=== PATIENT | male | born 1955 | race Caucasian/White ===

== ENCOUNTER 2024-09-10 20:24 | Emergency (ER) | payer OTHER, MEDICAID, SELFPAY ==
--- NOTE | 2024-09-10 21:22 | PC.NURSE ---
NO ANSWER AT ER LOBBY OR OUTSIDE ER TO BE SEEN BY PROVIDER.
--- NOTE | 2024-09-10 21:34 | PC.NURSE ---
NO ANSWER AT ER LOBBY OR OUTSIDE ER TO BE SEEN BY PROVIDER.
[2024-09-10 21:55] VITALS: BP 134/72; PULSE 61; RESP 20; TEMP 36.8; O2SAT 95; BMI 23.7
--- NOTE | 2024-09-10 22:01 | XR_ITS ---
Examination: Duplex scan of the lower extremity, unilateral left Date and time of exam: September 10, 2024 1009 hours INDICATIONS: Left leg redness swelling and pain beginning one week ago Technique: Duplex scan of the extremity veins using B-mode/grayscale imaging and Doppler spectral analysis and color flow Attention is directed to internal echogenicity, compression and augmentation involving these veins, color flow assessment, spectral analysis Findings: Major deep venous structures in the extremity demonstrate normal course and caliber. There is no evidence of deep vein thrombosis. Normal color flow and spectral analysis Impression: Negative for DVT..
--- NOTE | 2024-09-10 22:02 | PD.EDRME ---
Rapid Medical Screening Exam RME Arrival date/time: 09/10/24 20:24 69-year-old male past medical history of CHF presents emergency department complaining of left lower extremity pain and swelling with draining wound has been ongoing for 1 week. Chief Complaint: Skin/Abscess/Foreign Body Time Seen by Provider: 09/10/24 20:46 Vital signs: Vital Signs Temperature 98.2 F 09/10/24 21:55 Pulse Rate 61 09/10/24 21:55 Respiratory Rate 20 09/10/24 21:55 Blood Pressure 134/72 H 09/10/24 21:55 Pulse Oximetry (%) 95 09/10/24 21:55 Oxygen Delivery Method Room Air 09/10/24 21:55 Vital signs reviewed by provider: Yes
[2024-09-10 23:25] LABS: B-Type Natriuretic Peptide 34 pg/mL (0-100)
[2024-09-10 23:27] LABS: Basophils # (Auto) 0.1 Thou/mm3 (0.0-0.2); Basophils % (Auto) 1 % (0-2.5); Eosinophils # (Auto) 0.1 Thou/mm3 (0.0-0.5); Eosinophils % (Auto) 1 % (0-10); Hematocrit 49.7 % (41.0-53.0); Hemoglobin 16.2 g/dL (13.5-16.0); Immature Granulocytes % (Auto) 1 % (0-0); Immature Granulocytes Auto 0.09 Thou/mm3 (0.00-0.00); Lymphocytes # (Auto) 1.4 Thou/mm3 (1.0-4.8); Lymphocytes % (Auto) 13 % (10-50); Mean Corpuscular HGB Conc 32.6 g/dl (31.0-37.0); Mean Corpuscular Hemoglobin 29.2 pg (25.0-35.0); Mean Corpuscular Volume 90 fL (80-100); Monocytes # (Auto) 0.9 Thou/mm3 (0.0-0.8); Monocytes % (Auto) 8 % (0-12); Neutrophils # (Auto) 8.4 Thou/mm3 (1.8-7.7); Neutrophils % (Auto) 77 % (37-80); Nucleated Red Blood Cell % 0 /100 WBC (0); Platelet Count 233 Thou/mm3 (140-440); Red Blood Count 5.54 Miln/mm3 (4.50-5.90); White Blood Count 10.9 Thou/mm3 (3.8-10.6)
[2024-09-10 23:33] LABS: Partial Thromboplastin Time 24.8 Seconds (22.0-36.0); Prothrombin Time 10.6 Seconds (9.0-12.2)
[2024-09-10 23:35] LABS: Alanine Aminotransferase 19 U/L (10-49); Albumin, Serum 4.6 gm/dL (3.4-4.8); Albumin/Globulin Ratio 1.5 (1.2-2.2); Alkaline Phosphatase 127 U/L (46-116); Anion Gap 9 (7-16); Aspartate Amino Transferase 20 U/L (0-34); BUN/Creatinine Ratio 15 Ratio (12-20); Bilirubin,Total 0.4 mg/dL (0.3-1.2); Blood Urea Nitrogen 21 mg/dL (9-23); Calcium 10.3 mg/dL (8.3-10.6); Calcium (Corrected) 10.3 mg/dL (8.5-10.1); Carbon Dioxide 28.9 mMol/L (20.0-31.0); Chloride 101 mMol/L (98-107); Creatinine (Component) 1.4 mg/dL (0.6-1.3); Estimated Creatinine Clearance 55.4 mL/min (>60); Globulin 3.1 gm/dL (2.3-3.5); Glucose 115 mg/dL (74-106); Osmolality,Calculated 281 (275-295); Potassium 3.7 mMol/L (3.4-5.1); Procalcitonin 0.13 ng/ml (0.0-0.49); Sodium 139 mMol/L (136-145); Total Protein 7.7 gm/dL (5.7-8.2); Troponin I < 0.020 ng/mL (0.0-0.045); eGFR 55 See Note
--- NOTE | 2024-09-10 23:50 | PD.EDSKIN ---
ED Skin Abcess FB-RME/HPI General Chief complaint: Skin/Abscess/Foreign Body Stated complaint: LEFT LOWER LEG POSSIBLE INFECTION Time Seen by Provider: 09/10/24 20:46 Source: patient Arrival date/time: 09/10/24 20:24 69-year-old male past medical history of CHF presents emergency department complaining of left lower extremity pain and swelling with draining wound has been ongoing for 1 week. Patient denies any fever, chills, cough, vomiting, diarrhea, chest pain, or any other associated symptom. Mode of arrival: ambulatory Limitations: no limitations RME / HPI RME / HPI narrative: 09/10/24 20:24 69-year-old male past medical history of CHF presents emergency department complaining of left lower extremity pain and swelling with draining wound has been ongoing for 1 week. Related Data Previous Rx's ?Medication ?Instructions ?Recorded acetaminophen 325 mg tablet (Pain 325 mg PO QID PRN pain #14 tabs 01/04/24 Relief (acetaminophen)) furosemide 20 mg tablet 20 mg PO QDAY PRN edema #14 tabs 01/04/24 guaifenesin 200 mg/5 mL oral liquid 200 mg (5 mL) PO Q6H PRN cough 01/04/24 #118 mL doxycycline hyclate 100 mg capsule 100 mg PO BID 7 days #14 caps 09/10/24 Allergies Allergy/AdvReac Type Severity Reaction Status Date / Time No Known Allergies Allergy Verified 01/03/24 02:04 Review of Systems Review of Systems Systems Reviewed: All systems reviewed, normal except as documented Constitutional Constitutional: Reports system reviewed and no additional complaints, except as documented, Denies body ache(s), Denies chills and Denies fever(s) Eyes Eyes: Reports system reviewed and no additional complaints, except as documented and Denies change in vision ENT Ears, Nose, Mouth, and Throat: Reports system reviewed and no additional complaints, except as documented, Denies disequilibrium, Denies dizziness, Denies sore throat and Denies vertigo Cardiovascular Cardiovascular: Reports system reviewed and no additional complaints, except as documented, Denies chest pain and Denies dyspnea Respiratory Respiratory: Reports system reviewed and no additional complaints, except as documented, Denies chest congestion, Denies cough and Denies dyspnea Gastrointestinal Gastrointestinal: Reports system reviewed and no additional complaints, except as documented, Denies abdominal pain, Denies nausea and Denies vomiting Musculoskeletal Musculoskeletal: Reports system reviewed and no additional complaints, except as documented, Denies abnormal gait, Denies arthralgias and Reports other (Left leg pain and swelling) Integumentary/Breasts Skin/Breast: Reports system reviewed and no additional complaints, except as documented, Denies erythema, Denies rash, Reports skin swelling and Reports wounds Neurologic Neurologic: Reports system reviewed and no additional complaints, except as documented, Denies abnormal gait, Denies disequilibrium, Denies dizziness and Denies vertigo Past Medical History Past Medical History NEUROLOGIC: Positive Neurological Disorders and Peripheral Neuropathy CARDIAC: Positive Cardiac Disorders and Edema; Negative Congestive Heart Failure RESPIRATORY: Negative Chronic Obstructive Pulmonary Disease (COPD) GASTROINTESTINAL: Negative Gastrointestinal Disorders GENITOURINARY: Negative Renal Disease MUSCULOSKELETAL: Positive Musculoskeletal Disorders and Arthritis ENDOCRINE: Negative Endocrine Disorders, Diabetes Mellitus Type 1 or Diabetes Mellitus Type 2 OTHER HISTORY: Negative Hospitalization, Shingles, Falls, Blood Transfusions, Anesthesia Reactions, MRSA or Cancer Social History SMOKING STATUS: Current every day smoker SECOND HAND EXPOSURE: No ED Exam General Limitations: Present no limitations General appearance: Present alert and in no apparent distress Head Head exam: Present atraumatic Eye Eye exam: Present normal appearance, PERRL and EOMI ENT ENT exam: Present normal exam, normal oropharynx and mucous membranes moist Neck Neck exam: Present normal inspection, full ROM and trachea midline Chest Chest inspection: Present normal inspection and symmetric chest wall rise Respiratory Respiratory exam: Present normal lung sounds bilaterally Cardiovascular Cardiovascular exam: Present regular rate, normal rhythm and normal heart sounds Abdominal Exam Abdominal exam: Present soft and normal bowel sounds Extremities Exam Extremities exam: Present normal inspection and full ROM Expanded Lower Extremity Exam Leg image: 1. +1 edema with erythema warm to touch and indurated area. 2. Small draining lesion blisterlike appearance. Back Exam Back exam: Present normal inspection and full ROM Neurological Exam Neurological exam: Present alert, oriented X3 and CN II-XII intact Psychiatric Psychiatric exam: Present normal affect and normal mood Skin Skin exam: Present warm, dry, intact and normal color Course Quality Measures none Orders Category Date Time Status US venous doppler LE LT Stat Exams 09/10/24 22:01 Completed BNP [B-Type Natriuretic Peptide] Stat Lab 09/10/24 22:38 Completed CBC Stat Lab 09/10/24 22:38 Completed CMP [Comprehensive Metabolic Panel] Stat Lab 09/10/24 22:38 Completed PT [Prothrombin Time with INR] Stat Lab 09/10/24 22:38 Completed PTT [Partial Thromboplastin Time] Stat Lab 09/10/24 22:38 Completed Procalcitonin Stat Lab 09/10/24 22:38 Completed Troponin I Stat Lab 09/10/24 22:38 Completed 1,000 mg IM w/Lido* 1% Med 09/10/24 23:50 Ordered cefTRIAXone [Rocephin] 1,000 mg Lidocaine 1% 20 ml [Xylocaine 1% 20 ML] 2.1 ml IM X1 Vital Signs Vital signs: Vital Signs Temperature 98.2 F 09/10/24 21:55 Pulse Rate 61 09/10/24 21:55 Respiratory Rate 20 09/10/24 21:55 Blood Pressure 134/72 H 09/10/24 21:55 Pulse Oximetry (%) 95 09/10/24 21:55 Oxygen Delivery Method Room Air 09/10/24 21:55 95% room air with normal limits Skin / Abscess / Foreign Body MDM Narrative MDM Narrative:: 69-year-old male past medical history of CHF presents emergency department complaining of left lower extremity pain and swelling with draining wound has been ongoing for 1 week. Patient denies any fever, chills, cough, vomiting, diarrhea, chest pain, or any other associated symptom. CBC was unremarkable for any leukocytosis. CMP was also unremarkable for any elevated LFTs or gross electro abnormalities with normal troponin. BNP was also within normal limits. Ultrasound Doppler left lower extremity unremarkable for any DVT. Patient will be given IM Rocephin and discharged on antibiotic doxycycline for purulent cellulitis. Patient does not have any fevers or tachycardia or meet SIRS criteria Patient stable for outpatient treatment. Instructed to return immediately to emergency department for any worsening signs of infection or as needed. Patient data External records reviewed:: [facility] previous records Clinical information provided by:: patient Social determinants that could affect healthcare access:: none Patient has the following chronic illnesses:: See chart How is presenting disease/condition affected by chronic disease/condition?: uneffected by Evaluation data The following diagnostics were reviewed and interpreted by me:: lab results and radiology exam(s) Lab and/or radiology exams considered but not ordered:: Ordered Interpretation Summary: Interpreted by me Medications / Prescriptions Medications or Prescriptions considered but not ordered:: Ordered Medication administrations:: Given Consultations Consultation(s) initiated? (list below): No Diagnosis Skin/Abscess Differential Diagnosis: abscess of skin or subcutaneous tissue, urticaria, allergic reaction to drug, cellulitis, eczema, insect bites and contact dermatitis Most likely diagnosis given after review of the tests above:: Cellulitis Admission Indicated Admission indicated?: not indicated Admission Request Was there a request for admission?: No Disposition Plan Disposition Plan: Discharge Discharge Attestation Discharge Attestation: The patient and all family members were given an opportunity to ask questions and understood the discharge instructions. Discharge instructions specifically effects, indications for sooner follow up or return to the emergency department, and the expected course of current diagnosis. Patient condition: Stable Discharge Plan Plan Patient Disposition: HOME (Self Care) Disposition Comment: Stable Prescriptions/Referrals Prescriptions/Med Rec: New doxycycline hyclate 100 mg capsule 100 mg PO BID 7 Days Qty: 14 0RF No Action guaifenesin 200 mg/5 mL liquid 200 mg PO Q6H PRN (Reason: cough) Qty: 118 0RF acetaminophen [Pain Relief (acetaminophen)] 325 mg tablet 325 mg PO QID PRN (Reason: pain) Qty: 14 0RF furosemide 20 mg tablet 20 mg PO QDAY PRN (Reason: edema) Qty: 14 0RF Problem List Clinical Impression: Cellulitis Patient/Caregiver Discharge Instructions Discharge Activity: activity as tolerated Education Materials: Discharge Instructions for Cellulitis, ED Cellulitis Additional Instructions: Take antibiotics as prescribed. Monitor for worsening signs of infection. Follow-up with primary care provider in 2 to 3 days for reevaluation of left leg. Return immediately to emergency department for any worsening signs of infection or as needed. Print Language: German Stand Alone Forms: Ruth Ann Award Info., Patient Portal Info Letter PA/ACCOUNTS PAYABLE SUPERVISOR Supervising Physician PA/ACCOUNTS PAYABLE SUPERVISOR Supervising Physician: Dr. Pereira
[2024-09-11] MEDS: cefTRIAXone 1,000 MG, LIDOCAINE 1% 20 ML 2.1 ML IM
== END 2024-09-11 00:07 | disposition home or self-care (01) ==
PROVIDERS: Emergency Provider Emergency Medicine; PCP Internal Medicine
DX: L03.116 Cellulitis of left lower limb (principal)
CPT/HCPCS: 36415; 80053; 83880; 84145; 84484; 85025; 85610; 85730; 93971; 96372; 99284; J0696; J3490

== ENCOUNTER 2024-11-09 05:49 | Emergency (ER) | payer OTHER, MEDICAID, SELFPAY ==
[2024-11-09 05:51] VITALS: BMI 24.4
--- NOTE | 2024-11-09 05:53 | EKG_ITS ---
[facility] Test Date: 2024-11-09 Pat Name: JONAS SEWELL Department: Room: - Gender: Male [employer]: : 1955 Requested By: Magdiel Muniz Order Number: [id number] Reading MD: Magdiel Muniz Measurements Intervals [place] Rate: 100 P: 78 MI: 130 QRS: 111 QRSD: 81 T: 0 QT: 318 QTc: 411 Interpretive Statements SINUS TACHYCARDIA Compared to ECG 01/02/2024 09:51:46 Sinus rhythm no longer present Sinus arrhythmia no longer present T-wave abnormality no longer present /store/S0/[id number]/[id number].pdf
[2024-11-09 06:02] VITALS: BP 149/91; PULSE 99; RESP 20; TEMP 36.8; O2SAT 98
--- NOTE | 2024-11-09 06:33 | PD.EDRME ---
Rapid Medical Screening Exam RME Arrival date/time: 11/09/24 05:49 This is a 69-year-old male presented to the emergency department with complaints of shortness of breath. Upon rapid medical screening patient reports he is feeling much better he would like to sign out AMA and see his doctor in the morning. Chief Complaint: Shortness of Breath/Dyspnea Time Seen by Provider: 11/09/24 06:18 Vital signs: Vital Signs Temperature 98.3 F 11/09/24 06:02 Pulse Rate 99 11/09/24 06:02 Respiratory Rate 20 11/09/24 06:02 Blood Pressure 149/91 H 11/09/24 06:02 Pulse Oximetry (%) 98 11/09/24 06:02 Oxygen Delivery Method Room Air 11/09/24 06:02
--- NOTE | 2024-11-09 06:52 | PC.NURSE ---
WHEN PT WAS LEAVING, PT WAS STOPPED AND ASKED IF HE WAS LEAVING AGAINST MEDICAL ADVICE. PT RESPONDED NOBODY TOLD ME I WAS LEAVING AGAINTS MEDICAL ADVISE. IM GOING TO GO SEE MY PRIMARY
== END 2024-11-09 06:54 | disposition left against medical advice (07) ==
LOC: SERX 06:34
PROVIDERS: Emergency Provider Emergency Medicine; PCP Internal Medicine
DX: R06.02 Shortness of breath (principal); Z53.29 Procedure and treatment not carried out because of patient's decision for other reasons
CPT/HCPCS: 93005; 99283

== ENCOUNTER 2025-01-22 02:58 | Inpatient (IN) | payer MEDICARE, MEDICAID, SELFPAY ==
[2025-01-22] VITALS (12 sets, daily range): BP systolic 95–135; BP diastolic 63–92; PULSE 71–103; RESP 16–33; TEMP 36.3–36.8; O2SAT 93–99
--- NOTE | 2025-01-22 03:23 | EKG_ITS ---
[facility] Test Date: 2025-01-22 Pat Name: JONAS SEWELL Department: Room: - Gender: Male [employer]: : 1955 Requested By: Pooja Tello Order Number: [id number] Reading MD: Pooja Tello Measurements Intervals [place] Rate: 99 P: 76 [place]: 144 QRS: 126 QRSD: 84 T: -43 QT: 303 QTc: 390 Interpretive Statements SINUS RHYTHM Compared to ECG 11/09/2024 06:04:44 Sinus tachycardia no longer present /store/S0/[id number]/[id number].pdf
--- NOTE | 2025-01-22 03:23 | XR_ITS ---
Examination: PA lateral chest 2 views TECHNIQUE: Upright PA and lateral chest 2 views Date and time: January 22, 2025 0333 hours Comparison January 02, 2024 INDICATION: Shortness of breath today FINDINGS: Mild prominence cardiac contour Prominent vascular congestion Bibasilar edema and/or pneumonia Moderate osteopenia IMPRESSION: Mild heart failure. Bibasilar mild edema and/or pneumonia
--- NOTE | 2025-01-22 03:30 | PD.EDRME ---
Rapid Medical Screening Exam RME Arrival date/time: 01/22/25 02:58 Chief Complaint: Shortness of Breath/Dyspnea Time Seen by Provider: 01/22/25 03:17 Vital signs: Vital Signs Temperature 98.3 F 01/22/25 03:10 Pulse Rate 103 H 01/22/25 03:10 Respiratory Rate 19 01/22/25 03:10 Blood Pressure 129/85 H 01/22/25 03:10 Pulse Oximetry (%) 93 L 01/22/25 03:10 Oxygen Delivery Method Room Air 01/22/25 03:10 Vital signs reviewed by provider: Yes RME Narrative: 69-year-old male presents to the ED with complaint of shortness of breath, lower extremity edema, abdominal distention and edema to the hands. He indicates this is happened before and was hospitalized. After hospitalization he followed up with his primary care physician who sent him to multiple specialists which he did not follow through. He denies taking any medications at this time. I have greeted and performed a focused initial assessment of this patient. A comprehensive ED assessment and evaluation of the patient, analysis of all test results, and completion of the medical decision making process will be conducted by additional ED providers.
[2025-01-22 04:10] LABS: Lactate (Lactic Acid) 0.9 mMol/L (0.4-2.0)
[2025-01-22 04:27] LABS: Basophils # (Auto) 0.1 Thou/mm3 (0.0-0.2); Basophils % (Auto) 1 % (0-2.5); Eosinophils # (Auto) 0.1 Thou/mm3 (0.0-0.5); Eosinophils % (Auto) 1 % (0-10); Hematocrit 47.3 % (41.0-53.0); Hemoglobin 14.6 g/dL (13.5-16.0); Immature Granulocytes % (Auto) 0 % (0-0); Immature Granulocytes Auto 0.02 Thou/mm3 (0.00-0.00); Lymphocytes # (Auto) 1.4 Thou/mm3 (1.0-4.8); Lymphocytes % (Auto) 17 % (10-50); Mean Corpuscular HGB Conc 30.9 g/dl (31.0-37.0); Mean Corpuscular Hemoglobin 29.3 pg (25.0-35.0); Mean Corpuscular Volume 95 fL (80-100); Monocytes # (Auto) 0.6 Thou/mm3 (0.0-0.8); Monocytes % (Auto) 7 % (0-12); Neutrophils # (Auto) 6.3 Thou/mm3 (1.8-7.7); Neutrophils % (Auto) 74 % (37-80); Nucleated Red Blood Cell % 0 /100 WBC (0); Platelet Count 187 Thou/mm3 (140-440); RDW Standard Deviation 52.5 fL (35.1-43.9); Red Blood Count 4.99 Miln/mm3 (4.50-5.90); White Blood Count 8.4 Thou/mm3 (3.8-10.6)
[2025-01-22 04:43] LABS: INR 1.1 (0.9-1.3); Prothrombin Time 11.9 Seconds (9.0-12.2)
[2025-01-22 04:51] LABS: B-Type Natriuretic Peptide 843 pg/mL (0-100)
[2025-01-22 05:01] LABS: Alanine Aminotransferase 22 U/L (10-49); Albumin, Serum 3.8 gm/dL (3.4-4.8); Albumin/Globulin Ratio 1.5 (1.2-2.2); Alkaline Phosphatase 110 U/L (46-116); Anion Gap 5 (7-16); BUN/Creatinine Ratio 14 Ratio (12-20); Bilirubin,Total 0.4 mg/dL (0.3-1.2); Blood Urea Nitrogen 20 mg/dL (9-23); Calcium 9.1 mg/dL (8.3-10.6); Calcium (Corrected) 9.3 mg/dL (8.5-10.1); Carbon Dioxide 35.5 mMol/L (20.0-31.0); Chloride 104 mMol/L (98-107); Creatinine (Component) 1.4 mg/dL (0.6-1.3); Free T4 (Free Thyroxine) 0.99 ng/dL (0.89-1.76); Globulin 2.5 gm/dL (2.3-3.5); Glucose 112 mg/dL (74-106); LDH (Lactate Dehydrogenase) 182 U/L (120-246); Magnesium 1.8 mg/dL (1.6-2.6); Osmolality,Calculated 290 (275-295); Potassium 4.6 mMol/L (3.4-5.1); Procalcitonin 0.04 ng/ml (0.0-0.49); Sodium 144 mMol/L (136-145); Thyroid Stimulating Hormone 2.52 uIU/mL (0.55-4.78); Total Protein 6.3 gm/dL (5.7-8.2); Troponin I 0.023 ng/mL (0.0-0.045); eGFR 55 See Note
[2025-01-22 05:15] LABS: Base Excess 6 (-3-3); HCO3 36 mEq/L (20-26); Inspired O2, VO2 Liters 3 L/min; Inspired Oxygen, FIO2 21 %; O2 Saturation 95 % (91-98); PCO2 81 mmHg (32.0-48.0); PO2 79 mmHg (83-108); pH, Arterial 7.26 (7.35-7.45)
[2025-01-22] MEDS: FUROSEMIDE INJ 10 MG/ML 4ML VIAL 40 MG IVP ×3 (05:19→20:07)
[2025-01-22 05:22] LABS: Allen Test Performed/OK; Puncture Site Right Radial
--- NOTE | 2025-01-22 05:22 | PD.EDSOB ---
ED SOB =RME/HPI General Chief Complaint: Shortness of Breath/Dyspnea Stated Complaint: DIFFICULTY BREATHING Time Seen by Provider: 01/22/25 03:17 Arrival date/time: 01/22/25 02:58 RME / HPI RME / HPI Narrative: 69-year-old male presents to the ED with complaint of shortness of breath, lower extremity edema, abdominal distention and edema to the hands. He indicates this is happened before and was hospitalized. After hospitalization he followed up with his primary care physician who sent him to multiple specialists which he did not follow through. He denies taking any medications at this time. I have greeted and performed a focused initial assessment of this patient. A comprehensive ED assessment and evaluation of the patient, analysis of all test results, and completion of the medical decision making process will be conducted by additional ED providers. Dr. Recio?s Main ED Evaluation: 69yo male with a history of COPD, CHF, current tobacco smoker presents to the ED for a chief complaint of shortness of breath. Patient states he's had shortness of breath for the last 2 weeks, reporting he was unable to tolerate it tonight, so he came in for evaluation. Patient reports having a nonproductive cough. He denies any fever, chills, chest pain or any other associated symptoms. NKA. Related Data Previous Rx's ?Medication ?Instructions ?Recorded acetaminophen 325 mg tablet (Pain 325 mg PO QID PRN pain #14 tabs 01/04/24 Relief (acetaminophen)) furosemide 20 mg tablet 20 mg PO QDAY PRN edema #14 tabs 01/04/24 guaifenesin 200 mg/5 mL oral liquid 200 mg (5 mL) PO Q6H PRN cough 01/04/24 #118 mL Allergies Allergy/AdvReac Type Severity Reaction Status Date / Time No Known Allergies Allergy Verified 01/22/25 03:00 Review of Systems Review of Systems Systems Reviewed: All systems reviewed, normal except as documented Past Medical History Past Medical History NEUROLOGIC: Positive Neurological Disorders and Peripheral Neuropathy CARDIAC: Positive Cardiac Disorders and Edema; Negative Congestive Heart Failure RESPIRATORY: Positive Chronic Obstructive Pulmonary Disease (COPD) GASTROINTESTINAL: Negative Gastrointestinal Disorders GENITOURINARY: Negative Renal Disease MUSCULOSKELETAL: Positive Musculoskeletal Disorders and Arthritis ENDOCRINE: Negative Endocrine Disorders, Diabetes Mellitus Type 1 or Diabetes Mellitus Type 2 OTHER HISTORY: Negative Hospitalization, Shingles, Falls, Blood Transfusions, Anesthesia Reactions, MRSA or Cancer Social History SMOKING STATUS: Current every day smoker SECOND HAND EXPOSURE: No ED Exam Narrative Physical exam: GENERAL APPEARANCE: alert and oriented x 4, well-developed, well-nourished, no acute distress VITALS: All vitals were reviewed and the pulse ox is 96% on 2L/NC, which is slightly hypoxic according to my interpretation. HEENT: Normocephalic, atraumatic; pupils equal, round, reactive to light; EOMI; mucous membranes pink, moist; oropharynx clear NECK: Supple LUNGS: Mildly decreased air movement bilaterally; no wheezes, no rales, no rhonchi HEART: Tachycardic, regular rhythm; normal S1, S2; no murmurs ABDOMEN: non distended; normal BS; soft, no tenderness, no guarding, no rebound; no masses, no organomegaly, no hernia BACK: no CVA tenderness EXTREMITIES: atraumatic; 3+ pitting edema to the BLE NEUROLOGIC: awake; alert and oriented x4; cranial nerves II-XII grossly intact; no focal sensory or motor deficits PSYCHIATRIC: appropriate mood and affect SKIN: warm, dry, normal color; no rashes Course Course Course Narrative: CXR is ordered for determining the etiology of shortness of breath. Quality Measures none Orders Category Date Time Status Bedside COVID-19 Antigen Test NOW Care 01/22/25 03:23 Active Bedside Influenza A&B Antigen Test NOW Care 01/22/25 03:23 Completed EKG (ED ONLY) *Do not use* NOW Care 01/22/25 03:23 Completed EKG (ED Only) Stat Exams 01/22/25 03:23 Draft XR chest 2V Stat Exams 01/22/25 03:23 Taken ABG [Arterial Blood Gas] Stat Lab 01/22/25 05:07 Completed B-Type Natriuretic Peptide Stat Lab 01/22/25 03:53 Completed Blood Culture (Lab) Stat Lab 01/22/25 03:53 Received CBC Stat Lab 01/22/25 03:53 Completed CMP [Comprehensive Metabolic Panel] Stat Lab 01/22/25 03:53 Completed Drug Screen,Urine Stat Lab 01/22/25 05:23 Ordered Free T4 (Free Thyroxine) Stat Lab 01/22/25 03:53 Completed LDH (Lactate Dehydrogenase) Stat Lab 01/22/25 03:53 Completed Lactic Acid [Lactate (Lactic Acid)] Stat Lab 01/22/25 03:53 Completed Magnesium Stat Lab 01/22/25 03:53 Completed Partial Thromboplastin Time Stat Lab 01/22/25 03:53 Completed Procalcitonin Stat Lab 01/22/25 03:53 Completed Prothrombin Time with INR Stat Lab 01/22/25 03:53 Completed TSH [Thyroid Stimulating Hormone] Stat Lab 01/22/25 03:53 Completed Troponin I Stat Lab 01/22/25 03:53 Completed Urinalysis Stat Lab 01/22/25 03:23 Ordered Furosemide Inj [Lasix Inj] Med 01/22/25 05:00 Discontinued 40 mg IVP X1 ONE Vital Signs Vital signs: Vital Signs Temperature 98.3 F 01/22/25 03:10 Pulse Rate 103 H 01/22/25 03:10 Respiratory Rate 19 01/22/25 03:10 Blood Pressure 129/85 H 01/22/25 03:10 Pulse Oximetry (%) 93 L 01/22/25 03:10 Oxygen Delivery Method Room Air 01/22/25 03:10 Shortness of Breath / Dyspnea MDM Narrative MDM Narrative:: Scribe Attestation: 01/22/25 - Doris Castro am scribing for and in the presence of Dr. Recio. 0600: Care signed out to Dr. Harris (emergency physician). Past medical, surgical, social and family history reviewed. Vitals and home medications reviewed. Results and treatment plan discussed. They will assume the care of the patient at this time and will follow the patient, pending urine results and re-evaluation. Patient data External records reviewed:: [facility] previous records (Per chart review, patient was seen here on 09/10/24 for cellulitis.) Clinical information provided by:: patient Social determinants that could affect healthcare access:: substance use (history of methamphetamine and tobacco use) Patient has the following chronic illnesses:: COPD, CHF How is presenting disease/condition affected by chronic disease/condition?: exacerbated by Evaluation data The following diagnostics were reviewed and interpreted by me:: lab results, radiology exam(s) and EKG tracing(s) Lab and/or radiology exams considered but not ordered:: none Interpretation Summary: CBC normal, PT/INR/PTT normal, Creatinine 1.4, Lactic Acid normal, Troponin normal, BNP 843, Procalcitonin normal, TSH normal, Free T4 normal. CXR shows moderate vascular congestion, moderate interstitial edema, right infrahilar process, according to my interpretation. EKG done at 0339, NSR, rate of 99, T wave inversion in lead III and avF, ST depression in V3-V6 with T-wave inversions, no STEMI, according to my interpretation. Medications / Prescriptions Medications or Prescriptions considered but not ordered:: none Medication administrations:: Medication Administration History Discontinued Medications Furosemide (Furosemide Inj 10 Mg/Ml 4ml Vial) 40 mg IVP X1 ONE Stop: 01/22/25 05:01 Last Admin: 01/22/25 05:19 Dose: 40 mg Documented By: CG see above Consultations Consultation(s) initiated? (list below): No Diagnosis Shortness of Breath Differential Diagnosis: community acquired pneumonia and other (CHF exacerbation, COPD exacerbation) Most likely diagnosis given after review of the tests above:: CHF exacerbation, anasarca Admission Indicated Admission indicated?: not indicated Explain why admission is indicated or not indicated:: Diagnostics pending at sign out. Admission Request Was there a request for admission?: No Disposition Plan Disposition Plan: other (specify) (Signed out to Dr. Harris at 0600 pending UA and re-evaluation.) Discharge Plan Plan Patient condition on transfer: Stable Prescriptions/Referrals Prescriptions/Med Rec: No Action guaifenesin 200 mg/5 mL liquid 200 mg PO Q6H PRN (Reason: cough) Qty: 118 0RF acetaminophen [Pain Relief (acetaminophen)] 325 mg tablet 325 mg PO QID PRN (Reason: pain) Qty: 14 0RF furosemide 20 mg tablet 20 mg PO QDAY PRN (Reason: edema) Qty: 14 0RF Referrals: No Primary/Family,Physician [Primary Care Provider] - In 1 week Problem List Clinical Impression: CHF exacerbation, Anasarca Patient/Caregiver Discharge Instructions Print Language: Italian
[2025-01-22 06:17] LABS: Collection Type, Urine Clean Catch
[2025-01-22 06:20] LABS: Bilirubin,Urine Negative (Negative); Blood,Urine Negative (Negative); Clarity,Urine Clear (Clear/Hazy); Color,Urine Lt-Yellow (Lt Yel-Yel); Glucose, Urine Negative (Negative); Hyaline Casts,Urine < 1 /hpf (0-1); Ketones,Urine Negative (Negative); Leukocyte Esterase,Urine Negative (Negative); Nitrite,Urine Negative (Negative); Protein,Urine Negative (Neg - Trace); RBC,Urine 4 /hpf (0-3); Specific Gravity,Urine 1.011 (1.001-1.035); Squamous Epithelial Cell,Urine < 1 /hpf (0-5); Urobilinogen,Urine Negative mg/dL (0.0-1.0); WBC,Urine 3 /hpf (0-5)
[2025-01-22 06:35] LABS: Amphetamine/Methamp Scrn,U Negative (Negative); Barbiturate Screen,Urine Negative (Negative); Benzodiazepines Screen,Urine Negative (Negative); Benzoylecgonine Screen, Ur Negative (Negative); Fentanyl Screen,Urine Negative (Negative); Opiate Screen,Urine Negative (Negative); THC Screen,Urine Negative (Negative)
--- NOTE | 2025-01-22 06:48 | EDNOTE_ITS ---
Emergency Room Addendum Addendum Narrative: 0600: Care assumed from Dr. Recio, the previous shift emergency physician. Past medical, surgical, social and family history reviewed. Vitals and home medications reviewed. I will assume the care of the patient at this time, pending UA and final disposition. Please refer to the emergency department record for history and examination from initial visit.?The following addendum documentation note is intended to reflect any pending information, findings, or radiology results not included in the patient?s initial chart. Nursing notes reviewed by me. Vital signs reviewed by me. [facility] medical records reviewed by me. I reviewed ED visit on 09/10/2024 for cellulitis. 0730: Reviewed labs and ordered VBG to confirm pH on ABG. 0838: pH on VBG is unchanged from ABG. I spoke with resident Dr. Alonzo working with Dr. Echols. Discussed patients PMHx, HPI, ED course, exam findings, labs, and radiology results. State they will come evaluate the patient in the ED. 1007: Patient has been accepted for admission.
[2025-01-22 08:01] LABS: Base Excess, Venous 8 (-3-3); O2 Saturation, Venous 59 % (96-97); PCO2, Venous 92 mmHg (36-56); PO2, Venous 36 mmHg (15-58); pH, Venous 7.25 (7.33-7.66)
[2025-01-22] MEDS: ALBUTEROL RT 2.5 MG/3 ML NEBU INH (08:18)
[2025-01-22] MEDS: DOXYCYCLINE INJ 100 MG in SODIUM CHLORIDE 0.9% (POP) 100 ML IV (08:54)
[2025-01-22] MEDS: cefTRIAXone 2 GM in SODIUM CHLORIDE 0.9% (Popper) 50 ML IV (08:54)
--- NOTE | 2025-01-22 10:07 | ECHO_ITS ---
Transthoracic Echo Report Ht (in): 72 Wt (lb): 190 Exam Location: Echo Lab Status: Emergency Bale Piler: Mariposa Nunez Indications: Procedure Performed: BP: 133 / 92 HR: 71 Technical Quality: Adequate MEASUREMENTS (Male / Female) Normal Values 2D ECHO LV Diastolic Diameter PLAX 3.8 cm 4.2 - 5.9 / 3.9 - 5.3 cm LV Systolic Diameter PLAX 2.2 cm IVS Diastolic Thickness 0.9 cm 0.6 - 1.0 / 0.6 - 0.9 cm LVPW Diastolic Thickness 1.4 cm 0.6 - 1.0 / 0.6 - 0.9 cm LV Relative Wall Thickness 0.6 LVOT Diameter 2.1 cm Ascending Aorta Diameter 3.4 cm DOPPLER AV Peak Velocity 116.0 cm/s AV Peak Gradient 5.4 mmHg LVOT Peak Velocity 110.0 cm/s LVOT Peak Gradient 4.8 mmHg AV Area Cont Eq pk 3.3 cm? MV Area PHT 2.6 cm? Mitral E Point Velocity 63.1 cm/s Mitral A Point Velocity 69.4 cm/s Mitral E to A Ratio 0.9 LV E' Lateral Velocity 8.5 cm/s Mitral E to LV E' Lateral Ratio 7.4 LV E' Septal Velocity 4.3 cm/s Mitral E to LV E' Septal Ratio 14.5 TR Peak Velocity 295.0 cm/s TR Peak Gradient 34.8 mmHg PV Peak Velocity 93.7 cm/s PV Peak Gradient 3.5 mmHg FINDINGS Left Ventricle Normal left ventricular size and systolic function. Mild left ventricular hypertrophy. There is a flattened septum in diastole consistent with right ventricle volume overload. The ejection fraction is visually estimated at 55%. Right Ventricle The right ventricle is moderately enlarged with reduced systolic function. Estimated RVSP 34mmHg. RAP 15mmHg. Left Atrium The left atrium appears severely dilated. Right Atrium The right atrium is severely dilated. Atrial Septum The interatrial septum appears normal with no evidence of a shunt. Aorta The aorta is normal by two-dimensional, color flow and Doppler interrogation. Mitral Valve The mitral valve is normal by two-dimensional, color flow and Doppler interrogation. There is no significant mitral valve regurgitation, stenosis or prolapse. Aortic Valve The aortic valve is trileaflet and normal by two-dimensional, color flow and Doppler interrogation. There is no significant aortic valve regurgitation. Tricuspid Valve The tricuspid valve is normal by two-dimensional, color flow and Doppler interrogation. There is mild tricuspid regurgitation. Pulmonic Valve The pulmonic valve is not well visualized. There is no significant pulmonic valve regurgitation. Vessels The pulmonary artery appears normal. The inferior vena cava is dilated with poor inspiratory collapse. Pericardium The pericardium is normal by two-dimensional imaging. There is no significant pericardial effusion. CONCLUSIONS Indications: Dyspnea, shortness of breath on exertion, possible CHF Exacerbation Normal LV size and function. Estimated EF is 55 to 60%. Grade 1 diastolic dysfunction. Mildly dilated RV with mildly decreased RV systolic function. D-shaped septum in both systole and diastole indicating both pressure and volume overload. Moderately elevated RVSP at 50-55 mmHg. Mild TR. Mildly thickened mitral and aortic valves with minimal calcification. Trace MR. Mild biatrial dilatation. IVC dilated. No pericardial effusion Noah Dang (Electronically Signed) Final Date: 22 January 2025 18:17
--- NOTE | 2025-01-22 10:17 | ESHP_ITS ---
<Statement entered by Shorty Alonzo MD - 01/23/25 02:10> Patient is 69 y/o male with medical history for chronic substance abuse, obesity and COPD. He was last admitted at [facility] for SOB and lower extremity edema on December 2023 at which time he was treated for CHF exacerbation and was discharged on diuretics. Last echo showed normal LV function. Today patient states that he hasn't been taking any medications and has noticed progressive swelling of his legs and endorsing shortness of breath. Labs were significant for hypercapnia and elevated BNP at 843. Patient will be admitted for CHF exacerbation, echo ordered, fluid restricted and patient will be started on IV lasix. I discussed with and supervised the sales management intern physician involved in the care of this patient. Patient assessment and plan was discussed with entire medicine team, including my attending. I agree with the assessment and plan as documented by sales management intern doctor. Patient care was discussed with my attending physician Dr. Onesiom Alonzo, PGY-2 Documentation for date of: 01/22/25 HPI History of Present Illness History of present illness: History of Present Illness: This is a 69-year-old male with PMHx of obesity, chronic substance use disorder including alcohol and marijuana, chronic tobacco smoker with likely COPD component, presenting to the ED with progressively worsening shortness of breath. Reports longstanding, over 3 months, of shortness of breath that has progressively worsened over the last couple weeks. Now occurring often at rest, and with minimal exertion such as walking around the house, leading to diminished ADL as a result. Reports trouble sleeping at night. 2/2 dyspnea, needing to use at least 2 pillows to sleep. Also reports worsening bilateral lower extremity swelling, ongoing for about the same period. He lives alone. Currently not taking any medications, not following with a family provider. He states he has an appointment coming up with a provider here in town, does not know the name or which location. Denies headaches, fever, chills, abnormal weight changes, heat or cold intolerance, fall or trauma, generalized weakness, visual distortions, chest pain, adductive or dry cough, abdominal pain, N/V/D/C, dysuria, urinary urgency or frequency. Pertinent past admissions: On 12/2023, admitted for acute Respiratory failure secondary to pneumonia and COPD exacerbation. At that time, he was suspected to have CHF exacerbation based on peripheral edema and elevated BNP (542). Echocardiogram at that time was done showing normal LV size and function normal RV size and function estimated EF of 55 to 60% and trace TR. he was diuresed and discharged on ANTIBIOTICS and LASIX 20 mg which patient has not been taking. Past Medical History: * Alcohol use disorder (quit 2 years ago), previous marijuana smoker, longstanding tobacco smoking (>20 years), possible COPD based on last admission 2023. 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 Allergies: * No known allergies. Family History: * No significant family history to his knowledge. Social History: * , has 1 daughter here in town. Lives alone. Has greater than 40-cmmk-teru history of tobacco smoking, previous marijuana smoker, longstanding history of alcohol use, quit 2 years ago ED Course: * Afebrile, BP 129/85, HR 103, RR 19, satting 93% on 40% FiO2. * ABC relatively unremarkable. Normal coag studies. * Initial ABG showed pH 7.26, pCO2 81, PO279, bicarb 36. He was started on BiPAP, repeat VBG 30 minutes later showed pH 7.39, PCO2 61, PO2 32. * CHEM panel significant for CR 1.4 (baseline 1.0), BUN 21, EGFR 55, corrected calcium 10.3, ALP 127. * BNP 843, troponin 0.020 > 0.023. * Urine showed RBC 4+, otherwise WNL, no UTI. * U tox is negative. * EKG showed sinus rhythm without acute ST changes. * CXR showed vascular congestion, mild CHF, mild bibasilar edema and/or pneumonia. Reason for admission: Dyspnea in settings of CHF exacerbation > COPD exacerbation, and/or pneumonia. Review of Systems Review of Systems Narrative Review of Systems: 12 point system review negative except for above mentioned. Exam Vital Signs Temp Pulse Resp BP Pulse Ox O2 Del Method O2 Flow Rate 98.0 F 71 20 133/92 H 93 L Nasal Cannula 2 01/22/25 08:26 01/22/25 09:30 01/22/25 09:30 01/22/25 08:26 01/22/25 09:30 01/22/25 05:14 01/22/25 08:26 FiO2 40 01/22/25 09:30 Narrative Exam GENERAL * Disheveled, elderly male, on BiPAP, NAD. HEENT * NCAT.?LISA. Oral mucosa is moist. Patent Nares NECK * Supple, nontender, no thyromegaly, no meningismus, possible JVD, no step offs CHEST * RRR, no m/g/r * CTAB, no w/r/r. Symmetrical chest rise. No intercostal subcostal retraction * Atraumatic, nontender, no crepitus, symmetrical expansion. ABDOMEN * Tense abdomen (edema), nontender. * No guarding/rebound tenderness/masses. * Bowel sounds presents. EXTREMITIES * Extensive bilateral lower extremity edema extending above the hip. * Chronic bilateral extremity stasis dermatitis. SKIN * Small laceration/ulcer of left lower extremity. NEUROMUSCULAR * No lumbar or midline, no CVA, no paraspinal muscle spasm or tenderness. * Moves all 4 extremities well, with full ROM and good CSM. * MENDEZ x4, CN II-XII grossly intact. * No focal neurologic deficits. PSYCHIATRY * Normal mood and affect, cooperative, no SI or HI or hallucinations. Results: Labs 01/23/25 06:00 01/23/25 06:00 Labs: Short CBC 01/22/25 Range/Units 03:53 WBC 8.4 (3.8-10.6) Thou/mm3 Hgb 14.6 (13.5-16.0) g/dL Hct 47.3 (41.0-53.0) % Plt Count 187 (140-440) Thou/mm3 BMP 01/22/25 03:53 Sodium 144 Potassium 4.6 Chloride 104 Carbon Dioxide 35.5 H BUN 20 Creatinine 1.4 H Glucose 112 H Calcium 9.1 Cardiac Enzymes 01/22/25 Range/Units 03:53 Troponin I 0.023 (0.0-0.045) ng/mL Liver Function 01/22/25 Range/Units 03:53 Total Bilirubin 0.4 (0.3-1.2) mg/dL ALT 22 (10-49) U/L Alkaline Phosphatase 110 (46-116) U/L Albumin 3.8 (3.4-4.8) gm/dL Urine 01/22/25 Range/Units 06:12 Urine Color Lt-Yellow (Lt Yel-Yel) Urine Clarity Clear (Clear/Hazy) Urine pH 6.0 (5.0-7.0) Ur Specific [place] 1.011 (1.001-1.035) Urine Protein Negative (Neg - Trace) Urine Glucose (UA) Negative (Negative) ABG Interpretation ABG results: 01/22/25 01/22/25 05:07 07:45 ABG pH 7.26 L ABG pCO2 81 H* ABG pO2 79 L ABG HCO3 36 H ABG O2 Saturation 95 ABG Base Excess 6 H VBG pH 7.25 L VBG pCO2 92 H VBG pO2 36 VBG Base Excess 8 H Quality Measures Quality Measures none Advance care planning discussed with:: patient Medications Home Medications and Allergies Home Medications ?Medication ?Instructions ?Recorded ?Confirmed ?Type No Known Home Medications 01/22/2501/13 History Allergies Allergy/AdvReac Type Severity Reaction Status Date / Time No Known Allergies Allergy Verified 01/22/25 03:00 Visit Medications Acetaminophen (Acetaminophen 325 Mg Tablet) 650 mg PO Q6H PRN PRN Reason: PAIN SCALE 1-3 (mild Stop: 02/21/25 10:06 Acetaminophen (Acetaminophen 325 Mg Tablet) 650 mg PO Q6H PRN PRN Reason: Fever >100.4 Stop: 02/21/25 10:06 Hydrocodone Bitart/Acetaminophen (Hydrocodone/Apap 10/325 Tab) 1 tab PO Q4HR PRN PRN Reason: PAIN SCALE 7-10 (Severe Stop: 01/27/25 10:06 Albuterol/Ipratropium (Albuterol/Ipratropium (Duoneb) Rt Cherise 3 Ml Nebu) 3 ml INH Q6HRRT TINY Stop: 02/21/25 12:59 Azithromycin (Azithromycin 250 Mg Tablet) 500 mg PO X1 ONE Stop: 01/22/25 10:15 Azithromycin (Azithromycin 250 Mg Tablet) 250 mg PO QDAY TINY Stop: 01/30/25 08:59 Furosemide (Furosemide Inj 10 Mg/Ml 4ml Vial) 80 mg IVP BID TINY Stop: 02/21/25 20:59 Heparin Sodium (Porcine) (Heparin Sod Inj 5000 Unit/Ml Vial) 5,000 unit SC Q8HR TINY Stop: 02/05/25 13:59 Magnesium Sulfate (Magnesium Sulfate Ivpb) 2 gm in 50 mls @ 25 mls/hr IV X1 ONE Stop: 01/22/25 12:06 Ceftriaxone Sodium/Dextrose (Rocephin/D5w 1gm Iv Premix) 50 mls @ 100 mls/hr IV QDAY TINY Stop: 01/30/25 08:59 Ondansetron HCl (Ondansetron Inj 2 Mg/Ml Inj 2 Ml) 4 mg IVP Q6H PRN; Protocol PRN Reason: NAUSEA OR VOMITING Stop: 02/21/25 10:06 Oxycodone/Acetaminophen (Oxycodone/Apap 5/325 Tablet) 1 tab PO Q6H PRN PRN Reason: PAIN SCALE 4-6 (Moderate Stop: 01/27/25 10:06 Pantoprazole Sodium (Pantoprazole Inj 40 Mg Vial) 40 mg IVP QDAY TINY Stop: 02/21/25 10:14 Sodium Chloride (Sodium Chloride Rt 10% 15 Ml Nebu) 5 ml INH X1 ONE Stop: 01/22/25 10:15 Discontinued Medications Albuterol (Albuterol Rt 2.5 Mg/3 Ml Nebu) 2.5 mg INH X1 ONE Stop: 01/22/25 07:25 Last Admin: 01/22/25 08:18 Dose: 2.5 mg Furosemide (Furosemide Inj 10 Mg/Ml 4ml Vial) 40 mg IVP X1 ONE Stop: 01/22/25 05:01 Last Admin: 01/22/25 05:19 Dose: 40 mg Furosemide (Furosemide Inj 10 Mg/Ml 4ml Vial) 40 mg IVP X1 ONE Stop: 01/22/25 10:12 Ceftriaxone Sodium 2 gm/ (Sodium Chloride) 50 mls @ 100 mls/hr IV X1 ONE Stop: 01/22/25 07:54 Last Infusion: 01/22/25 10:02 Dose: Infused Doxycycline Hyclate 100 mg/ (Sodium Chloride) 100 mls @ 100 mls/hr IV X1 ONE Stop: 01/22/25 08:23 Last Infusion: 01/22/25 10:02 Dose: Infused Assessment & Plan Plan 69-year-old male with PMHx of obesity, chronic substance use disorder including alcohol and marijuana, chronic tobacco smoker with likely COPD component, presenting to the ED with progressively worsening shortness of breath. Dyspnea CHF exacerbation, more likely COPD exacerbation Possible community-acquired pneumonia Respiratory acidosis, compensated metabolic alkalosis Reports longstanding but progressively worsening shortness of breath and lower extremity swelling. Symptoms worsened over the last week or so, now has dyspnea with minimal exertion, including walking around the house. Reports worsening LE swelling also occurring around the same time. Found dyspneic on admission, required BiPAP. On exam, noted mild JVD, extensive bilateral LE edema extending above the hip. Initial ABG showed respiratory acidosis with pH 7.26 and CO2 81. He was started on BiPAP, ABG showed improved pH 7.39, pCO2 61. BNP 843. No lactic acidosis. Previous echo from 12/2023 showed EF 60%. He was previously discharged on FUROSEMIDE which he hasn't been taking. He has history of extensive tobacco use, greater than 30 years, COPD was suspected on previous admission. Was difficult to assess for wheezing on exam. Given that he was on BiPAP. However will treat show for likely COPD exacerbation, although his presentation with elevated BNP, fluid overload and vascular congestion on CXR is more consistent with CHF exacerbation, and will require extensive diuresis. There may be an additional pneumonia component as noted on CXR, however he denies cough, afebrile, no leukocytosis, negative influenza and COVID screen. ? Strict INOs ? Fluid restriction 1200 cc daily ? Continue BiPAP intermittently ? Continue LASIX 80 mg BID ? Continue DUNEBS Q6H PRN ? Continue CEFTRIAXONE daily (01/22 to present) ? Continue AXITHROMYCIN daily (01/22 to present) ? Pending TSH/T4, lipid panel, A1C ? Pending ECHO ? Pending cardiology recs ? Pending blood and sputum culture, MRSA Mild KAREN Possible cardiorenal type I Admission CR 1.4, baseline 1.0. Possibly he has cardiorenal type I. Anticipate improvement with diuresis as above. ? Renally dose meds, avoid overdiuresis and NEPHROTOXINS ? Daily CMP Anasarca LFTs and ALBUMEN WNL, has tense abdomen on exam. No history of liver cirrhosis but has extensive history of alcohol use. ? Pending abdominal US Active tobacco smoker Polysubstance use disorder Has extensive history of alcohol, marijuana and tobacco use. States he stopped drinking alcohol 2 years ago. Continued to smoke about a pack daily. U tox negative. ? Recommended smoking cessation. ? Daily NICOTINE patches. Health maintenance Diet: Cardiac, fluid restriction GI prophylaxis: PROTONIX DVT prophylaxis: HEPARIN subcu Antibiotics: CEFTRIAXONE, AZITHROMYCIN CODE STATUS: Full code Disposition: Admitted for CHF versus COPD exacerbation. Case was discussed with attending physician and senior resident. Lacey Westfall DO PGYI Attending Provider Attestation/Addendum Matthew, Nidhi Echols DO, attest that I was physically present for the robles portions of the service and evaluated the patient with the resident and I reviewed and discussed the case with the resident and agree with the resident's findings and plans of care as documented above Patient is a 69-year-old male with past medical history of polysubstance use, chronic tobacco use, CHF, COPD who presented to the ED with worsening shortness of breath and swelling. Patient states that he has had worsening edema for the past year. It has been over a year since he was last admitted for similar symptoms. Patient endorses having orthopnea and dyspnea on exertion. He denies any chest pain, fevers, chills, abdominal pain, dysuria, diarrhea, nausea or vomiting. Patient states that he quit smoking yesterday. Patient has bilateral lower extremity 2+ pitting edema that is ascending to his abdomen. He has mild scrotal edema. Bilateral lung bowie noted to have crackles. Patient endorses having dry cough. Patient is quite disheveled and has poor hygiene. Cardiovascular is regular rate and rhythm, no rubs, murmurs or gallops. He is currently on 3 L nasal cannula. Upon presentation into the ED, he was noted to have CO2 retention. Patient was subsequently placed on BiPAP, but improved and has been wanting to eat. Will switch to nocturnal BiPAP. Patient is to be admitted on telemetry for further workup and medical management of acute CHF exacerbation resulting in anasarca. Patient does not wear any oxygen at baseline, will titrate O2 as tolerated. Will consult cardiology for further recommendations regarding acute CHF. Will obtain new echocardiogram. Patient states he has not followed up with any doctor for over a year and does not take any medications.
[2025-01-22] MEDS: Magnesium Sulfate 2 GM Ivpb 2 GM/50 ML BAG IV (10:20)
[2025-01-22] MEDS: PANTOPRAZOLE INJ 40 MG VIAL IVP (10:20)
[2025-01-22] MEDS: AZITHROMYCIN 250 MG TABLET 500 MG PO (10:38)
[2025-01-22 11:08] LABS: Base Excess, Venous 9 (-3-3); O2 Saturation, Venous 66 % (96-97); PCO2, Venous 61 mmHg (36-56); PO2, Venous 32 mmHg (15-58); pH, Venous 7.39 (7.33-7.66)
--- NOTE | 2025-01-22 12:54 | PD.RESCONSUL ---
HPI Data of Consult Requesting Physician: Nidhi Echols DO Admitting Provider: Nidhi Echols DO Attending Provider: Nidhi Echols DO Primary Care Provider: Physician No Primary/Family Consult Narrative History of present illness: CC: Shortness of breath Patient is a 69-year-old male with a past medical history of CHF HFpEF 55 to 60% (01/02/2024), COPD per chart review, and history of substance use disorder including cocaine and methamphetamines. Patient presented to the emergency room on 01/22/2025 with a chief complaint of difficulty breathing. 1 month history of shortness of breath, which worsens with ambulation. Patient stated after a couple feet he experienced shortness of breath. Shortness of breath accompanied with palpitations. Patient denied any history of atrial fibrillation and denied any flutter like sensation. Patient has been non-adherent to medications since previous hospitalization in 2023, initially discharged on Lasix 20 mg p.o. daily. Patient denied orthopnea, or paroxysmal paroxysmal nocturnal dyspnea. Patient denied any chest pain. Patient denied any syncopal events. Patient denied dizziness. Patient denied any recent sick contacts. Substance use disorder with meth and cocaine, last use 6 months ago. Alcohol use about half a pint a week with fireball as his choice of alcohol. Smoking history since age 21-->24 pack year history. ER Course: Vitals: 129/85, HR 103, RR 19, WBC 8.4, Hgb 14.6, Hct 47.3, Plt Count 187 NA 144, K 4.6, Chloride 104, Bicarb 35.5, BUN 20, Cr 1.4 (KAREN), GFR 55 Mg 1.8 VBG: pH 7.25, pCO2 92, O2 36, 02 sat 59, --> Started on Bipap BNP 843 Troponin <0.02 Chest X-ray: Prominent vascular congestion ,mild CHF, mild bibasilar edema and/or pneumonia COVID and Flu NEGATIVE EKG: HR 96, Sinus, QRS 84, QTc 390 Lasix: 40 mg IV x2 PMH: CHF HFpEF 50-60% (2023) COPD Substance Use Disorder w/ Cocaine and Methamphetamines Past Surgical History: Denied surgical history Past Family History: Denied cardiac history for Paternal or Maternal Parents, both in their last 80s. Home Medication: Last year discharged w/ Lasix 20 mg PO-->NON ADHERENT NO HOME MEDICATION Social History: 24 pack year history (since age 21 about 1/2 pack a day) Substance Use Disorder, Abstinent 6 months, Methamphetamine & Cocaine. (UTOX NEGATIVE ON THIS ADMISSION) THC use including smoking and edibles Alcohol Use, once a week, about 1/2 Pint, Fireball Allergies: None 01/22/2025: Cardiology consulted for CHF exacerbation. cc:: cc: Nidhi Echols DO Review of Systems Review of Systems Narrative Review of Systems: General appearance: NO weight change, NO fatigue, NO weakness, NO fever, NO chills, NO night sweats, YES cough Skin: NO rash, NO itching, NO sores, NO moles HEENT: NO Trauma, NO nausea, NO vomiting, NO visual changes, NO blurry vision, NO double vision, NO tinnitus, NO vertigo, NO ear discharge, NO rhinorrhea, NO stuffiness, NO sneezing, NO allergy, NO epistaxis. NO Hoarseness, NO sore throat, NO swollen neck. Cardiac: YES Palpitations, YES dyspnea on exertion, NO orthopnea, NO paroxysmal nocturnal dyspnea, YES edema Respiratory: NO Shortness of Breath, NO Wheezing, NO Cough, NO Sputum, NO hemoptysis GI:NO appetite, NO nausea, NO vomiting, NO dysphagia, NO changes in bowel frequency, NO stool color, NO diarrhea, NO constipation, NO hemetemesis, NO hemorrhoids, NO melena, NO hematechezia, NO abdominal pain, NO jaundice Renal: NO frequency, NO hesitancy, NO urgency, NO hematuria, NO nocturia, NO incontinence MSK: NO muscle weakness, NO gout, NO arthritis, NO muscle stiffness Neuro: NO headaches, NO tremors, NO weakness, NO paralysis, NO seizures, NO loss of consciousness, NO numbness. Hem: NO anemia, NO easy bruising/bleeding, NO petechiae, NO purpura Endo: NO heat/cold intolerance, NO excessive sweating, NO polyuria, NO polydipsia, NO polyphagia, NO thyroid problems, NO diabetes Pysch: NO mood, NO anxiety, NO depression Exam Vital Signs Temp Pulse Resp BP Pulse Ox O2 Del Method O2 Flow Rate 98.0 F 95 20 95/63 93 L Nasal Cannula 2 01/22/25 08:26 01/22/25 10:20 01/22/25 09:30 01/22/25 10:20 01/22/25 09:30 01/22/25 05:14 01/22/25 08:26 FiO2 40 01/22/25 09:30 Narrative Exam General Appearance: Alert & Oriented X3, well-nourished male who is lying in bed in no acute distress, oral cavity missing all teeth, no oral lesion noted HEENT: Skull symmetrical and atraumatic. Conjunctivae pale and moist. Pupils equal, round, reactive to light and accommodation (PERRL). External ear without lesion or discharge. Straight, nares patient, mucosa pink, no discharge. No thyroid nodule appreciated. No cervical lymphadenopathy. Cardio: Normal Rate and Rhythm with S1 and S2 heart sounds. No bruits on carotid auscultation. Peripheral bilateral edema +3. Mild scrotal swelling Lungs: Symmetric with good expansion. Chest and back non-tender. Breath sounds vesicular without crackles, wheezing or rhonchi Abdomen: Non-tender, Non-distended, Normal Reactive Bowel Sounds Neuro: Alert, cooperative, oriented to person, place, and time. Speech clear. CN grossly intact. Upper motor strength 5/5 and Lower motor strength 5/5. Sensation intact. Results Labs 01/23/25 06:00 01/23/25 06:00 Labs: Short CBC 01/22/25 Range/Units 03:53 WBC 8.4 (3.8-10.6) Thou/mm3 Hgb 14.6 (13.5-16.0) g/dL Hct 47.3 (41.0-53.0) % Plt Count 187 (140-440) Thou/mm3 BMP 01/22/25 03:53 Sodium 144 Potassium 4.6 Chloride 104 Carbon Dioxide 35.5 H BUN 20 Creatinine 1.4 H Glucose 112 H Calcium 9.1 Cardiac Enzymes 01/22/25 Range/Units 03:53 Troponin I 0.023 (0.0-0.045) ng/mL Liver Function 01/22/25 Range/Units 03:53 Total Bilirubin 0.4 (0.3-1.2) mg/dL ALT 22 (10-49) U/L Alkaline Phosphatase 110 (46-116) U/L Albumin 3.8 (3.4-4.8) gm/dL Urine 01/22/25 Range/Units 06:12 Urine Color Lt-Yellow (Lt Yel-Yel) Urine Clarity Clear (Clear/Hazy) Urine pH 6.0 (5.0-7.0) Ur Specific [place] 1.011 (1.001-1.035) Urine Protein Negative (Neg - Trace) Urine Glucose (UA) Negative (Negative) ABG Interpretation ABG results: 01/22/25 01/22/25 01/22/25 05:07 07:45 11:01 ABG pH 7.26 L ABG pCO2 81 H* ABG pO2 79 L ABG HCO3 36 H ABG O2 Saturation 95 ABG Base Excess 6 H VBG pH 7.25 L 7.39 VBG pCO2 92 H 61 H D VBG pO2 36 32 VBG Base Excess 8 H 9 H Quality Measures Quality Measures none Advance care planning discussed with:: patient Medications Home Medications and Allergies Home Medications ?Medication ?Instructions ?Recorded ?Confirmed ?Type No Known Home Medications 01/22/25 01/22/25 History Allergies Allergy/AdvReac Type Severity Reaction Status Date / Time No Known Allergies Allergy Verified 01/22/25 03:00 Visit Medications Acetaminophen (Acetaminophen 325 Mg Tablet) 650 mg PO Q6H PRN PRN Reason: PAIN SCALE 1-3 (mild Stop: 02/21/25 10:06 Acetaminophen (Acetaminophen 325 Mg Tablet) 650 mg PO Q6H PRN PRN Reason: Fever >100.4 Stop: 02/21/25 10:06 Hydrocodone Bitart/Acetaminophen (Hydrocodone/Apap 10/325 Tab) 1 tab PO Q4HR PRN PRN Reason: PAIN SCALE 7-10 (Severe Stop: 01/27/25 10:06 Albuterol/Ipratropium (Albuterol/Ipratropium (Duoneb) Rt Cherise 3 Ml Nebu) 3 ml INH Q6HRRT PRN PRN Reason: wheezing Stop: 02/21/25 12:59 Azithromycin (Azithromycin 250 Mg Tablet) 250 mg PO QDAY TINY Stop: 01/30/25 08:59 Furosemide (Furosemide Inj 10 Mg/Ml 4ml Vial) 80 mg IVP BID TINY Stop: 02/21/25 20:59 Heparin Sodium (Porcine) (Heparin Sod Inj 5000 Unit/Ml Vial) 5,000 unit SC Q8HR TINY Stop: 02/05/25 13:59 Ceftriaxone Sodium/Dextrose (Rocephin/D5w 1gm Iv Premix) 1 gm in 50 mls @ 100 mls/hr IV QDAY [facility] Stop: 01/30/25 08:59 Ondansetron HCl (Ondansetron Inj 2 Mg/Ml Inj 2 Ml) 4 mg IVP Q6H PRN; Protocol PRN Reason: NAUSEA OR VOMITING Stop: 02/21/25 10:06 Oxycodone/Acetaminophen (Oxycodone/Apap 5/325 Tablet) 1 tab PO Q6H PRN PRN Reason: PAIN SCALE 4-6 (Moderate Stop: 01/27/25 10:06 Pantoprazole Sodium (Pantoprazole Inj 40 Mg Vial) 40 mg IVP QDAY [facility] Stop: 02/21/25 10:14 Last Admin: 01/22/25 10:20 Dose: 40 mg Discontinued Medications Albuterol (Albuterol Rt 2.5 Mg/3 Ml Nebu) 2.5 mg INH X1 ONE Stop: 01/22/25 07:25 Last Admin: 01/22/25 08:18 Dose: 2.5 mg Albuterol/Ipratropium (Albuterol/Ipratropium (Duoneb) Rt Cherise 3 Ml Nebu) 3 ml INH Q6HRRT [facility] Stop: 02/21/25 12:59 Azithromycin (Azithromycin 250 Mg Tablet) 500 mg PO X1 ONE Stop: 01/22/25 10:15 Last Admin: 01/22/25 10:38 Dose: 500 mg Furosemide (Furosemide Inj 10 Mg/Ml 4ml Vial) 40 mg IVP X1 ONE Stop: 01/22/25 05:01 Last Admin: 01/22/25 05:19 Dose: 40 mg Furosemide (Furosemide Inj 10 Mg/Ml 4ml Vial) 40 mg IVP X1 ONE Stop: 01/22/25 10:12 Last Admin: 01/22/25 10:20 Dose: 40 mg Ceftriaxone Sodium 2 gm/ (Sodium Chloride) 50 mls @ 100 mls/hr IV X1 ONE Stop: 01/22/25 07:54 Last Infusion: 01/22/25 10:02 Dose: Infused Doxycycline Hyclate 100 mg/ (Sodium Chloride) 100 mls @ 100 mls/hr IV X1 ONE Stop: 01/22/25 08:23 Last Infusion: 01/22/25 10:02 Dose: Infused Magnesium Sulfate (Magnesium Sulfate Ivpb) 2 gm in 50 mls @ 25 mls/hr IV X1 ONE Stop: 01/22/25 12:06 Last Infusion: 01/22/25 12:32 Dose: Infused Sodium Chloride (Sodium Chloride Rt 10% 15 Ml Nebu) 5 ml INH X1 ONE Stop: 01/22/25 10:15 Assessment & Plan Plan Patient is a 69-year-old male with a past medical history of CHF HFpEF 55 to 60% (01/02/2024), COPD per chart review, and history of substance use disorder including cocaine and methamphetamines who was admitted CHF exacerbation. Cardiology consulted. #Acute Hypercapic Respiratory Failure #Acute on Chronic Heart Failure #CHF HpEF 55-60% #Diastolic Dysfunction Grade I #Moderate PAH, RVSP 50-55% #ANASARCA Etiology: likely in the setting of cardiomyopathy as noted on echo with diastolic dysfunciton and history of meth use leading to PAH. DDX: Less likely secondary to PE as BP and HR have been stable vs less likely secondary to ID as troponin within normal limits. Diagnostics: Echo (01/22/2025): Normal LV size and function. Estimated EF is 55 to 60%. Grade 1 diastolic dysfunction.Mildly dilated RV with mildly decreased RV systolic function. D-shaped septum in both systole and diastole indicating both pressure and volume overload. Moderately elevated RVSP at 50-55 mmHg. Mild TR.Mildly thickened mitral and aortic valves with minimal calcification. Trace MR. Mild biatrial dilatation. IVC dilated. No pericardial effusion TSH 2.52, Troponin 0.02. EKG no ST elevation noted. NYHA Class: ASCVD:____ Plan: -Lasix 80 mg IV BID -Azithromycin and Ceftriaxone started prophy for possible pneumonia -Aggressive Diuresis -Lipid Panel AM -A1c AM -K>4 and Mg >2 -Fluid Restriction (1200) and Sodium Restriction 2 g per day, Daily weight checks -SpO <90%, support PRN -Work toward GDMT #KRAEN likely Prerenal KAREN noted on admission with Cr of 1.4 with a previous baseline of 1.0. BUN/Cr 14 and GFR 55 likely pre-renal in the setting of cardio-renal syndrome vs CKD given previous GFR 55 in August 2024 and repeat GFR 55. Abdomen US noted to have parenchymal scars. Plan -Avoid Neprhtoxins -Renally Dose mediation -Encourage oral hydration, with fluid restrcitons of 1200 #Respiratory Acidosis w/ Metabolic Compensation, improved. likely in the setting of CHF exacerbation vs less likely secondary to COPD as no wheezing noted on physical exam. 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 Abdomen US (01/22/2025): Cholelithiasis. Cirrhosis, mild to moderate hepatomegaly no focal liver lesions. Mild Renal Parencymal Scar Formation Hepatitis Panel (01/22/2025): negative Plan -Documentation Nurse on Alcohol Use Disorder #Hx COPD #CAP Past medical history of COPD with 24 year pack history of smoking with previous admission concern for COPD in 2023. NO wheezing noted on physical exam. Cxr did not show ephysema patter, possible pneumonia Plan -Azithromycin & Ceftriaxone -Duonebs -MRSA Screen, Sputum Culture, and Blood Culture -Patient would benefit from PFT. Health Maintenance: Disp: Pt is currently admitted to floors for further management of CHF exacerbation, cardiology following FEN: Cardiac Diet, Fluid restricted DVT: on subQ heparin Q8HR Code: Full code - The patient's plan was discussed with attending Dr. Laurence Beckford MD PGY1 Internal Medicine Attending Provider Attestation/Addendum I have personally seen and examined the patient separately on the above date of service and discussed the plan of care with the resident. I reviewed the resident Dr. Kerri Beckford excellent consultation progress note and agree with the resident findings and plan in the note above and have also edited the documentation to reflect my findings and plan. Please 62-year-old male with a past medical history of HFpEF or diastolic congestive heart failure, COPD with more than [id number] smoking history, obesity, polysubstance abuse including marijuana and methamphetamine abuse. 6 months ago as per patient, history of alcohol abuse, Dupuytren's contracture, peripheral neuropathy, poor social support for further evaluation of difficulty breathing as well as significant leg swelling. Patient is significantly volume overloaded with her most for pressure, and anasarca. Also VBG showed respiratory acidosis with a pH of 7.25PCO2 of 92 and O2 36 and saturations of 59. BNP elevated at 843 and troponin negative at 0.02. BUN elevated at 20 and creatinine of 1.4 EKG showed normal sinus rhythm without any acute ST-T changes. U tox was negative patient was started on IV Lasix along with the BiPAP. Echo from 01/22/2022 5 showed normal LV size and function with an EF of 55 to 60%, grade 1 diastolic dysfunction, mildly dilated RV with mildly decreased RV systolic function, D-shaped septum in both systole and diastole indicating both pressure and volume overload. Moderately elevated RVSP at 50 to 55 mmHg. Mild valvular abnormalities. Mild biatrial dilatation, IVC dilated no pericardial effusion. Assessment and plan: 1. Acute on chronic hypercapnic and hypoxic respiratory failure secondary to COPD as well as CHF exacerbation 2. Acute on chronic CHF exacerbation secondary to right heart failure as well as diastolic dysfunction 3. Acute COPD exacerbation 4. Moderate PAH with a RVSP of 50 to 55 mmHg 5. Anasarca 6. Acute on chronic kidney disease versus acute kidney injury mostly secondary to cardiorenal syndrome 7. Possible cirrhosis based on imaging mostly secondary to alcohol abuse 8. Questionable community-acquired pneumonia 9. Significant alcohol abuse 10. Dupteryn contractures 11. Peripheral neuropathy 12. Obesity 13. Poor social support 14. Polysubstance abuse patient apparently and quit drug abuse 6 months ago 15. Significant alcohol abuse drinks a pint of hard bowel every day 17. Current smoker with more than [id number] smoking history Patient presented with significant shortness of breath as well as leg swelling and is in acute and chronic hypoxic and hypercapnic respiratory failure secondary to his COPD as well as CHF exacerbation. Recommend to continue BiPAP every night. Primary team started antibiotics for possible pneumonia as well as underlying COPD. Patient will need aggressive treatment of the COPD and primary to manage the COPD Patient is acute on chronic CHF exacerbation which is mostly secondary to right heart failure in the setting of COPD as well as possible underlying cirrhosis as well as diastolic dysfunction. Patient does have 4+ edema and recommend to start aggressive diuresis with Lasix 40 mg IV twice daily and keep net -1 to 2 L/day. Can be changed to be Bumex if patient does not respond well. Keep potassium greater than 4 and magnesium within 2.0. Strict input output, daily weights and 2 g sodium diet. Acute kidney injury mostly secondary to the cardiorenal syndrome and with a creatinine of 1.4 and expect improvement with diuresis. Keep close monitoring of renal function. Patient possibly also has underlying cirrhosis secondary to alcohol use. Abdominal ultrasound showed cholelithiasis with possible cirrhosis and mild to moderate hepatomegaly. Primary to continue to workup for his possible new onset cirrhosis. Recommended patient to completely quit alcohol Patient counseled again that any further alcohol use or smoking and recommended completely to quit them. Patient already has quit his drug abuse since the last admission and U tox has been negative. administrative services specialist and case management consult for the patient given the poor social support. Management of rest of the medical conditions as per primary team and other consultants. Thank you for the consult and allowing me to participate in the care of the patient. Cardiology will continue to follow. Noah Dang M.D. Interventional Cardiology
--- NOTE | 2025-01-22 13:44 | XR_ITS ---
Examination: Abdomen sonogram, complete Date and time of exam: 06/24/2025 1358 hours INDICATIONS: Diagnosis cirrhosis, alcohol abuse history. Technique: Multiple real-time grayscale transabdominal sonographic images of the abdomen have been obtained. Findings: Negative for gallstones Gallbladder wall 0.35 cm no edema Common bile duct 0.3 cm no stones Pancreatic head 2.3 cm Aorta proximal and mid visualized not enlarged Liver 17.9 cm lobular contour no liver lesions Normal hepatopedal portal venous flow Patent IVC Right kidney 9.5 cm renal cortex 1.3 cm Left kidney 9.3 cm cortex 1.7 cm Mild renal parenchymal scar formation Spleen 10.2 cm IMPRESSION: Cholelithiasis Cirrhosis, mild to moderate hepatomegaly no focal liver lesions
[2025-01-22] MEDS: NICOTINE PATCH 14 MG/24 HR PATCH.TD24 TOP (14:51)
[2025-01-22] MEDS: HEPARIN SOD INJ 5000 UNIT/ML VIAL SC ×2 (14:52→21:15)
[2025-01-22 16:11] LABS: Hepatitis A Antibody IgM Non Reactive (Non React); Hepatitis B Core Antibody IgM Non Reactive (Non React); Hepatitis B Surface Antigen Non Reactive (Non React); Hepatitis C Antibody Non Reactive (Non React)
[2025-01-23] VITALS (10 sets, daily range): BP systolic 91–139; BP diastolic 61–73; PULSE 80–110; RESP 16–21; TEMP 36.4–36.8; O2SAT 94–99
[2025-01-23] MEDS: HEPARIN SOD INJ 5000 UNIT/ML VIAL SC ×3 (05:32→21:02)
[2025-01-23 06:28] LABS: Basophils % (Auto) 0 % (0-2.5); Eosinophils % (Auto) 1 % (0-10); Hematocrit 44.9 % (41.0-53.0); Hemoglobin 13.6 g/dL (13.5-16.0); Immature Granulocytes % (Auto) 1 % (0-0); Immature Granulocytes Auto 0.04 Thou/mm3 (0.00-0.00); Lymphocytes # (Auto) 1.3 Thou/mm3 (1.0-4.8); Lymphocytes % (Auto) 17 % (10-50); Mean Corpuscular HGB Conc 30.3 g/dl (31.0-37.0); Mean Corpuscular Hemoglobin 29.4 pg (25.0-35.0); Mean Corpuscular Volume 97 fL (80-100); Monocytes # (Auto) 0.6 Thou/mm3 (0.0-0.8); Monocytes % (Auto) 8 % (0-12); Neutrophils # (Auto) 5.6 Thou/mm3 (1.8-7.7); Neutrophils % (Auto) 74 % (37-80); Nucleated Red Blood Cell % 0 /100 WBC (0); Platelet Count 169 Thou/mm3 (140-440); RDW Standard Deviation 54.1 fL (35.1-43.9); Red Blood Count 4.63 Miln/mm3 (4.50-5.90); White Blood Count 7.6 Thou/mm3 (3.8-10.6)
[2025-01-23 06:39] LABS: Glucose Estimated Average 123 mg/dL (80-131); Hemoglobin A1C 5.9 % Hgb (4.8-6.0)
[2025-01-23 06:49] LABS: Alanine Aminotransferase 20 U/L (10-49); Albumin, Serum 3.5 gm/dL (3.4-4.8); Albumin/Globulin Ratio 1.6 (1.2-2.2); Alkaline Phosphatase 102 U/L (46-116); Anion Gap 9 (7-16); BUN/Creatinine Ratio 18 Ratio (12-20); Bilirubin,Total 0.5 mg/dL (0.3-1.2); Blood Urea Nitrogen 21 mg/dL (9-23); Calcium 8.7 mg/dL (8.3-10.6); Calcium (Corrected) 9.1 mg/dL (8.5-10.1); Carbon Dioxide > 40.0 mMol/L (20.0-31.0); Cardiac Risk Estimate 2.4 RATIO (4.0-6.7); Chloride 96 mMol/L (98-107); Cholesterol 112 mg/dL (132-200); Creatinine (Component) 1.2 mg/dL (0.6-1.3); Estimated Creatinine Clearance 72.4 mL/min (>60); Globulin 2.2 gm/dL (2.3-3.5); Glucose 110 mg/dL (74-106); HDL Cholesterol 46 mg/dL (40-60); LDL Cholesterol,Calculated 55 mg/dL (0-130); Magnesium 1.8 mg/dL (1.6-2.6); Osmolality,Calculated 292 (275-295); Phosphorous 4.4 mg/dL (2.4-5.1); Potassium 5.2 mMol/L (3.4-5.1); Sodium 145 mMol/L (136-145); Thyroid Stimulating Hormone 0.93 uIU/mL (0.55-4.78); Total Protein 5.7 gm/dL (5.7-8.2); Triglycerides 56 mg/dL (30-150); eGFR > 60 See Note
[2025-01-23 08:31] LABS: Base Excess, Venous 12 (-3-3); O2 Saturation, Venous 95 % (96-97); PCO2, Venous 77 mmHg (36-56); PO2, Venous 73 mmHg (15-58); pH, Venous 7.34 (7.33-7.66)
[2025-01-23] MEDS: PANTOPRAZOLE INJ 40 MG VIAL IVP (09:09)
[2025-01-23] MEDS: SOD POLYSTYRENE SULFON SUSP 15 GM/60 ML BTL 30 GM PO (09:09)
[2025-01-23] MEDS: ACETAzolaMIDE 250 MG TABLET 500 MG PO (09:10)
[2025-01-23] MEDS: FUROSEMIDE INJ 10 MG/ML 4ML VIAL 40 MG IVP ×2 (09:10→21:02)
[2025-01-23] MEDS: AZITHROMYCIN 250 MG TABLET PO (09:10)
[2025-01-23] MEDS: cefTRIAXone/D5w 1gm IV premix 1 GM/50 ML BAG IV (09:10)
[2025-01-23] MEDS: NICOTINE PATCH 14 MG/24 HR PATCH.TD24 TOP (09:11)
--- NOTE | 2025-01-23 09:38 | ESPR_ITS ---
Documentation for date of: 01/23/25 Subjective Subjective Interval history: Patient is a 69-year-old male with a past medical history of CHF HFpEF 55 to 60% (01/02/2024), COPD per chart review, and history of substance use disorder including cocaine and methamphetamines. Patient presented to the emergency room on 01/22/2025 with a chief complaint of difficulty breathing. 1 month history of shortness of breath, which worsens with ambulation. Patient stated after a couple feet he experienced shortness of breath. Shortness of breath accompanied with palpitations. Patient denied any history of atrial fibrillation and denied any flutter like sensation. Patient has been non-adherent to medications since previous hospitalization in 2023, initially discharged on Lasix 20 mg p.o. daily. Patient denied orthopnea, or paroxysmal paroxysmal nocturnal dyspnea. Patient denied any chest pain. Patient denied any syncopal events. Patient denied dizziness. Patient denied any recent sick contacts. Substance use disorder with meth and cocaine, last use 6 months ago. Alcohol use about half a pint a week with fireball as his choice of alcohol. Smoking history since age 21-->24 pack year history. 01/23/2025: No over right event. Net -2990 overnight. Patient examined this morning at bedside. Noted to have improved lower pheipheral edema. Patient would benefit from PT or encourage ambulation with MOLTEN IRON POURER/nurse. Patient denied chest pain or pressure overnight. Patient noted to have contraction alkalosis. Diamox 500 mg PO X 1 given. Repeat Renal Panel. Lasix reduced from 80 mg IV BID-->to Lasix 40 mg IVP BID Exam Vital Signs Temp Pulse Resp BP Pulse Ox O2 Del Method O2 Flow Rate 97.6 F 92 18 91/63 94 L Nasal Cannula 3 01/23/25 08:00 01/23/25 09:10 01/23/25 04:00 01/23/25 09:10 01/23/25 08:00 01/23/25 08:00 01/23/25 08:00 FiO2 40 01/22/25 09:30 Narrative Exam General Appearance: Alert & Oriented X3, well-nourished male who is lying in bed in no acute distress, oral cavity missing all teeth, no oral lesion noted HEENT: Skull symmetrical and atraumatic. Conjunctivae pale and moist. Pupils equal, round, reactive to light and accommodation (PERRL). External ear without lesion or discharge. Straight, nares patient, mucosa pink, no discharge. No thyroid nodule appreciated. No cervical lymphadenopathy. Cardio: Normal Rate and Rhythm with S1 and S2 heart sounds. Holosystolic murmur noted. No bruits on carotid auscultation. Peripheral bilateral edema +2. Mild scrotal swelling Lungs: Symmetric with good expansion. Chest and back non-tender. Breath sounds vesicular without crackles, wheezing or rhonchi Abdomen: Non-tender, Non-distended, Normal Reactive Bowel Sounds Neuro: Alert, cooperative, oriented to person, place, and time. Speech clear. CN grossly intact. Upper motor strength 5/5 and Lower motor strength 5/5. Sensation intact. Objective Labs 01/23/25 06:00 01/23/25 12:01 Labs: Laboratory Results - last 24 hr 01/22/25 01/22/25 01/23/25 07:54 11:01 06:00 WBC 7.6 RBC 4.63 Hgb 13.6 Hct 44.9 MCV 97 MCH 29.4 MCHC 30.3 L RDW Std Deviation 54.1 H Plt Count 169 Neut % (Auto) 74 Lymph % (Auto) 17 [place] % (Auto) 8 Eos % (Auto) 1 Baso % (Auto) 0 Neut # (Auto) 5.6 Lymph # (Auto) 1.3 [place] # (Auto) 0.6 Eos # (Auto) 0.0 Baso # (Auto) 0.0 Immature Gran # (Auto) 0.04 H Absolute Nucleated RBC 0.00 Immature Gran % 1 H Nucleated RBC % 0 VBG pH 7.39 VBG pCO2 61 H D VBG pO2 32 VBG O2 Sat (Enma) 66 L VBG Base Excess 9 H Sodium 145 Potassium 5.2 H D Chloride 96 L Carbon Dioxide > 40.0 H Anion Gap 9 BUN 21 Creatinine 1.2 Estim Creat Clear Calc 72.4 eGFR > 60 BUN/Creatinine Ratio 18 [address]ucose [address] Glu mg/dL 123 Hemoglobin A1c 5.9 Calculated Osmolality 292 Calcium 8.7 Corrected Calcium 9.1 Phosphorus 4.4 Magnesium 1.8 Total Bilirubin 0.5 ALT 20 Alkaline Phosphatase 102 Total Protein 5.7 Albumin 3.5 Globulin 2.2 L Albumin/Globulin Ratio 1.6 Triglycerides 56 Cholesterol 112 L LDL Cholesterol, Calc 55 HDL Cholesterol 46 Cholesterol/HDL Ratio 2.4 L TSH 0.93 Free T4 1.00 Hepatitis A IgM Ab Non Reactive Hep Bs Antigen Non Reactive Hep B Core IgM Ab Non Reactive Hepatitis C Antibody Non Reactive 01/23/25 08:11 WBC RBC Hgb Hct MCV MCH MCHC RDW Std Deviation Plt Count Neut % (Auto) Lymph % (Auto) [place] % (Auto) Eos % (Auto) Baso % (Auto) Neut # (Auto) Lymph # (Auto) [place] # (Auto) Eos # (Auto) Baso # (Auto) Immature Gran # (Auto) Absolute Nucleated RBC Immature Gran % Nucleated RBC % VBG pH 7.34 VBG pCO2 77 H D VBG pO2 73 H D VBG O2 Sat (Enma) 95 L D VBG Base Excess 12 H Sodium Potassium Chloride Carbon Dioxide Anion Gap BUN Creatinine Estim Creat Clear Calc eGFR BUN/Creatinine Ratio Glucose Estimated Ave Glu mg/dL Hemoglobin A1c Calculated Osmolality Calcium Corrected Calcium Phosphorus Magnesium Total Bilirubin ALT Alkaline Phosphatase Total Protein Albumin Globulin Albumin/Globulin Ratio Triglycerides Cholesterol LDL Cholesterol, Calc HDL Cholesterol Cholesterol/HDL Ratio TSH Free T4 Hepatitis A IgM Ab Hep Bs Antigen Hep B Core IgM Ab Hepatitis C Antibody ABG Interpretation ABG results: 01/22/25 01/22/25 01/22/25 05:07 07:45 11:01 ABG pH 7.26 L ABG pCO2 81 H* ABG pO2 79 L ABG HCO3 36 H ABG O2 Saturation 95 ABG Base Excess 6 H VBG pH 7.25 L 7.39 VBG pCO2 92 H 61 H D VBG pO2 36 32 VBG Base Excess 8 H 9 H 01/23/25 08:11 ABG pH ABG pCO2 ABG pO2 ABG HCO3 ABG O2 Saturation ABG Base Excess VBG pH 7.34 VBG pCO2 77 H D VBG pO2 73 H D VBG Base Excess 12 H Quality Measures Quality Measures none Advance care planning discussed with:: patient Assessment & Plan Assessment Current Active Medications: Generic Name Dose Route Start Last Admin Trade Name Freq PRN Reason Stop Dose Admin Acetaminophen 650 mg 01/22/25 10:07 Acetaminophen 325 Mg Tablet PO 02/21/25 10:06 Q6H PRN PAIN SCALE 1-3 (mild Acetaminophen 650 mg 01/22/25 10:07 Acetaminophen 325 Mg Tablet PO 02/21/25 10:06 Q6H PRN Fever >100.4 Hydrocodone Bitart/Acetaminophen 1 tab 01/22/25 10:07 Hydrocodone/Apap 10/325 Tab PO 01/27/25 10:06 Q4HR PRN PAIN SCALE 7-10 (Severe Albuterol/Ipratropium 3 ml 01/22/25 11:14 Albuterol/Ipratropium (Duoneb) Rt Cherise 3 Ml Nebu INH 02/21/25 12:59 Q6HRRT PRN wheezing Azithromycin 250 mg 01/23/25 09:00 01/23/25 09:10 Azithromycin 250 Mg Tablet PO 01/30/25 08:59 250 mg QDAY TINY Administration Furosemide 40 mg 01/22/25 21:00 01/23/25 09:10 Furosemide Inj 10 Mg/Ml 4ml Vial IVP 02/21/25 20:59 40 mg BID TINY Administration Heparin Sodium (Porcine) 5,000 unit 01/22/25 14:00 01/23/25 05:32 Heparin Sod Inj 5000 Unit/Ml Vial SC 02/05/25 13:59 5,000 unit Q8HR TINY Administration Ceftriaxone Sodium/Dextrose 1 gm in 50 mls @ 100 mls/hr 01/23/25 09:00 01/23/25 09:10 Rocephin/D5w 1gm Iv Premix IV 01/30/25 08:59 100 mls/hr QDAY TINY Administration Nicotine 14 mg 01/22/25 13:05 01/23/25 09:11 Nicotine Patch 14 Mg/24 Hr Patch.Td24 TOP 02/21/25 13:04 14 mg QDAY TINY Administration Ondansetron HCl 4 mg 01/22/25 10:07 Ondansetron Inj 2 Mg/Ml Inj 2 Ml IVP 02/21/25 10:06 Q6H PRN NAUSEA OR VOMITING Protocol Oxycodone/Acetaminophen 1 tab 01/22/25 10:07 Oxycodone/Apap 5/325 Tablet PO 01/27/25 10:06 Q6H PRN PAIN SCALE 4-6 (Moderate Pantoprazole Sodium 40 mg 01/22/25 10:15 01/23/25 09:09 Pantoprazole Inj 40 Mg Vial IVP 02/21/25 10:14 40 mg QDAY TINY Administration Plan #Acute on chronic hypoxic and Hypercapneic Respiratory Failure, improved #Acute on Chronic diastolic Heart Failure Exacerbation #CHF HpEF 55-60% #Diastolic Dysfunction Grade I #Moderate PAH, RVSP 50-55% #ANASARCA Etiology: likely in the setting of cardiomyopathy as noted on echo with diastolic dysfunciton and history of meth use leading to PAH. DDX: Less likely secondary to PE as BP and HR have been stable vs less likely secondary to SC as troponin within normal limits. 01/23/2025: 2960/5950/-2990 Diagnostics: Echo (01/22/2025): Normal LV size and function. Estimated EF is 55 to 60%. Grade 1 diastolic dysfunction.Mildly dilated RV with mildly decreased RV systolic function. D-shaped septum in both systole and diastole indicating both pressure and volume overload. Moderately elevated RVSP at 50-55 mmHg. Mild TR.Mildly thickened mitral and aortic valves with minimal calcification. Trace MR. Mild biatrial dilatation. IVC dilated. No pericardial effusion TSH 2.52, Troponin 0.02. EKG no ST elevation noted. A1c 5.9 Lipid Panel Lipid Panel (01/23/2025): Triglycerides 56, Cholesterol 112, LDL 55, HDl 46 NYHA Class: III ASCVD:11.8%, Moderate to high intensity statin Plan: -Lasix 40 mg IV BID -Consider Atorvastatin 40 mg HS -Aggressive Diuresis -Repeat BNP prior to discharge -K>4 and Mg >2 -Fluid Restriction (1200) and Sodium Restriction 2 g per day, Daily weight checks -SpO <90%, support PRN -Work toward GDMT, consider adding Metoprolol as Lasix reduced. #Contraction Alkalosis #KAREN likely Prerenal, improving KAREN noted on admission with Cr of 1.4 with a previous baseline of 1.0. BUN/Cr 14 and GFR 55 likely pre-renal in the setting of cardio-renal syndrome vs CKD given previous GFR 55 in August 2024 and repeat GFR 55. Abdomen US noted to have parenchymal scars. BUN 20 Cr 1.4 -->BUN 20 Cr 1.2 (01/23/2025) Bicarb >400, repeat renal function panel at noon and Diamox 500 mg PO X 1 Plan -Diamox 500 mg X 1 given, Diamox 250 mg qday scheduled by primary team -Avoid Neprhtoxins -Renally Dose mediation -Encourage oral hydration, with fluid restrcitons of 1200 #Respiratory Acidosis w/ Metabolic Compensation, improved. likely in the setting of CHF exacerbation vs less likely secondary to COPD as no wheezing noted on physical exam. 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 Abdomen US (01/22/2025): Cholelithiasis. Cirrhosis, mild to moderate hepatomegaly no focal liver lesions. Mild Renal Parencymal Scar Formation Hepatitis Panel (01/22/2025): negative Child-Calderón Score 6 points, Class A, Life expectancy 15-20 years. Abdominal surgery [facility] mortality 10%. Plan -Director Ship on Alcohol Use Disorder -Benefit from liver biopsy with Shell Coremaker/Environmental Engineer Scientist #Hx COPD #CAP Past medical history of COPD with 24 year pack history of smoking with previous admission concern for COPD in 2023. NO wheezing noted on physical exam. Cxr did not show ephysema patter, possible pneumonia Plan -Azithromycin & Ceftriaxone -Duonebs -MRSA Screen, Sputum Culture, and Blood Culture 24 hr negative -Patient would benefit from PFT. Health Maintenance: Disp: Pt is currently admitted to floors for further management of CHF exacerbation, cardiology following FEN: Cardiac Diet, Fluid restricted DVT: on subQ heparin Q8HR Code: Full code - The patient's plan was discussed with attending Dr. Laurence Beckford MD PGY1 Internal Medicine Attending Provider Attestation/Addendum I have personally seen and examined the patient separately on the above date of service and discussed the plan of care with the resident. I reviewed the resident Dr. Kerri Beckford consultation progress note and agree with the resident findings and plan in the note above and have also edited the documentation to reflect my findings and plan. Noah Dang M.D. Interventional Cardiology
--- NOTE | 2025-01-23 11:15 | ESPR_ITS ---
<Statement entered by Shorty Alonzo MD - 01/23/25 22:45> Overnight patient had 5.9 L of urine output with overall fluid balance of -2.9 L. Cardiology recommended to continue diuresis as patient is still fluid overloaded. Patient is to have BiPAP at nighttime and will repeat VBG in the morning. I discussed with and supervised the analysis internship physician involved in the care of this patient. Patient assessment and plan was discussed with entire medicine team, including my attending. I agree with the assessment and plan as documented by analysis internship doctor. Patient care was discussed with my attending physician Dr. Onesimo Alonzo, PGY-2 Documentation for date of: 01/23/25 Subjective Subjective Interval history: No acute overnight events. Reports feeling better today, shortness of breath improved, currently on 3 L NC, satting well. CO2 remains elevated at 40, VBG this morning showed PCO2 77, continued on BiPAP. Had 6 L urine output with diuresis, potassium 5.2 today, likely contraction alkalosis, we gave DIAMOX and KAYEXALATE x 1. Lower extremity edema improved, diuresis decreased. Echo yesterday showed EF 55 to 60% with grade 1 diastolic dysfunction, D-shaped septum in both systolic and diastolic indicating volume overload. Cardiology recommended continuing diuresis. Abdominal ultrasound showed cholelithiasis, cirrhosis and moderate hepatomegaly. Exam Vital Signs Temp Pulse Resp BP Pulse Ox O2 Del Method O2 Flow Rate 97.6 F 92 18 91/63 94 L Nasal Cannula 3 01/23/25 08:00 01/23/25 09:10 01/23/25 04:00 01/23/25 09:10 01/23/25 08:00 01/23/25 08:00 01/23/25 08:00 FiO2 40 01/22/25 09:30 Narrative Exam GENERAL * Disheveled, elderly male, on BiPAP, NAD. HEENT * NCAT.?LISA. Oral mucosa is moist. Patent Nares NECK * Supple, nontender, no thyromegaly, no meningismus, no JVD, no step offs CHEST * RRR, no m/g/r * CTAB, no w/r/r. Symmetrical chest rise. No intercostal subcostal retraction * Atraumatic, nontender, no crepitus, symmetrical expansion. ABDOMEN * Tense abdomen (edema), nontender. * No guarding/rebound tenderness/masses. * Bowel sounds presents. EXTREMITIES * 2+ bilateral lower extremity edema. * Chronic bilateral extremity stasis dermatitis. SKIN * Small laceration/ulcer of left lower extremity. NEUROMUSCULAR * No lumbar or midline, no CVA, no paraspinal muscle spasm or tenderness. * Moves all 4 extremities well, with full ROM and good CSM. * MENDEZ x4, CN II-XII grossly intact. * No focal neurologic deficits. PSYCHIATRY * Normal mood and affect, cooperative, no SI or HI or hallucinations. Objective Labs 01/24/25 06:05 01/24/25 06:05 Labs: Laboratory Results - last 24 hr 01/22/25 01/23/25 01/23/25 07:54 06:00 08:11 WBC 7.6 RBC 4.63 Hgb 13.6 Hct 44.9 MCV 97 MCH 29.4 MCHC 30.3 L RDW Std Deviation 54.1 H Plt Count 169 Neut % (Auto) 74 Lymph % (Auto) 17 [place] % (Auto) 8 Eos % (Auto) 1 Baso % (Auto) 0 Neut # (Auto) 5.6 Lymph # (Auto) 1.3 [place] # (Auto) 0.6 Eos # (Auto) 0.0 Baso # (Auto) 0.0 Immature Gran # (Auto) 0.04 H Absolute Nucleated RBC 0.00 Immature Gran % 1 H Nucleated RBC % 0 VBG pH 7.34 VBG pCO2 77 H D VBG pO2 73 H D VBG O2 Sat (Enma) 95 L D VBG Base Excess 12 H Sodium 145 Potassium 5.2 H D Chloride 96 L Carbon Dioxide > 40.0 H Anion Gap 9 BUN 21 Creatinine 1.2 Estim Creat Clear Calc 72.4 eGFR > 60 BUN/Creatinine Ratio 18 [address]ucose [address] Glu mg/dL 123 Hemoglobin A1c 5.9 Calculated Osmolality 292 Calcium 8.7 Corrected Calcium 9.1 Phosphorus 4.4 Magnesium 1.8 Total Bilirubin 0.5 ALT 20 Alkaline Phosphatase 102 Total Protein 5.7 Albumin 3.5 Globulin 2.2 L Albumin/Globulin Ratio 1.6 Triglycerides 56 Cholesterol 112 L LDL Cholesterol, Calc 55 HDL Cholesterol 46 Cholesterol/HDL Ratio 2.4 L TSH 0.93 Free T4 1.00 Hepatitis A IgM Ab Non Reactive Hep Bs Antigen Non Reactive Hep B Core IgM Ab Non Reactive Hepatitis C Antibody Non Reactive ABG Interpretation ABG results: 01/22/25 01/22/25 01/22/25 05:07 07:45 11:01 ABG pH 7.26 L ABG pCO2 81 H* ABG pO2 79 L ABG HCO3 36 H ABG O2 Saturation 95 ABG Base Excess 6 H VBG pH 7.25 L 7.39 VBG pCO2 92 H 61 H D VBG pO2 36 32 VBG Base Excess 8 H 9 H 01/23/25 08:11 ABG pH ABG pCO2 ABG pO2 ABG HCO3 ABG O2 Saturation ABG Base Excess VBG pH 7.34 VBG pCO2 77 H D VBG pO2 73 H D VBG Base Excess 12 H Quality Measures Quality Measures none Advance care planning discussed with:: patient Assessment & Plan Assessment Current Active Medications: Generic Name Dose Route Start Last Admin Trade Name Freq PRN Reason Stop Dose Admin Acetaminophen 650 mg 01/22/25 10:07 Acetaminophen 325 Mg Tablet PO 02/21/25 10:06 Q6H PRN PAIN SCALE 1-3 (mild Acetaminophen 650 mg 01/22/25 10:07 Acetaminophen 325 Mg Tablet PO 02/21/25 10:06 Q6H PRN Fever >100.4 Hydrocodone Bitart/Acetaminophen 1 tab 01/22/25 10:07 Hydrocodone/Apap 10/325 Tab PO 01/27/25 10:06 Q4HR PRN PAIN SCALE 7-10 (Severe Albuterol/Ipratropium 3 ml 01/22/25 11:14 Albuterol/Ipratropium (Duoneb) Rt Cherise 3 Ml Nebu INH 02/21/25 12:59 Q6HRRT PRN wheezing Azithromycin 250 mg 01/23/25 09:00 01/23/25 09:10 Azithromycin 250 Mg Tablet PO 01/30/25 08:59 250 mg QDAY TINY Administration Furosemide 40 mg 01/22/25 21:00 01/23/25 09:10 Furosemide Inj 10 Mg/Ml 4ml Vial IVP 02/21/25 20:59 40 mg BID TINY Administration Heparin Sodium (Porcine) 5,000 unit 01/22/25 14:00 01/23/25 05:32 Heparin Sod Inj 5000 Unit/Ml Vial SC 02/05/25 13:59 5,000 unit Q8HR TINY Administration Ceftriaxone Sodium/Dextrose 1 gm in 50 mls @ 100 mls/hr 01/23/25 09:00 01/23/25 09:10 Rocephin/D5w 1gm Iv Premix IV 01/30/25 08:59 100 mls/hr QDAY TINY Administration Nicotine 14 mg 01/22/25 13:05 01/23/25 09:11 Nicotine Patch 14 Mg/24 Hr Patch.Td24 TOP 02/21/25 13:04 14 mg QDAY TINY Administration Ondansetron HCl 4 mg 01/22/25 10:07 Ondansetron Inj 2 Mg/Ml Inj 2 Ml IVP 02/21/25 10:06 Q6H PRN NAUSEA OR VOMITING Protocol Oxycodone/Acetaminophen 1 tab 01/22/25 10:07 Oxycodone/Apap 5/325 Tablet PO 01/27/25 10:06 Q6H PRN PAIN SCALE 4-6 (Moderate Pantoprazole Sodium 40 mg 01/24/25 09:00 Pantoprazole 40 Mg Tablet PO 02/23/25 08:59 QDAY TINY Protocol Plan 69-year-old male with PMHx of obesity, chronic substance use disorder including alcohol and marijuana, chronic tobacco smoker with likely COPD component, presenting to the ED with progressively worsening shortness of breath. CHF exacerbation, more likely HFpEF EF 55 ? 60% Grade 1 diastolic dysfunction Pulmonology 2/2 moderate PAH COPD exacerbation Possible community-acquired pneumonia Respiratory acidosis, compensated metabolic alkalosis Reports longstanding but progressively worsening shortness of breath and lower extremity swelling. Symptoms worsened over the last week or so, now has dyspnea with minimal exertion, including walking around the house. Reports worsening LE swelling also occurring around the same time. Found dyspneic on admission, required BiPAP. On exam, noted mild JVD, extensive bilateral LE edema extending above the hip. Initial ABG showed respiratory acidosis with pH 7.26 and CO2 81. He was started on BiPAP, ABG showed improved pH 7.39, pCO2 61. BNP 843. No lactic acidosis. Previous echo from 12/2023 showed EF 60%. He was previously discharged on FUROSEMIDE which he hasn't been taking. He has history of extensive tobacco use, greater than 30 years, COPD was suspected on previous admission. Was difficult to assess for wheezing on exam. Given that he was on BiPAP. However will treat show for likely COPD exacerbation, although his presentation with elevated BNP, fluid overload and vascular congestion on CXR is more consistent with CHF exacerbation, and will require extensive diuresis. There may be an additional pneumonia component as noted on CXR, however he denies cough, afebrile, no leukocytosis, negative influenza and COVID screen. 01/22/2025 ECHOCARDIOGRAM * Normal LV size/function, EF 55-60%, grade 1 diastolic dysfunction, mildly dilated RV and mildly decreased RV systolic function. * D-shaped septum in both systole/diastole, indicating volume overload. * Mildly elevated RVSP 50-55 mmHg. * Mildly thickened mitral and aortic valve with minimal calcification, trace MR, mild biatrial dilation, IVC dilation, no pericardial effusion TG 56, cholesterol 112, LDL 55, HDL 46, TSH 0.93, free T41.0, A1c 5.9. 12/23/2024: Responded well to diuresis, lower extremity improved, creatinine improved. Has mild contraction alkalosis with mild hyperkalemia, we gave DIAMOX and KAYEXALATE, LASIX dose was decreased. Will continue with diuresis at this time. Continued on BiPAP for hypercapnia. Remains afebrile without leukocytosis. Culture still pending. ? Strict INOs ? Fluid restriction 1200 cc daily ? Continue BiPAP intermittently ? Continue LASIX 40 mg BID ? Continue DUNEBS Q6H PRN ? Continue CEFTRIAXONE daily (01/22 to present) ? Continue AXITHROMYCIN daily (01/22 to present) ? Pending TSH/T4, lipid panel, A1C ? Pending blood and sputum culture, MRSA Mild KAREN (improving) Possible cardiorenal type I Admission CR 1.4, baseline 1.0. Possibly he has cardiorenal type I. Anticipate improvement with diuresis as above. Responded well to diuresis, CR 1.2 today. ? Renally dose meds, avoid overdiuresis and NEPHROTOXINS ? Daily CMP Anasarca (improving) Liver cirrhosis, likely alcohol related LFTs and ALBUMEN WNL, has tense abdomen on exam. No history of liver cirrhosis but has extensive history of alcohol use. Hep panel nonreactive. Ultrasound showed cirrhosis with hepatomegaly, cholelithiasis (asymptomatic). ? Improving with diuresis Active tobacco smoker Polysubstance use disorder Has extensive history of alcohol, marijuana and tobacco use. States he stopped drinking alcohol 2 years ago. Continued to smoke about a pack daily. U tox negative. ? Recommended smoking cessation. ? Daily NICOTINE patches. Health maintenance Diet: Cardiac, fluid restriction GI prophylaxis: PROTONIX DVT prophylaxis: HEPARIN subcu Antibiotics: CEFTRIAXONE, AZITHROMYCIN CODE STATUS: Full code Disposition: Admitted for CHF versus COPD exacerbation. Case was discussed with attending physician and senior resident. Lacey Westfall DO PGYI Attending Provider Attestation/Addendum Nidhi Castro DO, attest that I was physically present for the robles portions of the service and evaluated the patient with the resident and I reviewed and discussed the case with the resident and agree with the resident's findings and plans of care as documented above Patient seen and evaluated this AM. He continues to have 2+ pitting edema in b/l LE. Patient appears improved today and has been using BiPap at night. Continue with IV diuresis at this time. Patient given diamox due to contractile alkalosis. Echo shows Normal LV size and function. Estimated EF is 55 to 60%. Grade 1 diastolic dysfunction. Mildly dilated RV with mildly decreased RV systolic function. D-shaped septum in both systole and diastole indicating both pressure and volume overload. Moderately elevated RVSP at 50-55 mmHg. Mild TR. Mildly thickened mitral and aortic valves with minimal calcification. Trace MR. Mild biatrial dilatation. IVC dilated. No pericardial effusion. Cardiology following. Will f/u with recommendations.
[2025-01-23 12:55] LABS: Albumin, Serum 3.7 gm/dL (3.4-4.8); Anion Gap 10 (7-16); BUN/Creatinine Ratio 17 Ratio (12-20); Blood Urea Nitrogen 20 mg/dL (9-23); Calcium 8.4 mg/dL (8.3-10.6); Calcium (Corrected) 8.6 mg/dL (8.5-10.1); Carbon Dioxide > 40.0 mMol/L (20.0-31.0); Chloride 95 mMol/L (98-107); Creatinine (Component) 1.2 mg/dL (0.6-1.3); Estimated Creatinine Clearance 72.4 mL/min (>60); Glucose 124 mg/dL (74-106); Osmolality,Calculated 292 (275-295); Phosphorous 3.7 mg/dL (2.4-5.1); Potassium 4.5 mMol/L (3.4-5.1); Sodium 145 mMol/L (136-145); eGFR > 60 See Note
[2025-01-23] MEDS: Magnesium Sulfate 2 GM Ivpb 2 GM/50 ML BAG IV (14:55)
--- NOTE | 2025-01-23 15:05 | PC.SS ---
Patient is alert/oriented. Patient was able to verify demographics. Patient states he resides alone. He states he was independent with ADL's prior to hospitalization. Patient has difficulty remembering his medical history. He thinks he may have 02 at home. Patient does not recall if he has 02 at home. Patient states he uses public transportation for all appointments. Pharmacy: [facility]. Physician: Dr. Viramontes. Patient does not recall last visit. Alt medical decision maker is his sonWillis. D/c plan is to return home. Alt medical decision maker: Van Washington, d/c plan: home transportation: [employer] or [employer]
[2025-01-24] VITALS (14 sets, daily range): BP systolic 93–115; BP diastolic 61–68; PULSE 63–102; RESP 10–25; TEMP 36.1–37.1; O2SAT 93–100
[2025-01-24] MEDS: HEPARIN SOD INJ 5000 UNIT/ML VIAL SC ×3 (05:13→21:02)
[2025-01-24 06:15] LABS: Base Excess, Venous 13 (-3-3); O2 Saturation, Venous 53 % (96-97); PCO2, Venous 102 mmHg (36-56); PO2, Venous 30 mmHg (15-58); pH, Venous 7.26 (7.33-7.66)
[2025-01-24 06:28] LABS: Basophils % (Auto) 1 % (0-2.5); Eosinophils % (Auto) 1 % (0-10); Hematocrit 47.9 % (41.0-53.0); Hemoglobin 14.4 g/dL (13.5-16.0); Immature Granulocytes % (Auto) 0 % (0-0); Immature Granulocytes Auto 0.03 Thou/mm3 (0.00-0.00); Lymphocytes # (Auto) 1.1 Thou/mm3 (1.0-4.8); Lymphocytes % (Auto) 14 % (10-50); Mean Corpuscular HGB Conc 30.1 g/dl (31.0-37.0); Mean Corpuscular Hemoglobin 29.3 pg (25.0-35.0); Mean Corpuscular Volume 97 fL (80-100); Monocytes # (Auto) 0.7 Thou/mm3 (0.0-0.8); Monocytes % (Auto) 9 % (0-12); Neutrophils # (Auto) 5.8 Thou/mm3 (1.8-7.7); Neutrophils % (Auto) 76 % (37-80); Nucleated Red Blood Cell % 0 /100 WBC (0); Platelet Count 150 Thou/mm3 (140-440); RDW Standard Deviation 53.1 fL (35.1-43.9); Red Blood Count 4.92 Miln/mm3 (4.50-5.90); White Blood Count 7.6 Thou/mm3 (3.8-10.6)
[2025-01-24 06:52] LABS: Alanine Aminotransferase 17 U/L (10-49); Albumin, Serum 3.5 gm/dL (3.4-4.8); Albumin/Globulin Ratio 1.5 (1.2-2.2); Alkaline Phosphatase 105 U/L (46-116); Anion Gap 9 (7-16); BUN/Creatinine Ratio 18 Ratio (12-20); Bilirubin,Total 0.5 mg/dL (0.3-1.2); Blood Urea Nitrogen 22 mg/dL (9-23); Calcium 8.3 mg/dL (8.3-10.6); Calcium (Corrected) 8.7 mg/dL (8.5-10.1); Carbon Dioxide > 40.0 mMol/L (20.0-31.0); Chloride 93 mMol/L (98-107); Creatinine (Component) 1.2 mg/dL (0.6-1.3); Estimated Creatinine Clearance 72.4 mL/min (>60); Globulin 2.4 gm/dL (2.3-3.5); Glucose 121 mg/dL (74-106); Osmolality,Calculated 287 (275-295); Phosphorous 3.7 mg/dL (2.4-5.1); Potassium 4.4 mMol/L (3.4-5.1); Sodium 142 mMol/L (136-145); Total Protein 5.9 gm/dL (5.7-8.2); eGFR > 60 See Note
[2025-01-24] MEDS: NICOTINE PATCH 14 MG/24 HR PATCH.TD24 TOP (08:02)
[2025-01-24] MEDS: PANTOPRAZOLE 40 MG TABLET PO (08:02)
[2025-01-24] MEDS: AZITHROMYCIN 250 MG TABLET PO (08:02)
[2025-01-24] MEDS: cefTRIAXone/D5w 1gm IV premix 1 GM/50 ML BAG IV (08:03)
[2025-01-24] MEDS: ACETAzolaMIDE 250 MG TABLET 500 MG PO (08:05)
[2025-01-24] MEDS: FUROSEMIDE INJ 10 MG/ML 4ML VIAL 40 MG IVP ×2 (08:15→21:03)
--- NOTE | 2025-01-24 09:37 | ESPR_ITS ---
<Statement entered by Shorty Alonzo MD - 01/25/25 16:24> I discussed with and supervised the international logistics analyst physician involved in the care of this patient. Patient assessment and plan was discussed with entire medicine team, including my attending. I agree with the assessment and plan as documented by international logistics analyst doctor. Patient care was discussed with my attending physician Dr. Onesimo Alonzo, PGY-2 Documentation for date of: 01/24/25 Subjective Subjective Interval history: No overnight events. Reports feeling better this morning. Denies fever, chills, headaches, chest pain, sob, cough, GI or urinary symptoms. Diuresing well, overall -2.5L net negative, edema improving but still 2+ bilaterally. Refused BiPAP overnight, CO2 > 40, VBG showed pH 7.26 and PCO2 102. Cardiology gave another dose of DIAMOX. I spoke with patient, he is willing to try BiPAP after breakfast today. Will repeat VBG later today. Remainder labs and vitals are stable. Exam Vital Signs Temp Pulse Resp BP Pulse Ox O2 Del Method O2 Flow Rate 97.7 F 81 17 102/65 97 Nasal Cannula 3 01/24/25 08:00 01/24/25 08:26 01/24/25 08:26 01/24/25 08:15 01/24/25 08:26 01/24/25 08:00 01/24/25 08:00 FiO2 45 01/24/25 08:26 Narrative Exam GENERAL * Disheveled, elderly male, on BiPAP, NAD. HEENT * NCAT.?LISA. Oral mucosa is moist. Patent Nares NECK * Supple, nontender, no thyromegaly, no meningismus, no JVD, no step offs CHEST * RRR, no m/g/r * CTAB, no w/r/r. Symmetrical chest rise. No intercostal subcostal retraction * Atraumatic, nontender, no crepitus, symmetrical expansion. ABDOMEN * Improving tense abdomen (edema), nontender. * No guarding/rebound tenderness/masses. * Bowel sounds presents. EXTREMITIES * 2+ bilateral lower extremity edema. * Chronic bilateral extremity stasis dermatitis. SKIN * Small laceration/ulcer of left lower extremity. NEUROMUSCULAR * No lumbar or midline, no CVA, no paraspinal muscle spasm or tenderness. * Moves all 4 extremities well, with full ROM and good CSM. * MENDEZ x4, CN II-XII grossly intact. * No focal neurologic deficits. PSYCHIATRY * Normal mood and affect, cooperative, no SI or HI or hallucinations. Objective Labs 01/25/25 05:19 01/25/25 05:19 Labs: Laboratory Results - last 24 hr 01/23/25 01/24/25 12:01 06:05 WBC 7.6 RBC 4.92 Hgb 14.4 Hct 47.9 MCV 97 MCH 29.3 MCHC 30.1 L RDW Std Deviation 53.1 H Plt Count 150 Neut % (Auto) 76 Lymph % (Auto) 14 [place] % (Auto) 9 Eos % (Auto) 1 Baso % (Auto) 1 Neut # (Auto) 5.8 Lymph # (Auto) 1.1 [place] # (Auto) 0.7 Eos # (Auto) 0.0 Baso # (Auto) 0.0 Immature Gran # (Auto) 0.03 H Absolute Nucleated RBC 0.00 Immature Gran % 0 Nucleated RBC % 0 VBG pH 7.26 L VBG pCO2 102 H D VBG pO2 30 D VBG O2 Sat (Enma) 53 L D VBG Base Excess 13 H Sodium 145 142 Potassium 4.5 D 4.4 Chloride 95 L 93 L Carbon Dioxide > 40.0 H > 40.0 H Anion Gap 10 9 BUN 20 22 Creatinine 1.2 1.2 Estim Creat Clear Calc 72.4 72.4 eGFR > 60 > 60 BUN/Creatinine Ratio 17 18 Glucose 124 H 121 H Calculated Osmolality 292 287 Calcium 8.4 8.3 Corrected Calcium 8.6 8.7 Phosphorus 3.7 3.7 Magnesium 2.0 Total Bilirubin 0.5 ALT 17 Alkaline Phosphatase 105 Total Protein 5.9 Albumin 3.7 3.5 Globulin 2.4 Albumin/Globulin Ratio 1.5 ABG Interpretation ABG results: 01/22/25 01/22/25 01/22/25 05:07 07:45 11:01 ABG pH 7.26 L ABG pCO2 81 H* ABG pO2 79 L ABG HCO3 36 H ABG O2 Saturation 95 ABG Base Excess 6 H VBG pH 7.25 L 7.39 VBG pCO2 92 H 61 H D VBG pO2 36 32 VBG Base Excess 8 H 9 H 01/23/25 01/24/25 08:11 06:05 ABG pH ABG pCO2 ABG pO2 ABG HCO3 ABG O2 Saturation ABG Base Excess VBG pH 7.34 7.26 L VBG pCO2 77 H D 102 H D VBG pO2 73 H D 30 D VBG Base Excess 12 H 13 H Quality Measures Quality Measures none Advance care planning discussed with:: patient Assessment & Plan Assessment Current Active Medications: Generic Name Dose Route Start Last Admin Trade Name Freq PRN Reason Stop Dose Admin Acetaminophen 650 mg 01/22/25 10:07 Acetaminophen 325 Mg Tablet PO 02/21/25 10:06 Q6H PRN PAIN SCALE 1-3 (mild Acetaminophen 650 mg 01/22/25 10:07 Acetaminophen 325 Mg Tablet PO 02/21/25 10:06 Q6H PRN Fever >100.4 Hydrocodone Bitart/Acetaminophen 1 tab 01/22/25 10:07 Hydrocodone/Apap 10/325 Tab PO 01/27/25 10:06 Q4HR PRN PAIN SCALE 7-10 (Severe Acetazolamide 500 mg 01/25/25 09:00 Acetazolamide 250 Mg Tablet PO 02/24/25 08:59 QDAY TINY Albuterol/Ipratropium 3 ml 01/22/25 11:14 Albuterol/Ipratropium (Duoneb) Rt Cherise 3 Ml Nebu INH 02/21/25 12:59 Q6HRRT PRN wheezing Azithromycin 250 mg 01/23/25 09:00 01/24/25 08:02 Azithromycin 250 Mg Tablet PO 01/30/25 08:59 250 mg QDAY TINY Administration Furosemide 40 mg 01/22/25 21:00 01/24/25 08:15 Furosemide Inj 10 Mg/Ml 4ml Vial IVP 02/21/25 20:59 40 mg BID TINY Administration Heparin Sodium (Porcine) 5,000 unit 01/22/25 14:00 01/24/25 05:13 Heparin Sod Inj 5000 Unit/Ml Vial SC 02/05/25 13:59 5,000 unit Q8HR TINY Administration Ceftriaxone Sodium/Dextrose 1 gm in 50 mls @ 100 mls/hr 01/23/25 09:00 01/24/25 08:03 Rocephin/D5w 1gm Iv Premix IV 01/30/25 08:59 100 mls/hr QDAY TINY Administration Nicotine 14 mg 01/22/25 13:05 01/24/25 08:02 Nicotine Patch 14 Mg/24 Hr Patch.Td24 TOP 02/21/25 13:04 14 mg QDAY TINY Administration Ondansetron HCl 4 mg 01/22/25 10:07 Ondansetron Inj 2 Mg/Ml Inj 2 Ml IVP 02/21/25 10:06 Q6H PRN NAUSEA OR VOMITING Protocol Oxycodone/Acetaminophen 1 tab 01/22/25 10:07 Oxycodone/Apap 5/325 Tablet PO 01/27/25 10:06 Q6H PRN PAIN SCALE 4-6 (Moderate Pantoprazole Sodium 40 mg 01/24/25 09:00 01/24/25 08:02 Pantoprazole 40 Mg Tablet PO 02/23/25 08:59 40 mg QDAY TINY Administration Protocol Plan 69-year-old male with PMHx of obesity, chronic substance use disorder including alcohol and marijuana, chronic tobacco smoker with likely COPD component, presenting to the ED with progressively worsening shortness of breath. CHF exacerbation, more likely HFpEF EF 55 ? 60% Grade 1 diastolic dysfunction Pulmonology 2/2 moderate PAH COPD exacerbation Possible community-acquired pneumonia Respiratory acidosis, compensated metabolic alkalosis Reports longstanding but progressively worsening shortness of breath and lower extremity swelling. Symptoms worsened over the last week or so, now has dyspnea with minimal exertion, including walking around the house. Reports worsening LE swelling also occurring around the same time. Found dyspneic on admission, required BiPAP. On exam, noted mild JVD, extensive bilateral LE edema extending above the hip. Initial ABG showed respiratory acidosis with pH 7.26 and CO2 81. He was started on BiPAP, ABG showed improved pH 7.39, pCO2 61. BNP 843. No lactic acidosis. Previous echo from 12/2023 showed EF 60%. He was previously discharged on FUROSEMIDE which he hasn't been taking. He has history of extensive tobacco use, greater than 30 years, COPD was suspected on previous admission. Was difficult to assess for wheezing on exam. Given that he was on BiPAP. However will treat show for likely COPD exacerbation, although his presentation with elevated BNP, fluid overload and vascular congestion on CXR is more consistent with CHF exacerbation, and will require extensive diuresis. There may be an additional pneumonia component as noted on CXR, however he denies cough, afebrile, no leukocytosis, negative influenza and COVID screen. 01/22/2025 ECHOCARDIOGRAM * Normal LV size/function, EF 55-60%, grade 1 diastolic dysfunction, mildly dilated RV and mildly decreased RV systolic function. * D-shaped septum in both systole/diastole, indicating volume overload. * Mildly elevated RVSP 50-55 mmHg. * Mildly thickened mitral and aortic valve with minimal calcification, trace MR, mild biatrial dilation, IVC dilation, no pericardial effusion TG 56, cholesterol 112, LDL 55, HDL 46, TSH 0.93, free T41.0, A1c 5.9. 12/23/2024: Responded well to diuresis, lower extremity improved, creatinine improved. Has mild contraction alkalosis with mild hyperkalemia, we gave DIAMOX and KAYEXALATE, LASIX dose was decreased. Will continue with diuresis at this time. Continued on BiPAP for hypercapnia. Remains afebrile without leukocytosis. Culture still pending. 12/24/2024: Diuresing well, overall net ?2.5L. Persistent 2+ LE edema although improved since admission. Refusing BiPAP but VBG remains acidodic and hypercapnic. We discussed BiPAP and ? Strict INOs ? Fluid restriction 1200 cc daily ? Continue BiPAP intermittently ? Continue LASIX 40 mg BID ? Continue DUNEBS Q6H PRN ? Continue CEFTRIAXONE daily (01/22 to present) ? Continue AZITHROMYCIN daily (01/22 to present) ? Added ATORVASTATIN 40 mg daily ? Pending blood and sputum culture, MRSA Mild KAREN (improving) Possible cardiorenal type I Admission CR 1.4, baseline 1.0. Possibly he has cardiorenal type I. Anticipate improvement with diuresis as above. Responded well to diuresis, CR 1.2 today. ? Renally dose meds, avoid overdiuresis and NEPHROTOXINS ? Daily CMP Anasarca (improving) Liver cirrhosis, likely alcohol related LFTs and ALBUMEN WNL, has tense abdomen on exam. No history of liver cirrhosis but has extensive history of alcohol use. Hep panel nonreactive. Ultrasound showed cirrhosis with hepatomegaly, cholelithiasis (asymptomatic). ? Improving with diuresis Active tobacco smoker Polysubstance use disorder Has extensive history of alcohol, marijuana and tobacco use. States he stopped drinking alcohol 2 years ago. Continued to smoke about a pack daily. U tox negative. ? Recommended smoking cessation. ? Daily NICOTINE patches. Health maintenance Diet: Cardiac, fluid restriction GI prophylaxis: PROTONIX DVT prophylaxis: HEPARIN subcu Antibiotics: CEFTRIAXONE, AZITHROMYCIN CODE STATUS: Full code Disposition: Admitted for CHF versus COPD exacerbation. Case was discussed with attending physician and senior resident. Lacey Westfall DO PGYI Attending Provider Attestation/Addendum Nidhi Castro DO, attest that I was physically present for the robles portions of the service and evaluated the patient with the resident and I reviewed and discussed the case with the resident and agree with the resident's findings and plans of care as documented above Patient seen and evaluated this AM. He continues to be retaining CO2, placed back on bipap. Patient given diamox which may also be causing worsening CO2 retention. Patient states he is improved. B/l LE edema also improved. He remains on Lasix 40mg IV BID. Continue wtih current management and monitor volume and acidosis.
[2025-01-24] MEDS: ACETAMINOPHEN 325 MG TABLET 650 MG PO (09:58)
[2025-01-24 11:34] LABS: Base Excess, Venous 13 (-3-3); O2 Saturation, Venous 90 % (96-97); PCO2, Venous 87 mmHg (36-56); PO2, Venous 57 mmHg (15-58); pH, Venous 7.31 (7.33-7.66)
--- NOTE | 2025-01-24 13:56 | PD.RESPRO ---
Documentation for date of: 01/24/25 Subjective Subjective Interval history: Patient is a 69-year-old male with a past medical history of CHF HFpEF 55 to 60% (01/02/2024), COPD per chart review, and history of substance use disorder including cocaine and methamphetamines. Patient presented to the emergency room on 01/22/2025 with a chief complaint of difficulty breathing. 1 month history of shortness of breath, which worsens with ambulation. Patient stated after a couple feet he experienced shortness of breath. Shortness of breath accompanied with palpitations. Patient denied any history of atrial fibrillation and denied any flutter like sensation. Patient has been non-adherent to medications since previous hospitalization in 2023, initially discharged on Lasix 20 mg p.o. daily. Patient denied orthopnea, or paroxysmal paroxysmal nocturnal dyspnea. Patient denied any chest pain. Patient denied any syncopal events. Patient denied dizziness. Patient denied any recent sick contacts. Substance use disorder with meth and cocaine, last use 6 months ago. Alcohol use about half a pint a week with fireball as his choice of alcohol. Smoking history since age 21-->24 pack year history. 01/23/2025: No over right event. Net -2990 overnight. Patient examined this morning at bedside. Noted to have improved lower pheipheral edema. Patient would benefit from PT or encourage ambulation with CORPORATE ASSOCIATE ATTORNEY/nurse. Patient denied chest pain or pressure overnight. Patient noted to have contraction alkalosis. Diamox 500 mg PO X 1 given. Repeat Renal Panel. Lasix reduced from 80 mg IV BID-->to Lasix 40 mg IVP BID 01/24/2025: Patient continues to have contraction alkalosis, despite Diamox 500 mg PO on 01/23-01/24. Patient examined at bedside, patient denied chest pain or shortness of breath.Denied any flank or abdominal tenderness. Patient started on bipap briefly for Acidosis with VBG pH of 7.26. Order ABG. Exam Vital Signs Temp Pulse Resp BP Pulse Ox O2 Del Method O2 Flow Rate 97.3 F 78 25 H 111/68 96 BiPAP 3 01/24/25 12:00 01/24/25 12:00 01/24/25 12:00 01/24/25 12:00 01/24/25 12:00 01/24/25 12:01/24/25 08:00 FiO2 45 01/24/25 10:18 Narrative Exam General Appearance: Alert & Oriented X3, well-nourished male who is lying in bed in no acute distress, oral cavity missing all teeth, no oral lesion noted HEENT: Skull symmetrical and atraumatic. Conjunctivae pale and moist. Pupils equal, round, reactive to light and accommodation (PERRL). External ear without lesion or discharge. Straight, nares patient, mucosa pink, no discharge. No thyroid nodule appreciated. No cervical lymphadenopathy. Cardio: Normal Rate and Rhythm with S1 and S2 heart sounds. Holosystolic murmur noted. No bruits on carotid auscultation. Peripheral bilateral edema +1 on right and 2 on left but overall improved. Mild scrotal swelling Lungs: Symmetric with good expansion. Chest and back non-tender. Breath sounds vesicular without crackles, wheezing or rhonchi Abdomen: Non-tender, Non-distended, Normal Reactive Bowel Sounds Neuro: Alert, cooperative, oriented to person, place, and time. Speech clear. CN grossly intact. Upper motor strength 5/5 and Lower motor strength 5/5. Sensation intact. Objective Labs 01/24/25 06:05 01/24/25 06:05 Labs: Laboratory Results - last 24 hr 01/24/25 01/24/25 06:05 11:26 WBC 7.6 RBC 4.92 Hgb 14.4 Hct 47.9 MCV 97 MCH 29.3 MCHC 30.1 L RDW Std Deviation 53.1 H Plt Count 150 Neut % (Auto) 76 Lymph % (Auto) 14 [place] % (Auto) 9 Eos % (Auto) 1 Baso % (Auto) 1 Neut # (Auto) 5.8 Lymph # (Auto) 1.1 [place] # (Auto) 0.7 Eos # (Auto) 0.0 Baso # (Auto) 0.0 Immature Gran # (Auto) 0.03 H Absolute Nucleated RBC 0.00 Immature Gran % 0 Nucleated RBC % 0 VBG pH 7.26 L 7.31 L VBG pCO2 102 H D 87 H D VBG pO2 30 D 57 D VBG O2 Sat (Enma) 53 L D 90 L D VBG Base Excess 13 H 13 H Sodium 142 Potassium 4.4 Chloride 93 L Carbon Dioxide > 40.0 H Anion Gap 9 BUN 22 Creatinine 1.2 Estim Creat Clear Calc 72.4 eGFR > 60 BUN/Creatinine Ratio 18 Glucose 121 H Calculated Osmolality 287 Calcium 8.3 Corrected Calcium 8.7 Phosphorus 3.7 Magnesium 2.0 Total Bilirubin 0.5 ALT 17 Alkaline Phosphatase 105 Total Protein 5.9 Albumin 3.5 Globulin 2.4 Albumin/Globulin Ratio 1.5 ABG Interpretation ABG results: 01/22/25 01/22/25 01/22/25 05:07 07:45 11:01 ABG pH 7.26 L ABG pCO2 81 H* ABG pO2 79 L ABG HCO3 36 H ABG O2 Saturation 95 ABG Base Excess 6 H VBG pH 7.25 L 7.39 VBG pCO2 92 H 61 H D VBG pO2 36 32 VBG Base Excess 8 H 9 H 01/23/25 01/24/25 01/24/25 08:11 06:05 11:26 ABG pH ABG pCO2 ABG pO2 ABG HCO3 ABG O2 Saturation ABG Base Excess VBG pH 7.34 7.26 L 7.31 L VBG pCO2 77 H D 102 H D 87 H D VBG pO2 73 H D 30 D 57 D VBG Base Excess 12 H 13 H 13 H Quality Measures Quality Measures none Advance care planning discussed with:: patient Assessment & Plan Assessment Current Active Medications: Generic Name Dose Route Start Last Admin Trade Name Freq PRN Reason Stop Dose Admin Acetaminophen 650 mg 01/22/25 10:07 01/24/25 09:58 Acetaminophen 325 Mg Tablet PO 02/21/25 10:06 650 mg Q6H PRN Administration PAIN SCALE 1-3 (mild Acetaminophen 650 mg 01/22/25 10:07 Acetaminophen 325 Mg Tablet PO 02/21/25 10:06 Q6H PRN Fever >100.4 Hydrocodone Bitart/Acetaminophen 1 tab 01/22/25 10:07 Hydrocodone/Apap 10/325 Tab PO 01/27/25 10:06 Q4HR PRN PAIN SCALE 7-10 (Severe Acetazolamide 500 mg 01/25/25 09:00 Acetazolamide 250 Mg Tablet PO 02/24/25 08:59 QDAY TINY Albuterol/Ipratropium 3 ml 01/22/25 11:14 Albuterol/Ipratropium (Duoneb) Rt Cherise 3 Ml Nebu INH 02/21/25 12:59 Q6HRRT PRN wheezing Azithromycin 250 mg 01/23/25 09:00 01/24/25 08:02 Azithromycin 250 Mg Tablet PO 01/30/25 08:59 250 mg QDAY TINY Administration Furosemide 40 mg 01/22/25 21:00 01/24/25 08:15 Furosemide Inj 10 Mg/Ml 4ml Vial IVP 02/21/25 20:59 40 mg BID TINY Administration Heparin Sodium (Porcine) 5,000 unit 01/22/25 14:00 01/24/25 05:13 Heparin Sod Inj 5000 Unit/Ml Vial SC 02/05/25 13:59 5,000 unit Q8HR TINY Administration Ceftriaxone Sodium/Dextrose 1 gm in 50 mls @ 100 mls/hr 01/23/25 09:00 01/24/25 08:03 Rocephin/D5w 1gm Iv Premix IV 01/30/25 08:59 100 mls/hr QDAY TINY Administration Nicotine 14 mg 01/22/25 13:05 01/24/25 08:02 Nicotine Patch 14 Mg/24 Hr Patch.Td24 TOP 02/21/25 13:04 14 mg QDAY TINY Administration Ondansetron HCl 4 mg 01/22/25 10:07 Ondansetron Inj 2 Mg/Ml Inj 2 Ml IVP 02/21/25 10:06 Q6H PRN NAUSEA OR VOMITING Protocol Oxycodone/Acetaminophen 1 tab 01/22/25 10:07 Oxycodone/Apap 5/325 Tablet PO 01/27/25 10:06 Q6H PRN PAIN SCALE 4-6 (Moderate Pantoprazole Sodium 40 mg 01/24/25 09:00 01/24/25 08:02 Pantoprazole 40 Mg Tablet PO 02/23/25 08:59 40 mg QDAY TINY Administration Protocol Plan #Acute on chronic hypoxic and Hypercapneic Respiratory Failure, improved #Acute on Chronic diastolic Heart Failure Exacerbation #CHF HpEF 55-60% #Diastolic Dysfunction Grade I #Moderate PAH, RVSP 50-55% #ANASARCA Etiology: likely in the setting of cardiomyopathy as noted on echo with diastolic dysfunciton and history of meth use leading to PAH. DDX: Less likely secondary to PE as BP and HR have been stable vs less likely secondary to UT as troponin within normal limits. 01/23/2025: 2960/5950/-2990 01/24/2025: 1730/4260/-2530, if improved lower pedal edema, consider reducing Lasix from 40 mg IV BID to Qday in the morning Diagnostics: Echo (01/22/2025): Normal LV size and function. Estimated EF is 55 to 60%. Grade 1 diastolic dysfunction.Mildly dilated RV with mildly decreased RV systolic function. D-shaped septum in both systole and diastole indicating both pressure and volume overload. Moderately elevated RVSP at 50-55 mmHg. Mild TR.Mildly thickened mitral and aortic valves with minimal calcification. Trace MR. Mild biatrial dilatation. IVC dilated. No pericardial effusion TSH 2.52, Troponin 0.02. EKG no ST elevation noted. A1c 5.9 Lipid Panel Lipid Panel (01/23/2025): Triglycerides 56, Cholesterol 112, LDL 55, HDl 46 NYHA Class: III ASCVD:11.8%, Moderate to high intensity statin Plan: -Lasix 40 mg IV BID -Consider Atorvastatin 40 mg HS given ASCVD risk -Aggressive Diuresis -Repeat BNP prior to discharge -K>4 and Mg >2 -Fluid Restriction (1200) and Sodium Restriction 2 g per day, Daily weight checks -SpO <90%, support PRN -Work toward GDMT, consider adding Metoprolol as Lasix reduced. #Contraction Alkalosis #KAREN likely Prerenal, improving KAREN noted on admission with Cr of 1.4 with a previous baseline of 1.0. BUN/Cr 14 and GFR 55 likely pre-renal in the setting of cardio-renal syndrome vs CKD given previous GFR 55 in August 2024 and repeat GFR 55. Abdomen US noted to have parenchymal scars. Contraction Alkalosis secondary to lasix, despite diamox and now noted to have a VBG 7.26. Started on Bipap. Consider reducing lasix. 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 Abdomen US (01/22/2025): Cholelithiasis. Cirrhosis, mild to moderate hepatomegaly no focal liver lesions. Mild Renal Parencymal Scar Formation Hepatitis Panel (01/22/2025): negative Child-Calderón Score 6 points, Class A, Life expectancy 15-20 years. Abdominal surgery [facility]-operative mortality 10%. Plan -Service Desk Specialist on Alcohol Use Disorder -Benefit from liver biopsy with Dietetic Technician Registered/Finishing Area Operator #Hx COPD #CAP Past medical history of COPD with 24 year pack history of smoking with previous admission concern for COPD in 2023. NO wheezing noted on physical exam. Cxr did not show ephysema patter, possible pneumonia. -Blood Culture Negative 48 hours & MRSA Screen Negative. -Sputum Gram stain:GPC, GPR, Epithelial, likely contaminiated Plan -Azithromycin & Ceftriaxone, consider D/C antibiotics -Duonebs -Sputum Culutre pending -Patient would benefit from PFT. #Respiratory Acidosis w/ Metabolic Compensation Health Maintenance: Disp: Pt is currently admitted to floors for further management of CHF exacerbation, cardiology following FEN: Cardiac Diet, Fluid restricted DVT: on subQ heparin Q8HR Code: Full code - The patient's plan was discussed with attending Dr. Laurence Beckford MD PGY1 Internal Medicine Attending Provider Attestation/Addendum I have personally seen and examined the patient separately on the above date of service and discussed the plan of care with the resident. I reviewed the resident Dr. Kerri Beckford consultation progress note and agree with the resident findings and plan in the note above and have also edited the documentation to reflect my findings and plan. Noah Dang M.D. Interventional Cardiology
--- NOTE | 2025-01-24 18:52 | PC.NURSE ---
pt. has been on and off Bipap,refused @ times.pt. now sleeping with Bipap , o2 sat 99%,FIO2 45 %.no resp.distress noted.will continue to monitor.
[2025-01-24] MEDS: ATORVASTATIN CALCIUM 20 MG TABLET 40 MG PO (21:02)
[2025-01-25] VITALS (16 sets, daily range): BP systolic 105–125; BP diastolic 59–80; PULSE 78–93; RESP 12–36; TEMP 36.1–36.6; O2SAT 94–99; BMI 29.1
[2025-01-25] MEDS: ACETAMINOPHEN 325 MG TABLET 650 MG PO (04:31)
[2025-01-25] MEDS: HEPARIN SOD INJ 5000 UNIT/ML VIAL SC ×3 (05:13→21:02)
[2025-01-25 05:36] LABS: Base Excess, Venous 11 (-3-3); O2 Saturation, Venous 68 % (96-97); PCO2, Venous 95 mmHg (36-56); PO2, Venous 35 mmHg (15-58); pH, Venous 7.26 (7.33-7.66)
[2025-01-25 05:38] LABS: Basophils % (Auto) 0 % (0-2.5); Eosinophils # (Auto) 0.1 Thou/mm3 (0.0-0.5); Eosinophils % (Auto) 1 % (0-10); Hematocrit 50.5 % (41.0-53.0); Immature Granulocytes % (Auto) 1 % (0-0); Immature Granulocytes Auto 0.03 Thou/mm3 (0.00-0.00); Lymphocytes % (Auto) 17 % (10-50); Mean Corpuscular HGB Conc 29.7 g/dl (31.0-37.0); Mean Corpuscular Hemoglobin 29.4 pg (25.0-35.0); Mean Corpuscular Volume 99 fL (80-100); Monocytes # (Auto) 0.5 Thou/mm3 (0.0-0.8); Monocytes % (Auto) 8 % (0-12); Neutrophils # (Auto) 4.5 Thou/mm3 (1.8-7.7); Neutrophils % (Auto) 73 % (37-80); Nucleated Red Blood Cell % 0 /100 WBC (0); Platelet Count 163 Thou/mm3 (140-440); RDW Standard Deviation 53.3 fL (35.1-43.9); Red Blood Count 5.11 Miln/mm3 (4.50-5.90); White Blood Count 6.2 Thou/mm3 (3.8-10.6)
[2025-01-25 06:23] LABS: Alanine Aminotransferase 14 U/L (10-49); Albumin, Serum 3.7 gm/dL (3.4-4.8); Albumin/Globulin Ratio 1.4 (1.2-2.2); Alkaline Phosphatase 110 U/L (46-116); Anion Gap 6 (7-16); Aspartate Amino Transferase 15 U/L (0-34); BUN/Creatinine Ratio 16 Ratio (12-20); Bilirubin,Total 0.4 mg/dL (0.3-1.2); Blood Urea Nitrogen 18 mg/dL (9-23); Calcium 8.8 mg/dL (8.3-10.6); Carbon Dioxide 38.1 mMol/L (20.0-31.0); Chloride 94 mMol/L (98-107); Creatinine (Component) 1.1 mg/dL (0.6-1.3); Estimated Creatinine Clearance 77.9 mL/min (>60); Globulin 2.6 gm/dL (2.3-3.5); Glucose 143 mg/dL (74-106); Osmolality,Calculated 279 (275-295); Phosphorous 2.9 mg/dL (2.4-5.1); Potassium 4.1 mMol/L (3.4-5.1); Sodium 138 mMol/L (136-145); Total Protein 6.3 gm/dL (5.7-8.2); eGFR > 60 See Note
[2025-01-25] MEDS: oxyCODONE/APAP 5/325 TABLET 1 TAB PO (07:29)
[2025-01-25] MEDS: NICOTINE PATCH 14 MG/24 HR PATCH.TD24 TOP (08:05)
[2025-01-25] MEDS: ACETAzolaMIDE 250 MG TABLET 500 MG PO (08:05)
[2025-01-25] MEDS: AZITHROMYCIN 250 MG TABLET PO (08:05)
[2025-01-25] MEDS: PANTOPRAZOLE 40 MG TABLET PO (08:06)
[2025-01-25] MEDS: FUROSEMIDE INJ 10 MG/ML 4ML VIAL 40 MG IVP ×2 (08:06→20:59)
[2025-01-25] MEDS: cefTRIAXone/D5w 1gm IV premix 1 GM/50 ML BAG IV (08:06)
--- NOTE | 2025-01-25 09:49 | ESPR_ITS ---
<Statement entered by Shorty Alonzo MD - 01/26/25 14:16> I discussed with and supervised the international account manager physician involved in the care of this patient. Patient assessment and plan was discussed with entire medicine team, including my attending. I agree with the assessment and plan as documented by international account manager doctor. Patient care was discussed with my attending physician Dr. Nura Alonzo, PGY-2 Documentation for date of: 01/25/25 Subjective Subjective Interval history: Patient is seen and examined at bedside No acute overnight events. Reported that he is doing well and denies any other complaints Vitals are stable and patient is tolerating BiPAP well. VBG showed pCO2 of 95. Labs showed bicarb 38.1 Will continue BiPAP for now and will try to arrange BiPAP at home while he gets discharged Exam Vital Signs Temp Pulse Resp BP Pulse Ox O2 Del Method O2 Flow Rate 97.1 F 80 19 113/71 97 Humidified Nasal Cannula 5 01/25/25 08:00 01/25/25 08:06 01/25/25 08:00 01/25/25 08:06 01/25/25 08:00 01/25/25 08:00 01/25/25 08:00 FiO2 45 01/24/25 14:29 Narrative Exam General: Awake. On Bipap HEENT: Normocephalic, atraumatic, mucous membranes moist. Heart: Regular rate and rhythm, no murmurs. Lungs: Clear to auscultation with no wheezing or crackles. Abdomen: Soft, nondistended, nontender, positive bowel sounds. ?No guarding or rebound tenderness. Neurologic: Alert and oriented x3, no gross neurological deficit, and patient able to move all 4 extremities. Extremities: Bilateral 2+ pitting pedal edema noted in lower extremities Skin: No rash or ecchymoses. Objective Labs 01/26/25 05:45 01/26/25 05:45 Labs: Laboratory Results - last 24 hr 01/24/25 01/25/25 11:26 05:19 WBC 6.2 RBC 5.11 Hgb 15.0 Hct 50.5 MCV 99 MCH 29.4 MCHC 29.7 L RDW Std Deviation 53.3 H Plt Count 163 Neut % (Auto) 73 Lymph % (Auto) 17 Gosper % (Auto) 8 Eos % (Auto) 1 Baso % (Auto) 0 Neut # (Auto) 4.5 Lymph # (Auto) 1.0 Gosper # (Auto) 0.5 Eos # (Auto) 0.1 Baso # (Auto) 0.0 Immature Gran # (Auto) 0.03 H Absolute Nucleated RBC 0.00 Immature Gran % 1 H Nucleated RBC % 0 VBG pH 7.31 L 7.26 L VBG pCO2 87 H D 95 H VBG pO2 57 D 35 D VBG O2 Sat (Enma) 90 L D 68 L D VBG Base Excess 13 H 11 H Sodium 138 Potassium 4.1 Chloride 94 L Carbon Dioxide 38.1 H Anion Gap 6 L BUN 18 Creatinine 1.1 Estim Creat Clear Calc 77.9 eGFR > 60 BUN/Creatinine Ratio 16 Glucose 143 H Calculated Osmolality 279 Calcium 8.8 Corrected Calcium 9.0 Phosphorus 2.9 Magnesium 2.0 Total Bilirubin 0.4 AST 15 ALT 14 Alkaline Phosphatase 110 Total Protein 6.3 Albumin 3.7 Globulin 2.6 Albumin/Globulin Ratio 1.4 ABG Interpretation ABG results: 01/22/25 01/22/25 01/22/25 05:07 07:45 11:01 ABG pH 7.26 L ABG pCO2 81 H* ABG pO2 79 L ABG HCO3 36 H ABG O2 Saturation 95 ABG Base Excess 6 H VBG pH 7.25 L 7.39 VBG pCO2 92 H 61 H D VBG pO2 36 32 VBG Base Excess 8 H 9 H 01/23/25 01/24/25 01/24/25 08:11 06:05 11:26 ABG pH ABG pCO2 ABG pO2 ABG HCO3 ABG O2 Saturation ABG Base Excess VBG pH 7.34 7.26 L 7.31 L VBG pCO2 77 H D 102 H D 87 H D VBG pO2 73 H D 30 D 57 D VBG Base Excess 12 H 13 H 13 H 01/25/25 05:19 ABG pH ABG pCO2 ABG pO2 ABG HCO3 ABG O2 Saturation ABG Base Excess VBG pH 7.26 L VBG pCO2 95 H VBG pO2 35 D VBG Base Excess 11 H Quality Measures Quality Measures none Advance care planning discussed with:: patient Assessment & Plan Assessment Current Active Medications: Generic Name Dose Route Start Last Admin Trade Name Freq PRN Reason Stop Dose Admin Acetaminophen 650 mg 01/22/25 10:07 01/25/25 04:31 Acetaminophen 325 Mg Tablet PO 02/21/25 10:06 650 mg Q6H PRN Administration PAIN SCALE 1-3 (mild Acetaminophen 650 mg 01/22/25 10:07 Acetaminophen 325 Mg Tablet PO 02/21/25 10:06 Q6H PRN Fever >100.4 Hydrocodone Bitart/Acetaminophen 1 tab 01/22/25 10:07 Hydrocodone/Apap 10/325 Tab PO 01/27/25 10:06 Q4HR PRN PAIN SCALE 7-10 (Severe Acetazolamide 500 mg 01/25/25 09:00 01/25/25 08:05 Acetazolamide 250 Mg Tablet PO 02/24/25 08:59 500 mg QDAY TINY Administration Albuterol/Ipratropium 3 ml 01/22/25 11:14 Albuterol/Ipratropium (Duoneb) Rt Cherise 3 Ml Nebu INH 02/21/25 12:59 Q6HRRT PRN wheezing Atorvastatin Calcium 40 mg 01/24/25 21:00 01/24/25 21:02 Atorvastatin Calcium 20 Mg Tablet PO 02/23/25 20:59 40 mg HS TINY Administration Azithromycin 250 mg 01/23/25 09:00 01/25/25 08:05 Azithromycin 250 Mg Tablet PO 01/30/25 08:59 250 mg QDAY TINY Administration Furosemide 40 mg 01/22/25 21:00 01/25/25 08:06 Furosemide Inj 10 Mg/Ml 4ml Vial IVP 02/21/25 20:59 40 mg BID TINY Administration Heparin Sodium (Porcine) 5,000 unit 01/22/25 14:00 01/25/25 05:13 Heparin Sod Inj 5000 Unit/Ml Vial SC 02/05/25 13:59 5,000 unit Q8HR TINY Administration Ceftriaxone Sodium/Dextrose 1 gm in 50 mls @ 100 mls/hr 01/23/25 09:00 01/25/25 08:06 Rocephin/D5w 1gm Iv Premix IV 01/30/25 08:59 100 mls/hr QDAY TINY Administration Nicotine 14 mg 01/22/25 13:05 01/25/25 08:05 Nicotine Patch 14 Mg/24 Hr Patch.Td24 TOP 02/21/25 13:04 14 mg QDAY TINY Administration Ondansetron HCl 4 mg 01/22/25 10:07 Ondansetron Inj 2 Mg/Ml Inj 2 Ml IVP 02/21/25 10:06 Q6H PRN NAUSEA OR VOMITING Protocol Oxycodone/Acetaminophen 1 tab 01/22/25 10:07 01/25/25 07:29 Oxycodone/Apap 5/325 Tablet PO 01/27/25 10:06 1 tab Q6H PRN Administration PAIN SCALE 4-6 (Moderate Pantoprazole Sodium 40 mg 01/24/25 09:00 01/25/25 08:06 Pantoprazole 40 Mg Tablet PO 02/23/25 08:59 40 mg QDAY TINY Administration Protocol Polyethylene Glycol 17 gm 01/25/25 07:35 Polyethylene Glycol 17 Gm Packet PO 02/24/25 07:34 QDAY PRN CONSTIPATION Protocol Plan 69-year-old male with PMHx of obesity, chronic substance use disorder including alcohol and marijuana, chronic tobacco smoker with likely COPD component, presenting to the ED with progressively worsening shortness of breath. CHF exacerbation, more likely HFpEF EF 55 ? 60% Grade 1 diastolic dysfunction Cor pulmonale 2/2 moderate PAH COPD exacerbation and suspected possible underlying obesity hypoventilation syndrome Respiratory acidosis, compensated metabolic alkalosis Reports longstanding but progressively worsening shortness of breath and lower extremity swelling. Symptoms worsened over the last week or so, now has dyspnea with minimal exertion, including walking around the house. Reports worsening LE swelling also occurring around the same time. Found dyspneic on admission, required BiPAP. BMI is 29.2 On exam, noted mild JVD, extensive bilateral LE edema extending above the hip. Initial ABG showed respiratory acidosis with pH 7.26 and CO2 81. He was started on BiPAP, ABG showed improved pH 7.39, pCO2 61. BNP 843. No lactic acidosis. Previous echo from 12/2023 showed EF 60%. He was previously discharged on FUROSEMIDE which he hasn't been taking. He has history of extensive tobacco use, greater than 30 years, COPD was suspected on previous admission. Was difficult to assess for wheezing on exam. Given that he was on BiPAP. However will treat show for likely COPD exacerbation, although his presentation with elevated BNP, fluid overload and vascular congestion on CXR is more consistent with CHF exacerbation, and will require extensive diuresis. There may be an additional pneumonia component as noted on CXR, however he denies cough, afebrile, no leukocytosis, negative influenza and COVID screen. 01/22/2025 ECHOCARDIOGRAM * Normal LV size/function, EF 55-60%, grade 1 diastolic dysfunction, mildly dilated RV and mildly decreased RV systolic function. * D-shaped septum in both systole/diastole, indicating volume overload. * Mildly elevated RVSP 50-55 mmHg. * Mildly thickened mitral and aortic valve with minimal calcification, trace MR, mild biatrial dilation, IVC dilation, no pericardial effusion TG 56, cholesterol 112, LDL 55, HDL 46, TSH 0.93, free T41.0, A1c 5.9. Sputum culture - Staph aureus, Blood cultures - negative after 48hrs ? Strict INOs ? Fluid restriction 1200 cc daily ? Continue BiPAP intermittently ? Continue LASIX 40 mg BID ? Continue DUNEBS Q6H PRN ? Continue CEFTRIAXONE daily (01/22 to present) ? Continue AZITHROMYCIN daily (01/22 to present) ? Added ATORVASTATIN 40 mg daily Mild KAREN (resolved) Possible cardiorenal type I Admission CR 1.4, baseline 1.0. Possibly he has cardiorenal type I. Anticipate improvement with diuresis as above. Responded well to diuresis, CR 1.1 today. ? Renally dose meds, avoid overdiuresis and NEPHROTOXINS ? Daily CMP Anasarca (resolved) Liver cirrhosis, likely alcohol related LFTs and ALBUMEN WNL, has tense abdomen on exam. No history of liver cirrhosis but has extensive history of alcohol use. Hep panel nonreactive. Ultrasound showed cirrhosis with hepatomegaly, cholelithiasis (asymptomatic). ? Improving with diuresis Active tobacco smoker Polysubstance use disorder Has extensive history of alcohol, marijuana and tobacco use. States he stopped drinking alcohol 2 years ago. Continued to smoke about a pack daily. U tox negative. ? Recommended smoking cessation. ? Daily NICOTINE patches. Health maintenance Diet: Cardiac, fluid restriction GI prophylaxis: PROTONIX DVT prophylaxis: HEPARIN subcu Antibiotics: CEFTRIAXONE CODE STATUS: Full code Disposition: Admitted for CHF versus COPD exacerbation. Patient plan of care was discussed with the attending physician, Dr. Lyman and senior resident Dr. Cheri Corley, PGY1 Attending Provider Attestation/Addendum I attest that I was physically present for the evaluation, physical examination, lab and imaging review of the patient with the residents. I discussed the case with the residents and agree with the findings and plans of care as documented above. Patient is awake and alert at bedside, vital signs are stable. Saturating well on nasal cannula. VBG this morning showed pCO2 of 95, we will resume him on BiPAP and continue to monitor closely. Continues to be on IV Rocephin. If continues to be stable, we will plan for discharge tomorrow. Rafael Lyman MD
--- NOTE | 2025-01-25 10:56 | PD.RESPRO ---
Documentation for date of: 01/25/25 Subjective Subjective Interval history: Patient is a 69-year-old male with a past medical history of CHF HFpEF 55 to 60% (01/02/2024), COPD per chart review, and history of substance use disorder including cocaine and methamphetamines. Patient presented to the emergency room on 01/22/2025 with a chief complaint of difficulty breathing. 1 month history of shortness of breath, which worsens with ambulation. Patient stated after a couple feet he experienced shortness of breath. Shortness of breath accompanied with palpitations. Patient denied any history of atrial fibrillation and denied any flutter like sensation. Patient has been non-adherent to medications since previous hospitalization in 2023, initially discharged on Lasix 20 mg p.o. daily. Patient denied orthopnea, or paroxysmal paroxysmal nocturnal dyspnea. Patient denied any chest pain. Patient denied any syncopal events. Patient denied dizziness. Patient denied any recent sick contacts. Substance use disorder with meth and cocaine, last use 6 months ago. Alcohol use about half a pint a week with fireball as his choice of alcohol. Smoking history since age 21-->24 pack year history. 01/24/2025: Patient continues to have contraction alkalosis, despite Diamox 500 mg PO on 01/23-01/24. Patient examined at bedside, patient denied chest pain or shortness of breath.Denied any flank or abdominal tenderness. Patient started on bipap briefly for Acidosis with VBG pH of 7.26. Order ABG. 01/25/2025: Pateint examined at bedside. Patient denied chest pain or shortness of breath. Improved lower peripheral edema, right lower extremity improved compared to left. Continue Lasix 40 mg IV BID. Exam Vital Signs Temp Pulse Resp BP Pulse Ox O2 Del Method O2 Flow Rate 97.1 F 80 19 113/71 97 Humidified Nasal Cannula 5 01/25/25 08:00 01/25/25 08:06 01/25/25 08:00 01/25/25 08:06 01/25/25 08:00 01/25/25 08:00 01/25/25 08:00 FiO2 45 01/24/25 14:29 Narrative Exam General Appearance: Alert & Oriented X3, well-nourished male who is lying in bed in no acute distress, oral cavity missing all teeth, no oral lesion noted HEENT: Skull symmetrical and atraumatic. Conjunctivae pale and moist. Pupils equal, round, reactive to light and accommodation (PERRL). External ear without lesion or discharge. Straight, nares patient, mucosa pink, no discharge. No thyroid nodule appreciated. No cervical lymphadenopathy. Cardio: Normal Rate and Rhythm with S1 and S2 heart sounds. Holosystolic murmur noted. No bruits on carotid auscultation. Peripheral bilateral edema +1 on right and 2 on left but overall improved. Mild scrotal swelling Lungs: Symmetric with good expansion. Chest and back non-tender. Breath sounds vesicular without crackles, wheezing or rhonchi Abdomen: Non-tender, Non-distended, Normal Reactive Bowel Sounds Neuro: Alert, cooperative, oriented to person, place, and time. Speech clear. CN grossly intact. Upper motor strength 5/5 and Lower motor strength 5/5. Sensation intact. Objective Labs 01/25/25 05:19 01/25/25 05:19 Labs: Laboratory Results - last 24 hr 01/24/25 01/25/25 11:26 05:19 WBC 6.2 RBC 5.11 Hgb 15.0 Hct 50.5 MCV 99 MCH 29.4 MCHC 29.7 L RDW Std Deviation 53.3 H Plt Count 163 Neut % (Auto) 73 Lymph % (Auto) 17 Burnett % (Auto) 8 Eos % (Auto) 1 Baso % (Auto) 0 Neut # (Auto) 4.5 Lymph # (Auto) 1.0 Burnett # (Auto) 0.5 Eos # (Auto) 0.1 Baso # (Auto) 0.0 Immature Gran # (Auto) 0.03 H Absolute Nucleated RBC 0.00 Immature Gran % 1 H Nucleated RBC % 0 VBG pH 7.31 L 7.26 L VBG pCO2 87 H D 95 H VBG pO2 57 D 35 D VBG O2 Sat (Enma) 90 L D 68 L D VBG Base Excess 13 H 11 H Sodium 138 Potassium 4.1 Chloride 94 L Carbon Dioxide 38.1 H Anion Gap 6 L BUN 18 Creatinine 1.1 Estim Creat Clear Calc 77.9 eGFR > 60 BUN/Creatinine Ratio 16 Glucose 143 H Calculated Osmolality 279 Calcium 8.8 Corrected Calcium 9.0 Phosphorus 2.9 Magnesium 2.0 Total Bilirubin 0.4 AST 15 ALT 14 Alkaline Phosphatase 110 Total Protein 6.3 Albumin 3.7 Globulin 2.6 Albumin/Globulin Ratio 1.4 ABG Interpretation ABG results: 01/22/25 01/22/25 01/22/25 05:07 07:45 11:01 ABG pH 7.26 L ABG pCO2 81 H* ABG pO2 79 L ABG HCO3 36 H ABG O2 Saturation 95 ABG Base Excess 6 H VBG pH 7.25 L 7.39 VBG pCO2 92 H 61 H D VBG pO2 36 32 VBG Base Excess 8 H 9 H 01/23/25 01/24/25 01/24/25 08:11 06:05 11:26 ABG pH ABG pCO2 ABG pO2 ABG HCO3 ABG O2 Saturation ABG Base Excess VBG pH 7.34 7.26 L 7.31 L VBG pCO2 77 H D 102 H D 87 H D VBG pO2 73 H D 30 D 57 D VBG Base Excess 12 H 13 H 13 H 01/25/25 05:19 ABG pH ABG pCO2 ABG pO2 ABG HCO3 ABG O2 Saturation ABG Base Excess VBG pH 7.26 L VBG pCO2 95 H VBG pO2 35 D VBG Base Excess 11 H Quality Measures Quality Measures none Advance care planning discussed with:: patient Assessment & Plan Assessment Current Active Medications: Generic Name Dose Route Start Last Admin Trade Name Freq PRN Reason Stop Dose Admin Acetaminophen 650 mg 01/22/25 10:07 01/25/25 04:31 Acetaminophen 325 Mg Tablet PO 02/21/25 10:06 650 mg Q6H PRN Administration PAIN SCALE 1-3 (mild Acetaminophen 650 mg 01/22/25 10:07 Acetaminophen 325 Mg Tablet PO 02/21/25 10:06 Q6H PRN Fever >100.4 Hydrocodone Bitart/Acetaminophen 1 tab 01/22/25 10:07 Hydrocodone/Apap 10/325 Tab PO 01/27/25 10:06 Q4HR PRN PAIN SCALE 7-10 (Severe Acetazolamide 500 mg 01/25/25 09:00 01/25/25 08:05 Acetazolamide 250 Mg Tablet PO 02/24/25 08:59 500 mg QDAY TINY Administration Albuterol/Ipratropium 3 ml 01/22/25 11:14 Albuterol/Ipratropium (Duoneb) Rt Cherise 3 Ml Nebu INH 02/21/25 12:59 Q6HRRT PRN wheezing Atorvastatin Calcium 40 mg 01/24/25 21:00 01/24/25 21:02 Atorvastatin Calcium 20 Mg Tablet PO 02/23/25 20:59 40 mg HS TINY Administration Furosemide 40 mg 01/22/25 21:00 01/25/25 08:06 Furosemide Inj 10 Mg/Ml 4ml Vial IVP 02/21/25 20:59 40 mg BID TINY Administration Heparin Sodium (Porcine) 5,000 unit 01/22/25 14:00 01/25/25 05:13 Heparin Sod Inj 5000 Unit/Ml Vial SC 02/05/25 13:59 5,000 unit Q8HR TINY Administration Ceftriaxone Sodium/Dextrose 1 gm in 50 mls @ 100 mls/hr 01/23/25 09:00 01/25/25 08:06 Rocephin/D5w 1gm Iv Premix IV 01/30/25 08:59 100 mls/hr QDAY TINY Administration Nicotine 14 mg 01/22/25 13:05 01/25/25 08:05 Nicotine Patch 14 Mg/24 Hr Patch.Td24 TOP 02/21/25 13:04 14 mg QDAY TINY Administration Ondansetron HCl 4 mg 01/22/25 10:07 Ondansetron Inj 2 Mg/Ml Inj 2 Ml IVP 02/21/25 10:06 Q6H PRN NAUSEA OR VOMITING Protocol Oxycodone/Acetaminophen 1 tab 01/22/25 10:07 01/25/25 07:29 Oxycodone/Apap 5/325 Tablet PO 01/27/25 10:06 1 tab Q6H PRN Administration PAIN SCALE 4-6 (Moderate Pantoprazole Sodium 40 mg 01/24/25 09:00 01/25/25 08:06 Pantoprazole 40 Mg Tablet PO 02/23/25 08:59 40 mg QDAY TINY Administration Protocol Polyethylene Glycol 17 gm 01/25/25 07:35 Polyethylene Glycol 17 Gm Packet PO 02/24/25 07:34 QDAY PRN CONSTIPATION Protocol Plan #Acute on chronic hypoxic and Hypercapneic Respiratory Failure, improved #Acute on Chronic diastolic Heart Failure Exacerbation #CHF HpEF 55-60%, likely right heart failure #Diastolic Dysfunction Grade I #Moderate PAH, RVSP 50-55% #ANASARCA Etiology: likely in the setting of cardiomyopathy as noted on echo with diastolic dysfunciton and history of meth use leading to PAH. DDX: Less likely secondary to PE as BP and HR have been stable vs less likely secondary to AK as troponin within normal limits. BNP 843 01/23/2025: 2960/5950/-2990 01/24/2025: 1730/4260/-2530 01/25/2025:1120/4400/-3280 Net balance: -9,250 (01/22-01/25/2025) Dry Weight: (add upon discharge) Diagnostics: Echo (01/22/2025): Normal LV size and function. Estimated EF is 55 to 60%. Grade 1 diastolic dysfunction.Mildly dilated RV with mildly decreased RV systolic function. D-shaped septum in both systole and diastole indicating both pressure and volume overload. Moderately elevated RVSP at 50-55 mmHg. Mild TR.Mildly thickened mitral and aortic valves with minimal calcification. Trace MR. Mild biatrial dilatation. IVC dilated. No pericardial effusion TSH 2.52, Troponin 0.02. EKG no ST elevation noted. A1c 5.9 Lipid Panel Lipid Panel (01/23/2025): Triglycerides 56, Cholesterol 112, LDL 55, HDl 46 NYHA Class: III ASCVD:11.8%, Moderate to high intensity statin Plan: -Continue Lasix 40 mg IV BID, tomorrow, lasix 40 mg IV qday. -Consider Atorvastatin 40 mg HS given ASCVD risk -Aggressive Diuresis -Repeat BNP prior to discharge -K>4 and Mg >2 -Fluid Restriction (1200) and Sodium Restriction 2 g per day, Daily weight checks -SpO <90%, support PRN -Work toward GDMT, upon discharge Bumex 1 mg qday. #Contraction Alkalosis #KAREN likely Prerenal, improving KAREN noted on admission with Cr of 1.4 with a previous baseline of 1.0. BUN/Cr 14 and GFR 55 likely pre-renal in the setting of cardio-renal syndrome vs CKD given previous GFR 55 in August 2024 and repeat GFR 55. Abdomen US noted to have parenchymal scars. Contraction Alkalosis secondary to lasix, despite diamox and now noted to have a VBG 7.26. Started on Bipap. Consider reducing lasix. BUN 20 Cr 1.4 -->BUN 18 Cr 1.1 (01/25/2025) Plan -Avoid Neprhtoxins -Renally Dose mediation -Encourage oral hydration, with fluid restrictions of 1200 #Cirrhosis likely secondary to alcohol use Patient noted to have history of alochol use, consuming at least 1/2 pint once per week, likely more. Abdomen US (01/22/2025): Cholelithiasis. Cirrhosis, mild to moderate hepatomegaly no focal liver lesions. Mild Renal Parencymal Scar Formation Hepatitis Panel (01/22/2025): negative Child-Calderón Score 6 points, Class A, Life expectancy 15-20 years. Abdominal surgery [facility] mortality 10%. 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 NO wheezing noted on physical exam. Cxr did not show ephysema patter, possible pneumonia. -Blood Culture Negative 48 hours & MRSA Screen Negative. -Sputum Gram stain:Staphylococcus Aureus, but epithelial cells >25, consider contamination. -Stop Azithromycin 01/22/2025-01/25/2025 Plan - Ceftriaxone,(01/22/2025) -Duonebs -Patient would benefit from PFT. #Respiratory Acidosis w/ Metabolic Compensation Health Maintenance: Disp: Pt is currently admitted to floors for further management of CHF exacerbation, cardiology following FEN: Cardiac Diet, Fluid restricted DVT: on subQ heparin Q8HR Code: Full code - The patient's plan was discussed with attending Dr. Laurence Beckford MD PGY1 Internal Medicine Attending Provider Attestation/Addendum I have personally seen and examined the patient separately on the above date of service and discussed the plan of care with the resident. I reviewed the resident Dr. Kerri Beckford consultation progress note and agree with the resident findings and plan in the note above and have also edited the documentation to reflect my findings and plan. Noah Dang M.D. Interventional Cardiology
--- NOTE | 2025-01-25 14:44 | PC.SS ---
Addendum entered by Ronel Alvares 01/25/25 16:14: SS had sent everything off to [facility]. However, PT worked with patient and recommended SNF. SS will update physician team. Patient will need prior auth. PASRR will need to be completed. Patient desaturated to the 80's. Patient agreeable to SNF. Addendum entered by Ronel Alvares 01/25/25 15:36: SS spoke to RT at [facility]. Patient has to have qualfying diagnosis for the bipap. If not qualifying diagnosis then patient will need an o/p sleep study. Pending dx: Original Note: Follow up note: Patient already has 02 ([facility]). Physician team states patient will need a bipap for home. SS will follow up with order request. Possible d/c weekend home.
--- NOTE | 2025-01-25 17:18 | PC.PT ---
Patient is safe to ambulate to the bathroom with no AD, O2, and 1 staff assist for safety. RN made aware.
[2025-01-25] MEDS: ATORVASTATIN CALCIUM 20 MG TABLET 40 MG PO (20:56)
[2025-01-25] MEDS: HYDROcodone/APAP 10/325 TAB PO (21:08)
[2025-01-26] VITALS (11 sets, daily range): BP systolic 105–112; BP diastolic 67–75; PULSE 74–90; RESP 12–26; TEMP 36.1–36.6; O2SAT 95–97; BMI 28.3
[2025-01-26] MEDS: HEPARIN SOD INJ 5000 UNIT/ML VIAL SC ×3 (05:06→21:04)
[2025-01-26 05:56] LABS: Base Excess, Venous 11 (-3-3); O2 Saturation, Venous 98 % (96-97); PCO2, Venous 65 mmHg (36-56); PO2, Venous 81 mmHg (15-58); pH, Venous 7.39 (7.33-7.66)
[2025-01-26 06:02] LABS: Basophils % (Auto) 0 % (0-2.5); Eosinophils % (Auto) 1 % (0-10); Hematocrit 49.3 % (41.0-53.0); Hemoglobin 14.9 g/dL (13.5-16.0); Immature Granulocytes % (Auto) 1 % (0-0); Immature Granulocytes Auto 0.03 Thou/mm3 (0.00-0.00); Lymphocytes % (Auto) 18 % (10-50); Mean Corpuscular HGB Conc 30.2 g/dl (31.0-37.0); Mean Corpuscular Hemoglobin 29.4 pg (25.0-35.0); Mean Corpuscular Volume 97 fL (80-100); Monocytes # (Auto) 0.5 Thou/mm3 (0.0-0.8); Monocytes % (Auto) 10 % (0-12); Neutrophils # (Auto) 3.7 Thou/mm3 (1.8-7.7); Neutrophils % (Auto) 70 % (37-80); Nucleated Red Blood Cell % 0 /100 WBC (0); Platelet Count 222 Thou/mm3 (140-440); RDW Standard Deviation 51.8 fL (35.1-43.9); Red Blood Count 5.06 Miln/mm3 (4.50-5.90); White Blood Count 5.3 Thou/mm3 (3.8-10.6)
[2025-01-26 06:33] LABS: Alanine Aminotransferase 14 U/L (10-49); Albumin, Serum 3.8 gm/dL (3.4-4.8); Albumin/Globulin Ratio 1.6 (1.2-2.2); Alkaline Phosphatase 111 U/L (46-116); Anion Gap 6 (7-16); Aspartate Amino Transferase 16 U/L (0-34); BUN/Creatinine Ratio 16 Ratio (12-20); Bilirubin,Total 0.4 mg/dL (0.3-1.2); Blood Urea Nitrogen 18 mg/dL (9-23); Calcium 9.1 mg/dL (8.3-10.6); Calcium (Corrected) 9.3 mg/dL (8.5-10.1); Carbon Dioxide > 40.0 mMol/L (20.0-31.0); Chloride 95 mMol/L (98-107); Creatinine (Component) 1.1 mg/dL (0.6-1.3); Estimated Creatinine Clearance 76.9 mL/min (>60); Globulin 2.4 gm/dL (2.3-3.5); Glucose 124 mg/dL (74-106); Osmolality,Calculated 284 (275-295); Phosphorous 3.2 mg/dL (2.4-5.1); Potassium 4.2 mMol/L (3.4-5.1); Sodium 141 mMol/L (136-145); Total Protein 6.2 gm/dL (5.7-8.2); eGFR > 60 See Note
[2025-01-26] MEDS: NICOTINE PATCH 14 MG/24 HR PATCH.TD24 TOP (08:04)
[2025-01-26] MEDS: PANTOPRAZOLE 40 MG TABLET PO (08:04)
[2025-01-26] MEDS: FUROSEMIDE INJ 10 MG/ML 4ML VIAL 40 MG IVP (08:04)
[2025-01-26] MEDS: cefTRIAXone/D5w 1gm IV premix 1 GM/50 ML BAG IV (08:05)
[2025-01-26] MEDS: ACETAzolaMIDE 250 MG TABLET PO (10:47)
--- NOTE | 2025-01-26 14:27 | ESPR_ITS ---
<Statement entered by Shorty Alonzo MD - 01/28/25 02:15> I discussed with and supervised the internal control consultant physician involved in the care of this patient. Patient assessment and plan was discussed with entire medicine team, including my attending. I agree with the assessment and plan as documented by internal control consultant doctor. Patient care was discussed with my attending physician Dr.Bishwakarma Shorty Alonzo, PGY-2 Documentation for date of: 01/26/25 Subjective Subjective Interval history: Patient is seen and examined at the bedside. No acute overnight events and is on Bipap overnight Vitals are stable and on physical examination, noted 1+ pedal edema bilaterally Labs showed bicarb greater than 40 Patient was given a dose of Diamox Physical therapy recommended SNF placement for the patient and patient is agreeable to that. Patient will be discharged on Tuesday to SNF Exam Vital Signs Temp Pulse Resp BP Pulse Ox O2 Del Method O2 Flow Rate 97.8 F 75 15 107/67 96 Nasal Cannula 5 01/26/25 12:00 01/26/25 14:10 01/26/25 14:10 01/26/25 12:00 01/26/25 14:10 01/26/25 12:00 01/26/25 12:00 FiO2 45 01/26/25 14:10 Narrative Exam General: Awake. On Bipap HEENT: Normocephalic, atraumatic, mucous membranes moist. Heart: Regular rate and rhythm, no murmurs. Lungs: Clear to auscultation with no wheezing or crackles. Abdomen: Soft, nondistended, nontender, positive bowel sounds. ?No guarding or rebound tenderness. Neurologic: Alert and oriented x3, no gross neurological deficit, and patient able to move all 4 extremities. Extremities: Bilateral 1+ pitting pedal edema noted in lower extremities Skin: No rash or ecchymoses. Objective Labs 01/29/25 04:35 01/29/25 04:35 Labs: Laboratory Results - last 24 hr 01/26/25 05:45 WBC 5.3 RBC 5.06 Hgb 14.9 Hct 49.3 MCV 97 MCH 29.4 MCHC 30.2 L RDW Std Deviation 51.8 H Plt Count 222 D Neut % (Auto) 70 Lymph % (Auto) 18 [place] % (Auto) 10 Eos % (Auto) 1 Baso % (Auto) 0 Neut # (Auto) 3.7 Lymph # (Auto) 1.0 [place] # (Auto) 0.5 Eos # (Auto) 0.0 Baso # (Auto) 0.0 Immature Gran # (Auto) 0.03 H Absolute Nucleated RBC 0.00 Immature Gran % 1 H Nucleated RBC % 0 VBG pH 7.39 VBG pCO2 65 H D VBG pO2 81 H D VBG O2 Sat (Enma) 98 H D VBG Base Excess 11 H Sodium 141 Potassium 4.2 Chloride 95 L Carbon Dioxide > 40.0 H Anion Gap 6 L BUN 18 Creatinine 1.1 Estim Creat Clear Calc 76.9 eGFR > 60 BUN/Creatinine Ratio 16 Glucose 124 H Calculated Osmolality 284 Calcium 9.1 Corrected Calcium 9.3 Phosphorus 3.2 Magnesium 2.0 Total Bilirubin 0.4 AST 16 ALT 14 Alkaline Phosphatase 111 Total Protein 6.2 Albumin 3.8 Globulin 2.4 Albumin/Globulin Ratio 1.6 ABG Interpretation ABG results: 01/22/25 01/22/25 01/22/25 05:07 07:45 11:01 ABG pH 7.26 L ABG pCO2 81 H* ABG pO2 79 L ABG HCO3 36 H ABG O2 Saturation 95 ABG Base Excess 6 H VBG pH 7.25 L 7.39 VBG pCO2 92 H 61 H D VBG pO2 36 32 VBG Base Excess 8 H 9 H 01/23/25 01/24/25 01/24/25 08:11 06:05 11:26 ABG pH ABG pCO2 ABG pO2 ABG HCO3 ABG O2 Saturation ABG Base Excess VBG pH 7.34 7.26 L 7.31 L VBG pCO2 77 H D 102 H D 87 H D VBG pO2 73 H D 30 D 57 D VBG Base Excess 12 H 13 H 13 H 01/25/25 01/26/25 05:19 05:45 ABG pH ABG pCO2 ABG pO2 ABG HCO3 ABG O2 Saturation ABG Base Excess VBG pH 7.26 L 7.39 VBG pCO2 95 H 65 H D VBG pO2 35 D 81 H D VBG Base Excess 11 H 11 H Quality Measures Quality Measures none Advance care planning discussed with:: patient Assessment & Plan Assessment Current Active Medications: Generic Name Dose Route Start Last Admin Trade Name Freq PRN Reason Stop Dose Admin Acetaminophen 650 mg 01/22/25 10:07 01/25/25 04:31 Acetaminophen 325 Mg Tablet PO 02/21/25 10:06 650 mg Q6H PRN Administration PAIN SCALE 1-3 (mild Acetaminophen 650 mg 01/22/25 10:07 Acetaminophen 325 Mg Tablet PO 02/21/25 10:06 Q6H PRN Fever >100.4 Hydrocodone Bitart/Acetaminophen 1 tab 01/22/25 10:07 01/25/25 21:08 Hydrocodone/Apap 10/325 Tab PO 01/27/25 10:06 1 tab Q4HR PRN Administration PAIN SCALE 7-10 (Severe Albuterol/Ipratropium 3 ml 01/22/25 11:14 Albuterol/Ipratropium (Duoneb) Rt Cherise 3 Ml Nebu INH 02/21/25 12:59 Q6HRRT PRN wheezing Atorvastatin Calcium 40 mg 01/24/25 21:00 01/25/25 20:56 Atorvastatin Calcium 20 Mg Tablet PO 02/23/25 20:59 40 mg HS TINY Administration Furosemide 40 mg 01/26/25 09:00 01/26/25 08:04 Furosemide Inj 10 Mg/Ml 4ml Vial IVP 02/25/25 08:59 40 mg QDAY TINY Administration Heparin Sodium (Porcine) 5,000 unit 01/22/25 14:00 01/26/25 05:06 Heparin Sod Inj 5000 Unit/Ml Vial SC 02/05/25 13:59 5,000 unit Q8HR TINY Administration Ceftriaxone Sodium/Dextrose 1 gm in 50 mls @ 100 mls/hr 01/23/25 09:00 01/26/25 08:05 Rocephin/D5w 1gm Iv Premix IV 01/30/25 08:59 100 mls/hr QDAY TINY Administration Nicotine 14 mg 01/22/25 13:05 01/26/25 08:04 Nicotine Patch 14 Mg/24 Hr Patch.Td24 TOP 02/21/25 13:04 14 mg QDAY TINY Administration Ondansetron HCl 4 mg 01/22/25 10:07 Ondansetron Inj 2 Mg/Ml Inj 2 Ml IVP 02/21/25 10:06 Q6H PRN NAUSEA OR VOMITING Protocol Oxycodone/Acetaminophen 1 tab 01/22/25 10:07 01/25/25 07:29 Oxycodone/Apap 5/325 Tablet PO 01/27/25 10:06 1 tab Q6H PRN Administration PAIN SCALE 4-6 (Moderate Pantoprazole Sodium 40 mg 01/24/25 09:00 01/26/25 08:04 Pantoprazole 40 Mg Tablet PO 02/23/25 08:59 40 mg QDAY TINY Administration Protocol Polyethylene Glycol 17 gm 01/25/25 07:35 Polyethylene Glycol 17 Gm Packet PO 02/24/25 07:34 QDAY PRN CONSTIPATION Protocol Plan 69-year-old male with PMHx of obesity, chronic substance use disorder including alcohol and marijuana, chronic tobacco smoker with likely COPD component, presenting to the ED with progressively worsening shortness of breath. CHF exacerbation, more likely HFpEF EF 55 ? 60% Cor pulmonale 2/2 moderate PAH COPD exacerbation and suspected possible underlying obesity hypoventilation syndrome Respiratory acidosis, compensated metabolic alkalosis Reports longstanding but progressively worsening shortness of breath and lower extremity swelling. Symptoms worsened over the last week or so, now has dyspnea with minimal exertion, including walking around the house. Reports worsening LE swelling also occurring around the same time. Found dyspneic on admission, required BiPAP. BMI is 29.2 On exam, noted mild JVD, extensive bilateral LE edema extending above the hip. Initial ABG showed respiratory acidosis with pH 7.26 and CO2 81. He was started on BiPAP, ABG showed improved pH 7.39, pCO2 61. BNP 843. No lactic acidosis. Previous echo from 12/2023 showed EF 60%. He was previously discharged on FUROSEMIDE which he hasn't been taking. He has history of extensive tobacco use, greater than 30 years, COPD was suspected on previous admission. Was difficult to assess for wheezing on exam. Given that he was on BiPAP. However will treat show for likely COPD exacerbation, although his presentation with elevated BNP, fluid overload and vascular congestion on CXR is more consistent with CHF exacerbation, and will require extensive diuresis. There may be an additional pneumonia component as noted on CXR, however he denies cough, afebrile, no leukocytosis, negative influenza and COVID screen. 01/22/2025 ECHOCARDIOGRAM * Normal LV size/function, EF 55-60%, grade 1 diastolic dysfunction, mildly dilated RV and mildly decreased RV systolic function. * D-shaped septum in both systole/diastole, indicating volume overload. * Mildly elevated RVSP 50-55 mmHg. * Mildly thickened mitral and aortic valve with minimal calcification, trace MR, mild biatrial dilation, IVC dilation, no pericardial effusion TG 56, cholesterol 112, LDL 55, HDL 46, TSH 0.93, free T41.0, A1c 5.9. Sputum culture - Staph aureus, Blood cultures - negative after 48hrs ? Strict INOs ? Fluid restriction 1200 cc daily ? Continue BiPAP intermittently ? Continue LASIX 40 mg BID, changed to 40mg once daily as of 01/26 as per cardiology recommendations ? Continue DUNEBS Q6H PRN ? Continue CEFTRIAXONE daily (01/22 to present) ? Added ATORVASTATIN 40 mg daily Mild KAREN (resolved) Possible cardiorenal type I Admission CR 1.4, baseline 1.0. Possibly he has cardiorenal type I. Anticipate improvement with diuresis as above. Responded well to diuresis, CR 1.1 today. ? Renally dose meds, avoid overdiuresis and NEPHROTOXINS ? Daily CMP Anasarca (resolved) Liver cirrhosis, likely alcohol related LFTs and ALBUMEN WNL, has tense abdomen on exam. No history of liver cirrhosis but has extensive history of alcohol use. Hep panel nonreactive. Ultrasound showed cirrhosis with hepatomegaly, cholelithiasis (asymptomatic). ? Improved with diuresis Active tobacco smoker Polysubstance use disorder Has extensive history of alcohol, marijuana and tobacco use. States he stopped drinking alcohol 2 years ago. Continued to smoke about a pack daily. U tox negative. ? Recommended smoking cessation. ? Daily NICOTINE patches. Health maintenance Diet: Cardiac, fluid restriction GI prophylaxis: PROTONIX DVT prophylaxis: HEPARIN subcu Antibiotics: CEFTRIAXONE CODE STATUS: Full code Disposition: Admitted for CHF versus COPD exacerbation. Patient plan of care was discussed with the attending physician, Dr. Lyman and senior resident Dr. Cheri Corley, PGY1 Attending Provider Attestation/Addendum I attest that I was physically present for the evaluation, physical examination, lab and imaging review of the patient with the residents. I discussed the case with the residents and agree with the findings and plans of care as documented above. Rafael Lyman MD
[2025-01-26] MEDS: ATORVASTATIN CALCIUM 20 MG TABLET 40 MG PO (21:02)
[2025-01-27] VITALS (9 sets, daily range): BP systolic 97–128; BP diastolic 63–86; PULSE 75–99; RESP 16–30; TEMP 36.2–36.9; O2SAT 90–96; BMI 27.5
[2025-01-27] MEDS: HEPARIN SOD INJ 5000 UNIT/ML VIAL SC ×3 (06:04→21:10)
[2025-01-27 06:06] LABS: Basophils % (Auto) 0 % (0-2.5); Eosinophils % (Auto) 1 % (0-10); Hematocrit 49.4 % (41.0-53.0); Hemoglobin 15.2 g/dL (13.5-16.0); Immature Granulocytes % (Auto) 0 % (0-0); Immature Granulocytes Auto 0.02 Thou/mm3 (0.00-0.00); Lymphocytes # (Auto) 1.2 Thou/mm3 (1.0-4.8); Lymphocytes % (Auto) 20 % (10-50); Mean Corpuscular HGB Conc 30.8 g/dl (31.0-37.0); Mean Corpuscular Hemoglobin 29.1 pg (25.0-35.0); Mean Corpuscular Volume 95 fL (80-100); Monocytes # (Auto) 0.6 Thou/mm3 (0.0-0.8); Monocytes % (Auto) 10 % (0-12); Neutrophils # (Auto) 4.2 Thou/mm3 (1.8-7.7); Neutrophils % (Auto) 70 % (37-80); Nucleated Red Blood Cell % 0 /100 WBC (0); Platelet Count 148 Thou/mm3 (140-440); RDW Standard Deviation 49.7 fL (35.1-43.9); Red Blood Count 5.22 Miln/mm3 (4.50-5.90); White Blood Count 6.1 Thou/mm3 (3.8-10.6)
[2025-01-27 06:20] LABS: Anion Gap 5 (7-16); BUN/Creatinine Ratio 22 Ratio (12-20); Blood Urea Nitrogen 22 mg/dL (9-23); Calcium 9.3 mg/dL (8.3-10.6); Carbon Dioxide 36.5 mMol/L (20.0-31.0); Chloride 100 mMol/L (98-107); Estimated Creatinine Clearance 77.6 mL/min (>60); Glucose 112 mg/dL (74-106); Osmolality,Calculated 285 (275-295); Potassium 4.1 mMol/L (3.4-5.1); Sodium 141 mMol/L (136-145); eGFR > 60 See Note
[2025-01-27] MEDS: NICOTINE PATCH 14 MG/24 HR PATCH.TD24 TOP (08:51)
[2025-01-27] MEDS: PANTOPRAZOLE 40 MG TABLET PO (08:51)
[2025-01-27] MEDS: FUROSEMIDE INJ 10 MG/ML 4ML VIAL 40 MG IVP (08:51)
[2025-01-27] MEDS: cefTRIAXone/D5w 1gm IV premix 1 GM/50 ML BAG IV (08:57)
[2025-01-27] MEDS: ACETAzolaMIDE 250 MG TABLET PO (11:00)
--- NOTE | 2025-01-27 12:20 | ESPR_ITS ---
Documentation for date of: 01/27/25 Subjective Subjective Interval history: No acute overnight events. Examined at bedside, reports feeling well this morning, however sometimes she feels like he is breathing a little harder. Denies fever, chills, headaches, chest pain, cough, GI or urinary symptoms. Vital stable, continued on 3 L NC, satting well. CBC and CMP reviewed are ultimately stable stable, without acute changes. Continued on diuresis, urine output adequate. Lower extremity edema nearly resolved. Pending SNF placement, pending 6 min walk test, home oxygen order is in. Exam Vital Signs Temp Pulse Resp BP Pulse Ox O2 Del Method O2 Flow Rate 97.4 F 91 25 H 112/63 92 L Nasal Cannula 3 01/27/25 08:00 01/27/25 08:51 01/27/25 08:00 01/27/25 08:51 01/27/25 08:00 01/27/25 08:00 01/27/25 08:00 FiO2 45 01/27/25 04:00 Narrative Exam General: Awake, on 3L NC. HEENT: Normocephalic, atraumatic, mucous membranes moist. Heart: Regular rate and rhythm, no murmurs. Lungs: Clear to auscultation with no wheezing or crackles. Abdomen: Soft, nondistended, nontender, positive bowel sounds. ?No guarding or rebound tenderness. Neurologic: Alert and oriented x3, no gross neurological deficit, and patient able to move all 4 extremities. Extremities: Bilateral trace pitting pedal edema noted in lower extremities Skin: No rash or ecchymoses. Objective Labs 01/27/25 05:32 01/27/25 05:32 Labs: Laboratory Results - last 24 hr 01/27/25 05:32 WBC 6.1 RBC 5.22 Hgb 15.2 Hct 49.4 MCV 95 MCH 29.1 MCHC 30.8 L RDW Std Deviation 49.7 H Plt Count 148 D Neut % (Auto) 70 Lymph % (Auto) 20 [place] % (Auto) 10 Eos % (Auto) 1 Baso % (Auto) 0 Neut # (Auto) 4.2 Lymph # (Auto) 1.2 [place] # (Auto) 0.6 Eos # (Auto) 0.0 Baso # (Auto) 0.0 Immature Gran # (Auto) 0.02 H Absolute Nucleated RBC 0.00 Immature Gran % 0 Nucleated RBC % 0 Sodium 141 Potassium 4.1 Chloride 100 Carbon Dioxide 36.5 H Anion Gap 5 L BUN 22 Creatinine 1.0 Estim Creat Clear Calc 77.6 eGFR > 60 BUN/Creatinine Ratio 22 H Glucose 112 H Calculated Osmolality 285 Calcium 9.3 ABG Interpretation ABG results: 01/22/25 01/22/25 01/22/25 05:07 07:45 11:01 ABG pH 7.26 L ABG pCO2 81 H* ABG pO2 79 L ABG HCO3 36 H ABG O2 Saturation 95 ABG Base Excess 6 H VBG pH 7.25 L 7.39 VBG pCO2 92 H 61 H D VBG pO2 36 32 VBG Base Excess 8 H 9 H 01/23/25 01/24/25 01/24/25 08:11 06:05 11:26 ABG pH ABG pCO2 ABG pO2 ABG HCO3 ABG O2 Saturation ABG Base Excess VBG pH 7.34 7.26 L 7.31 L VBG pCO2 77 H D 102 H D 87 H D VBG pO2 73 H D 30 D 57 D VBG Base Excess 12 H 13 H 13 H 01/25/25 01/26/25 05:19 05:45 ABG pH ABG pCO2 ABG pO2 ABG HCO3 ABG O2 Saturation ABG Base Excess VBG pH 7.26 L 7.39 VBG pCO2 95 H 65 H D VBG pO2 35 D 81 H D VBG Base Excess 11 H 11 H Quality Measures Quality Measures none Advance care planning discussed with:: patient Assessment & Plan Assessment Current Active Medications: Generic Name Dose Route Start Last Admin Trade Name Freq PRN Reason Stop Dose Admin Acetaminophen 650 mg 01/22/25 10:07 01/25/25 04:31 Acetaminophen 325 Mg Tablet PO 02/21/25 10:06 650 mg Q6H PRN Administration PAIN SCALE 1-3 (mild Acetaminophen 650 mg 01/22/25 10:07 Acetaminophen 325 Mg Tablet PO 02/21/25 10:06 Q6H PRN Fever >100.4 Albuterol/Ipratropium 3 ml 01/22/25 11:14 Albuterol/Ipratropium (Duoneb) Rt Cherise 3 Ml Nebu INH 02/21/25 12:59 Q6HRRT PRN wheezing Atorvastatin Calcium 40 mg 01/24/25 21:00 01/26/25 21:02 Atorvastatin Calcium 20 Mg Tablet PO 02/23/25 20:59 40 mg HS TINY Administration Furosemide 40 mg 01/26/25 09:00 01/27/25 08:51 Furosemide Inj 10 Mg/Ml 4ml Vial IVP 02/25/25 08:59 40 mg QDAY TINY Administration Heparin Sodium (Porcine) 5,000 unit 01/22/25 14:00 01/27/25 06:04 Heparin Sod Inj 5000 Unit/Ml Vial SC 02/05/25 13:59 5,000 unit Q8HR TINY Administration Ceftriaxone Sodium/Dextrose 1 gm in 50 mls @ 100 mls/hr 01/23/25 09:00 01/27/25 08:57 Rocephin/D5w 1gm Iv Premix IV 01/30/25 08:59 100 mls/hr QDAY TINY Administration Nicotine 14 mg 01/22/25 13:05 01/27/25 08:51 Nicotine Patch 14 Mg/24 Hr Patch.Td24 TOP 02/21/25 13:04 14 mg QDAY TINY Administration Ondansetron HCl 4 mg 01/22/25 10:07 Ondansetron Inj 2 Mg/Ml Inj 2 Ml IVP 02/21/25 10:06 Q6H PRN NAUSEA OR VOMITING Protocol Pantoprazole Sodium 40 mg 01/24/25 09:00 01/27/25 08:51 Pantoprazole 40 Mg Tablet PO 02/23/25 08:59 40 mg QDAY TINY Administration Protocol Polyethylene Glycol 17 gm 01/25/25 07:35 Polyethylene Glycol 17 Gm Packet PO 02/24/25 07:34 QDAY PRN CONSTIPATION Protocol Plan 69-year-old male with PMHx of obesity, chronic substance use disorder including alcohol and marijuana, chronic tobacco smoker with likely COPD component, presenting to the ED with progressively worsening shortness of breath. Acute decompensated heart failure exacerbation HFpEF EF 55 ? 60% Cor pulmonale 2/2 moderate PAH COPD exacerbation and suspected possible underlying obesity hypoventilation syndrome Respiratory acidosis, compensated metabolic alkalosis Reports longstanding but progressively worsening shortness of breath and lower extremity swelling. Symptoms worsened over the last week or so, now has dyspnea with minimal exertion, including walking around the house. Reports worsening LE swelling also occurring around the same time. Found dyspneic on admission, required BiPAP. BMI is 29.2 On exam, noted mild JVD, extensive bilateral LE edema extending above the hip. Initial ABG showed respiratory acidosis with pH 7.26 and CO2 81. He was started on BiPAP, ABG showed improved pH 7.39, pCO2 61. BNP 843. No lactic acidosis. Previous echo from 12/2023 showed EF 60%. He was previously discharged on FUROSEMIDE which he hasn't been taking. He has history of extensive tobacco use, greater than 30 years, COPD was suspected on previous admission. Was difficult to assess for wheezing on exam. Given that he was on BiPAP. However will treat show for likely COPD exacerbation, although his presentation with elevated BNP, fluid overload and vascular congestion on CXR is more consistent with CHF exacerbation, and will require extensive diuresis. There may be an additional pneumonia component as noted on CXR, however he denies cough, afebrile, no leukocytosis, negative influenza and COVID screen. 01/22/2025 ECHOCARDIOGRAM * Normal LV size/function, EF 55-60%, grade 1 diastolic dysfunction, mildly dilated RV and mildly decreased RV systolic function. * D-shaped septum in both systole/diastole, indicating volume overload. * Mildly elevated RVSP 50-55 mmHg. * Mildly thickened mitral and aortic valve with minimal calcification, trace MR, mild biatrial dilation, IVC dilation, no pericardial effusion TG 56, cholesterol 112, LDL 55, HDL 46, TSH 0.93, free T41.0, A1c 5.9. Sputum culture - Staph aureus, Blood cultures - negative after 48hrs Continued on diuresis, adequate renal output, lower extremity edema nearly resolved. Pending SNF placement, 6-minute walk test, may likely need home oxygen (order in) ? Strict INOs ? Fluid restriction 1200 cc daily ? Continue BiPAP intermittently ? Continue LASIX 40 mg daily ? Continue DUNEBS Q6H PRN ? Continue CEFTRIAXONE daily (01/22 to present) ? Added ATORVASTATIN 40 mg daily Mild KAREN (resolved) Possible cardiorenal type I Admission CR 1.4, baseline 1.0. Possibly he has cardiorenal type I. Anticipate improvement with diuresis as above. Responded well to diuresis, CR 1.1 today. ? Renally dose meds, avoid overdiuresis and NEPHROTOXINS ? Daily CMP Anasarca (resolved) Liver cirrhosis, likely alcohol related LFTs and ALBUMEN WNL, has tense abdomen on exam. No history of liver cirrhosis but has extensive history of alcohol use. Hep panel nonreactive. Ultrasound showed cirrhosis with hepatomegaly, cholelithiasis (asymptomatic). ? Improved with diuresis Active tobacco smoker Polysubstance use disorder Has extensive history of alcohol, marijuana and tobacco use. States he stopped drinking alcohol 2 years ago. Continued to smoke about a pack daily. U tox negative. ? Recommended smoking cessation. ? Daily NICOTINE patches. Health maintenance Diet: Cardiac, fluid restriction GI prophylaxis: PROTONIX DVT prophylaxis: HEPARIN subcu Antibiotics: CEFTRIAXONE CODE STATUS: Full code Disposition: Admitted for CHF versus COPD exacerbation. Case was discussed with attending physician and senior resident. Lacey Westfall DO PGYI Attending Provider Attestation/Addendum I have discussed and was present for the essential components of the history, physical examination, diagnosis, and treatment plan with the resident. I agree with the patient's care as documented by the resident and amended herein by me. Shine Ruiz DO. Although this document has been carefully reviewed, there may still be some phonetic and other typographical errors. These errors are purely grammatical due to imperfections in the software program and should not be construed in any way to compromise the substance of the patient's medical care during this visit.
--- NOTE | 2025-01-27 15:24 | PC.SS ---
Addendum entered by Silvina Simmons 01/27/25 16:01: [facility] stated she will initiate insurance auth. 01/28/25. Original Note: Accepting SNFs ([facility] and [facility]) presented to patient. Patient has chosen [facility]. PAS[facility] completed and closed out. [facility] informed via Cricket, insurance pending.
[2025-01-27] MEDS: ATORVASTATIN CALCIUM 20 MG TABLET 40 MG PO (21:10)
--- NOTE | 2025-01-27 23:51 | PD.IMPROG ---
Documentation for date of: 01/27/25 Subjective Subjective Interval history: Patient seen and examined at the bedside. No new cardiac complaint Patient has diuresed well over the past few days creatinine is around 1.1 today. Continue diuresis with Lasix 40 mg once daily. Strict 2 g daily weights and 2 g sodium diet Will need complete input output since admission and dry weight of the patient before discharge. Awaiting SNF placement. Exam Vital Signs Temp Pulse Resp BP Pulse Ox O2 Del Method O2 Flow Rate 98.5 F 79 16 120/70 95 Nasal Cannula 2 01/27/25 20:00 01/27/25 20:00 01/27/25 20:00 01/27/25 20:00 01/27/25 20:00 01/27/25 20:00 01/27/25 17:45 FiO2 45 01/27/25 04:00 Narrative Exam General Appearance: Alert & Oriented X3, well-nourished male who is lying in bed in no acute distress, oral cavity missing all teeth, no oral lesion noted HEENT: Skull symmetrical and atraumatic. Conjunctivae pale and moist. Pupils equal, round, reactive to light and accommodation (PERRL). External ear without lesion or discharge. Straight, nares patient, mucosa pink, no discharge. No thyroid nodule appreciated. No cervical lymphadenopathy. Cardio: Normal Rate and Rhythm with S1 and S2 heart sounds. Holosystolic murmur noted. No bruits on carotid auscultation. Trace to 1+ peripheral edema. Lungs: Symmetric with good expansion. Chest and back non-tender. Breath sounds vesicular without crackles, wheezing or rhonchi Abdomen: Non-tender, Non-distended, Normal Reactive Bowel Sounds Neuro: Alert, cooperative, oriented to person, place, and time. Speech clear. CN grossly intact. Upper motor strength 5/5 and Lower motor strength 5/5. Sensation intact. Objective Labs 01/28/25 05:30 01/28/25 05:30 Labs: Laboratory Results - last 24 hr 01/27/25 05:32 WBC 6.1 RBC 5.22 Hgb 15.2 Hct 49.4 MCV 95 MCH 29.1 MCHC 30.8 L RDW Std Deviation 49.7 H Plt Count 148 D Neut % (Auto) 70 Lymph % (Auto) 20 [place] % (Auto) 10 Eos % (Auto) 1 Baso % (Auto) 0 Neut # (Auto) 4.2 Lymph # (Auto) 1.2 [place] # (Auto) 0.6 Eos # (Auto) 0.0 Baso # (Auto) 0.0 Immature Gran # (Auto) 0.02 H Absolute Nucleated RBC 0.00 Immature Gran % 0 Nucleated RBC % 0 Sodium 141 Potassium 4.1 Chloride 100 Carbon Dioxide 36.5 H Anion Gap 5 L BUN 22 Creatinine 1.0 Estim Creat Clear Calc 77.6 eGFR > 60 BUN/Creatinine Ratio 22 H Glucose 112 H Calculated Osmolality 285 Calcium 9.3 ABG Interpretation ABG results: 01/22/25 01/22/25 01/22/25 05:07 07:45 11:01 ABG pH 7.26 L ABG pCO2 81 H* ABG pO2 79 L ABG HCO3 36 H ABG O2 Saturation 95 ABG Base Excess 6 H VBG pH 7.25 L 7.39 VBG pCO2 92 H 61 H D VBG pO2 36 32 VBG Base Excess 8 H 9 H 01/23/25 01/24/25 01/24/25 08:11 06:05 11:26 ABG pH ABG pCO2 ABG pO2 ABG HCO3 ABG O2 Saturation ABG Base Excess VBG pH 7.34 7.26 L 7.31 L VBG pCO2 77 H D 102 H D 87 H D VBG pO2 73 H D 30 D 57 D VBG Base Excess 12 H 13 H 13 H 01/25/25 01/26/25 05:19 05:45 ABG pH ABG pCO2 ABG pO2 ABG HCO3 ABG O2 Saturation ABG Base Excess VBG pH 7.26 L 7.39 VBG pCO2 95 H 65 H D VBG pO2 35 D 81 H D VBG Base Excess 11 H 11 H Assessment & Plan A&P Narrative #Acute on chronic hypoxic and Hypercapneic Respiratory Failure, improved #Acute on Chronic diastolic Heart Failure Exacerbation #CHF HpEF 55-60% #Diastolic Dysfunction Grade I #Moderate PAH, RVSP 50-55% #ANASARCA Etiology: likely in the setting of cardiomyopathy as noted on echo with diastolic dysfunciton and history of meth use leading to PAH. DDX: Less likely secondary to PE as BP and HR have been stable vs less likely secondary to ME as troponin within normal limits. 01/23/2025: 2960/5950/-2990 01/24/2025: 1730/4260/-2530, if improved lower pedal edema, consider reducing Lasix from 40 mg IV BID to Qday in the morning Diagnostics: Echo (01/22/2025): Normal LV size and function. Estimated EF is 55 to 60%. Grade 1 diastolic dysfunction.Mildly dilated RV with mildly decreased RV systolic function. D-shaped septum in both systole and diastole indicating both pressure and volume overload. Moderately elevated RVSP at 50-55 mmHg. Mild TR.Mildly thickened mitral and aortic valves with minimal calcification. Trace MR. Mild biatrial dilatation. IVC dilated. No pericardial effusion TSH 2.52, Troponin 0.02. EKG no ST elevation noted. A1c 5.9 Lipid Panel Lipid Panel (01/23/2025): Triglycerides 56, Cholesterol 112, LDL 55, HDl 46 NYHA Class: III ASCVD:11.8%, Moderate to high intensity statin Plan: -Lasix 40 mg IV daily and change to po lasix 40 mg once daily. -Consider Atorvastatin 40 mg HS given ASCVD risk -Aggressive Diuresis -Repeat BNP prior to discharge -K>4 and Mg >2 -Fluid Restriction (1200) and Sodium Restriction 2 g per day, Daily weight checks -SpO <90%, support PRN -Work toward GDMT, consider adding Metoprolol as Lasix reduced. Will need complete input output since admission and dry weight of the patient before discharge. Awaiting SNF placement. #Contraction Alkalosis #KAREN likely Prerenal, improving KAREN noted on admission with Cr of 1.4 with a previous baseline of 1.0. BUN/Cr 14 and GFR 55 likely pre-renal in the setting of cardio-renal syndrome vs CKD given previous GFR 55 in August 2024 and repeat GFR 55. Abdomen US noted to have parenchymal scars. Contraction Alkalosis secondary to lasix, despite diamox and now noted to have a VBG 7.26. Started on Bipap. Consider reducing lasix. 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 Abdomen US (01/22/2025): Cholelithiasis. Cirrhosis, mild to moderate hepatomegaly no focal liver lesions. Mild Renal Parencymal Scar Formation Hepatitis Panel (01/22/2025): negative Child-Calderón Score 6 points, Class A, Life expectancy 15-20 years. Abdominal surgery [facility] mortality 10%. Plan -[employer] Portal Developer on Alcohol Use Disorder -Benefit from liver biopsy with Utility Inspector/Transitions Manager #Hx COPD #CAP Past medical history of COPD with 24 year pack history of smoking with previous admission concern for COPD in 2023. NO wheezing noted on physical exam. Cxr did not show ephysema patter, possible pneumonia. -Blood Culture Negative 48 hours & MRSA Screen Negative. -Sputum Gram stain:GPC, GPR, Epithelial, likely contaminiated Plan -Azithromycin & Ceftriaxone, consider D/C antibiotics -Duonebs -Sputum Culutre pending -Patient would benefit from PFT. #Respiratory Acidosis w/ Metabolic Compensation Health Maintenance: Disp: Pt is currently admitted to floors for further management of CHF exacerbation, cardiology following FEN: Cardiac Diet, Fluid restricted DVT: on subQ heparin Q8HR Code: Full code Management of rest of the medical conditions as per primary team and other consultants. Thank you for the consult and allowing me to participate in the care of the patient. Cardiology will continue to follow. Noah Dang M.D. Interventional Cardiology Time Spent With Patient Time: Total time spent is greater than 50% in coordination of care (as documented) at patient's floor/unit and/or counseling patient:
[2025-01-28] VITALS (10 sets, daily range): BP systolic 112–121; BP diastolic 70–81; PULSE 74–92; RESP 16–23; TEMP 36.1–36.7; O2SAT 92–98; BMI 26.8
[2025-01-28] MEDS: HEPARIN SOD INJ 5000 UNIT/ML VIAL SC ×3 (05:51→21:05)
[2025-01-28 06:10] LABS: Basophils % (Auto) 1 % (0-2.5); Eosinophils % (Auto) 0 % (0-10); Hemoglobin 16.7 g/dL (13.5-16.0); Immature Granulocytes % (Auto) 0 % (0-0); Immature Granulocytes Auto 0.02 Thou/mm3 (0.00-0.00); Lymphocytes # (Auto) 1.3 Thou/mm3 (1.0-4.8); Lymphocytes % (Auto) 24 % (10-50); Mean Corpuscular HGB Conc 30.9 g/dl (31.0-37.0); Mean Corpuscular Hemoglobin 28.9 pg (25.0-35.0); Mean Corpuscular Volume 94 fL (80-100); Monocytes # (Auto) 0.5 Thou/mm3 (0.0-0.8); Monocytes % (Auto) 9 % (0-12); Neutrophils # (Auto) 3.5 Thou/mm3 (1.8-7.7); Neutrophils % (Auto) 66 % (37-80); Nucleated Red Blood Cell % 0 /100 WBC (0); Platelet Count 142 Thou/mm3 (140-440); RDW Standard Deviation 49.4 fL (35.1-43.9); Red Blood Count 5.77 Miln/mm3 (4.50-5.90); White Blood Count 5.4 Thou/mm3 (3.8-10.6)
[2025-01-28 06:25] LABS: B-Type Natriuretic Peptide 114 pg/mL (0-100)
[2025-01-28 06:27] LABS: Alanine Aminotransferase 68 U/L (10-49); Albumin, Serum 4.1 gm/dL (3.4-4.8); Albumin/Globulin Ratio 1.5 (1.2-2.2); Alkaline Phosphatase 121 U/L (46-116); Anion Gap 7 (7-16); Aspartate Amino Transferase 69 U/L (0-34); BUN/Creatinine Ratio 24 Ratio (12-20); Bilirubin,Total 0.8 mg/dL (0.3-1.2); Blood Urea Nitrogen 24 mg/dL (9-23); Calcium 9.7 mg/dL (8.3-10.6); Calcium (Corrected) 9.7 mg/dL (8.5-10.1); Carbon Dioxide 34.9 mMol/L (20.0-31.0); Chloride 100 mMol/L (98-107); Estimated Creatinine Clearance 77.6 mL/min (>60); Globulin 2.7 gm/dL (2.3-3.5); Glucose 112 mg/dL (74-106); Magnesium 2.3 mg/dL (1.6-2.6); Osmolality,Calculated 288 (275-295); Phosphorous 3.1 mg/dL (2.4-5.1); Potassium 4.1 mMol/L (3.4-5.1); Sodium 142 mMol/L (136-145); Total Protein 6.8 gm/dL (5.7-8.2); eGFR > 60 See Note
--- NOTE | 2025-01-28 07:28 | PD.RESPRO ---
Documentation for date of: 01/28/25 Exam Vital Signs Temp Pulse Resp BP Pulse Ox O2 Del Method O2 Flow Rate 97.9 F 82 20 114/81 98 Nasal Cannula 2 01/28/25 04:00 01/28/25 06:37 01/28/25 06:37 01/28/25 04:00 01/28/25 06:37 01/28/25 04:00 01/28/25 06:37 FiO2 45 01/27/25 04:00 Objective Labs 01/28/25 05:30 01/28/25 05:30 Labs: Laboratory Results - last 24 hr 01/28/25 05:30 WBC 5.4 RBC 5.77 Hgb 16.7 H Hct 54.0 H MCV 94 MCH 28.9 MCHC 30.9 L RDW Std Deviation 49.4 H Plt Count 142 Neut % (Auto) 66 Lymph % (Auto) 24 [place] % (Auto) 9 Eos % (Auto) 0 Baso % (Auto) 1 Neut # (Auto) 3.5 Lymph # (Auto) 1.3 [place] # (Auto) 0.5 Eos # (Auto) 0.0 Baso # (Auto) 0.0 Immature Gran # (Auto) 0.02 H Absolute Nucleated RBC 0.00 Immature Gran % 0 Nucleated RBC % 0 Sodium 142 Potassium 4.1 Chloride 100 Carbon Dioxide 34.9 H Anion Gap 7 BUN 24 H Creatinine 1.0 Estim Creat Clear Calc 77.6 eGFR > 60 BUN/Creatinine Ratio 24 H Glucose 112 H Calculated Osmolality 288 Calcium 9.7 Corrected Calcium 9.7 Phosphorus 3.1 Magnesium 2.3 Total Bilirubin 0.8 AST 69 H ALT 68 H Alkaline Phosphatase 121 H B-Natriuretic Peptide 114 H Total Protein 6.8 Albumin 4.1 Globulin 2.7 Albumin/Globulin Ratio 1.5 ABG Interpretation ABG results: 01/22/25 01/22/25 01/22/25 05:07 07:45 11:01 ABG pH 7.26 L ABG pCO2 81 H* ABG pO2 79 L ABG HCO3 36 H ABG O2 Saturation 95 ABG Base Excess 6 H VBG pH 7.25 L 7.39 VBG pCO2 92 H 61 H D VBG pO2 36 32 VBG Base Excess 8 H 9 H 01/23/25 01/24/25 01/24/25 08:11 06:05 11:26 ABG pH ABG pCO2 ABG pO2 ABG HCO3 ABG O2 Saturation ABG Base Excess VBG pH 7.34 7.26 L 7.31 L VBG pCO2 77 H D 102 H D 87 H D VBG pO2 73 H D 30 D 57 D VBG Base Excess 12 H 13 H 13 H 01/25/25 01/26/25 05:19 05:45 ABG pH ABG pCO2 ABG pO2 ABG HCO3 ABG O2 Saturation ABG Base Excess VBG pH 7.26 L 7.39 VBG pCO2 95 H 65 H D VBG pO2 35 D 81 H D VBG Base Excess 11 H 11 H Quality Measures Quality Measures none Assessment & Plan Assessment Current Active Medications: Generic Name Dose Route Start Last Admin Trade Name Freq PRN Reason Stop Dose Admin Acetaminophen 650 mg 01/22/25 10:07 01/25/25 04:31 Acetaminophen 325 Mg Tablet PO 02/21/25 10:06 650 mg Q6H PRN Administration PAIN SCALE 1-3 (mild Acetaminophen 650 mg 01/22/25 10:07 Acetaminophen 325 Mg Tablet PO 02/21/25 10:06 Q6H PRN Fever >100.4 Albuterol/Ipratropium 3 ml 01/22/25 11:14 Albuterol/Ipratropium (Duoneb) Rt Cherise 3 Ml Nebu INH 02/21/25 12:59 Q6HRRT PRN wheezing Atorvastatin Calcium 40 mg 01/24/25 21:00 01/27/25 21:10 Atorvastatin Calcium 20 Mg Tablet PO 02/23/25 20:59 40 mg HS TINY Administration Furosemide 40 mg 01/26/25 09:00 01/27/25 08:51 Furosemide Inj 10 Mg/Ml 4ml Vial IVP 02/25/25 08:59 40 mg QDAY TINY Administration Heparin Sodium (Porcine) 5,000 unit 01/22/25 14:00 01/28/25 05:51 Heparin Sod Inj 5000 Unit/Ml Vial SC 02/05/25 13:59 5,000 unit Q8HR TINY Administration Ceftriaxone Sodium/Dextrose 1 gm in 50 mls @ 100 mls/hr 01/23/25 09:00 01/27/25 08:57 Rocephin/D5w 1gm Iv Premix IV 01/30/25 08:59 100 mls/hr QDAY TINY Administration Nicotine 14 mg 01/22/25 13:05 06/15/25 08:51 Nicotine Patch 14 Mg/24 Hr Patch.Td24 TOP 02/21/25 13:04 14 mg QDAY TINY Administration Ondansetron HCl 4 mg 01/22/25 10:07 Ondansetron Inj 2 Mg/Ml Inj 2 Ml IVP 02/21/25 10:06 Q6H PRN NAUSEA OR VOMITING Protocol Pantoprazole Sodium 40 mg 01/24/25 09:00 01/27/25 08:51 Pantoprazole 40 Mg Tablet PO 02/23/25 08:59 40 mg QDAY TINY Administration Protocol Polyethylene Glycol 17 gm 01/25/25 07:35 Polyethylene Glycol 17 Gm Packet PO 02/24/25 07:34 QDAY PRN CONSTIPATION Protocol Plan 69-year-old male with PMHx of obesity, chronic substance use disorder including alcohol and marijuana, chronic tobacco smoker with likely COPD component, presenting to the ED with progressively worsening shortness of breath. Acute decompensated heart failure exacerbation HFpEF EF 55 ? 60% Cor pulmonale 2/2 moderate PAH COPD exacerbation and suspected possible underlying obesity hypoventilation syndrome Respiratory acidosis, compensated metabolic alkalosis Reports longstanding but progressively worsening shortness of breath and lower extremity swelling. Symptoms worsened over the last week or so, now has dyspnea with minimal exertion, including walking around the house. Reports worsening LE swelling also occurring around the same time. Found dyspneic on admission, required BiPAP. BMI is 29.2 On exam, noted mild JVD, extensive bilateral LE edema extending above the hip. Initial ABG showed respiratory acidosis with pH 7.26 and CO2 81. He was started on BiPAP, ABG showed improved pH 7.39, pCO2 61. BNP 843. No lactic acidosis. Previous echo from 12/2023 showed EF 60%. He was previously discharged on FUROSEMIDE which he hasn't been taking. He has history of extensive tobacco use, greater than 30 years, COPD was suspected on previous admission. Was difficult to assess for wheezing on exam. Given that he was on BiPAP. However will treat show for likely COPD exacerbation, although his presentation with elevated BNP, fluid overload and vascular congestion on CXR is more consistent with CHF exacerbation, and will require extensive diuresis. There may be an additional pneumonia component as noted on CXR, however he denies cough, afebrile, no leukocytosis, negative influenza and COVID screen. Completed course of CTX and AZITHROMYCIN. 01/22/2025 ECHOCARDIOGRAM Normal LV size/function, EF 55-60%, grade 1 diastolic dysfunction, mildly dilated RV and mildly decreased RV systolic function. D-shaped septum in both systole/diastole, indicating volume overload. Mildly elevated RVSP 50-55 mmHg. Mildly thickened mitral and aortic valve with minimal calcification, trace MR, mild biatrial dilation, IVC dilation, no pericardial effusion TG 56, cholesterol 112, LDL 55, HDL 46, TSH 0.93, free T41.0, A1c 5.9. Sputum culture - Staph aureus, Blood cultures - negative after 48hrs Continued on diuresis, adequate renal output, lower extremity edema nearly resolved. Pending SNF placement, 6-minute walk test, may likely need home oxygen (order in) ? Strict INOs ? Fluid restriction 1200 cc daily ? Continue BiPAP intermittently ? Continue LASIX 40 mg daily ? Continue DUNEBS Q6H PRN ? Added ATORVASTATIN 40 mg daily Mild KAREN (resolved) Possible cardiorenal type I Admission CR 1.4, baseline 1.0. Possibly he has cardiorenal type I. Anticipate improvement with diuresis as above. Responded well to diuresis, CR 1.1 today. ? Renally dose meds, avoid overdiuresis and NEPHROTOXINS ? Daily CMP Anasarca (resolved) Liver cirrhosis, likely alcohol related LFTs and ALBUMEN WNL, has tense abdomen on exam. No history of liver cirrhosis but has extensive history of alcohol use. Hep panel nonreactive. Ultrasound showed cirrhosis with hepatomegaly, cholelithiasis (asymptomatic). ? Improved with diuresis Active tobacco smoker Polysubstance use disorder Has extensive history of alcohol, marijuana and tobacco use. States he stopped drinking alcohol 2 years ago. Continued to smoke about a pack daily. U tox negative. ? Recommended smoking cessation. ? Daily NICOTINE patches. Health maintenance Diet: Cardiac, fluid restriction GI prophylaxis: PROTONIX DVT prophylaxis: HEPARIN subcu Antibiotics: CEFTRIAXONE CODE STATUS: Full code Disposition: Admitted for CHF versus COPD exacerbation. Case was discussed with attending physician and senior resident. Lacey Westfall DO PGYI Attending Provider Attestation/Addendum I have discussed and was present for the essential components of the history, physical examination, diagnosis, and treatment plan with the resident. I agree with the patient's care as documented by the resident and amended herein by me. Shine Ruiz DO. Although this document has been carefully reviewed, there may still be some phonetic and other typographical errors. These errors are purely grammatical due to imperfections in the software program and should not be construed in any way to compromise the substance of the patient's medical care during this visit.
[2025-01-28] MEDS: NICOTINE PATCH 14 MG/24 HR PATCH.TD24 TOP (08:35)
[2025-01-28] MEDS: PANTOPRAZOLE 40 MG TABLET PO (08:35)
[2025-01-28] MEDS: FUROSEMIDE INJ 10 MG/ML 4ML VIAL 40 MG IVP (08:36)
--- NOTE | 2025-01-28 10:28 | PC.SS ---
SS followed up [facility] staff to verify where they are with authorization. Auth pending. Patient ready for d/c today once we receive auth
--- NOTE | 2025-01-28 11:01 | ESDS_ITS ---
Planned Discharge Date 01/28/25 DS: Providers Provider Date of admission: 01/22/25 10:07 Primary care physician: Jasper Viramontes MD Admitting Provider: Nidhi Echols DO Attending Provider on Admission: Nidhi Echols DO Consults: 01/22/25 09:05 Referral Respiratory Therapy Stat Comment: 01/22/25 12:49 Referral OP Wound Healing Dept Routine Comment: Instructions: Left lower leg venous ulcer x 2 01/22/25 15:11 [facility] Referral - Nutrition Routine Comment: Positive screening for nutrition needs. [facility] Referral - Transportation Routine Comment: Positive screening for transportation needs. 01/22/25 15:43 Referral Wound Care Routine Comment: 01/25/25 10:04 Referral Physical Therapy Stat Comment: Physician Instructions: Attending Provider on DC: Dr. Brooks Ruiz DO Discharging Provider: Dr. Brooks Ruiz DO DS: Diagnosis Problem List Completed Was Problem List Reviewed/Reconciled?: Yes Hospital Course Hospital Course Hospital course: This is a 69-year-old male with PMHx of obesity, chronic substance use disorder including alcohol and marijuana, chronic tobacco smoker with likely COPD component, presenting to the ED with progressively worsening shortness of breath, admitted for CHF exacerbation and volume overload, with suspected pneumonia. He underwent aggressive diuresis, with a total of 23.4 L of fluids removed. Cardiology was following. Echo was ordered showing EF 55-60%, grade 1 diastolic dysfunction, and Cor pulmonale 2/2 moderate PAH (detailed exam below). In the interest, he developed mild KAREN, likely cardiorenal which has resolved, creatinine 1.0 on discharge. Additionally, he completed a course of ANTIBIOTICS for suspected pneumonia as seen on CXR, he was otherwise asymptomatic, afebrile, no leukocytosis. Ultrasound was done showing liver cirrhosis, likely alcohol related given his history, however there were no signs of decompensation at this time. IMAGE FINDINGS: * CXR showed mild CHF, bibasilar mild edema and/or pneumonia. * EKG shows sinus rhythm without acute ST changes. * Echocardiogram: * Normal LV size and function. Estimated EF is 55 to 60%. Grade 1 diastolic dysfunction. * Mildly dilated RV with mildly decreased RV systolic function. * D-shaped septum in both systole and diastole indicating both pressure and volume overload. Moderately elevated RVSP at 50-55 mmHg. * Mild TR. Mildly thickened mitral and aortic valves with minimal calcification. Trace MR. Mild biatrial dilatation. IVC dilated. No pericardial effusion. * Abdominal ultrasound showed cholelithiasis, cirrhosis, mild to moderate hepatomegaly with no focal liver lesions PATIENT INSTRUCTIONS: * Follow-up with PCP within 1-2 weeks of discharge. * Follow-up with Cardiology, Dr. Dang, within 1-2 weeks of discharge. * Repeat BMP 2 days prior to seeing Dr. Dang. * Continue taking BUMEX 1 mg one tablet daily. * Continue with fluid restriction, no more than 1.2L daily. * Continue with salt restrictions, no more than 2 grams daily. * Continue wound care using instructions below. * Return to Emergency Room if symptoms persist, worsen, or new symptoms develop. * Continue taking medications as prescribed below. Pertinent discharge measures: BMP 114 on discharge, body weight 89.8 kg, total urine output 23.4 L, cumulative balance -14.1 L, CR 1.0, BUN 24. ADMISSION DIAGNOSES: Acute decompensated heart failure exacerbation HFpEF EF 55 ? 60%, grade 1 diastolic dysfunction Cor pulmonale 2/2 moderate PAH COPD exacerbation and suspected possible underlying obesity hypoventilation syndrome Respiratory acidosis, compensated metabolic alkalosis Mild KAREN (resolved) Possible cardiorenal type I Anasarca (resolved) Liver cirrhosis, likely alcohol related Active tobacco smoker Polysubstance use disorder Case was discussed with attending physician and senior resident. Lacey Westfall DO PGYI Time Spent with Patient Time attestation: Total time spent providing and/or coordinating discharge services: Time spent: Greater than 30 minutes Exam Vital Signs Temp Pulse Resp BP Pulse Ox O2 Del Method O2 Flow Rate 97.0 F 74 23 H 118/70 92 L Nasal Cannula 2 01/28/25 08:00 01/28/25 08:36 01/28/25 08:00 01/28/25 08:36 01/28/25 08:00 01/28/25 08:00 01/28/25 08:00 FiO2 45 01/27/25 04:00 Narrative Exam General: Awake, on 3L NC. HEENT: Normocephalic, atraumatic, mucous membranes moist. Heart: Regular rate and rhythm, no murmurs. Lungs: Clear to auscultation with no wheezing or crackles. Abdomen: Soft, nondistended, nontender, positive bowel sounds. ?No guarding or rebound tenderness. Neurologic: Alert and oriented x3, no gross neurological deficit, and patient able to move all 4 extremities. Extremities: Bilateral trace pitting pedal edema noted in lower extremities Skin: No rash or ecchymoses. Discharge Plan Plan Patient Disposition: Xfer Skilled Nsg Fac (SNF) Disposition Comment: DC to [facility] Patient condition on transfer: Stable Care Plan Goals: 1) Discharge instructions: * Follow-up with PCP within 1-2 weeks of discharge. * Follow-up with Cardiology, Dr. Dang, within 1-2 weeks of discharge. * Repeat BMP 2 days prior to seeing Dr. Dang. * Continue taking BUMEX 1 mg one tablet daily. * Continue with fluid restriction, no more than 1.2L daily. * Continue with salt restrictions, no more than 2 grams daily. * Return to Emergency Room if symptoms persist, worsen, or new symptoms develop. * Continue taking medications as prescribed below. 2) Follow up at [facility] for care to your legs. [address] [place] [address]. Call [phone] for appointment. Dressing Change Home Care: You have a wound that needs special care to heal.? Your body will make the new skin needed to close your wound, but you have to help.? Germs and old skin on the wound have to be removed.? This is done by changing the dressing on the wound as directed by your doctor. Supplies/Equipment (keep all supplies in one place clean and dry) o?? Normal Saline (salt water) solution.? You can make you own by boiling 2 cups of water with ? teaspoon of salt for 10 minutes.? Keep in a glass jar in the refrigerator and make a new batch every day. o?? Clean/Irrigate wound with ?normal saline or wound cleanser o?? Medication for wound: normal saline moistened gauze o?? Primary dressing ? o?? Secondary dressing: dry gauze and gauze roll o?? Tape o?? Gloves o?? Q-tips o?? Small trash bag o?? Other supplies Follow these instructions: 1.??? Wash your hands with soap and water. 2.??? Gather all your supplies and place on a clean towel or paper towel. 3.??? Put on gloves 4.Wound care to left lower leg ulcers: Remove dressings and shower daily. After showing, wash hands with soap and water. Cleanse wound with wound cleanser spray at pat dry with gauze. Cover wound with adaptic gauze and secure with dry gauze or foam dressing. Change once a day and as needed for falling off. Goal is to keep wound clean and covered. If active bleeding occurs, apply tight dressing and return to MD or ER. ? Notify primary doctor or return to Emergency Room if any of the following: ? Fever above 100.6? F. ? Increased pain ? Increase swelling ? Red streaks around your wound ? Drainage becomes foul smelling or changes color ? The wound is larger or deeper ? The wound looks dried out or dark ? Bleeding that does not stop with holding pressure Prescriptions/Referrals Prescriptions/Med Rec: New atorvastatin 20 mg Tablet 40 mg PO HS Qty: 30 0RF bumetanide 1 mg tablet 1 mg PO QDAY Qty: 30 0RF Referrals: Noah Dang MD [Physician] - Jasper Viramontes MD [Primary Care Provider] - Patient/Caregiver Discharge Instructions Discharge Activity: activity as tolerated Education Materials: Nutrition for Wound Healing, Changing Dressing Dc, ED Venous Leg Ulcer Print Language: Hebrew Stand Alone Forms: Ruth Ann Award Info., Patient Portal Info Letter Discharge Order Discharge Orders: Discharge (Routine); Ordered 01/29/25 Ordered By: Lacey Westfall Quality Discharge Quality Measures VTE prophylaxis Attestestation Attestation Patient not discharged as expected on 01/29, see progress note.
--- NOTE | 2025-01-28 13:11 | PD.RESPRO ---
Documentation for date of: 01/28/25 Subjective Subjective Interval history: Patient is a 69-year-old male with a past medical history of CHF HFpEF 55 to 60% (01/02/2024), COPD per chart review, and history of substance use disorder including cocaine and methamphetamines. Patient presented to the emergency room on 01/22/2025 with a chief complaint of difficulty breathing. 1 month history of shortness of breath, which worsens with ambulation. Patient stated after a couple feet he experienced shortness of breath. Shortness of breath accompanied with palpitations. Patient denied any history of atrial fibrillation and denied any flutter like sensation. Patient has been non-adherent to medications since previous hospitalization in 2023, initially discharged on Lasix 20 mg p.o. daily. Patient denied orthopnea, or paroxysmal paroxysmal nocturnal dyspnea. Patient denied any chest pain. Patient denied any syncopal events. Patient denied dizziness. Patient denied any recent sick contacts. Substance use disorder with meth and cocaine, last use 6 months ago. Alcohol use about half a pint a week with fireball as his choice of alcohol. Smoking history since age 21-->24 pack year history. 01/28/2025: No ovenright events. Patient examined at bedside. Paitnet likely discharge today to [facility]. Given right hear failure, patient currenlty benefit from Bumex 1 mg PO daily upon discharge. Follow up with [address] Dang. 01/28/2025: 1210/1949/-740 Dry weight BNP 114 Dry Weight 89.811 KG Exam Vital Signs Temp Pulse Resp BP Pulse Ox O2 Del Method O2 Flow Rate 97.0 F 74 23 H 118/70 92 L Nasal Cannula 2 01/28/25 08:00 01/28/25 08:36 01/28/25 08:00 01/28/25 08:36 01/28/25 08:00 01/28/25 08:00 01/28/25 08:00 FiO2 45 01/27/25 04:00 Narrative Exam General Appearance: Alert & Oriented X3, well-nourished male who is lying in bed in no acute distress, oral cavity missing all teeth, no oral lesion noted HEENT: Skull symmetrical and atraumatic. Conjunctivae pale and moist. Pupils equal, round, reactive to light and accommodation (PERRL). External ear without lesion or discharge. Straight, nares patient, mucosa pink, no discharge. No thyroid nodule appreciated. No cervical lymphadenopathy. Cardio: Normal Rate and Rhythm with S1 and S2 heart sounds. Holosystolic murmur noted. No bruits on carotid auscultation. Peripheral bilateral edema +1 on right and 2 on left but overall. Trace peripheral edema. Lungs: Symmetric with good expansion. Chest and back non-tender. Breath sounds vesicular without crackles, wheezing or rhonchi Abdomen: Non-tender, Non-distended, Normal Reactive Bowel Sounds Neuro: Alert, cooperative, oriented to person, place, and time. Speech clear. CN grossly intact. Upper motor strength 5/5 and Lower motor strength 5/5. Sensation intact. Objective Labs 01/28/25 05:30 01/28/25 05:30 Labs: Laboratory Results - last 24 hr 01/28/25 05:30 WBC 5.4 RBC 5.77 Hgb 16.7 H Hct 54.0 H MCV 94 MCH 28.9 MCHC 30.9 L RDW Std Deviation 49.4 H Plt Count 142 Neut % (Auto) 66 Lymph % (Auto) 24 [place] % (Auto) 9 Eos % (Auto) 0 Baso % (Auto) 1 Neut # (Auto) 3.5 Lymph # (Auto) 1.3 [place] # (Auto) 0.5 Eos # (Auto) 0.0 Baso # (Auto) 0.0 Immature Gran # (Auto) 0.02 H Absolute Nucleated RBC 0.00 Immature Gran % 0 Nucleated RBC % 0 Sodium 142 Potassium 4.1 Chloride 100 Carbon Dioxide 34.9 H Anion Gap 7 BUN 24 H Creatinine 1.0 Estim Creat Clear Calc 77.6 eGFR > 60 BUN/Creatinine Ratio 24 H Glucose 112 H Calculated Osmolality 288 Calcium 9.7 Corrected Calcium 9.7 Phosphorus 3.1 Magnesium 2.3 Total Bilirubin 0.8 AST 69 H ALT 68 H Alkaline Phosphatase 121 H B-Natriuretic Peptide 114 H Total Protein 6.8 Albumin 4.1 Globulin 2.7 Albumin/Globulin Ratio 1.5 ABG Interpretation ABG results: 01/22/25 01/22/25 01/22/25 05:07 07:45 11:01 ABG pH 7.26 L ABG pCO2 81 H* ABG pO2 79 L ABG HCO3 36 H ABG O2 Saturation 95 ABG Base Excess 6 H VBG pH 7.25 L 7.39 VBG pCO2 92 H 61 H D VBG pO2 36 32 VBG Base Excess 8 H 9 H 01/23/25 01/24/25 01/24/25 08:11 06:05 11:26 ABG pH ABG pCO2 ABG pO2 ABG HCO3 ABG O2 Saturation ABG Base Excess VBG pH 7.34 7.26 L 7.31 L VBG pCO2 77 H D 102 H D 87 H D VBG pO2 73 H D 30 D 57 D VBG Base Excess 12 H 13 H 13 H 01/25/25 01/26/25 05:19 05:45 ABG pH ABG pCO2 ABG pO2 ABG HCO3 ABG O2 Saturation ABG Base Excess VBG pH 7.26 L 7.39 VBG pCO2 95 H 65 H D VBG pO2 35 D 81 H D VBG Base Excess 11 H 11 H Quality Measures Quality Measures VTE prophylaxis Advance care planning discussed with:: patient Assessment & Plan Assessment Current Active Medications: Generic Name Dose Route Start Last Admin Trade Name Freq PRN Reason Stop Dose Admin Acetaminophen 650 mg 01/22/25 10:07 01/25/25 04:31 Acetaminophen 325 Mg Tablet PO 02/21/25 10:06 650 mg Q6H PRN Administration PAIN SCALE 1-3 (mild Acetaminophen 650 mg 01/22/25 10:07 Acetaminophen 325 Mg Tablet PO 02/21/25 10:06 Q6H PRN Fever >100.4 Albuterol/Ipratropium 3 ml 01/22/25 11:14 Albuterol/Ipratropium (Duoneb) Rt Cherise 3 Ml Nebu INH 02/21/25 12:59 Q6HRRT PRN wheezing Atorvastatin Calcium 40 mg 01/24/25 21:00 01/27/25 21:10 Atorvastatin Calcium 20 Mg Tablet PO 02/23/25 20:59 40 mg HS TINY Administration Furosemide 40 mg 01/26/25 09:00 01/28/25 08:36 Furosemide Inj 10 Mg/Ml 4ml Vial IVP 02/25/25 08:59 40 mg QDAY TINY Administration Heparin Sodium (Porcine) 5,000 unit 01/22/25 14:00 01/28/25 05:51 Heparin Sod Inj 5000 Unit/Ml Vial SC 02/05/25 13:59 5,000 unit Q8HR TINY Administration Nicotine 14 mg 01/22/25 13:05 01/28/25 08:35 Nicotine Patch 14 Mg/24 Hr Patch.Td24 TOP 02/21/25 13:04 14 mg QDAY TINY Administration Ondansetron HCl 4 mg 01/22/25 10:07 Ondansetron Inj 2 Mg/Ml Inj 2 Ml IVP 02/21/25 10:06 Q6H PRN NAUSEA OR VOMITING Protocol Pantoprazole Sodium 40 mg 01/24/25 09:00 01/28/25 08:35 Pantoprazole 40 Mg Tablet PO 02/23/25 08:59 40 mg QDAY TINY Administration Protocol Polyethylene Glycol 17 gm 01/25/25 07:35 Polyethylene Glycol 17 Gm Packet PO 02/24/25 07:34 QDAY PRN CONSTIPATION Protocol Plan #Acute on chronic hypoxic and Hypercapneic Respiratory Failure, improved #Acute on Chronic diastolic Heart Failure Exacerbation #CHF HpEF 55-60%, likely right heart failure #Diastolic Dysfunction Grade I #Moderate PAH, RVSP 50-55% #ANASARCA Etiology: likely in the setting of cardiomyopathy as noted on echo with diastolic dysfunciton and history of meth use leading to PAH. DDX: Less likely secondary to PE as BP and HR have been stable vs less likely secondary to MD as troponin within normal limits. BNP 843 01/28/2025: 1210/1949/-740 Net balance: -14,400 (01/22/25-01/28/2025) Dry BNP : 114 Dry Weight: 89.811 kg Diagnostics: Echo (01/22/2025): Normal LV size and function. Estimated EF is 55 to 60%. Grade 1 diastolic dysfunction.Mildly dilated RV with mildly decreased RV systolic function. D-shaped septum in both systole and diastole indicating both pressure and volume overload. Moderately elevated RVSP at 50-55 mmHg. Mild TR.Mildly thickened mitral and aortic valves with minimal calcification. Trace MR. Mild biatrial dilatation. IVC dilated. No pericardial effusion TSH 2.52, Troponin 0.02. EKG no ST elevation noted. A1c 5.9 Lipid Panel Lipid Panel (01/23/2025): Triglycerides 56, Cholesterol 112, LDL 55, HDl 46 NYHA Class: III ASCVD:11.8%, Moderate to high intensity statin Plan: -Lasix 40 mg IV qday -Atorvastatin 40 mg HS given ASCVD risk -K>4 and Mg >2 -Fluid Restriction (1200) and Sodium Restriction 2 g per day, Daily weight checks -SpO <90%, support PRN -Work toward GDMT, upon discharge Bumex 1 mg qday. #Contraction Alkalosis, improving #KAREN likely Prerenal, resolved KAREN noted on admission with Cr of 1.4 with a previous baseline of 1.0. BUN/Cr 14 and GFR 55 likely pre-renal in the setting of cardio-renal syndrome vs CKD given previous GFR 55 in August 2024 and repeat GFR 55. Abdomen US noted to have parenchymal scars. Contraction Alkalosis secondary to lasix, despite diamox and now noted to have a VBG 7.26. Started on Bipap. Consider reducing lasix. 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 Abdomen US (01/22/2025): Cholelithiasis. Cirrhosis, mild to moderate hepatomegaly no focal liver lesions. Mild Renal Parencymal Scar Formation Hepatitis Panel (01/22/2025): negative Child-Calderón Score 6 points, Class A, Life expectancy 15-20 years. Abdominal surgery [facility]-operative mortality 10%. Plan -Robotics Testing Technician on Alcohol Use Disorder -Benefit from liver biopsy with Infusion Rn/Cashiers Supervisor #Hx COPD #CAP Past medical history of COPD with 24 year pack history of smoking with previous admission concern for COPD in 2023. NO wheezing noted on physical exam. Cxr did not show ephysema patter, possible pneumonia. -Blood Culture Negative 48 hours & MRSA Screen Negative. -Sputum Gram stain:Staphylococcus Aureus, but epithelial cells >25, consider contamination. -Stop Azithromycin 01/22/2025-01/25/2025 Plan - Ceftriaxone,(/) -Duonebs -Patient would benefit from PFT. #Respiratory Acidosis w/ Metabolic Compensation Health Maintenance: Disp: Pt is currently admitted to floors for further management of CHF exacerbation, Please follow up with cardiology, Dr. Dang, within 1 week from hospital discharge. FEN: Cardiac Diet, Fluid restricted DVT: on subQ heparin Q8HR Code: Full code - The patient's plan was discussed with attending Dr. Laurence Beckford MD PGY1 Internal Medicine Attending Provider Attestation/Addendum I have personally seen and examined the patient separately on the above date of service and discussed the plan of care with the resident. I reviewed the resident Dr. Kerri Beckford consultation progress note and agree with the resident findings and plan in the note above and have also edited the documentation to reflect my findings and plan. Noah Dang M.D. Interventional Cardiology
[2025-01-28] MEDS: ATORVASTATIN CALCIUM 20 MG TABLET 40 MG PO (21:05)
[2025-01-29] VITALS (10 sets, daily range): BP systolic 98–122; BP diastolic 73–76; PULSE 72–93; RESP 18–24; TEMP 36.5–37.2; O2SAT 90–98; BMI 26.8
[2025-01-29] MEDS: HEPARIN SOD INJ 5000 UNIT/ML VIAL SC ×3 (05:08→21:21)
[2025-01-29 05:25] LABS: Basophils % (Auto) 1 % (0-2.5); Eosinophils % (Auto) 1 % (0-10); Hematocrit 51.5 % (41.0-53.0); Hemoglobin 16.3 g/dL (13.5-16.0); Immature Granulocytes % (Auto) 0 % (0-0); Immature Granulocytes Auto 0.02 Thou/mm3 (0.00-0.00); Lymphocytes # (Auto) 1.6 Thou/mm3 (1.0-4.8); Lymphocytes % (Auto) 25 % (10-50); Mean Corpuscular HGB Conc 31.7 g/dl (31.0-37.0); Mean Corpuscular Volume 92 fL (80-100); Monocytes # (Auto) 0.6 Thou/mm3 (0.0-0.8); Monocytes % (Auto) 9 % (0-12); Neutrophils # (Auto) 4.1 Thou/mm3 (1.8-7.7); Neutrophils % (Auto) 65 % (37-80); Nucleated Red Blood Cell % 0 /100 WBC (0); Platelet Count 158 Thou/mm3 (140-440); RDW Standard Deviation 48.7 fL (35.1-43.9); Red Blood Count 5.62 Miln/mm3 (4.50-5.90); White Blood Count 6.3 Thou/mm3 (3.8-10.6)
[2025-01-29 05:52] LABS: Alanine Aminotransferase 102 U/L (10-49); Albumin/Globulin Ratio 1.5 (1.2-2.2); Alkaline Phosphatase 120 U/L (46-116); Anion Gap 8 (7-16); Aspartate Amino Transferase 90 U/L (0-34); BUN/Creatinine Ratio 27 Ratio (12-20); Bilirubin,Total 0.8 mg/dL (0.3-1.2); Blood Urea Nitrogen 27 mg/dL (9-23); Calcium 9.5 mg/dL (8.3-10.6); Calcium (Corrected) 9.5 mg/dL (8.5-10.1); Carbon Dioxide 32.9 mMol/L (20.0-31.0); Chloride 100 mMol/L (98-107); Estimated Creatinine Clearance 77.6 mL/min (>60); Globulin 2.6 gm/dL (2.3-3.5); Glucose 113 mg/dL (74-106); Magnesium 2.3 mg/dL (1.6-2.6); Osmolality,Calculated 287 (275-295); Phosphorous 2.8 mg/dL (2.4-5.1); Potassium 4.2 mMol/L (3.4-5.1); Sodium 141 mMol/L (136-145); Total Protein 6.6 gm/dL (5.7-8.2); eGFR > 60 See Note
[2025-01-29] MEDS: PANTOPRAZOLE 40 MG TABLET PO (08:29)
[2025-01-29] MEDS: NICOTINE PATCH 14 MG/24 HR PATCH.TD24 TOP (08:29)
--- NOTE | 2025-01-29 08:42 | ESPR_ITS ---
Documentation for date of: 01/29/25 Subjective Subjective Interval history: Patient is a 69-year-old male with a past medical history of CHF HFpEF 55 to 60% (01/02/2024), COPD per chart review, and history of substance use disorder including cocaine and methamphetamines. Patient presented to the emergency room on 01/22/2025 with a chief complaint of difficulty breathing. 1 month history of shortness of breath, which worsens with ambulation. Patient stated after a couple feet he experienced shortness of breath. Shortness of breath accompanied with palpitations. Patient denied any history of atrial fibrillation and denied any flutter like sensation. Patient has been non-adherent to medications since previous hospitalization in 2023, initially discharged on Lasix 20 mg p.o. daily. Patient denied orthopnea, or paroxysmal paroxysmal nocturnal dyspnea. Patient denied any chest pain. Patient denied any syncopal events. Patient denied dizziness. Patient denied any recent sick contacts. Substance use disorder with meth and cocaine, last use 6 months ago. Alcohol use about half a pint a week with fireball as his choice of alcohol. Smoking history since age 21-->24 pack year history. 01/28/2025: No ovenright events. Patient examined at bedside. Paitnet likely discharge today to [facility]. Given right hear failure, patient currenlty benefit from Bumex 1 mg PO daily upon discharge. Follow up with [address] Dang. 01/28/2025: 1210/1949/-740 01/29/2025: No overnight events. Patient examined at bedside. Pateint denied chest pain or shortness of breath. Patient pending SNF. Mild transaminitis noted. Mild increase in BUN. Holding IV lasix, consider transition patinet to oral. Exam Vital Signs Temp Pulse Resp BP Pulse Ox O2 Del Method O2 Flow Rate 98.3 F 72 20 110/75 90 L Nasal Cannula 2 01/29/25 08:00 01/29/25 08:00 01/29/25 08:00 01/29/25 08:00 01/29/25 08:00 01/29/25 08:00 01/29/25 08:00 FiO2 45 01/28/25 17:00 Narrative Exam General Appearance: Alert & Oriented X3, well-nourished male who is lying in bed in no acute distress, oral cavity missing all teeth, no oral lesion noted HEENT: Skull symmetrical and atraumatic. Conjunctivae pale and moist. Pupils equal, round, reactive to light and accommodation (PERRL). External ear without lesion or discharge. Straight, nares patient, mucosa pink, no discharge. No thyroid nodule appreciated. No cervical lymphadenopathy. Cardio: Normal Rate and Rhythm with S1 and S2 heart sounds. Holosystolic murmur noted. No bruits on carotid auscultation. Peripheral bilateral edema +1 on right and 2 on left but overall. Trace peripheral edema. Lungs: Symmetric with good expansion. Chest and back non-tender. Breath sounds vesicular without crackles, wheezing or rhonchi Abdomen: Non-tender, Non-distended, Normal Reactive Bowel Sounds Neuro: Alert, cooperative, oriented to person, place, and time. Speech clear. CN grossly intact. Upper motor strength 5/5 and Lower motor strength 5/5. Sensation intact. Objective Labs 01/29/25 04:35 01/29/25 04:35 Labs: Laboratory Results - last 24 hr 01/29/25 04:35 WBC 6.3 RBC 5.62 Hgb 16.3 H Hct 51.5 MCV 92 MCH 29.0 MCHC 31.7 RDW Std Deviation 48.7 H Plt Count 158 Neut % (Auto) 65 Lymph % (Auto) 25 [place] % (Auto) 9 Eos % (Auto) 1 Baso % (Auto) 1 Neut # (Auto) 4.1 Lymph # (Auto) 1.6 [place] # (Auto) 0.6 Eos # (Auto) 0.0 Baso # (Auto) 0.0 Immature Gran # (Auto) 0.02 H Absolute Nucleated RBC 0.00 Immature Gran % 0 Nucleated RBC % 0 Sodium 141 Potassium 4.2 Chloride 100 Carbon Dioxide 32.9 H Anion Gap 8 BUN 27 H Creatinine 1.0 Estim Creat Clear Calc 77.6 eGFR > 60 BUN/Creatinine Ratio 27 H Glucose 113 H Calculated Osmolality 287 Calcium 9.5 Corrected Calcium 9.5 Phosphorus 2.8 Magnesium 2.3 Total Bilirubin 0.8 AST 90 H ALT 102 H Alkaline Phosphatase 120 H Total Protein 6.6 Albumin 4.0 Globulin 2.6 Albumin/Globulin Ratio 1.5 ABG Interpretation ABG results: 01/22/25 01/22/25 01/22/25 05:07 07:45 11:01 ABG pH 7.26 L ABG pCO2 81 H* ABG pO2 79 L ABG HCO3 36 H ABG O2 Saturation 95 ABG Base Excess 6 H VBG pH 7.25 L 7.39 VBG pCO2 92 H 61 H D VBG pO2 36 32 VBG Base Excess 8 H 9 H 01/23/25 01/24/25 01/24/25 08:11 06:05 11:26 ABG pH ABG pCO2 ABG pO2 ABG HCO3 ABG O2 Saturation ABG Base Excess VBG pH 7.34 7.26 L 7.31 L VBG pCO2 77 H D 102 H D 87 H D VBG pO2 73 H D 30 D 57 D VBG Base Excess 12 H 13 H 13 H 01/25/25 01/26/25 05:19 05:45 ABG pH ABG pCO2 ABG pO2 ABG HCO3 ABG O2 Saturation ABG Base Excess VBG pH 7.26 L 7.39 VBG pCO2 95 H 65 H D VBG pO2 35 D 81 H D VBG Base Excess 11 H 11 H Quality Measures Quality Measures VTE prophylaxis Advance care planning discussed with:: patient Assessment & Plan Assessment Current Active Medications: Generic Name Dose Route Start Last Admin Trade Name Freq PRN Reason Stop Dose Admin Acetaminophen 650 mg 01/22/25 10:07 01/25/25 04:31 Acetaminophen 325 Mg Tablet PO 02/21/25 10:06 650 mg Q6H PRN Administration PAIN SCALE 1-3 (mild Acetaminophen 650 mg 01/22/25 10:07 Acetaminophen 325 Mg Tablet PO 02/21/25 10:06 Q6H PRN Fever >100.4 Albuterol/Ipratropium 3 ml 01/22/25 11:14 Albuterol/Ipratropium (Duoneb) Rt Cherise 3 Ml Nebu INH 02/21/25 12:59 Q6HRRT PRN wheezing Atorvastatin Calcium 40 mg 01/24/25 21:00 01/28/25 21:05 Atorvastatin Calcium 20 Mg Tablet PO 02/23/25 20:59 40 mg HS TINY Administration Furosemide 40 mg 01/26/25 09:00 01/28/25 08:36 Furosemide Inj 10 Mg/Ml 4ml Vial IVP 02/25/25 08:59 40 mg QDAY TINY Administration Heparin Sodium (Porcine) 5,000 unit 01/22/25 14:00 01/29/25 05:08 Heparin Sod Inj 5000 Unit/Ml Vial SC 02/05/25 13:59 5,000 unit Q8HR TINY Administration Nicotine 14 mg 01/22/25 13:05 01/29/25 08:29 Nicotine Patch 14 Mg/24 Hr Patch.Td24 TOP 02/21/25 13:04 14 mg QDAY TINY Administration Ondansetron HCl 4 mg 01/22/25 10:07 Ondansetron Inj 2 Mg/Ml Inj 2 Ml IVP 02/21/25 10:06 Q6H PRN NAUSEA OR VOMITING Protocol Pantoprazole Sodium 40 mg 01/24/25 09:00 01/29/25 08:29 Pantoprazole 40 Mg Tablet PO 02/23/25 08:59 40 mg QDAY TINY Administration Protocol Polyethylene Glycol 17 gm 01/25/25 07:35 Polyethylene Glycol 17 Gm Packet PO 02/24/25 07:34 QDAY PRN CONSTIPATION Protocol Plan #Acute on chronic hypoxic and Hypercapneic Respiratory Failure, improved #Acute on Chronic diastolic Heart Failure Exacerbation #CHF HpEF 55-60%, likely right heart failure #Diastolic Dysfunction Grade I #Moderate PAH, RVSP 50-55% #ANASARCA Etiology: likely in the setting of cardiomyopathy as noted on echo with diastolic dysfunciton and history of meth use leading to PAH. DDX: Less likely secondary to PE as BP and HR have been stable vs less likely secondary to NM as troponin within normal limits. BNP 843 Net balance: -14,400 (01/22/25-01/28/2025) Dry BNP : 114 Dry Weight: 89.811 kg Diagnostics: Echo (01/22/2025): Normal LV size and function. Estimated EF is 55 to 60%. Grade 1 diastolic dysfunction.Mildly dilated RV with mildly decreased RV systolic function. D-shaped septum in both systole and diastole indicating both pressure and volume overload. Moderately elevated RVSP at 50-55 mmHg. Mild TR.Mildly thickened mitral and aortic valves with minimal calcification. Trace MR. Mild biatrial dilatation. IVC dilated. No pericardial effusion TSH 2.52, Troponin 0.02. EKG no ST elevation noted. A1c 5.9 Lipid Panel Lipid Panel (01/23/2025): Triglycerides 56, Cholesterol 112, LDL 55, HDl 46 NYHA Class: III ASCVD:11.8%, Moderate to high intensity statin Plan: -Lasix 40 mg IV qday, transition to oral -Atorvastatin 40 mg HS given ASCVD risk -K>4 and Mg >2 -Fluid Restriction (1200) and Sodium Restriction 2 g per day, Daily weight checks -SpO <90%, support PRN -Work toward GDMT, upon discharge Bumex 1 mg qday. #Contraction Alkalosis, improving #KAREN likely Prerenal, resolved KAREN noted on admission with Cr of 1.4 with a previous baseline of 1.0. BUN/Cr 14 and GFR 55 likely pre-renal in the setting of cardio-renal syndrome vs CKD given previous GFR 55 in August 2024 and repeat GFR 55. Abdomen US noted to have parenchymal scars. Contraction Alkalosis secondary to lasix, despite diamox and now noted to have a VBG 7.26. Started on Bipap. Consider reducing lasix. 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 Abdomen US (01/22/2025): Cholelithiasis. Cirrhosis, mild to moderate hepatomegaly no focal liver lesions. Mild Renal Parencymal Scar Formation Hepatitis Panel (01/22/2025): negative Child-Calderón Score 6 points, Class A, Life expectancy 15-20 years. Abdominal surgery [facility]-operative mortality 10%. Plan -Fibreglass Gun Hand on Alcohol Use Disorder -Benefit from liver biopsy with Sales Representative Aircraft/Marine Engineering Consultant #Hx COPD #CAP Past medical history of COPD with 24 year pack history of smoking with previous admission concern for COPD in 2023. NO wheezing noted on physical exam. Cxr did not show ephysema patter, possible pneumonia. -Blood Culture Negative 48 hours & MRSA Screen Negative. -Sputum Gram stain:Staphylococcus Aureus, but epithelial cells >25, consider contamination. -Stop Azithromycin 01/22/2025-01/25/2025 Plan - Ceftriaxone,(/) -Duonebs -Patient would benefit from PFT. #Respiratory Acidosis w/ Metabolic Compensation Health Maintenance: Disp: Pt is currently admitted to floors for further management of CHF exacerbation, Please follow up with cardiology, Dr. Dang, within 1 week from hospital discharge. FEN: Cardiac Diet, Fluid restricted DVT: on subQ heparin Q8HR Code: Full code - The patient's plan was discussed with attending Dr. Laurence Beckford MD PGY1 Internal Medicine Attending Provider Attestation/Addendum I have personally seen and examined the patient separately on the above date of service and discussed the plan of care with the resident. I reviewed the resident Dr. Kerri Beckford consultation progress note and agree with the resident findings and plan in the note above and have also edited the documentation to reflect my findings and plan. Noah Dang M.D. Interventional Cardiology
--- NOTE | 2025-01-29 09:23 | ESDS_ITS ---
Planned Discharge Date 01/29/25 DS: Providers Provider Date of admission: 01/22/25 10:07 Primary care physician: Jasper Viramontes MD Admitting Provider: Nidhi Echols DO Attending Provider on Admission: Brooks Ruiz DO Consults: 01/22/25 09:05 Referral Respiratory Therapy Stat Comment: 01/22/25 12:49 Referral OP Wound Healing Dept Routine Comment: Instructions: Left lower leg venous ulcer x 2 01/22/25 15:11 [facility] Referral - Nutrition Routine Comment: Positive screening for nutrition needs. [facility] Referral - Transportation Routine Comment: Positive screening for transportation needs. 01/22/25 15:43 Referral Wound Care Routine Comment: 01/25/25 10:04 Referral Physical Therapy Stat Comment: Physician Instructions: Attending Provider on DC: Dr. Brooks Ruiz DO Discharging Provider: Dr. Brooks Ruiz DO DS: Diagnosis Problem List Completed Was Problem List Reviewed/Reconciled?: Yes Hospital Course Hospital Course Hospital course: This is a 69-year-old male with PMHx of obesity, chronic substance use disorder including alcohol and marijuana, chronic tobacco smoker with likely COPD component, presenting to the ED with progressively worsening shortness of breath, admitted for CHF exacerbation and volume overload, with suspected pneumonia. He underwent aggressive diuresis, with a total of 23.4 L of fluids removed. Cardiology was following. Echo was ordered showing EF 55-60%, grade 1 diastolic dysfunction, and Cor pulmonale 2/2 moderate PAH (detailed exam below). In the interest, he developed mild KAREN, likely cardiorenal which has resolved, creatinine 1.0 on discharge. Additionally, he completed a course of ANTIBIOTICS for suspected pneumonia as seen on CXR, he was otherwise asymptomatic, afebrile, no leukocytosis. Ultrasound was done showing liver cirrhosis, likely alcohol related given his history, however there were no signs of decompensation at this time. IMAGE FINDINGS: * CXR showed mild CHF, bibasilar mild edema and/or pneumonia. * EKG shows sinus rhythm without acute ST changes. * Echocardiogram: * Normal LV size and function. Estimated EF is 55 to 60%. Grade 1 diastolic dysfunction. * Mildly dilated RV with mildly decreased RV systolic function. * D-shaped septum in both systole and diastole indicating both pressure and volume overload. Moderately elevated RVSP at 50-55 mmHg. * Mild TR. Mildly thickened mitral and aortic valves with minimal calcification. Trace MR. Mild biatrial dilatation. IVC dilated. No pericardial effusion. * Abdominal ultrasound showed cholelithiasis, cirrhosis, mild to moderate hepatomegaly with no focal liver lesions PATIENT INSTRUCTIONS: * Follow-up with PCP within 1-2 weeks of discharge. * Follow-up with Cardiology, Dr. Dang, within 1-2 weeks of discharge. * Repeat BMP 2 days prior to seeing Dr. Dang. * Continue taking BUMEX 1 mg one tablet daily. * Continue with fluid restriction, no more than 1.2L daily. * Continue with salt restrictions, no more than 2 grams daily. * Continue wound care using instructions below. * Return to Emergency Room if symptoms persist, worsen, or new symptoms develop. * Continue taking medications as prescribed below. Pertinent discharge measures: BMP 114 on discharge, body weight 89.8 kg, total urine output 25.6 L, cumulative balance -15.2 L, CR 1.0, BUN 27. ADMISSION DIAGNOSES: Acute decompensated heart failure exacerbation HFpEF EF 55 ? 60%, grade 1 diastolic dysfunction Cor pulmonale 2/2 moderate PAH COPD exacerbation and suspected possible underlying obesity hypoventilation syndrome Respiratory acidosis, compensated metabolic alkalosis Mild KAREN (resolved) Possible cardiorenal type I Anasarca (resolved) Liver cirrhosis, likely alcohol related Active tobacco smoker Polysubstance use disorder Case was discussed with attending physician and senior resident. Lacey Westfall DO PGYI Time Spent with Patient Time attestation: Total time spent providing and/or coordinating discharge services: Time spent: Greater than 30 minutes Exam Vital Signs Temp Pulse Resp BP Pulse Ox O2 Del Method O2 Flow Rate 98.3 F 72 20 110/75 90 L Nasal Cannula 2 01/29/25 08:00 01/29/25 08:00 01/29/25 08:00 01/29/25 08:00 01/29/25 08:00 01/29/25 08:00 01/29/25 08:00 FiO2 45 01/28/25 17:00 Narrative Exam General: Awake, on 3L NC. HEENT: Normocephalic, atraumatic, mucous membranes moist. Heart: Regular rate and rhythm, holosystolic murmur, likely aortic, aortic Lungs: Clear to auscultation with no wheezing or crackles. Abdomen: Soft, nondistended, nontender, positive bowel sounds. ?No guarding or rebound tenderness. Neurologic: Alert and oriented x3, no gross neurological deficit, and patient able to move all 4 extremities. Extremities: Trace bilateral pedal edema noted in lower extremities Skin: No rash or ecchymoses Discharge Plan Plan Patient Disposition: Xfer Skilled Nsg Fac (SNF) Disposition Comment: DC to [facility] Patient condition on transfer: Stable Care Plan Goals: 1) Discharge instructions: * Follow-up with PCP within 1-2 weeks of discharge. * Follow-up with Cardiology, Dr. Dang, within 1-2 weeks of discharge. * Repeat BMP 2 days prior to seeing Dr. Dang. * Continue taking BUMEX 1 mg one tablet daily. * Continue with fluid restriction, no more than 1.2L daily. * Continue with salt restrictions, no more than 2 grams daily. * Return to Emergency Room if symptoms persist, worsen, or new symptoms develop. * Continue taking medications as prescribed below. 2) Follow up at [facility] for care to your legs. [address] [place] [address]. Call [phone] for appointment. Dressing Change Home Care: You have a wound that needs special care to heal.? Your body will make the new skin needed to close your wound, but you have to help.? Germs and old skin on the wound have to be removed.? This is done by changing the dressing on the wound as directed by your doctor. Supplies/Equipment (keep all supplies in one place clean and dry) o?? Normal Saline (salt water) solution.? You can make you own by boiling 2 cups of water with ? teaspoon of salt for 10 minutes.? Keep in a glass jar in the refrigerator and make a new batch every day. o?? Clean/Irrigate wound with ?normal saline or wound cleanser o?? Medication for wound: normal saline moistened gauze o?? Primary dressing ? o?? Secondary dressing: dry gauze and gauze roll o?? Tape o?? Gloves o?? Q-tips o?? Small trash bag o?? Other supplies Follow these instructions: 1.??? Wash your hands with soap and water. 2.??? Gather all your supplies and place on a clean towel or paper towel. 3.??? Put on gloves 4.Wound care to left lower leg ulcers: Remove dressings and shower daily. After showing, wash hands with soap and water. Cleanse wound with wound cleanser spray at pat dry with gauze. Cover wound with adaptic gauze and secure with dry gauze or foam dressing. Change once a day and as needed for falling off. Goal is to keep wound clean and covered. If active bleeding occurs, apply tight dressing and return to MD or ER. ? Notify primary doctor or return to Emergency Room if any of the following: ? Fever above 100.6? F. ? Increased pain ? Increase swelling ? Red streaks around your wound ? Drainage becomes foul smelling or changes color ? The wound is larger or deeper ? The wound looks dried out or dark ? Bleeding that does not stop with holding pressure Prescriptions/Referrals Prescriptions/Med Rec: New atorvastatin 20 mg Tablet 40 mg PO HS Qty: 30 0RF bumetanide 1 mg tablet 1 mg PO QDAY Qty: 30 0RF Referrals: Noah Dang MD [Physician] - Jasper Viramontes MD [Primary Care Provider] - Patient/Caregiver Discharge Instructions Discharge Activity: activity as tolerated Education Materials: Nutrition for Wound Healing, Changing Dressing Dc, ED Venous Leg Ulcer Print Language: Welsh Stand Alone Forms: Ruth Ann Award Info., Patient Portal Info Letter Discharge Order Discharge Orders: Discharge (Routine); Ordered 01/30/25 Ordered By: Shorty Alonzo Quality Discharge Quality Measures VTE prophylaxis Attestestation Attestation Patient not discharged on 01/29, see progress note.
--- NOTE | 2025-01-29 12:39 | PC.SS ---
Follow up note: Patient is still pending prior auth. Facility put in request yesterday morning. Patient ready for dc. SS called twice today and still no auth.
--- NOTE | 2025-01-29 16:19 | ESPR_ITS ---
<Statement entered by Shorty Alonzo MD - 01/30/25 00:12> I discussed with and supervised the human resources intern physician involved in the care of this patient. Patient assessment and plan was discussed with entire medicine team, including my attending. I agree with the assessment and plan as documented by human resources intern doctor. Patient care was discussed with my attending physician Dr. Joseph Alonzo, PGY-2 Documentation for date of: 01/29/25 Subjective Subjective Interval history: No acute overnight events. Denies new symptoms or worsening of symptoms. Denies fever, chills, headaches, chest pain, sob, cough, GI or urinary symptoms. Vitals remained stable. LFTs elevated this morning, shows BUN, creatinine 1.0, likely 2/2 dehydration in settings of diuresis. We held diuresis for today. Disposition: Pending prior authorize for [facility]. Exam Vital Signs Temp Pulse Resp BP Pulse Ox O2 Del Method O2 Flow Rate 97.7 F 78 24 H 122/73 95 Nasal Cannula 2 01/29/25 12:00 01/29/25 12:00 01/29/25 12:00 01/29/25 12:00 01/29/25 12:00 01/29/25 12:00 01/29/25 12:00 FiO2 45 01/28/25 17:00 Narrative Exam General: Awake, on 3L NC. HEENT: Normocephalic, atraumatic, mucous membranes moist. Heart: Regular rate and rhythm, holosystolic murmur, likely aortic, aortic Lungs: Clear to auscultation with no wheezing or crackles. Abdomen: Soft, nondistended, nontender, positive bowel sounds. ?No guarding or rebound tenderness. Neurologic: Alert and oriented x3, no gross neurological deficit, and patient able to move all 4 extremities. Extremities: Trace bilateral pedal edema noted in lower extremities Skin: No rash or ecchymoses Objective Labs 01/29/25 04:35 01/29/25 04:35 Labs: Laboratory Results - last 24 hr 01/29/25 04:35 WBC 6.3 RBC 5.62 Hgb 16.3 H Hct 51.5 MCV 92 MCH 29.0 MCHC 31.7 RDW Std Deviation 48.7 H Plt Count 158 Neut % (Auto) 65 Lymph % (Auto) 25 Reynolds % (Auto) 9 Eos % (Auto) 1 Baso % (Auto) 1 Neut # (Auto) 4.1 Lymph # (Auto) 1.6 Reynolds # (Auto) 0.6 Eos # (Auto) 0.0 Baso # (Auto) 0.0 Immature Gran # (Auto) 0.02 H Absolute Nucleated RBC 0.00 Immature Gran % 0 Nucleated RBC % 0 Sodium 141 Potassium 4.2 Chloride 100 Carbon Dioxide 32.9 H Anion Gap 8 BUN 27 H Creatinine 1.0 Estim Creat Clear Calc 77.6 eGFR > 60 BUN/Creatinine Ratio 27 H Glucose 113 H Calculated Osmolality 287 Calcium 9.5 Corrected Calcium 9.5 Phosphorus 2.8 Magnesium 2.3 Total Bilirubin 0.8 AST 90 H ALT 102 H Alkaline Phosphatase 120 H Total Protein 6.6 Albumin 4.0 Globulin 2.6 Albumin/Globulin Ratio 1.5 ABG Interpretation ABG results: 01/22/25 01/22/25 01/22/25 05:07 07:45 11:01 ABG pH 7.26 L ABG pCO2 81 H* ABG pO2 79 L ABG HCO3 36 H ABG O2 Saturation 95 ABG Base Excess 6 H VBG pH 7.25 L 7.39 VBG pCO2 92 H 61 H D VBG pO2 36 32 VBG Base Excess 8 H 9 H 01/23/25 01/24/25 01/24/25 08:11 06:05 11:26 ABG pH ABG pCO2 ABG pO2 ABG HCO3 ABG O2 Saturation ABG Base Excess VBG pH 7.34 7.26 L 7.31 L VBG pCO2 77 H D 102 H D 87 H D VBG pO2 73 H D 30 D 57 D VBG Base Excess 12 H 13 H 13 H 01/25/25 01/26/25 05:19 05:45 ABG pH ABG pCO2 ABG pO2 ABG HCO3 ABG O2 Saturation ABG Base Excess VBG pH 7.26 L 7.39 VBG pCO2 95 H 65 H D VBG pO2 35 D 81 H D VBG Base Excess 11 H 11 H Quality Measures Quality Measures VTE prophylaxis Advance care planning discussed with:: patient Assessment & Plan Assessment Current Active Medications: Generic Name Dose Route Start Last Admin Trade Name Freq PRN Reason Stop Dose Admin Acetaminophen 650 mg 01/22/25 10:07 01/25/25 04:31 Acetaminophen 325 Mg Tablet PO 02/21/25 10:06 650 mg Q6H PRN Administration PAIN SCALE 1-3 (mild Acetaminophen 650 mg 01/22/25 10:07 Acetaminophen 325 Mg Tablet PO 02/21/25 10:06 Q6H PRN Fever >100.4 Albuterol/Ipratropium 3 ml 01/22/25 11:14 Albuterol/Ipratropium (Duoneb) Rt Cherise 3 Ml Nebu INH 02/21/25 12:59 Q6HRRT PRN wheezing Atorvastatin Calcium 40 mg 01/24/25 21:00 01/28/25 21:05 Atorvastatin Calcium 20 Mg Tablet PO 02/23/25 20:59 40 mg HS TINY Administration Furosemide 40 mg 01/26/25 09:00 01/28/25 08:36 Furosemide Inj 10 Mg/Ml 4ml Vial IVP 02/25/25 08:59 40 mg QDAY TINY Administration Heparin Sodium (Porcine) 5,000 unit 01/22/25 14:00 01/29/25 14:06 Heparin Sod Inj 5000 Unit/Ml Vial SC 02/05/25 13:59 5,000 unit Q8HR TINY Administration Nicotine 14 mg 01/22/25 13:05 01/29/25 08:29 Nicotine Patch 14 Mg/24 Hr Patch.Td24 TOP 02/21/25 13:04 14 mg QDAY TINY Administration Ondansetron HCl 4 mg 01/22/25 10:07 Ondansetron Inj 2 Mg/Ml Inj 2 Ml IVP 02/21/25 10:06 Q6H PRN NAUSEA OR VOMITING Protocol Pantoprazole Sodium 40 mg 01/24/25 09:00 01/29/25 08:29 Pantoprazole 40 Mg Tablet PO 02/23/25 08:59 40 mg QDAY TINY Administration Protocol Polyethylene Glycol 17 gm 01/25/25 07:35 Polyethylene Glycol 17 Gm Packet PO 02/24/25 07:34 QDAY PRN CONSTIPATION Protocol Plan 69-year-old male with PMHx of obesity, chronic substance use disorder including alcohol and marijuana, chronic tobacco smoker with likely COPD component, presenting to the ED with progressively worsening shortness of breath. Acute decompensated heart failure exacerbation HFpEF EF 55 ? 60% Cor pulmonale 2/2 moderate PAH COPD exacerbation and suspected possible underlying obesity hypoventilation syndrome Respiratory acidosis, compensated metabolic alkalosis Reports longstanding but progressively worsening shortness of breath and lower extremity swelling. Symptoms worsened over the last week or so, now has dyspnea with minimal exertion, including walking around the house. Reports worsening LE swelling also occurring around the same time. Found dyspneic on admission, required BiPAP. BMI is 29.2 On exam, noted mild JVD, extensive bilateral LE edema extending above the hip. Initial ABG showed respiratory acidosis with pH 7.26 and CO2 81. He was started on BiPAP, ABG showed improved pH 7.39, pCO2 61. BNP 843. No lactic acidosis. Previous echo from 12/2023 showed EF 60%. He was previously discharged on FUROSEMIDE which he hasn't been taking. He has history of extensive tobacco use, greater than 30 years, COPD was suspected on previous admission. Was difficult to assess for wheezing on exam. Given that he was on BiPAP. However will treat show for likely COPD exacerbation, although his presentation with elevated BNP, fluid overload and vascular congestion on CXR is more consistent with CHF exacerbation, and will require extensive diuresis. There may be an additional pneumonia component as noted on CXR, however he denies cough, afebrile, no leukocytosis, negative influenza and COVID screen. 01/22/2025 ECHOCARDIOGRAM * Normal LV size/function, EF 55-60%, grade 1 diastolic dysfunction, mildly dilated RV and mildly decreased RV systolic function. * D-shaped septum in both systole/diastole, indicating volume overload. * Mildly elevated RVSP 50-55 mmHg. * Mildly thickened mitral and aortic valve with minimal calcification, trace MR, mild biatrial dilation, IVC dilation, no pericardial effusion TG 56, cholesterol 112, LDL 55, HDL 46, TSH 0.93, free T41.0, A1c 5.9. Sputum culture - Staph aureus, Blood cultures - negative after 48hrs Continued on diuresis, adequate renal output, lower extremity edema nearly resolved. Pending SNF placement, 6-minute walk test, may likely need home oxygen (order in) 01/29/2025: Diuresis held for today given elevated LFTs. Will resume diuresis tomorrow. ? Strict INOs ? Fluid restriction 1200 cc daily ? Continue BiPAP intermittently ? Continue LASIX 40 mg daily ? Continue DUNEBS Q6H PRN ? Continue CEFTRIAXONE daily (01/22 to present) ? Added ATORVASTATIN 40 mg daily Mild KAREN (resolved) Possible cardiorenal type I Admission CR 1.4, baseline 1.0. Possibly he has cardiorenal type I. Anticipate improvement with diuresis as above. Responded well to diuresis, CR 1.1 today. ? Renally dose meds, avoid overdiuresis and NEPHROTOXINS ? Daily CMP Mild transaminitis LFTs slightly elevated today, likely setting STEROID aggressive diuresis. Otherwise asymptomatic, afebrile, no abdominal pain. ? Held diuresis for today. Anasarca (resolved) Liver cirrhosis, likely alcohol related LFTs and ALBUMEN WNL, has tense abdomen on exam. No history of liver cirrhosis but has extensive history of alcohol use. Hep panel nonreactive. Ultrasound showed cirrhosis with hepatomegaly, cholelithiasis (asymptomatic). ? Improved with diuresis Active tobacco smoker Polysubstance use disorder Has extensive history of alcohol, marijuana and tobacco use. States he stopped drinking alcohol 2 years ago. Continued to smoke about a pack daily. U tox negative. ? Recommended smoking cessation. ? Daily NICOTINE patches. Health maintenance Diet: Cardiac, fluid restriction GI prophylaxis: PROTONIX DVT prophylaxis: HEPARIN subcu Antibiotics: CEFTRIAXONE CODE STATUS: Full code Disposition: Admitted for CHF versus COPD exacerbation. Case was discussed with attending physician and senior resident. Lacey Westfall DO PGYI Attending Provider Attestation/Addendum I have discussed and was present for the essential components of the history, physical examination, diagnosis, and treatment plan with the resident. I agree with the patient's care as documented by the resident and amended herein by me. Shine Ruiz DO. Although this document has been carefully reviewed, there may still be some phonetic and other typographical errors. These errors are purely grammatical due to imperfections in the software program and should not be construed in any way to compromise the substance of the patient's medical care during this visit.
[2025-01-29] MEDS: ATORVASTATIN CALCIUM 20 MG TABLET 40 MG PO (21:21)
[2025-01-30] VITALS (8 sets, daily range): BP systolic 100–123; BP diastolic 60–89; PULSE 72–101; RESP 17–29; TEMP 36.3–37.3; O2SAT 91–96; BMI 26.8
--- NOTE | 2025-01-30 04:24 | PC.NURSE ---
informed Dr. Helm patient's HR went down to 46 SB for about 6 seconds now back up to the 70s SR. Patient is asymptomatic, resting comfortably, no new orders received.
[2025-01-30] MEDS: HEPARIN SOD INJ 5000 UNIT/ML VIAL SC ×2 (06:15→21:07)
[2025-01-30] MEDS: ACETAMINOPHEN 325 MG TABLET 650 MG PO (06:24)
[2025-01-30 06:50] LABS: Basophils % (Auto) 1 % (0-2.5); Eosinophils % (Auto) 1 % (0-10); Hemoglobin 16.5 g/dL (13.5-16.0); Immature Granulocytes % (Auto) 1 % (0-0); Immature Granulocytes Auto 0.03 Thou/mm3 (0.00-0.00); Lymphocytes # (Auto) 1.3 Thou/mm3 (1.0-4.8); Lymphocytes % (Auto) 21 % (10-50); Mean Corpuscular HGB Conc 31.7 g/dl (31.0-37.0); Mean Corpuscular Hemoglobin 28.9 pg (25.0-35.0); Mean Corpuscular Volume 91 fL (80-100); Monocytes # (Auto) 0.5 Thou/mm3 (0.0-0.8); Monocytes % (Auto) 8 % (0-12); Neutrophils # (Auto) 4.2 Thou/mm3 (1.8-7.7); Neutrophils % (Auto) 69 % (37-80); Nucleated Red Blood Cell % 0 /100 WBC (0); Platelet Count 148 Thou/mm3 (140-440); RDW Standard Deviation 48.1 fL (35.1-43.9); White Blood Count 6.1 Thou/mm3 (3.8-10.6)
[2025-01-30 07:06] LABS: Alanine Aminotransferase 119 U/L (10-49); Albumin, Serum 4.1 gm/dL (3.4-4.8); Albumin/Globulin Ratio 1.5 (1.2-2.2); Alkaline Phosphatase 131 U/L (46-116); Anion Gap 5 (7-16); Aspartate Amino Transferase 80 U/L (0-34); BUN/Creatinine Ratio 28 Ratio (12-20); Bilirubin,Total 0.9 mg/dL (0.3-1.2); Blood Urea Nitrogen 28 mg/dL (9-23); Calcium 9.7 mg/dL (8.3-10.6); Calcium (Corrected) 9.7 mg/dL (8.5-10.1); Carbon Dioxide 35.1 mMol/L (20.0-31.0); Chloride 101 mMol/L (98-107); Estimated Creatinine Clearance 77.6 mL/min (>60); Globulin 2.8 gm/dL (2.3-3.5); Glucose 111 mg/dL (74-106); Osmolality,Calculated 287 (275-295); Phosphorous 3.3 mg/dL (2.4-5.1); Potassium 4.2 mMol/L (3.4-5.1); Sodium 141 mMol/L (136-145); Total Protein 6.9 gm/dL (5.7-8.2); eGFR > 60 See Note
--- NOTE | 2025-01-30 09:43 | PC.SS ---
Addendum entered by Ronel Alvares 01/30/25 15:38: Follow up note: SS spoke to [facility][1] and still no auth. SS contacted insurance co. @ [phone] xt [phone] left [facility]. Then contacted # [phone] for auth update. No auth. They did not find any request. Patient has no IPA. It is directly with [employer] preferred. SS provided the contact number to facility with a Fax@ [phone] for request with documentation of expedite. This could take up to 72 hours. SS will follow up with patient to update. Discussion will be over home health as an alternate option Original Note: Follow up note: SS phoned admissions team @ [facility] and they are still pending auth
--- NOTE | 2025-01-30 13:15 | PD.RESPRO ---
Documentation for date of: 01/30/25 Subjective Subjective Interval history: No acute overnight events. No new or worsening symptoms. Denies fever, chills, headaches, chest pain, sob, cough, GI or urinary symptoms. Vital signs stable, on 2 L NS, satting mid 90s. CBC relatively stable. Exam Vital Signs Temp Pulse Resp BP Pulse Ox O2 Del Method O2 Flow Rate 97.5 F 86 24 H 117/77 94 L Nasal Cannula 2 01/30/25 08:00 01/30/25 08:00 01/30/25 08:00 01/30/25 08:00 01/30/25 08:00 01/30/25 08:00 01/30/25 08:00 FiO2 45 01/28/25 17:00 Objective Labs 01/30/25 06:15 01/30/25 06:15 Labs: Laboratory Results - last 24 hr 01/30/25 06:15 WBC 6.1 RBC 5.70 Hgb 16.5 H Hct 52.0 MCV 91 MCH 28.9 MCHC 31.7 RDW Std Deviation 48.1 H Plt Count 148 Neut % (Auto) 69 Lymph % (Auto) 21 [place] % (Auto) 8 Eos % (Auto) 1 Baso % (Auto) 1 Neut # (Auto) 4.2 Lymph # (Auto) 1.3 [place] # (Auto) 0.5 Eos # (Auto) 0.0 Baso # (Auto) 0.0 Immature Gran # (Auto) 0.03 H Absolute Nucleated RBC 0.00 Immature Gran % 1 H Nucleated RBC % 0 Sodium 141 Potassium 4.2 Chloride 101 Carbon Dioxide 35.1 H Anion Gap 5 L BUN 28 H Creatinine 1.0 Estim Creat Clear Calc 77.6 eGFR > 60 BUN/Creatinine Ratio 28 H Glucose 111 H Calculated Osmolality 287 Calcium 9.7 Corrected Calcium 9.7 Phosphorus 3.3 Magnesium 2.0 Total Bilirubin 0.9 AST 80 H ALT 119 H Alkaline Phosphatase 131 H Total Protein 6.9 Albumin 4.1 Globulin 2.8 Albumin/Globulin Ratio 1.5 ABG Interpretation ABG results: 01/22/25 01/22/25 01/22/25 05:07 07:45 11:01 ABG pH 7.26 L ABG pCO2 81 H* ABG pO2 79 L ABG HCO3 36 H ABG O2 Saturation 95 ABG Base Excess 6 H VBG pH 7.25 L 7.39 VBG pCO2 92 H 61 H D VBG pO2 36 32 VBG Base Excess 8 H 9 H 01/23/25 01/24/25 01/24/25 08:11 06:05 11:26 ABG pH ABG pCO2 ABG pO2 ABG HCO3 ABG O2 Saturation ABG Base Excess VBG pH 7.34 7.26 L 7.31 L VBG pCO2 77 H D 102 H D 87 H D VBG pO2 73 H D 30 D 57 D VBG Base Excess 12 H 13 H 13 H 01/25/25 01/26/25 05:19 05:45 ABG pH ABG pCO2 ABG pO2 ABG HCO3 ABG O2 Saturation ABG Base Excess VBG pH 7.26 L 7.39 VBG pCO2 95 H 65 H D VBG pO2 35 D 81 H D VBG Base Excess 11 H 11 H Quality Measures Quality Measures VTE prophylaxis Assessment & Plan Assessment Current Active Medications: Generic Name Dose Route Start Last Admin Trade Name Freq PRN Reason Stop Dose Admin Acetaminophen 650 mg 01/22/25 10:07 01/30/25 06:24 Acetaminophen 325 Mg Tablet PO 02/21/25 10:06 650 mg Q6H PRN Administration PAIN SCALE 1-3 (mild Acetaminophen 650 mg 01/22/25 10:07 Acetaminophen 325 Mg Tablet PO 02/21/25 10:06 Q6H PRN Fever >100.4 Albuterol/Ipratropium 3 ml 01/22/25 11:14 Albuterol/Ipratropium (Duoneb) Rt Cherise 3 Ml Nebu INH 02/21/25 12:59 Q6HRRT PRN wheezing Atorvastatin Calcium 40 mg 01/24/25 21:00 01/29/25 21:21 Atorvastatin Calcium 20 Mg Tablet PO 02/23/25 20:59 40 mg HS TINY Administration Furosemide 40 mg 01/26/25 09:00 01/28/25 08:36 Furosemide Inj 10 Mg/Ml 4ml Vial IVP 02/25/25 08:59 40 mg QDAY TINY Administration Heparin Sodium (Porcine) 5,000 unit 01/22/25 14:00 01/30/25 06:15 Heparin Sod Inj 5000 Unit/Ml Vial SC 02/05/25 13:59 5,000 unit Q8HR TINY Administration Nicotine 14 mg 01/22/25 13:05 01/30/25 09:35 Nicotine Patch 14 Mg/24 Hr Patch.Td24 TOP 02/21/25 13:04 Not Given QDAY TINY Ondansetron HCl 4 mg 01/22/25 10:07 Ondansetron Inj 2 Mg/Ml Inj 2 Ml IVP 02/21/25 10:06 Q6H PRN NAUSEA OR VOMITING Protocol Pantoprazole Sodium 40 mg 01/24/25 09:00 01/30/25 09:35 Pantoprazole 40 Mg Tablet PO 02/23/25 08:59 Not Given QDAY TINY Protocol Polyethylene Glycol 17 gm 01/25/25 07:35 Polyethylene Glycol 17 Gm Packet PO 02/24/25 07:34 QDAY PRN CONSTIPATION Protocol
--- NOTE | 2025-01-30 13:19 | ESPR_ITS ---
<Statement entered by Shorty Alonzo MD - 01/31/25 07:45> I discussed with and supervised the tax intern physician involved in the care of this patient. Patient assessment and plan was discussed with entire medicine team, including my attending. I agree with the assessment and plan as documented by tax intern doctor. Patient care was discussed with my attending physician Dr. Joseph Alonzo, PGY-2 Documentation for date of: 01/30/25 Subjective Subjective Interval history: No acute overnight events. Denies new or worsening symptoms. Denies fever, chills, headaches, chest pain, sob, cough, GI or urinary symptoms. Vitals are stable. CBC stable. LFTs relatively stable but remain slightly elevated, will decrease statin to 20 mg. Currently pending authorization for [facility]. Exam Vital Signs Temp Pulse Resp BP Pulse Ox O2 Del Method O2 Flow Rate 97.5 F 86 24 H 117/77 94 L Nasal Cannula 2 01/30/25 08:00 01/30/25 08:00 01/30/25 08:00 01/30/25 08:00 01/30/25 08:00 01/30/25 08:00 01/30/25 08:00 FiO2 45 01/28/25 17:00 Narrative Exam General: Awake, on 3L NC. HEENT: Normocephalic, atraumatic, mucous membranes moist. Heart: Regular rate and rhythm, holosystolic murmur, likely aortic, aortic Lungs: Clear to auscultation with no wheezing or crackles. Abdomen: Soft, nondistended, nontender, positive bowel sounds. ?No guarding or rebound tenderness. Neurologic: Alert and oriented x3, no gross neurological deficit, and patient able to move all 4 extremities. Extremities: Trace bilateral pedal edema noted in lower extremities Skin: No rash or ecchymoses Objective Labs 01/30/25 06:15 01/30/25 06:15 Labs: Laboratory Results - last 24 hr 01/30/25 06:15 WBC 6.1 RBC 5.70 Hgb 16.5 H Hct 52.0 MCV 91 MCH 28.9 MCHC 31.7 RDW Std Deviation 48.1 H Plt Count 148 Neut % (Auto) 69 Lymph % (Auto) 21 [place] % (Auto) 8 Eos % (Auto) 1 Baso % (Auto) 1 Neut # (Auto) 4.2 Lymph # (Auto) 1.3 [place] # (Auto) 0.5 Eos # (Auto) 0.0 Baso # (Auto) 0.0 Immature Gran # (Auto) 0.03 H Absolute Nucleated RBC 0.00 Immature Gran % 1 H Nucleated RBC % 0 Sodium 141 Potassium 4.2 Chloride 101 Carbon Dioxide 35.1 H Anion Gap 5 L BUN 28 H Creatinine 1.0 Estim Creat Clear Calc 77.6 eGFR > 60 BUN/Creatinine Ratio 28 H Glucose 111 H Calculated Osmolality 287 Calcium 9.7 Corrected Calcium 9.7 Phosphorus 3.3 Magnesium 2.0 Total Bilirubin 0.9 AST 80 H ALT 119 H Alkaline Phosphatase 131 H Total Protein 6.9 Albumin 4.1 Globulin 2.8 Albumin/Globulin Ratio 1.5 ABG Interpretation ABG results: 01/22/25 01/22/25 01/22/25 05:07 07:45 11:01 ABG pH 7.26 L ABG pCO2 81 H* ABG pO2 79 L ABG HCO3 36 H ABG O2 Saturation 95 ABG Base Excess 6 H VBG pH 7.25 L 7.39 VBG pCO2 92 H 61 H D VBG pO2 36 32 VBG Base Excess 8 H 9 H 01/23/25 01/24/25 01/24/25 08:11 06:05 11:26 ABG pH ABG pCO2 ABG pO2 ABG HCO3 ABG O2 Saturation ABG Base Excess VBG pH 7.34 7.26 L 7.31 L VBG pCO2 77 H D 102 H D 87 H D VBG pO2 73 H D 30 D 57 D VBG Base Excess 12 H 13 H 13 H 01/25/25 01/26/25 05:19 05:45 ABG pH ABG pCO2 ABG pO2 ABG HCO3 ABG O2 Saturation ABG Base Excess VBG pH 7.26 L 7.39 VBG pCO2 95 H 65 H D VBG pO2 35 D 81 H D VBG Base Excess 11 H 11 H Quality Measures Quality Measures VTE prophylaxis Advance care planning discussed with:: patient Assessment & Plan Assessment Current Active Medications: Generic Name Dose Route Start Last Admin Trade Name Freq PRN Reason Stop Dose Admin Acetaminophen 650 mg 01/22/25 10:07 01/30/25 06:24 Acetaminophen 325 Mg Tablet PO 02/21/25 10:06 650 mg Q6H PRN Administration PAIN SCALE 1-3 (mild Acetaminophen 650 mg 01/22/25 10:07 Acetaminophen 325 Mg Tablet PO 02/21/25 10:06 Q6H PRN Fever >100.4 Albuterol/Ipratropium 3 ml 01/22/25 11:14 Albuterol/Ipratropium (Duoneb) Rt Cherise 3 Ml Nebu INH 02/21/25 12:59 Q6HRRT PRN wheezing Atorvastatin Calcium 40 mg 01/24/25 21:00 01/29/25 21:21 Atorvastatin Calcium 20 Mg Tablet PO 02/23/25 20:59 40 mg HS TINY Administration Furosemide 40 mg 01/26/25 09:00 01/28/25 08:36 Furosemide Inj 10 Mg/Ml 4ml Vial IVP 02/25/25 08:59 40 mg QDAY TINY Administration Heparin Sodium (Porcine) 5,000 unit 01/22/25 14:00 01/30/25 06:15 Heparin Sod Inj 5000 Unit/Ml Vial SC 02/05/25 13:59 5,000 unit Q8HR TINY Administration Nicotine 14 mg 01/22/25 13:05 01/30/25 09:35 Nicotine Patch 14 Mg/24 Hr Patch.Td24 TOP 02/21/25 13:04 Not Given QDAY TINY Ondansetron HCl 4 mg 01/22/25 10:07 Ondansetron Inj 2 Mg/Ml Inj 2 Ml IVP 02/21/25 10:06 Q6H PRN NAUSEA OR VOMITING Protocol Pantoprazole Sodium 40 mg 01/24/25 09:00 01/30/25 09:35 Pantoprazole 40 Mg Tablet PO 02/23/25 08:59 Not Given QDAY TINY Protocol Polyethylene Glycol 17 gm 01/25/25 07:35 Polyethylene Glycol 17 Gm Packet PO 02/24/25 07:34 QDAY PRN CONSTIPATION Protocol Plan 69-year-old male with PMHx of obesity, chronic substance use disorder including alcohol and marijuana, chronic tobacco smoker with likely COPD component, presenting to the ED with progressively worsening shortness of breath. Acute decompensated heart failure exacerbation HFpEF EF 55 ? 60% Cor pulmonale 2/2 moderate PAH COPD exacerbation and suspected possible underlying obesity hypoventilation syndrome Respiratory acidosis, compensated metabolic alkalosis Reports longstanding but progressively worsening shortness of breath and lower extremity swelling. Symptoms worsened over the last week or so, now has dyspnea with minimal exertion, including walking around the house. Reports worsening LE swelling also occurring around the same time. Found dyspneic on admission, required BiPAP. BMI is 29.2 On exam, noted mild JVD, extensive bilateral LE edema extending above the hip. Initial ABG showed respiratory acidosis with pH 7.26 and CO2 81. He was started on BiPAP, ABG showed improved pH 7.39, pCO2 61. BNP 843. No lactic acidosis. Previous echo from 12/2023 showed EF 60%. He was previously discharged on FUROSEMIDE which he hasn't been taking. He has history of extensive tobacco use, greater than 30 years, COPD was suspected on previous admission. Was difficult to assess for wheezing on exam. Given that he was on BiPAP. However will treat show for likely COPD exacerbation, although his presentation with elevated BNP, fluid overload and vascular congestion on CXR is more consistent with CHF exacerbation, and will require extensive diuresis. There may be an additional pneumonia component as noted on CXR, however he denies cough, afebrile, no leukocytosis, negative influenza and COVID screen. 01/22/2025 ECHOCARDIOGRAM * Normal LV size/function, EF 55-60%, grade 1 diastolic dysfunction, mildly dilated RV and mildly decreased RV systolic function. * D-shaped septum in both systole/diastole, indicating volume overload. * Mildly elevated RVSP 50-55 mmHg. * Mildly thickened mitral and aortic valve with minimal calcification, trace MR, mild biatrial dilation, IVC dilation, no pericardial effusion TG 56, cholesterol 112, LDL 55, HDL 46, TSH 0.93, free T41.0, A1c 5.9. Sputum culture - Staph aureus, Blood cultures - negative after 48hrs Continued on diuresis, adequate renal output, lower extremity edema nearly resolved. Pending SNF placement, 6-minute walk test, may likely need home oxygen (order in) 01/29/2025: Diuresis held for today given elevated LFTs. Will resume diuresis tomorrow. ? Strict INOs ? Fluid restriction 1200 cc daily ? Continue BiPAP intermittently ? Discontinue LASIX 40 mg IV daily ? Started BUMEX 1 mg daily, first dose tomorrow ? Continue DUNEBS Q6H PRN ? Continue CEFTRIAXONE daily (01/22 to present) ? Continue ATORVASTATIN 20 mg daily Mild KAREN (resolved) Possible cardiorenal type I Admission CR 1.4, baseline 1.0. Possibly he has cardiorenal type I. Anticipate improvement with diuresis as above. Responded well to diuresis, CR 1.1 today. ? Renally dose meds, avoid overdiuresis and NEPHROTOXINS ? Daily CMP Mild transaminitis LFTs slightly elevated today, likely setting STEROID aggressive diuresis. Otherwise asymptomatic, afebrile, no abdominal pain. ? Discontinue LASIX 40 mg IV daily ? Started BUMEX 1 mg daily, first dose tomorrow. Decrease ATORVASTATIN to 20 mg daily Anasarca (resolved) Liver cirrhosis, likely alcohol related LFTs and ALBUMEN WNL, has tense abdomen on exam. No history of liver cirrhosis but has extensive history of alcohol use. Hep panel nonreactive. Ultrasound showed cirrhosis with hepatomegaly, cholelithiasis (asymptomatic). ? Improved with diuresis Active tobacco smoker Polysubstance use disorder Has extensive history of alcohol, marijuana and tobacco use. States he stopped drinking alcohol 2 years ago. Continued to smoke about a pack daily. U tox negative. ? Recommended smoking cessation. ? Daily NICOTINE patches. Health maintenance Diet: Cardiac, fluid restriction GI prophylaxis: PROTONIX DVT prophylaxis: HEPARIN subcu Antibiotics: CEFTRIAXONE CODE STATUS: Full code Disposition: Admitted for CHF versus COPD exacerbation. Case was discussed with attending physician and senior resident. Lacey Westfall DO PGYI Attending Provider Attestation/Addendum I have discussed and was present for the essential components of the history, physical examination, diagnosis, and treatment plan with the resident. I agree with the patient's care as documented by the resident and amended herein by me. Shine Ruiz DO. No acute events overnight, patient doing well, pending insurance authorization for discharge to SNF. Although this document has been carefully reviewed, there may still be some phonetic and other typographical errors. These errors are purely grammatical due to imperfections in the software program and should not be construed in any way to compromise the substance of the patient's medical care during this visit.
--- NOTE | 2025-01-30 13:42 | PD.RESPRO ---
Documentation for date of: 01/30/25 Subjective Subjective Interval history: Patient is a 69-year-old male with a past medical history of CHF HFpEF 55 to 60% (01/02/2024), COPD per chart review, and history of substance use disorder including cocaine and methamphetamines. Patient presented to the emergency room on 01/22/2025 with a chief complaint of difficulty breathing. 1 month history of shortness of breath, which worsens with ambulation. Patient stated after a couple feet he experienced shortness of breath. Shortness of breath accompanied with palpitations. Patient denied any history of atrial fibrillation and denied any flutter like sensation. Patient has been non-adherent to medications since previous hospitalization in 2023, initially discharged on Lasix 20 mg p.o. daily. Patient denied orthopnea, or paroxysmal paroxysmal nocturnal dyspnea. Patient denied any chest pain. Patient denied any syncopal events. Patient denied dizziness. Patient denied any recent sick contacts. Substance use disorder with meth and cocaine, last use 6 months ago. Alcohol use about half a pint a week with fireball as his choice of alcohol. Smoking history since age 21-->24 pack year history. 01/28/2025: No ovenright events. Patient examined at bedside. Paitnet likely discharge today to [facility]. Given right hear failure, patient currenlty benefit from Bumex 1 mg PO daily upon discharge. Follow up with [address] Dang. 01/28/2025: [id number]/-[id number] 01/29/2025: No overnight events. Patient examined at bedside. Pateint denied chest pain or shortness of breath. Patient pending SNF. Mild transaminitis noted. Mild increase in BUN. Holding IV lasix, consider transition patinet to oral. 01/30/2025: No ovenright events. Patient ambulated to chair today. Patinet would like to walk in the hallway, recommended to update nursing staff. Peripheral edema resolved, no change. No chest pain, shortness of breath, or palpitations. Pending SNF. Pending home oxygne. Exam Vital Signs Temp Pulse Resp BP Pulse Ox O2 Del Method O2 Flow Rate 97.5 F 86 24 H 117/77 94 L Nasal Cannula 2 01/30/25 08:00 01/30/25 08:00 01/30/25 08:00 01/30/25 08:00 01/30/25 08:00 01/30/25 08:00 01/30/25 08:00 FiO2 45 01/28/25 17:00 Narrative Exam General Appearance: Alert & Oriented X3, well-nourished male who is lying in bed in no acute distress, oral cavity missing all teeth, no oral lesion noted HEENT: Skull symmetrical and atraumatic. Conjunctivae pale and moist. Pupils equal, round, reactive to light and accommodation (PERRL). External ear without lesion or discharge. Straight, nares patient, mucosa pink, no discharge. No thyroid nodule appreciated. No cervical lymphadenopathy. Cardio: Normal Rate and Rhythm with S1 and S2 heart sounds. Holosystolic murmur noted. No bruits on carotid auscultation. Peripheral bilateral edema +1 on right and 2 on left but overall. Trace peripheral edema. Lungs: Symmetric with good expansion. Chest and back non-tender. Breath sounds vesicular without crackles, wheezing or rhonchi Abdomen: Non-tender, Non-distended, Normal Reactive Bowel Sounds Neuro: Alert, cooperative, oriented to person, place, and time. Speech clear. CN grossly intact. Upper motor strength 5/5 and Lower motor strength 5/5. Sensation intact. Objective Labs 01/30/25 06:15 01/30/25 06:15 Labs: Laboratory Results - last 24 hr 01/30/25 06:15 WBC 6.1 RBC 5.70 Hgb 16.5 H Hct 52.0 MCV 91 MCH 28.9 MCHC 31.7 RDW Std Deviation 48.1 H Plt Count 148 Neut % (Auto) 69 Lymph % (Auto) 21 [place] % (Auto) 8 Eos % (Auto) 1 Baso % (Auto) 1 Neut # (Auto) 4.2 Lymph # (Auto) 1.3 [place] # (Auto) 0.5 Eos # (Auto) 0.0 Baso # (Auto) 0.0 Immature Gran # (Auto) 0.03 H Absolute Nucleated RBC 0.00 Immature Gran % 1 H Nucleated RBC % 0 Sodium 141 Potassium 4.2 Chloride 101 Carbon Dioxide 35.1 H Anion Gap 5 L BUN 28 H Creatinine 1.0 Estim Creat Clear Calc 77.6 eGFR > 60 BUN/Creatinine Ratio 28 H Glucose 111 H Calculated Osmolality 287 Calcium 9.7 Corrected Calcium 9.7 Phosphorus 3.3 Magnesium 2.0 Total Bilirubin 0.9 AST 80 H ALT 119 H Alkaline Phosphatase 131 H Total Protein 6.9 Albumin 4.1 Globulin 2.8 Albumin/Globulin Ratio 1.5 ABG Interpretation ABG results: 01/22/25 01/22/25 01/22/25 05:07 07:45 11:01 ABG pH 7.26 L ABG pCO2 81 H* ABG pO2 79 L ABG HCO3 36 H ABG O2 Saturation 95 ABG Base Excess 6 H VBG pH 7.25 L 7.39 VBG pCO2 92 H 61 H D VBG pO2 36 32 VBG Base Excess 8 H 9 H 01/23/25 01/24/25 01/24/25 08:11 06:05 11:26 ABG pH ABG pCO2 ABG pO2 ABG HCO3 ABG O2 Saturation ABG Base Excess VBG pH 7.34 7.26 L 7.31 L VBG pCO2 77 H D 102 H D 87 H D VBG pO2 73 H D 30 D 57 D VBG Base Excess 12 H 13 H 13 H 01/25/25 01/26/25 05:19 05:45 ABG pH ABG pCO2 ABG pO2 ABG HCO3 ABG O2 Saturation ABG Base Excess VBG pH 7.26 L 7.39 VBG pCO2 95 H 65 H D VBG pO2 35 D 81 H D VBG Base Excess 11 H 11 H Quality Measures Quality Measures VTE prophylaxis Advance care planning discussed with:: patient Assessment & Plan Assessment Current Active Medications: Generic Name Dose Route Start Last Admin Trade Name Freq PRN Reason Stop Dose Admin Acetaminophen 650 mg 01/22/25 10:07 01/30/25 06:24 Acetaminophen 325 Mg Tablet PO 02/21/25 10:06 650 mg Q6H PRN Administration PAIN SCALE 1-3 (mild Acetaminophen 650 mg 01/22/25 10:07 Acetaminophen 325 Mg Tablet PO 02/21/25 10:06 Q6H PRN Fever >100.4 Albuterol/Ipratropium 3 ml 01/22/25 11:14 Albuterol/Ipratropium (Duoneb) Rt Cherise 3 Ml Nebu INH 02/21/25 12:59 Q6HRRT PRN wheezing Atorvastatin Calcium 20 mg 01/30/25 21:00 Atorvastatin Calcium 20 Mg Tablet PO 03/01/25 20:59 HS TINY Bumetanide 1 mg 01/31/25 09:00 Bumetanide 0.5 Mg Tablet PO 03/02/25 08:59 QDAY TINY Heparin Sodium (Porcine) 5,000 unit 01/22/25 14:00 01/30/25 06:15 Heparin Sod Inj 5000 Unit/Ml Vial SC 02/05/25 13:59 5,000 unit Q8HR TINY Administration Nicotine 14 mg 01/22/25 13:05 01/30/25 09:35 Nicotine Patch 14 Mg/24 Hr Patch.Td24 TOP 02/21/25 13:04 Not Given QDAY TINY Ondansetron HCl 4 mg 01/22/25 10:07 Ondansetron Inj 2 Mg/Ml Inj 2 Ml IVP 02/21/25 10:06 Q6H PRN NAUSEA OR VOMITING Protocol Pantoprazole Sodium 40 mg 01/24/25 09:00 01/30/25 09:35 Pantoprazole 40 Mg Tablet PO 02/23/25 08:59 Not Given QDAY TINY Protocol Polyethylene Glycol 17 gm 01/25/25 07:35 Polyethylene Glycol 17 Gm Packet PO 02/24/25 07:34 QDAY PRN CONSTIPATION Protocol Plan #Acute on chronic hypoxic and Hypercapneic Respiratory Failure, improved #Acute on Chronic diastolic Heart Failure Exacerbation #CHF HpEF 55-60%, likely right heart failure #Diastolic Dysfunction Grade I #Moderate PAH, RVSP 50-55% #ANASARCA Etiology: likely in the setting of cardiomyopathy as noted on echo with diastolic dysfunciton and history of meth use leading to PAH. DDX: Less likely secondary to PE as BP and HR have been stable vs less likely secondary to NM as troponin within normal limits. BNP 843 Net balance: -14,400 (01/22/25-01/28/2025) Dry BNP : 114 Dry Weight: 89.811 kg Diagnostics: Echo (01/22/2025): Normal LV size and function. Estimated EF is 55 to 60%. Grade 1 diastolic dysfunction.Mildly dilated RV with mildly decreased RV systolic function. D-shaped septum in both systole and diastole indicating both pressure and volume overload. Moderately elevated RVSP at 50-55 mmHg. Mild TR.Mildly thickened mitral and aortic valves with minimal calcification. Trace MR. Mild biatrial dilatation. IVC dilated. No pericardial effusion TSH 2.52, Troponin 0.02. EKG no ST elevation noted. A1c 5.9 Lipid Panel Lipid Panel (01/23/2025): Triglycerides 56, Cholesterol 112, LDL 55, HDl 46 NYHA Class: III ASCVD:11.8%, Moderate to high intensity statin Plan: -Lasix 40 mg IV qday, consider transitioning to oral Bumex 1 mg qday -Atorvastatin 40 mg HS given ASCVD risk, consider decreasing or holding Atorvastatin given mild transiminitis. -K>4 and Mg >2 -Fluid Restriction (1200) and Sodium Restriction 2 g per day, Daily weight checks -SpO <90%, support PRN -Work toward GDMT, upon discharge Bumex 1 mg qday. #Contraction Alkalosis, improving #KAREN likely Prerenal, resolved KAREN noted on admission with Cr of 1.4 with a previous baseline of 1.0. BUN/Cr 14 and GFR 55 likely pre-renal in the setting of cardio-renal syndrome vs CKD given previous GFR 55 in August 2024 and repeat GFR 55. Abdomen US noted to have parenchymal scars. Contraction Alkalosis secondary to lasix, despite diamox and now noted to have a VBG 7.26. Started on Bipap. Consider reducing lasix. BUN 20 Cr 1.4 -->BUN 28 Cr 1.0 (01/30/2025) Plan -Avoid Neprhtoxins -Renally Dose mediation -Encourage oral hydration, with fluid restrictions of 1200 #Cirrhosis likely secondary to alcohol use #Transiminitis Patient noted to have history of alochol use, consuming at least 1/2 pint once per week, likely more. Mild elevated AST/ALTs likely in the setting of diuresis vs statin use, consider holding dose. Abdomen US (01/22/2025): Cholelithiasis. Cirrhosis, mild to moderate hepatomegaly no focal liver lesions. Mild Renal Parencymal Scar Formation Hepatitis Panel (01/22/2025): negative Child-Calderón Score 6 points, Class A, Life expectancy 15-20 years. Abdominal surgery [facility]-operative mortality 10%. Plan -Computed Tomography Scanner Operator on Alcohol Use Disorder -Benefit from liver biopsy with News Assistant/Propulsion Engineer #Hx COPD #CAP Past medical history of COPD with 24 year pack history of smoking with previous admission concern for COPD in 2023. NO wheezing noted on physical exam. Cxr did not show ephysema patter, possible pneumonia. -Blood Culture Negative 48 hours & MRSA Screen Negative. -Sputum Gram stain:Staphylococcus Aureus, but epithelial cells >25, consider contamination. -Stop Azithromycin 01/22/2025-01/25/2025 Plan - Ceftriaxone,(/) -Duonebs -Patient would benefit from PFT. #Respiratory Acidosis w/ Metabolic Compensation Health Maintenance: Disp: Pt is currently admitted to floors for further management of CHF exacerbation, Please follow up with cardiology, Dr. Dang, within 1 week from hospital discharge. FEN: Cardiac Diet, Fluid restricted DVT: on subQ heparin Q8HR Code: Full code - The patient's plan was discussed with attending Dr. Laurence Beckford MD PGY1 Internal Medicine Attending Provider Attestation/Addendum I have personally seen and examined the patient separately on the above date of service and discussed the plan of care with the resident. I reviewed the resident Dr. Kerri Beckford consultation progress note and agree with the resident findings and plan in the note above and have also edited the documentation to reflect my findings and plan. Noah Dang M.D. Interventional Cardiology
--- NOTE | 2025-01-30 16:35 | PC.NURSE ---
report given to Kristina BERNABE
[2025-01-30] MEDS: ATORVASTATIN CALCIUM 20 MG TABLET PO (21:07)
[2025-01-31] VITALS (8 sets, daily range): BP systolic 99–117; BP diastolic 59–78; PULSE 68–90; RESP 17–22; TEMP 36.6–37.3; O2SAT 92–98; BMI 26.9; BMI 13.0
[2025-01-31] MEDS: HEPARIN SOD INJ 5000 UNIT/ML VIAL SC ×3 (05:32→21:07)
[2025-01-31 05:35] LABS: Basophils % (Auto) 1 % (0-2.5); Eosinophils # (Auto) 0.1 Thou/mm3 (0.0-0.5); Eosinophils % (Auto) 1 % (0-10); Hematocrit 48.1 % (41.0-53.0); Hemoglobin 15.2 g/dL (13.5-16.0); Immature Granulocytes % (Auto) 1 % (0-0); Immature Granulocytes Auto 0.03 Thou/mm3 (0.00-0.00); Lymphocytes # (Auto) 1.9 Thou/mm3 (1.0-4.8); Lymphocytes % (Auto) 29 % (10-50); Mean Corpuscular HGB Conc 31.6 g/dl (31.0-37.0); Mean Corpuscular Hemoglobin 29.1 pg (25.0-35.0); Mean Corpuscular Volume 92 fL (80-100); Monocytes # (Auto) 0.6 Thou/mm3 (0.0-0.8); Monocytes % (Auto) 9 % (0-12); Neutrophils # (Auto) 3.9 Thou/mm3 (1.8-7.7); Neutrophils % (Auto) 59 % (37-80); Nucleated Red Blood Cell % 0 /100 WBC (0); Platelet Count 136 Thou/mm3 (140-440); Red Blood Count 5.22 Miln/mm3 (4.50-5.90); White Blood Count 6.6 Thou/mm3 (3.8-10.6)
[2025-01-31 06:04] LABS: Alanine Aminotransferase 103 U/L (10-49); Albumin, Serum 3.8 gm/dL (3.4-4.8); Albumin/Globulin Ratio 1.5 (1.2-2.2); Alkaline Phosphatase 120 U/L (46-116); Anion Gap 7 (7-16); Aspartate Amino Transferase 64 U/L (0-34); BUN/Creatinine Ratio 28 Ratio (12-20); Bilirubin,Total 0.8 mg/dL (0.3-1.2); Blood Urea Nitrogen 25 mg/dL (9-23); Calcium 9.3 mg/dL (8.3-10.6); Calcium (Corrected) 9.5 mg/dL (8.5-10.1); Carbon Dioxide 34.8 mMol/L (20.0-31.0); Chloride 99 mMol/L (98-107); Creatinine (Component) 0.9 mg/dL (0.6-1.3); Estimated Creatinine Clearance 86.2 mL/min (>60); Globulin 2.6 gm/dL (2.3-3.5); Glucose 128 mg/dL (74-106); Osmolality,Calculated 287 (275-295); Phosphorous 2.8 mg/dL (2.4-5.1); Potassium 4.1 mMol/L (3.4-5.1); Sodium 141 mMol/L (136-145); Total Protein 6.4 gm/dL (5.7-8.2); eGFR > 60 See Note
--- NOTE | 2025-01-31 08:35 | PC.SS ---
SS spoke to Kristyn at [facility] who requested updated PT notes for auth, SS submitted them via [facility]
[2025-01-31] MEDS: PANTOPRAZOLE 40 MG TABLET PO (08:38)
[2025-01-31] MEDS: BUMETANIDE 0.5 MG TABLET 1 MG PO (08:39)
--- NOTE | 2025-01-31 09:21 | PC.SS ---
SS spoke to Kristyn from [facility] who stated, per PT notes auth is not looking good. SS inquired if we can continue to try until we get a NO. SS met with pt to discuss other options IF auth is not obtained. SS provided choices for Home with HH, pt became very upset, using derogatory language. SS explained insurance has not stated NO just yet this is just a conversation to discuss 2nd options. Pt stated he lives in a mobile home, he has no walker or O2. SS informed pt we would order O2 and a walker for him prior to DC if auth is NOT obtained.
[2025-01-31] MEDS: NICOTINE PATCH 14 MG/24 HR PATCH.TD24 TOP (09:35)
--- NOTE | 2025-01-31 12:03 | ESPR_ITS ---
<Statement entered by Shorty Alonzo MD - 01/31/25 16:13> I discussed with and supervised the direct marketing intern physician involved in the care of this patient. Patient assessment and plan was discussed with entire medicine team, including my attending. I agree with the assessment and plan as documented by direct marketing intern doctor. Patient care was discussed with my attending physician Dr. Joseph Alonzo, PGY-2 Documentation for date of: 01/31/25 Subjective Subjective Interval history: No acute overnight events. Doing well today. Denies fever, chills, headaches, chest pain, sob, cough, GI or urinary symptoms. Vitals and labs are stable, LFTs continue downtrending, renal function WNL. Currently pending placement. Exam Vital Signs Temp Pulse Resp BP Pulse Ox O2 Del Method O2 Flow Rate 97.8 F 86 22 H 109/68 97 Nasal Cannula 2 01/31/25 08:00 01/31/25 08:39 01/31/25 08:00 01/31/25 08:39 01/31/25 08:00 01/31/25 08:00 01/31/25 08:00 FiO2 45 01/28/25 17:00 Narrative Exam General: Awake, on 3L NC. HEENT: Normocephalic, atraumatic, mucous membranes moist. Heart: Regular rate and rhythm, holosystolic murmur, likely aortic, aortic Lungs: Clear to auscultation with no wheezing or crackles. Abdomen: Soft, nondistended, nontender, positive bowel sounds. ?No guarding or rebound tenderness. Neurologic: Alert and oriented x3, no gross neurological deficit, and patient able to move all 4 extremities. Extremities: no bilateral pedal edema noted in lower extremities Skin: No rash or ecchymoses Objective Labs 01/31/25 04:35 01/31/25 04:35 Labs: Laboratory Results - last 24 hr 01/31/25 04:35 WBC 6.6 RBC 5.22 Hgb 15.2 Hct 48.1 MCV 92 MCH 29.1 MCHC 31.6 RDW Std Deviation 48.0 H Plt Count 136 L Neut % (Auto) 59 Lymph % (Auto) 29 [place] % (Auto) 9 Eos % (Auto) 1 Baso % (Auto) 1 Neut # (Auto) 3.9 Lymph # (Auto) 1.9 [place] # (Auto) 0.6 Eos # (Auto) 0.1 Baso # (Auto) 0.0 Immature Gran # (Auto) 0.03 H Absolute Nucleated RBC 0.00 Immature Gran % 1 H Nucleated RBC % 0 Sodium 141 Potassium 4.1 Chloride 99 Carbon Dioxide 34.8 H Anion Gap 7 BUN 25 H Creatinine 0.9 Estim Creat Clear Calc 86.2 eGFR > 60 BUN/Creatinine Ratio 28 H Glucose 128 H Calculated Osmolality 287 Calcium 9.3 Corrected Calcium 9.5 Phosphorus 2.8 Magnesium 2.0 Total Bilirubin 0.8 AST 64 H ALT 103 H Alkaline Phosphatase 120 H Total Protein 6.4 Albumin 3.8 Globulin 2.6 Albumin/Globulin Ratio 1.5 ABG Interpretation ABG results: 01/22/25 01/22/25 01/22/25 05:07 07:45 11:01 ABG pH 7.26 L ABG pCO2 81 H* ABG pO2 79 L ABG HCO3 36 H ABG O2 Saturation 95 ABG Base Excess 6 H VBG pH 7.25 L 7.39 VBG pCO2 92 H 61 H D VBG pO2 36 32 VBG Base Excess 8 H 9 H 01/23/25 01/24/25 01/24/25 08:11 06:05 11:26 ABG pH ABG pCO2 ABG pO2 ABG HCO3 ABG O2 Saturation ABG Base Excess VBG pH 7.34 7.26 L 7.31 L VBG pCO2 77 H D 102 H D 87 H D VBG pO2 73 H D 30 D 57 D VBG Base Excess 12 H 13 H 13 H 01/25/25 01/26/25 05:19 05:45 ABG pH ABG pCO2 ABG pO2 ABG HCO3 ABG O2 Saturation ABG Base Excess VBG pH 7.26 L 7.39 VBG pCO2 95 H 65 H D VBG pO2 35 D 81 H D VBG Base Excess 11 H 11 H Quality Measures Quality Measures VTE prophylaxis Advance care planning discussed with:: patient Assessment & Plan Assessment Current Active Medications: Generic Name Dose Route Start Last Admin Trade Name Freq PRN Reason Stop Dose Admin Acetaminophen 650 mg 01/22/25 10:07 01/30/25 06:24 Acetaminophen 325 Mg Tablet PO 02/21/25 10:06 650 mg Q6H PRN Administration PAIN SCALE 1-3 (mild Acetaminophen 650 mg 01/22/25 10:07 Acetaminophen 325 Mg Tablet PO 02/21/25 10:06 Q6H PRN Fever >100.4 Albuterol/Ipratropium 3 ml 01/22/25 11:14 Albuterol/Ipratropium (Duoneb) Rt Cherise 3 Ml Nebu INH 02/21/25 12:59 Q6HRRT PRN wheezing Atorvastatin Calcium 20 mg 01/30/25 21:00 01/30/25 21:07 Atorvastatin Calcium 20 Mg Tablet PO 03/01/25 20:59 20 mg HS TINY Administration Bumetanide 1 mg 01/31/25 09:00 01/31/25 08:39 Bumetanide 0.5 Mg Tablet PO 03/02/25 08:59 1 mg QDAY TINY Administration Heparin Sodium (Porcine) 5,000 unit 01/22/25 14:00 01/31/25 05:32 Heparin Sod Inj 5000 Unit/Ml Vial SC 02/05/25 13:59 5,000 unit Q8HR TINY Administration Nicotine 14 mg 01/22/25 13:05 01/30/25 09:35 Nicotine Patch 14 Mg/24 Hr Patch.Td24 TOP 02/21/25 13:04 Not Given QDAY TINY Ondansetron HCl 4 mg 01/22/25 10:07 Ondansetron Inj 2 Mg/Ml Inj 2 Ml IVP 02/21/25 10:06 Q6H PRN NAUSEA OR VOMITING Protocol Pantoprazole Sodium 40 mg 01/24/25 09:00 01/31/25 08:38 Pantoprazole 40 Mg Tablet PO 02/23/25 08:59 40 mg QDAY TINY Administration Protocol Polyethylene Glycol 17 gm 01/25/25 07:35 Polyethylene Glycol 17 Gm Packet PO 02/24/25 07:34 QDAY PRN CONSTIPATION Protocol Plan 69-year-old male with PMHx of obesity, chronic substance use disorder including alcohol and marijuana, chronic tobacco smoker with likely COPD component, presenting to the ED with progressively worsening shortness of breath. Acute decompensated heart failure exacerbation HFpEF EF 55 ? 60% Cor pulmonale 2/2 moderate PAH COPD exacerbation and suspected possible underlying obesity hypoventilation syndrome Respiratory acidosis, compensated metabolic alkalosis Reports longstanding but progressively worsening shortness of breath and lower extremity swelling. Symptoms worsened over the last week or so, now has dyspnea with minimal exertion, including walking around the house. Reports worsening LE swelling also occurring around the same time. Found dyspneic on admission, required BiPAP. BMI is 29.2 On exam, noted mild JVD, extensive bilateral LE edema extending above the hip. Initial ABG showed respiratory acidosis with pH 7.26 and CO2 81. He was started on BiPAP, ABG showed improved pH 7.39, pCO2 61. BNP 843. No lactic acidosis. Previous echo from 12/2023 showed EF 60%. He was previously discharged on FUROSEMIDE which he hasn't been taking. He has history of extensive tobacco use, greater than 30 years, COPD was suspected on previous admission. Was difficult to assess for wheezing on exam. Given that he was on BiPAP. However will treat show for likely COPD exacerbation, although his presentation with elevated BNP, fluid overload and vascular congestion on CXR is more consistent with CHF exacerbation, and will require extensive diuresis. There may be an additional pneumonia component as noted on CXR, however he denies cough, afebrile, no leukocytosis, negative influenza and COVID screen. 01/22/2025 ECHOCARDIOGRAM * Normal LV size/function, EF 55-60%, grade 1 diastolic dysfunction, mildly dilated RV and mildly decreased RV systolic function. * D-shaped septum in both systole/diastole, indicating volume overload. * Mildly elevated RVSP 50-55 mmHg. * Mildly thickened mitral and aortic valve with minimal calcification, trace MR, mild biatrial dilation, IVC dilation, no pericardial effusion TG 56, cholesterol 112, LDL 55, HDL 46, TSH 0.93, free T41.0, A1c 5.9. Sputum culture - Staph aureus, Blood cultures - negative after 48hrs Continued on diuresis, adequate renal output, lower extremity edema nearly resolved. Pending SNF placement, 6-minute walk test, may likely need home oxygen (order in) 01/29/2025: Diuresis held for today given elevated LFTs. Will resume diuresis tomorrow. ? Strict INOs ? Fluid restriction 1200 cc daily ? Continue BiPAP intermittently ? Continue BUMEX 1 mg daily ? Continue DUNEBS Q6H PRN ? Continue CEFTRIAXONE daily (01/22 to present) ? Continue ATORVASTATIN 20 mg daily Mild KAREN (resolved) Possible cardiorenal type I Admission CR 1.4, baseline 1.0. Possibly he has cardiorenal type I. Anticipate improvement with diuresis as above. Responded well to diuresis, CR 1.1 today. ? Renally dose meds, avoid overdiuresis and NEPHROTOXINS ? Daily CMP Mild transaminitis (improving) LFTs slightly elevated today, likely setting STEROID aggressive diuresis. Otherwise asymptomatic, afebrile, no abdominal pain. ? Decrease ATORVASTATIN to 20 mg daily ? Daily labs ? Daily labs Anasarca (resolved) Liver cirrhosis, likely alcohol related LFTs and ALBUMEN WNL, has tense abdomen on exam. No history of liver cirrhosis but has extensive history of alcohol use. Hep panel nonreactive. Ultrasound showed cirrhosis with hepatomegaly, cholelithiasis (asymptomatic). ? Improved with diuresis Active tobacco smoker Polysubstance use disorder Has extensive history of alcohol, marijuana and tobacco use. States he stopped drinking alcohol 2 years ago. Continued to smoke about a pack daily. U tox negative. ? Recommended smoking cessation. ? Daily NICOTINE patches. Health maintenance Diet: Cardiac, fluid restriction GI prophylaxis: PROTONIX DVT prophylaxis: HEPARIN subcu Antibiotics: CEFTRIAXONE CODE STATUS: Full code Disposition: Admitted for CHF versus COPD exacerbation. Case was discussed with attending physician and senior resident. Lacey Westfall DO PGYI Attending Provider Attestation/Addendum I have discussed and was present for the essential components of the history, physical examination, diagnosis, and treatment plan with the resident. I agree with the patient's care as documented by the resident and amended herein by me. Shine Ruiz DO. Patient seen and evaluated this AM. Patient was admitted for acute decompensated heart failure exacerbation and pneumonia, presently doing very well, has been awaiting insurance authorization for SNF for several days now. Cardiology is consulted, appreciate recommendations. Heart failure measures still in place, will continue Bumex 1 mg daily, patient euvolemic. We have also counseled the patient extensively on the necessity of smoking cessation. Discharge to SNF once authorization comes through. Although this document has been carefully reviewed, there may still be some phonetic and other typographical errors. These errors are purely grammatical due to imperfections in the software program and should not be construed in any way to compromise the substance of the patient's medical care during this visit.
--- NOTE | 2025-01-31 14:25 | PC.SS ---
SS spoke to [employer], clinicals sent to insurance but no auth obtained yet. SS contacted insurance co. @ [phone] xt [phone] left message. SS then contacted # [phone] for auth update, no brewery representative available due to holiday.
--- NOTE | 2025-01-31 15:12 | ESPR_ITS ---
Documentation for date of: 01/31/25 Subjective Subjective Interval history: Patient is a 69-year-old male with a past medical history of CHF HFpEF 55 to 60% (01/22/2025), COPD per chart review, and history of substance use disorder including cocaine and methamphetamines. Patient presented to the emergency room on 01/22/2025 with a chief complaint of difficulty breathing. 1 month history of shortness of breath, which worsens with ambulation. Patient stated after a couple feet he experienced shortness of breath. Shortness of breath accompanied with palpitations. Patient denied any history of atrial fibrillation and denied any flutter like sensation. Patient has been non-adherent to medications since previous hospitalization in 2023, initially discharged on Lasix 20 mg p.o. daily. Patient denied orthopnea, or paroxysmal paroxysmal nocturnal dyspnea. Patient denied any chest pain. Patient denied any syncopal events. Patient denied dizziness. Patient denied any recent sick contacts. Substance use disorder with meth and cocaine, last use 6 months ago. Alcohol use about half a pint a week with fireball as his choice of alcohol. Smoking history since age 21-->24 pack year history. 01/29/2025: No overnight events. Patient examined at bedside. Pateint denied chest pain or shortness of breath. Patient pending SNF. Mild transaminitis noted. Mild increase in BUN. Holding IV lasix, consider transition patinet to oral. 01/30/2025: No overnight events. Patient ambulated to chair today. Ruth would like to walk in the hallway, recommended to update nursing staff. Peripheral edema resolved, no change. No chest pain, shortness of breath, or palpitations. Pending SNF. Pending home oxygen. 01/31/2025: No overnight events. Patient is pending SNF authorization for [facility]. No peripheral edema noted. No other complains. Exam Vital Signs Temp Pulse Resp BP Pulse Ox O2 Del Method O2 Flow Rate 98.3 F 75 20 117/78 98 Nasal Cannula 2 01/31/25 12:00 01/31/25 12:00 01/31/25 12:00 01/31/25 12:00 01/31/25 12:00 01/31/25 12:00 01/31/25 12:00 FiO2 45 01/28/25 17:00 Narrative Exam General Appearance: Alert & Oriented X3, well-nourished male who is lying in bed in no acute distress, oral cavity missing all teeth, no oral lesion noted HEENT: Skull symmetrical and atraumatic. Conjunctivae pale and moist. Pupils equal, round, reactive to light and accommodation (PERRL). External ear without lesion or discharge. Straight, nares patient, mucosa pink, no discharge. No thyroid nodule appreciated. No cervical lymphadenopathy. Cardio: Normal Rate and Rhythm with S1 and S2 heart sounds. Holosystolic murmur noted. No bruits on carotid auscultation. Peripheral bilateral edema +1 on right and 2 on left but overall. Trace peripheral edema. Lungs: Symmetric with good expansion. Chest and back non-tender. Breath sounds vesicular without crackles, wheezing or rhonchi Abdomen: Non-tender, Non-distended, Normal Reactive Bowel Sounds Neuro: Alert, cooperative, oriented to person, place, and time. Speech clear. CN grossly intact. Upper motor strength 5/5 and Lower motor strength 5/5. Sensation intact. Objective Labs 01/31/25 04:35 01/31/25 04:35 Labs: Laboratory Results - last 24 hr 01/31/25 04:35 WBC 6.6 RBC 5.22 Hgb 15.2 Hct 48.1 MCV 92 MCH 29.1 MCHC 31.6 RDW Std Deviation 48.0 H Plt Count 136 L Neut % (Auto) 59 Lymph % (Auto) 29 [place] % (Auto) 9 Eos % (Auto) 1 Baso % (Auto) 1 Neut # (Auto) 3.9 Lymph # (Auto) 1.9 [place] # (Auto) 0.6 Eos # (Auto) 0.1 Baso # (Auto) 0.0 Immature Gran # (Auto) 0.03 H Absolute Nucleated RBC 0.00 Immature Gran % 1 H Nucleated RBC % 0 Sodium 141 Potassium 4.1 Chloride 99 Carbon Dioxide 34.8 H Anion Gap 7 BUN 25 H Creatinine 0.9 Estim Creat Clear Calc 86.2 eGFR > 60 BUN/Creatinine Ratio 28 H Glucose 128 H Calculated Osmolality 287 Calcium 9.3 Corrected Calcium 9.5 Phosphorus 2.8 Magnesium 2.0 Total Bilirubin 0.8 AST 64 H ALT 103 H Alkaline Phosphatase 120 H Total Protein 6.4 Albumin 3.8 Globulin 2.6 Albumin/Globulin Ratio 1.5 ABG Interpretation ABG results: 0601/22/25 01/22/25 05:07 07:45 11:01 ABG pH 7.26 L ABG pCO2 81 H* ABG pO2 79 L ABG HCO3 36 H ABG O2 Saturation 95 ABG Base Excess 6 H VBG pH 7.25 L 7.39 VBG pCO2 92 H 61 H D VBG pO2 36 32 VBG Base Excess 8 H 9 H 01/23/25 01/24/25 01/24/25 08:11 06:05 11:26 ABG pH ABG pCO2 ABG pO2 ABG HCO3 ABG O2 Saturation ABG Base Excess VBG pH 7.34 7.26 L 7.31 L VBG pCO2 77 H D 102 H D 87 H D VBG pO2 73 H D 30 D 57 D VBG Base Excess 12 H 13 H 13 H 01/25/25 01/26/25 05:19 05:45 ABG pH ABG pCO2 ABG pO2 ABG HCO3 ABG O2 Saturation ABG Base Excess VBG pH 7.26 L 7.39 VBG pCO2 95 H 65 H D VBG pO2 35 D 81 H D VBG Base Excess 11 H 11 H Quality Measures Quality Measures VTE prophylaxis Advance care planning discussed with:: patient Assessment & Plan Assessment Current Active Medications: Generic Name Dose Route Start Last Admin Trade Name Freq PRN Reason Stop Dose Admin Acetaminophen 650 mg 01/22/25 10:07 01/30/25 06:24 Acetaminophen 325 Mg Tablet PO 02/21/25 10:06 650 mg Q6H PRN Administration PAIN SCALE 1-3 (mild Acetaminophen 650 mg 01/22/25 10:07 Acetaminophen 325 Mg Tablet PO 02/21/25 10:06 Q6H PRN Fever >100.4 Albuterol/Ipratropium 3 ml 01/22/25 11:14 Albuterol/Ipratropium (Duoneb) Rt Cherise 3 Ml Nebu INH 02/21/25 12:59 Q6HRRT PRN wheezing Atorvastatin Calcium 20 mg 01/30/25 21:00 01/30/25 21:07 Atorvastatin Calcium 20 Mg Tablet PO 03/01/25 20:59 20 mg HS TINY Administration Bumetanide 1 mg 01/31/25 09:00 01/31/25 08:39 Bumetanide 0.5 Mg Tablet PO 03/02/25 08:59 1 mg QDAY TINY Administration Heparin Sodium (Porcine) 5,000 unit 01/22/25 14:00 01/31/25 13:06 Heparin Sod Inj 5000 Unit/Ml Vial SC 02/05/25 13:59 5,000 unit Q8HR TINY Administration Nicotine 14 mg 01/22/25 13:05 01/31/25 09:35 Nicotine Patch 14 Mg/24 Hr Patch.Td24 TOP 02/21/25 13:04 14 mg QDAY TINY Administration Ondansetron HCl 4 mg 01/22/25 10:07 Ondansetron Inj 2 Mg/Ml Inj 2 Ml IVP 02/21/25 10:06 Q6H PRN NAUSEA OR VOMITING Protocol Pantoprazole Sodium 40 mg 01/24/25 09:00 01/31/25 08:38 Pantoprazole 40 Mg Tablet PO 02/23/25 08:59 40 mg QDAY TINY Administration Protocol Polyethylene Glycol 17 gm 01/25/25 07:35 Polyethylene Glycol 17 Gm Packet PO 02/24/25 07:34 QDAY PRN CONSTIPATION Protocol Plan Patient is a 69-year-old male with a past medical history of CHF HFpEF 55 to 60% (01/22/2025), COPD per chart review, and history of substance use disorder including cocaine and methamphetamines. Patient was admitted for acute respiratory failure and acute on chronic CHF. Cardiology consulted. #Acute on chronic hypoxic and Hypercapneic Respiratory Failure, improved #Acute on Chronic diastolic Heart Failure Exacerbation #CHF HpEF 55-60%, likely right heart failure #Diastolic Dysfunction Grade I #Moderate PAH, RVSP 50-55% #ANASARCA Etiology: likely in the setting of cardiomyopathy as noted on echo with diastolic dysfunciton and history of meth use leading to PAH. DDX: Less likely secondary to PE as BP and HR have been stable vs less likely secondary to [place] as troponin within normal limits. BNP 843 Net balance: -14,400 (01/22/25-01/28/2025) Dry BNP : 114 Dry Weight: 89.811 kg Diagnostics: Echo (01/22/2025): Normal LV size and function. Estimated EF is 55 to 60%. Grade 1 diastolic dysfunction.Mildly dilated RV with mildly decreased RV systolic function. D-shaped septum in both systole and diastole indicating both pressure and volume overload. Moderately elevated RVSP at 50-55 mmHg. Mild TR.Mildly thickened mitral and aortic valves with minimal calcification. Trace MR. Mild biatrial dilatation. IVC dilated. No pericardial effusion TSH 2.52, Troponin 0.02. EKG no ST elevation noted. A1c 5.9 Lipid Panel Lipid Panel (01/23/2025): Triglycerides 56, Cholesterol 112, LDL 55, HDl 46 NYHA Class: III ASCVD:11.8%, Moderate to high intensity statin Plan: -Bumex 1 mg qday -Atorvastatin 20 mg PO given transaminitis -K>4 and Mg >2 -Fluid Restriction (1500 ml) and Sodium Restriction 2 g per day, Daily weight checks -SpO <90%, support PRN -Work toward GDMT, upon discharge Bumex 1 mg qday. #Contraction Alkalosis, improving #KAREN likely Prerenal, resolved KAREN noted on admission with Cr of 1.4 with a previous baseline of 1.0. BUN/Cr 14 and GFR 55 likely pre-renal in the setting of cardio-renal syndrome vs CKD given previous GFR 55 in August 2024 and repeat GFR 55. Abdomen US noted to have parenchymal scars. Contraction Alkalosis secondary to lasix, despite diamox and now noted to have a VBG 7.26. Started on Bipap. Consider reducing lasix. BUN 20 Cr 1.4 -->BUN 25 Cr 0.9 (01/31/2025) Plan -Avoid Neprhtoxins -Renally Dose mediation -Encourage oral hydration, with fluid restrictions of 1200 #Cirrhosis likely secondary to alcohol use #Transiminitis Patient noted to have history of alochol use, consuming at least 1/2 pint once per week, likely more. Mild elevated AST/ALTs likely in the setting of diuresis vs statin use, consider holding dose. Abdomen US (01/22/2025): Cholelithiasis. Cirrhosis, mild to moderate hepatomegaly no focal liver lesions. Mild Renal Parencymal Scar Formation Hepatitis Panel (01/22/2025): negative Child-Calderón Score 6 points, Class A, Life expectancy 15-20 years. Abdominal surgery [facility]-operative mortality 10%. 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 NO wheezing noted on physical exam. Cxr did not show ephysema patter, possible pneumonia. -Blood Culture Negative 48 hours & MRSA Screen Negative. -Sputum Gram stain:Staphylococcus Aureus, but epithelial cells >25, consider contamination. -Stop Azithromycin 01/22/2025-01/25/2025 Plan - Ceftriaxone,(56/) -Duonebs -Patient would benefit from PFT. #Respiratory Acidosis w/ Metabolic Compensation Health Maintenance: Disp: Pt is currently admitted to floors for further management of CHF exacerbation, Please follow up with cardiology, Dr. Dang, within 1 week from hospital discharge. FEN: Cardiac Diet, Fluid restricted DVT: on subQ heparin Q8HR Code: Full code - The patient's plan was discussed with attending Dr. Laurence Beckford MD PGY1 Internal Medicine Attending Provider Attestation/Addendum I have personally seen and examined the patient separately on the above date of service and discussed the plan of care with the resident. I reviewed the resident Dr. Kerri Beckford consultation progress note and agree with the resident findings and plan in the note above and have also edited the documentation to reflect my findings and plan. Noah Dang M.D. Interventional Cardiology
[2025-01-31] MEDS: ATORVASTATIN CALCIUM 20 MG TABLET PO (21:04)
[2025-02-01] VITALS (11 sets, daily range): BP systolic 99–120; BP diastolic 57–82; PULSE 78–109; RESP 17–22; TEMP 36.3–36.6; O2SAT 90–94; BMI 26.9
[2025-02-01] MEDS: ACETAMINOPHEN 325 MG TABLET 650 MG PO (00:16)
[2025-02-01] MEDS: HEPARIN SOD INJ 5000 UNIT/ML VIAL SC ×3 (05:06→20:51)
[2025-02-01 05:50] LABS: Basophils % (Auto) 1 % (0-2.5); Eosinophils # (Auto) 0.1 Thou/mm3 (0.0-0.5); Eosinophils % (Auto) 1 % (0-10); Hematocrit 49.9 % (41.0-53.0); Hemoglobin 15.5 g/dL (13.5-16.0); Immature Granulocytes % (Auto) 1 % (0-0); Immature Granulocytes Auto 0.04 Thou/mm3 (0.00-0.00); Lymphocytes % (Auto) 28 % (10-50); Mean Corpuscular HGB Conc 31.1 g/dl (31.0-37.0); Mean Corpuscular Hemoglobin 29.1 pg (25.0-35.0); Mean Corpuscular Volume 94 fL (80-100); Monocytes # (Auto) 0.6 Thou/mm3 (0.0-0.8); Monocytes % (Auto) 8 % (0-12); Neutrophils # (Auto) 4.3 Thou/mm3 (1.8-7.7); Neutrophils % (Auto) 61 % (37-80); Nucleated Red Blood Cell % 0 /100 WBC (0); Platelet Count 141 Thou/mm3 (140-440); RDW Standard Deviation 48.9 fL (35.1-43.9); Red Blood Count 5.33 Miln/mm3 (4.50-5.90)
[2025-02-01 06:24] LABS: Alanine Aminotransferase 94 U/L (10-49); Albumin, Serum 3.9 gm/dL (3.4-4.8); Albumin/Globulin Ratio 1.6 (1.2-2.2); Alkaline Phosphatase 115 U/L (46-116); Anion Gap 6 (7-16); Aspartate Amino Transferase 54 U/L (0-34); BUN/Creatinine Ratio 27 Ratio (12-20); Bilirubin,Total 0.7 mg/dL (0.3-1.2); Blood Urea Nitrogen 27 mg/dL (9-23); Calcium 9.4 mg/dL (8.3-10.6); Calcium (Corrected) 9.5 mg/dL (8.5-10.1); Carbon Dioxide 36.7 mMol/L (20.0-31.0); Chloride 98 mMol/L (98-107); Estimated Creatinine Clearance 77.6 mL/min (>60); Globulin 2.4 gm/dL (2.3-3.5); Glucose 114 mg/dL (74-106); Magnesium 2.1 mg/dL (1.6-2.6); Osmolality,Calculated 287 (275-295); Phosphorous 3.1 mg/dL (2.4-5.1); Potassium 4.4 mMol/L (3.4-5.1); Sodium 141 mMol/L (136-145); Total Protein 6.3 gm/dL (5.7-8.2); eGFR > 60 See Note
[2025-02-01] MEDS: BUMETANIDE 0.5 MG TABLET 1 MG PO (08:53)
[2025-02-01] MEDS: PANTOPRAZOLE 40 MG TABLET PO (08:53)
[2025-02-01] MEDS: NICOTINE PATCH 14 MG/24 HR PATCH.TD24 TOP (08:53)
--- NOTE | 2025-02-01 09:35 | PC.SS ---
Addendum entered by Ramona Huber 02/01/25 14:48: SS reached out to insurance #[phone] in regards to auth [id number], still showing pending Original Note: SS reached out to insurance #[phone] in regards to auth [id number], per rep Radha, it is incomplete and missing documentation. Per Radha a fax was sent to [facility] requesting the Provider name, address, phone # and NPI that will be following the pt at their facility. S reached out to Magdalene at [facility] and updated her on information needed, who stated she will send everything once she is out of her meeting. F#[phone]
--- NOTE | 2025-02-01 11:57 | ESPR_ITS ---
<Statement entered by Shorty Alonzo MD - 02/01/25 17:45> I discussed with and supervised the pr intern physician involved in the care of this patient. Patient assessment and plan was discussed with entire medicine team, including my attending. I agree with the assessment and plan as documented by pr intern doctor. Patient care was discussed with my attending physician Dr. Onesimo Alonzo, PGY-2 Documentation for date of: 02/01/25 Subjective Subjective Interval history: No acute overnight events. Vitals and labs are relatively stable. Renal function WNL, LFTs continue downtrending. Continued on diuresis with BUMEX 1 mg daily. Pending SNF placement. Exam Vital Signs Temp Pulse Resp BP Pulse Ox O2 Del Method O2 Flow Rate 97.8 F 109 H 22 H 120/76 93 L Nasal Cannula 2 02/01/25 08:00 02/01/25 08:53 02/01/25 08:00 02/01/25 08:53 02/01/25 08:00 02/01/25 08:00 02/01/25 08:00 FiO2 45 01/28/25 17:00 Narrative Exam General: Awake, on 3L NC. HEENT: Normocephalic, atraumatic, mucous membranes moist. Heart: Regular rate and rhythm, holosystolic murmur, likely aortic, aortic Lungs: Clear to auscultation with no wheezing or crackles. Abdomen: Soft, nondistended, nontender, positive bowel sounds. ?No guarding or rebound tenderness. Neurologic: Alert and oriented x3, no gross neurological deficit, and patient able to move all 4 extremities. Extremities: no bilateral pedal edema noted in lower extremities Skin: No rash or ecchymoses Objective Labs 02/02/25 05:20 02/02/25 05:20 Labs: Laboratory Results - last 24 hr 02/01/25 05:01 WBC 7.0 RBC 5.33 Hgb 15.5 Hct 49.9 MCV 94 MCH 29.1 MCHC 31.1 RDW Std Deviation 48.9 H Plt Count 141 Neut % (Auto) 61 Lymph % (Auto) 28 [place] % (Auto) 8 Eos % (Auto) 1 Baso % (Auto) 1 Neut # (Auto) 4.3 Lymph # (Auto) 2.0 [place] # (Auto) 0.6 Eos # (Auto) 0.1 Baso # (Auto) 0.0 Immature Gran # (Auto) 0.04 H Absolute Nucleated RBC 0.00 Immature Gran % 1 H Nucleated RBC % 0 Sodium 141 Potassium 4.4 Chloride 98 Carbon Dioxide 36.7 H Anion Gap 6 L BUN 27 H Creatinine 1.0 Estim Creat Clear Calc 77.6 eGFR > 60 BUN/Creatinine Ratio 27 H Glucose 114 H Calculated Osmolality 287 Calcium 9.4 Corrected Calcium 9.5 Phosphorus 3.1 Magnesium 2.1 Total Bilirubin 0.7 AST 54 H ALT 94 H Alkaline Phosphatase 115 Total Protein 6.3 Albumin 3.9 Globulin 2.4 Albumin/Globulin Ratio 1.6 ABG Interpretation ABG results: 01/22/25 01/22/25 01/22/25 05:07 07:45 11:01 ABG pH 7.26 L ABG pCO2 81 H* ABG pO2 79 L ABG HCO3 36 H ABG O2 Saturation 95 ABG Base Excess 6 H VBG pH 7.25 L 7.39 VBG pCO2 92 H 61 H D VBG pO2 36 32 VBG Base Excess 8 H 9 H 01/23/25 01/24/25 01/24/25 08:11 06:05 11:26 ABG pH ABG pCO2 ABG pO2 ABG HCO3 ABG O2 Saturation ABG Base Excess VBG pH 7.34 7.26 L 7.31 L VBG pCO2 77 H D 102 H D 87 H D VBG pO2 73 H D 30 D 57 D VBG Base Excess 12 H 13 H 13 H 01/25/25 01/26/25 05:19 05:45 ABG pH ABG pCO2 ABG pO2 ABG HCO3 ABG O2 Saturation ABG Base Excess VBG pH 7.26 L 7.39 VBG pCO2 95 H 65 H D VBG pO2 35 D 81 H D VBG Base Excess 11 H 11 H Quality Measures Quality Measures VTE prophylaxis Advance care planning discussed with:: patient Assessment & Plan Assessment Current Active Medications: Generic Name Dose Route Start Last Admin Trade Name Freq PRN Reason Stop Dose Admin Acetaminophen 650 mg 01/22/25 10:07 02/01/25 00:16 Acetaminophen 325 Mg Tablet PO 02/21/25 10:06 650 mg Q6H PRN Administration PAIN SCALE 1-3 (mild Acetaminophen 650 mg 01/22/25 10:07 Acetaminophen 325 Mg Tablet PO 02/21/25 10:06 Q6H PRN Fever >100.4 Albuterol/Ipratropium 3 ml 01/22/25 11:14 Albuterol/Ipratropium (Duoneb) Rt Cherise 3 Ml Nebu INH 02/21/25 12:59 Q6HRRT PRN wheezing Atorvastatin Calcium 20 mg 01/30/25 21:00 01/31/25 21:04 Atorvastatin Calcium 20 Mg Tablet PO 03/01/25 20:59 20 mg HS TINY Administration Bumetanide 1 mg 01/31/25 09:00 02/01/25 08:53 Bumetanide 0.5 Mg Tablet PO 03/02/25 08:59 1 mg QDAY TINY Administration Heparin Sodium (Porcine) 5,000 unit 01/22/25 14:00 02/01/25 05:06 Heparin Sod Inj 5000 Unit/Ml Vial SC 02/05/25 13:59 5,000 unit Q8HR TINY Administration Nicotine 14 mg 01/22/25 13:05 02/01/25 08:53 Nicotine Patch 14 Mg/24 Hr Patch.Td24 TOP 02/21/25 13:04 14 mg QDAY TINY Administration Ondansetron HCl 4 mg 01/22/25 10:07 Ondansetron Inj 2 Mg/Ml Inj 2 Ml IVP 02/21/25 10:06 Q6H PRN NAUSEA OR VOMITING Protocol Pantoprazole Sodium 40 mg 01/24/25 09:00 02/01/25 08:53 Pantoprazole 40 Mg Tablet PO 02/23/25 08:59 40 mg QDAY TINY Administration Protocol Polyethylene Glycol 17 gm 01/25/25 07:35 Polyethylene Glycol 17 Gm Packet PO 02/24/25 07:34 QDAY PRN CONSTIPATION Protocol Plan 69-year-old male with PMHx of obesity, chronic substance use disorder including alcohol and marijuana, chronic tobacco smoker with likely COPD component, presenting to the ED with progressively worsening shortness of breath. Acute decompensated heart failure exacerbation HFpEF EF 55 ? 60% Cor pulmonale 2/2 moderate PAH COPD exacerbation and suspected possible underlying obesity hypoventilation syndrome Respiratory acidosis, compensated metabolic alkalosis Reports longstanding but progressively worsening shortness of breath and lower extremity swelling. Symptoms worsened over the last week or so, now has dyspnea with minimal exertion, including walking around the house. Reports worsening LE swelling also occurring around the same time. Found dyspneic on admission, required BiPAP. BMI is 29.2 On exam, noted mild JVD, extensive bilateral LE edema extending above the hip. Initial ABG showed respiratory acidosis with pH 7.26 and CO2 81. He was started on BiPAP, ABG showed improved pH 7.39, pCO2 61. BNP 843. No lactic acidosis. Previous echo from 12/2023 showed EF 60%. He was previously discharged on FUROSEMIDE which he hasn't been taking. He has history of extensive tobacco use, greater than 30 years, COPD was suspected on previous admission. Was difficult to assess for wheezing on exam. Given that he was on BiPAP. However will treat show for likely COPD exacerbation, although his presentation with elevated BNP, fluid overload and vascular congestion on CXR is more consistent with CHF exacerbation, and will require extensive diuresis. There may be an additional pneumonia component as noted on CXR, however he denies cough, afebrile, no leukocytosis, negative influenza and COVID screen. 01/22/2025 ECHOCARDIOGRAM * Normal LV size/function, EF 55-60%, grade 1 diastolic dysfunction, mildly dilated RV and mildly decreased RV systolic function. * D-shaped septum in both systole/diastole, indicating volume overload. * Mildly elevated RVSP 50-55 mmHg. * Mildly thickened mitral and aortic valve with minimal calcification, trace MR, mild biatrial dilation, IVC dilation, no pericardial effusion TG 56, cholesterol 112, LDL 55, HDL 46, TSH 0.93, free T41.0, A1c 5.9. Sputum culture - Staph aureus, Blood cultures - negative after 48hrs ? Strict INOs ? Fluid restriction 1200 cc daily ? Continue BiPAP intermittently ? Continue BUMEX 1 mg daily ? Continue DUNEBS Q6H PRN ? Continue CEFTRIAXONE daily (01/22 to present) ? Continue ATORVASTATIN 20 mg daily Mild KAREN (resolved) Possible cardiorenal type I Admission CR 1.4, baseline 1.0. Possibly he has cardiorenal type I. Anticipate improvement with diuresis as above. Responded well to diuresis, CR 1.1 today. ? Renally dose meds, avoid overdiuresis and NEPHROTOXINS ? Daily CMP Mild transaminitis (improving) LFTs slightly elevated today, likely setting STEROID aggressive diuresis. Otherwise asymptomatic, afebrile, no abdominal pain. ? Decrease ATORVASTATIN to 20 mg daily ? Daily labs ? Daily labs Anasarca (resolved) Liver cirrhosis, likely alcohol related LFTs and ALBUMEN WNL, has tense abdomen on exam. No history of liver cirrhosis but has extensive history of alcohol use. Hep panel nonreactive. Ultrasound showed cirrhosis with hepatomegaly, cholelithiasis (asymptomatic). ? Improved with diuresis Active tobacco smoker Polysubstance use disorder Has extensive history of alcohol, marijuana and tobacco use. States he stopped drinking alcohol 2 years ago. Continued to smoke about a pack daily. U tox negative. ? Recommended smoking cessation. ? Daily NICOTINE patches. Health maintenance Diet: Cardiac, fluid restriction GI prophylaxis: PROTONIX DVT prophylaxis: HEPARIN subcu Antibiotics: CEFTRIAXONE CODE STATUS: Full code Disposition: Admitted for CHF versus COPD exacerbation. Case was discussed with attending physician and senior resident. Lacey Westfall DO PGYI Attending Provider Attestation/Addendum Nidhi Castro DO, attest that I was physically present for the robles portions of the service and evaluated the patient with the resident and I reviewed and discussed the case with the resident and agree with the resident's findings and plans of care as documented above Patient seen and evaluated this AM. Patient states he is feeling well and would like to speak to a dietitian about maintaining a low sodium diet. He is anxious to go to SNF. However, is pending authorization at this time. No peripheral edema noted. Lungs are CTAB/L. No acute events overnight. Patient is stable to dc once authorization for SNF is obtained.
--- NOTE | 2025-02-01 14:37 | ESPR_ITS ---
Documentation for date of: 02/01/25 Subjective Subjective Interval history: Patient is a 69-year-old male with a past medical history of CHF HFpEF 55 to 60% (01/22/2025), COPD per chart review, and history of substance use disorder including cocaine and methamphetamines. Patient presented to the emergency room on 01/22/2025 with a chief complaint of difficulty breathing. 1 month history of shortness of breath, which worsens with ambulation. Patient stated after a couple feet he experienced shortness of breath. Shortness of breath accompanied with palpitations. Patient denied any history of atrial fibrillation and denied any flutter like sensation. Patient has been non-adherent to medications since previous hospitalization in 2023, initially discharged on Lasix 20 mg p.o. daily. Patient denied orthopnea, or paroxysmal paroxysmal nocturnal dyspnea. Patient denied any chest pain. Patient denied any syncopal events. Patient denied dizziness. Patient denied any recent sick contacts. Substance use disorder with meth and cocaine, last use 6 months ago. Alcohol use about half a pint a week with fireball as his choice of alcohol. Smoking history since age 21-->24 pack year history. 01/30/2025: No overnight events. Patient ambulated to chair today. Ruth would like to walk in the hallway, recommended to update nursing staff. Peripheral edema resolved, no change. No chest pain, shortness of breath, or palpitations. Pending SNF. Pending home oxygen. 01/31/2025: No overnight events. Patient is pending SNF authorization for [facility]. No peripheral edema noted. No other complains. 02/01/2025: No overnight events. [facility]. NO cardiac complains. Exam Vital Signs Temp Pulse Resp BP Pulse Ox O2 Del Method O2 Flow Rate 97.4 F 84 18 112/68 93 L Room Air 2 02/01/25 12:00 02/01/25 13:58 02/01/25 13:58 02/01/25 12:00 02/01/25 13:58 02/01/25 12:00 02/01/25 13:58 FiO2 45 01/28/25 17:00 Narrative Exam General Appearance: Alert & Oriented X3, well-nourished male who is lying in bed in no acute distress, oral cavity missing all teeth, no oral lesion noted HEENT: Skull symmetrical and atraumatic. Conjunctivae pale and moist. Pupils equal, round, reactive to light and accommodation (PERRL). External ear without lesion or discharge. Straight, nares patient, mucosa pink, no discharge. No thyroid nodule appreciated. No cervical lymphadenopathy. Cardio: Normal Rate and Rhythm with S1 and S2 heart sounds. Holosystolic murmur noted. No bruits on carotid auscultation. Trace peripheral edema Lungs: Symmetric with good expansion. Chest and back non-tender. Breath sounds vesicular without crackles, wheezing or rhonchi Abdomen: Non-tender, Non-distended, Normal Reactive Bowel Sounds Neuro: Alert, cooperative, oriented to person, place, and time. Speech clear. CN grossly intact. Upper motor strength 5/5 and Lower motor strength 5/5. Sensation intact. Objective Labs 02/02/25 05:20 02/02/25 05:20 Labs: Laboratory Results - last 24 hr 02/01/25 05:01 WBC 7.0 RBC 5.33 Hgb 15.5 Hct 49.9 MCV 94 MCH 29.1 MCHC 31.1 RDW Std Deviation 48.9 H Plt Count 141 Neut % (Auto) 61 Lymph % (Auto) 28 [place] % (Auto) 8 Eos % (Auto) 1 Baso % (Auto) 1 Neut # (Auto) 4.3 Lymph # (Auto) 2.0 [place] # (Auto) 0.6 Eos # (Auto) 0.1 Baso # (Auto) 0.0 Immature Gran # (Auto) 0.04 H Absolute Nucleated RBC 0.00 Immature Gran % 1 H Nucleated RBC % 0 Sodium 141 Potassium 4.4 Chloride 98 Carbon Dioxide 36.7 H Anion Gap 6 L BUN 27 H Creatinine 1.0 Estim Creat Clear Calc 77.6 eGFR > 60 BUN/Creatinine Ratio 27 H Glucose 114 H Calculated Osmolality 287 Calcium 9.4 Corrected Calcium 9.5 Phosphorus 3.1 Magnesium 2.1 Total Bilirubin 0.7 AST 54 H ALT 94 H Alkaline Phosphatase 115 Total Protein 6.3 Albumin 3.9 Globulin 2.4 Albumin/Globulin Ratio 1.6 ABG Interpretation ABG results: 01/22/25 01/22/25 01/22/25 05:07 07:45 11:01 ABG pH 7.26 L ABG pCO2 81 H* ABG pO2 79 L ABG HCO3 36 H ABG O2 Saturation 95 ABG Base Excess 6 H VBG pH 7.25 L 7.39 VBG pCO2 92 H 61 H D VBG pO2 36 32 VBG Base Excess 8 H 9 H 01/23/25 01/24/25 01/24/25 08:11 06:05 11:26 ABG pH ABG pCO2 ABG pO2 ABG HCO3 ABG O2 Saturation ABG Base Excess VBG pH 7.34 7.26 L 7.31 L VBG pCO2 77 H D 102 H D 87 H D VBG pO2 73 H D 30 D 57 D VBG Base Excess 12 H 13 H 13 H 01/25/25 01/26/25 05:19 05:45 ABG pH ABG pCO2 ABG pO2 ABG HCO3 ABG O2 Saturation ABG Base Excess VBG pH 7.26 L 7.39 VBG pCO2 95 H 65 H D VBG pO2 35 D 81 H D VBG Base Excess 11 H 11 H Quality Measures Quality Measures VTE prophylaxis Advance care planning discussed with:: patient Assessment & Plan Assessment Current Active Medications: Generic Name Dose Route Start Last Admin Trade Name Freq PRN Reason Stop Dose Admin Acetaminophen 650 mg 01/22/25 10:07 02/01/25 00:16 Acetaminophen 325 Mg Tablet PO 02/21/25 10:06 650 mg Q6H PRN Administration PAIN SCALE 1-3 (mild Acetaminophen 650 mg 01/22/25 10:07 Acetaminophen 325 Mg Tablet PO 02/21/25 10:06 Q6H PRN Fever >100.4 Albuterol/Ipratropium 3 ml 01/22/25 11:14 Albuterol/Ipratropium (Duoneb) Rt Cheirse 3 Ml Nebu INH 02/21/25 12:59 Q6HRRT PRN wheezing Atorvastatin Calcium 20 mg 01/30/25 21:00 01/31/25 21:04 Atorvastatin Calcium 20 Mg Tablet PO 03/01/25 20:59 20 mg HS TINY Administration Bumetanide 1 mg 01/31/25 09:00 02/01/25 08:53 Bumetanide 0.5 Mg Tablet PO 03/02/25 08:59 1 mg QDAY TINY Administration Heparin Sodium (Porcine) 5,000 unit 01/22/25 14:00 02/01/25 13:35 Heparin Sod Inj 5000 Unit/Ml Vial SC 02/05/25 13:59 5,000 unit Q8HR TINY Administration Nicotine 14 mg 01/22/25 13:05 02/01/25 08:53 Nicotine Patch 14 Mg/24 Hr Patch.Td24 TOP 02/21/25 13:04 14 mg QDAY TINY Administration Ondansetron HCl 4 mg 01/22/25 10:07 Ondansetron Inj 2 Mg/Ml Inj 2 Ml IVP 02/21/25 10:06 Q6H PRN NAUSEA OR VOMITING Protocol Pantoprazole Sodium 40 mg 01/24/25 09:00 02/01/25 08:53 Pantoprazole 40 Mg Tablet PO 02/23/25 08:59 40 mg QDAY TINY Administration Protocol Polyethylene Glycol 17 gm 01/25/25 07:35 Polyethylene Glycol 17 Gm Packet PO 02/24/25 07:34 QDAY PRN CONSTIPATION Protocol Plan Patient is a 69-year-old male with a past medical history of CHF HFpEF 55 to 60% (01/22/2025), COPD per chart review, and history of substance use disorder including cocaine and methamphetamines. Patient was admitted for acute respiratory failure and acute on chronic CHF. Cardiology consulted. #Acute on chronic hypoxic and Hypercapneic Respiratory Failure, improved #Acute on Chronic diastolic Heart Failure Exacerbation #CHF HpEF 55-60%, likely right heart failure #Diastolic Dysfunction Grade I #Moderate PAH, RVSP 50-55% #ANASARCA Etiology: likely in the setting of cardiomyopathy as noted on echo with diastolic dysfunciton and history of meth use leading to PAH. DDX: Less likely secondary to PE as BP and HR have been stable vs less likely secondary to HI as troponin within normal limits. BNP 843 Net balance: -14,400 (01/22/25-01/28/2025) Dry BNP : 114 Dry Weight: 89.811 kg Diagnostics: Echo (01/22/2025): Normal LV size and function. Estimated EF is 55 to 60%. Grade 1 diastolic dysfunction.Mildly dilated RV with mildly decreased RV systolic function. D-shaped septum in both systole and diastole indicating both pressure and volume overload. Moderately elevated RVSP at 50-55 mmHg. Mild TR.Mildly thickened mitral and aortic valves with minimal calcification. Trace MR. Mild biatrial dilatation. IVC dilated. No pericardial effusion TSH 2.52, Troponin 0.02. EKG no ST elevation noted. A1c 5.9 Lipid Panel Lipid Panel (01/23/2025): Triglycerides 56, Cholesterol 112, LDL 55, HDl 46 NYHA Class: III ASCVD:11.8%, Moderate to high intensity statin Plan: -Bumex 1 mg qday -Atorvastatin 20 mg PO given transaminitis -K>4 and Mg >2 -Fluid Restriction (1500 ml) and Sodium Restriction 2 g per day, Daily weight checks -SpO <90%, support PRN -Work toward GDMT, upon discharge Bumex 1 mg qday. #Contraction Alkalosis, improving #KAREN likely Prerenal, resolved KAREN noted on admission with Cr of 1.4 with a previous baseline of 1.0. BUN/Cr 14 and GFR 55 likely pre-renal in the setting of cardio-renal syndrome vs CKD given previous GFR 55 in August 2024 and repeat GFR 55. Abdomen US noted to have parenchymal scars. Contraction Alkalosis secondary to lasix, despite diamox and now noted to have a VBG 7.26. Started on Bipap. Consider reducing lasix. BUN 20 Cr 1.4 -->BUN 25 Cr 0.9 (01/31/2025) Plan -Avoid Neprhtoxins -Renally Dose mediation -Encourage oral hydration, with fluid restrictions of 1200 #Cirrhosis likely secondary to alcohol use #Transiminitis Patient noted to have history of alochol use, consuming at least 1/2 pint once per week, likely more. Mild elevated AST/ALTs likely in the setting of diuresis vs statin use, consider holding dose. Abdomen US (01/22/2025): Cholelithiasis. Cirrhosis, mild to moderate hepatomegaly no focal liver lesions. Mild Renal Parencymal Scar Formation Hepatitis Panel (01/22/2025): negative Child-Calderón Score 6 points, Class A, Life expectancy 15-20 years. Abdominal surgery [facility]-operative mortality 10%. 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 NO wheezing noted on physical exam. Cxr did not show ephysema patter, possible pneumonia. -Blood Culture Negative 48 hours & MRSA Screen Negative. -Sputum Gram stain:Staphylococcus Aureus, but epithelial cells >25, consider contamination. -Stop Azithromycin 01/22/2025-01/25/2025 Plan - Ceftriaxone,(/) -Duonebs -Patient would benefit from PFT. #Respiratory Acidosis w/ Metabolic Compensation Health Maintenance: Disp: Pt is currently admitted to floors for further management of CHF exacerbation, Please follow up with cardiology, Dr. Dang, within 1 week from hospital discharge. FEN: Cardiac Diet, Fluid restricted DVT: on subQ heparin Q8HR Code: Full code - The patient's plan was discussed with attending Dr. Laurence Beckford MD PGY1 Internal Medicine Attending Provider Attestation/Addendum I have personally seen and examined the patient separately on the above date of service and discussed the plan of care with the resident. I reviewed the resident Dr. Kerri Beckford consultation progress note and agree with the resident findings and plan in the note above and have also edited the documentation to reflect my findings and plan. Noah Dang M.D. Interventional Cardiology
--- NOTE | 2025-02-01 15:05 | PC.SS ---
Rounding: Still pending auth for [facility], if auth denied pt will have to DC home with HH, Pt may need O2 upon DC and FWW.
[2025-02-01] MEDS: ATORVASTATIN CALCIUM 20 MG TABLET PO (20:50)
[2025-02-02] VITALS: BP 133/80; PULSE 74; RESP 16; TEMP 36.2; O2SAT 95
[2025-02-02 04:00] VITALS: BP 104/69; PULSE 106; RESP 16; TEMP 36.1; O2SAT 95
[2025-02-02] MEDS: HEPARIN SOD INJ 5000 UNIT/ML VIAL SC ×2 (06:03→14:32)
[2025-02-02 06:18] LABS: Basophils % (Auto) 1 % (0-2.5); Eosinophils # (Auto) 0.1 Thou/mm3 (0.0-0.5); Eosinophils % (Auto) 2 % (0-10); Hematocrit 49.9 % (41.0-53.0); Hemoglobin 15.8 g/dL (13.5-16.0); Immature Granulocytes % (Auto) 1 % (0-0); Immature Granulocytes Auto 0.04 Thou/mm3 (0.00-0.00); Lymphocytes % (Auto) 28 % (10-50); Mean Corpuscular HGB Conc 31.7 g/dl (31.0-37.0); Mean Corpuscular Hemoglobin 29.4 pg (25.0-35.0); Mean Corpuscular Volume 93 fL (80-100); Monocytes # (Auto) 0.6 Thou/mm3 (0.0-0.8); Monocytes % (Auto) 9 % (0-12); Neutrophils # (Auto) 4.3 Thou/mm3 (1.8-7.7); Neutrophils % (Auto) 60 % (37-80); Nucleated Red Blood Cell % 0 /100 WBC (0); Platelet Count 142 Thou/mm3 (140-440); RDW Standard Deviation 48.1 fL (35.1-43.9); Red Blood Count 5.38 Miln/mm3 (4.50-5.90); White Blood Count 7.2 Thou/mm3 (3.8-10.6)
[2025-02-02 06:45] VITALS: PULSE 84; RESP 20; O2SAT 89; O2SAT 92
[2025-02-02 06:47] LABS: Alanine Aminotransferase 88 U/L (10-49); Albumin, Serum 3.9 gm/dL (3.4-4.8); Albumin/Globulin Ratio 1.6 (1.2-2.2); Alkaline Phosphatase 110 U/L (46-116); Anion Gap 6 (7-16); Aspartate Amino Transferase 50 U/L (0-34); BUN/Creatinine Ratio 25 Ratio (12-20); Bilirubin,Total 0.7 mg/dL (0.3-1.2); Blood Urea Nitrogen 25 mg/dL (9-23); Calcium 9.7 mg/dL (8.3-10.6); Calcium (Corrected) 9.8 mg/dL (8.5-10.1); Carbon Dioxide 38.5 mMol/L (20.0-31.0); Chloride 97 mMol/L (98-107); Estimated Creatinine Clearance 77.6 mL/min (>60); Globulin 2.5 gm/dL (2.3-3.5); Glucose 109 mg/dL (74-106); Magnesium 2.1 mg/dL (1.6-2.6); Osmolality,Calculated 286 (275-295); Phosphorous 3.8 mg/dL (2.4-5.1); Potassium 4.9 mMol/L (3.4-5.1); Sodium 141 mMol/L (136-145); Total Protein 6.4 gm/dL (5.7-8.2); eGFR > 60 See Note
[2025-02-02 08:00] VITALS: BP 107/71; PULSE 87; RESP 20; TEMP 36.5; O2SAT 95
[2025-02-02 08:39] VITALS: BP 107/71; PULSE 87
[2025-02-02] MEDS: BUMETANIDE 0.5 MG TABLET 1 MG PO (08:39)
[2025-02-02] MEDS: NICOTINE PATCH 14 MG/24 HR PATCH.TD24 TOP (08:40)
[2025-02-02] MEDS: PANTOPRAZOLE 40 MG TABLET PO (08:40)
--- NOTE | 2025-02-02 09:44 | PC.RT ---
Addendum entered by Silvina Simmons 02/02/25 11:03: SS met with patient at bedside to inform him of insurance auth. for [facility] SNF being declined. SS informed patient discharging home with HH was still an option. DME oxygen and FWW also to be ordered. Patient declined FWW and stated he did not need a walker. consulted with FLORECITA Keller and informed her an oxygen test for home oygen would be needed to submit to DME companies and insurance for approval. Patient stated his son Van [phone] could provide transportation if he's availiable. If not, he would inform SS to assist with transportation. Original Note: [id number] [facility] to inquire about insurance auth. status, [place] stated patient's auth. for SNF was denied due to patient being able to ambulate 200ft. SS informed Dr. Corley. SS to inform patient at bedside. [id number] Echols patient is ready for discharge. contacted [facility] [employer] #[phone] in regards to auth [id number], status remains pending.
--- NOTE | 2025-02-02 11:08 | PC.NURSE ---
PATIENT WALKED TO TOILET ON ROOM AIR ABOUT 20 STEPS OXYGEN DESAT TO 80.
--- NOTE | 2025-02-02 11:09 | PC.SS ---
Addendum entered by Silvina Simmons 02/02/25 17:21: [facility] accepted DME oxygen order. ETA for bedside delivery 1330. Nell requested an updated nurse note to reflect levels when desatting. SS informed FLORECITA Keller. SS submitted updated nurse's note to [facility]. Addendum entered by Silvina Simmons 02/02/25 11:50: DME for oxygen submitted to following DME companies: [employer], [employer], [employer], [employer], [employer], and [employer]. Responses pending. Original Note: SS met with patient at bedside to inform him of insurance auth. for [facility] SNF being declined. SS informed patient discharging home with HH was still an option. DME oxygen and FWW also to be ordered. Patient declined FWW and stated he did not need a walker. SS consulted with FLORECITA Keller and informed her an oxygen test for home oygen would be needed to submit to DME companies and insurance for approval. Patient stated his son Van [phone] could provide transportation if he's availiable. If not, he would inform SS to assist with transportation. Original Note: [id number] SS contacted [place] SN[facility] to inquire about insurance auth. status, [place] stated patient's auth. for SNF was denied due to patient being able to ambulate 200ft. SS informed Dr. Corley. SS to inform patient at bedside. [id number] Echols patient is ready for discharge. SS contacted [facility] #[phone] in regards to auth [id number], status remains pending.
--- NOTE | 2025-02-02 11:35 | PC.SS ---
Patient is discharged in a chronic stable state and has been treated optimally and has other respiratory needs. Oxygen has been ordered due to Dyspnea and CHF exacerbation.
[2025-02-02 12:00] VITALS: BP 122/74; PULSE 81; RESP 20; TEMP 36.2; O2SAT 91
--- NOTE | 2025-02-02 13:04 | PD.RESPRO ---
Documentation for date of: 02/02/25 Subjective Subjective Interval history: Patient is a 69-year-old male with a past medical history of CHF HFpEF 55 to 60% (01/22/2025), COPD per chart review, and history of substance use disorder including cocaine and methamphetamines. Patient presented to the emergency room on 01/22/2025 with a chief complaint of difficulty breathing. 1 month history of shortness of breath, which worsens with ambulation. Patient stated after a couple feet he experienced shortness of breath. Shortness of breath accompanied with palpitations. Patient denied any history of atrial fibrillation and denied any flutter like sensation. Patient has been non-adherent to medications since previous hospitalization in 2023, initially discharged on Lasix 20 mg p.o. daily. Patient denied orthopnea, or paroxysmal paroxysmal nocturnal dyspnea. Patient denied any chest pain. Patient denied any syncopal events. Patient denied dizziness. Patient denied any recent sick contacts. Substance use disorder with meth and cocaine, last use 6 months ago. Alcohol use about half a pint a week with fireball as his choice of alcohol. Smoking history since age 21-->24 pack year history. 01/30/2025: No overnight events. Patient ambulated to chair today. Ruth would like to walk in the hallway, recommended to update nursing staff. Peripheral edema resolved, no change. No chest pain, shortness of breath, or palpitations. Pending SNF. Pending home oxygen. 01/31/2025: No overnight events. Patient is pending SNF authorization for [facility]. No peripheral edema noted. No other complains. 02/01/2025: No overnight events. Patient pending SNF. NO cardiac complains. 02/02/2025: No overnight events. Patient will be discharge home with health, no acute events noted. No complains. Exam Vital Signs Temp Pulse Resp BP Pulse Ox O2 Del Method O2 Flow Rate 97.2 F 81 20 122/74 91 L Room Air 2.5 02/02/25 12:00 02/02/25 12:00 02/02/25 12:00 02/02/25 12:00 02/02/25 12:00 02/02/25 12:00 02/02/25 08:00 FiO2 45 01/28/25 17:00 Narrative Exam General Appearance: Alert & Oriented X3, well-nourished male who is lying in bed in no acute distress, oral cavity missing all teeth, no oral lesion noted HEENT: Skull symmetrical and atraumatic. Conjunctivae pale and moist. Pupils equal, round, reactive to light and accommodation (PERRL). External ear without lesion or discharge. Straight, nares patient, mucosa pink, no discharge. No thyroid nodule appreciated. No cervical lymphadenopathy. Cardio: Normal Rate and Rhythm with S1 and S2 heart sounds. Holosystolic murmur noted. No bruits on carotid auscultation. Trace peripheral edema Lungs: Symmetric with good expansion. Chest and back non-tender. Breath sounds vesicular without crackles, wheezing or rhonchi Abdomen: Non-tender, Non-distended, Normal Reactive Bowel Sounds Neuro: Alert, cooperative, oriented to person, place, and time. Speech clear. CN grossly intact. Upper motor strength 5/5 and Lower motor strength 5/5. Sensation intact. Objective Labs 02/02/25 05:20 02/02/25 05:20 Labs: Laboratory Results - last 24 hr 02/02/25 05:20 WBC 7.2 RBC 5.38 Hgb 15.8 Hct 49.9 MCV 93 MCH 29.4 MCHC 31.7 RDW Std Deviation 48.1 H Plt Count 142 Neut % (Auto) 60 Lymph % (Auto) 28 [place] % (Auto) 9 Eos % (Auto) 2 Baso % (Auto) 1 Neut # (Auto) 4.3 Lymph # (Auto) 2.0 [place] # (Auto) 0.6 Eos # (Auto) 0.1 Baso # (Auto) 0.0 Immature Gran # (Auto) 0.04 H Absolute Nucleated RBC 0.00 Immature Gran % 1 H Nucleated RBC % 0 Sodium 141 Potassium 4.9 D Chloride 97 L Carbon Dioxide 38.5 H Anion Gap 6 L BUN 25 H Creatinine 1.0 Estim Creat Clear Calc 77.6 eGFR > 60 BUN/Creatinine Ratio 25 H Glucose 109 H Calculated Osmolality 286 Calcium 9.7 Corrected Calcium 9.8 Phosphorus 3.8 Magnesium 2.1 Total Bilirubin 0.7 AST 50 H ALT 88 H Alkaline Phosphatase 110 Total Protein 6.4 Albumin 3.9 Globulin 2.5 Albumin/Globulin Ratio 1.6 ABG Interpretation ABG results: 01/22/25 01/22/25 01/22/25 05:07 07:45 11:01 ABG pH 7.26 L ABG pCO2 81 H* ABG pO2 79 L ABG HCO3 36 H ABG O2 Saturation 95 ABG Base Excess 6 H VBG pH 7.25 L 7.39 VBG pCO2 92 H 61 H D VBG pO2 36 32 VBG Base Excess 8 H 9 H 01/23/25 01/24/25 01/24/25 08:11 06:05 11:26 ABG pH ABG pCO2 ABG pO2 ABG HCO3 ABG O2 Saturation ABG Base Excess VBG pH 7.34 7.26 L 7.31 L VBG pCO2 77 H D 102 H D 87 H D VBG pO2 73 H D 30 D 57 D VBG Base Excess 12 H 13 H 13 H 01/25/25 01/26/25 05:19 05:45 ABG pH ABG pCO2 ABG pO2 ABG HCO3 ABG O2 Saturation ABG Base Excess VBG pH 7.26 L 7.39 VBG pCO2 95 H 65 H D VBG pO2 35 D 81 H D VBG Base Excess 11 H 11 H Quality Measures Quality Measures VTE prophylaxis Advance care planning discussed with:: patient Assessment & Plan Assessment Current Active Medications: Generic Name Dose Route Start Last Admin Trade Name Freq PRN Reason Stop Dose Admin Acetaminophen 650 mg 01/22/25 10:07 02/01/25 00:16 Acetaminophen 325 Mg Tablet PO 02/21/25 10:06 650 mg Q6H PRN Administration PAIN SCALE 1-3 (mild Acetaminophen 650 mg 01/22/25 10:07 Acetaminophen 325 Mg Tablet PO 02/21/25 10:06 Q6H PRN Fever >100.4 Albuterol/Ipratropium 3 ml 01/22/25 11:14 Albuterol/Ipratropium (Duoneb) Rt Cherise 3 Ml Nebu INH 02/21/25 12:59 Q6HRRT PRN wheezing Atorvastatin Calcium 20 mg 01/30/25 21:00 02/01/25 20:50 Atorvastatin Calcium 20 Mg Tablet PO 03/01/25 20:59 20 mg HS TINY Administration Bumetanide 1 mg 01/31/25 09:00 02/02/25 08:39 Bumetanide 0.5 Mg Tablet PO 03/02/25 08:59 1 mg QDAY TINY Administration Heparin Sodium (Porcine) 5,000 unit 01/22/25 14:00 02/02/25 06:03 Heparin Sod Inj 5000 Unit/Ml Vial SC 02/05/25 13:59 5,000 unit Q8HR TINY Administration Nicotine 14 mg 01/22/25 13:05 02/02/25 08:40 Nicotine Patch 14 Mg/24 Hr Patch.Td24 TOP 02/21/25 13:04 14 mg QDAY TINY Administration Ondansetron HCl 4 mg 01/22/25 10:07 Ondansetron Inj 2 Mg/Ml Inj 2 Ml IVP 02/21/25 10:06 Q6H PRN NAUSEA OR VOMITING Protocol Pantoprazole Sodium 40 mg 01/24/25 09:00 02/02/25 08:40 Pantoprazole 40 Mg Tablet PO 02/23/25 08:59 40 mg QDAY TINY Administration Protocol Polyethylene Glycol 17 gm 01/25/25 07:35 Polyethylene Glycol 17 Gm Packet PO 02/24/25 07:34 QDAY PRN CONSTIPATION Protocol Plan Patient is a 69-year-old male with a past medical history of CHF HFpEF 55 to 60% (01/22/2025), COPD per chart review, and history of substance use disorder including cocaine and methamphetamines. Patient was admitted for acute respiratory failure and acute on chronic CHF. Cardiology consulted. #Acute on chronic hypoxic and Hypercapneic Respiratory Failure, improved #Acute on Chronic diastolic Heart Failure Exacerbation #CHF HpEF 55-60%, likely right heart failure #Diastolic Dysfunction Grade I #Moderate PAH, RVSP 50-55% #ANASARCA Etiology: likely in the setting of cardiomyopathy as noted on echo with diastolic dysfunciton and history of meth use leading to PAH. DDX: Less likely secondary to PE as BP and HR have been stable vs less likely secondary to ME as troponin within normal limits. BNP 843 Net balance: -14,400 (01/22/25-01/28/2025) Dry BNP : 114 Dry Weight: 89.811 kg Diagnostics: Echo (01/22/2025): Normal LV size and function. Estimated EF is 55 to 60%. Grade 1 diastolic dysfunction.Mildly dilated RV with mildly decreased RV systolic function. D-shaped septum in both systole and diastole indicating both pressure and volume overload. Moderately elevated RVSP at 50-55 mmHg. Mild TR.Mildly thickened mitral and aortic valves with minimal calcification. Trace MR. Mild biatrial dilatation. IVC dilated. No pericardial effusion TSH 2.52, Troponin 0.02. EKG no ST elevation noted. A1c 5.9 Lipid Panel Lipid Panel (01/23/2025): Triglycerides 56, Cholesterol 112, LDL 55, HDl 46 NYHA Class: III ASCVD:11.8%, Moderate to high intensity statin Plan: -Bumex 1 mg qday -Atorvastatin 20 mg PO given transaminitis, consider increasing back to 40 mg HS in outpatient setting. -K>4 and Mg >2 -Fluid Restriction (1500 ml) and Sodium Restriction 2 g per day, Daily weight checks -SpO <90%, support PRN -Work toward GDMT, upon discharge Bumex 1 mg qday. #Contraction Alkalosis, improving #KAREN likely Prerenal, resolved KAREN noted on admission with Cr of 1.4 with a previous baseline of 1.0. BUN/Cr 14 and GFR 55 likely pre-renal in the setting of cardio-renal syndrome vs CKD given previous GFR 55 in August 2024 and repeat GFR 55. Abdomen US noted to have parenchymal scars. Contraction Alkalosis secondary to lasix, despite diamox and now noted to have a VBG 7.26. Started on Bipap. Consider reducing lasix. 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 Mild elevated AST/ALTs likely in the setting of diuresis vs statin use, consider holding dose. Abdomen US (01/22/2025): Cholelithiasis. Cirrhosis, mild to moderate hepatomegaly no focal liver lesions. Mild Renal Parencymal Scar Formation Hepatitis Panel (01/22/2025): negative Child-Calderón Score 6 points, Class A, Life expectancy 15-20 years. Abdominal surgery [facility]-operative mortality 10%. 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 NO wheezing noted on physical exam. Cxr did not show ephysema patter, possible pneumonia. -Blood Culture Negative 48 hours & MRSA Screen Negative. -Sputum Gram stain:Staphylococcus Aureus, but epithelial cells >25, consider contamination. -Stop Azithromycin 01/22/2025-01/25/2025 Plan - Ceftriaxone,(56/) -Duonebs -Patient would benefit from PFT. #Respiratory Acidosis w/ Metabolic Compensation Health Maintenance: Disp: Pt is currently admitted to floors for further management of CHF exacerbation, Please follow up with cardiology, Dr. Dang, within 1 week from hospital discharge. FEN: Cardiac Diet, Fluid restricted DVT: on subQ heparin Q8HR Code: Full code - The patient's plan was discussed with attending Dr. Laurence Beckofrd MD PGY1 Internal Medicine Attending Provider Attestation/Addendum I have personally seen and examined the patient separately on the above date of service and discussed the plan of care with the resident. I reviewed the resident Dr. Kerri Beckford consultation progress note and agree with the resident findings and plan in the note above and have also edited the documentation to reflect my findings and plan. Noah Dang M.D. Interventional Cardiology
--- NOTE | 2025-02-02 13:09 | PC.NURSE ---
PATIENT WALKED TO BATHROOM OXYGEN DESAT TO 80% ON ROOM AIR.
--- NOTE | 2025-02-02 14:38 | PC.SS ---
SHYAM scheduled [employer] to return home.
--- NOTE | 2025-02-02 17:20 | ESDS_ITS ---
<Statement entered by Nidhi Echols DO - 02/03/25 09:12> I, Nidhi Echols DO, attest that I was physically present for the robles portions of the service and evaluated the patient with the resident and I reviewed and discussed the case with the resident and agree with the resident's findings and plans of care as documented above Planned Discharge Date 02/02/25 DS: Providers Provider Date of admission: 01/22/25 10:07 Primary care physician: Jasper Viramontes MD Admitting Provider: Nidhi Echols DO Attending Provider on Admission: Nidhi Echols DO Consults: 01/22/25 09:05 Referral Respiratory Therapy Stat Comment: 01/22/25 12:49 Referral OP Wound Healing Dept Routine Comment: Instructions: Left lower leg venous ulcer x 2 01/22/25 15:11 [facility] Referral - Nutrition Routine Comment: Positive screening for nutrition needs. [facility] Referral - Transportation Routine Comment: Positive screening for transportation needs. 01/22/25 15:43 Referral Wound Care Routine Comment: 01/25/25 10:04 Referral Physical Therapy Stat Comment: Physician Instructions: 02/02/25 08:40 Referral Registered Dietitian Routine Comment: Need lifestyle modifcation edu'n Attending Provider on DC: Nidhi Echols DO Discharging Provider: Nidhi Echols DO DS: Diagnosis Problem List Completed Was Problem List Reviewed/Reconciled?: Yes Hospital Course Hospital Course Hospital course: This is a 69-year-old male with PMHx of obesity, chronic substance use disorder including alcohol and marijuana, chronic tobacco smoker with likely COPD component, presenting to the ED with progressively worsening shortness of breath, admitted for CHF exacerbation and volume overload, with suspected pneumonia. He underwent aggressive diuresis, with a total of 23.4 L of fluids removed. Cardiology was following. Echo was ordered showing EF 55-60%, grade 1 diastolic dysfunction, and Cor pulmonale 2/2 moderate PAH (detailed exam below). In the interest, he developed mild KAREN, likely cardiorenal which has resolved, creatinine 1.0 on discharge. Additionally, he completed a course of ANTIBIOTICS for suspected pneumonia as seen on CXR, he was otherwise asymptomatic, afebrile, no leukocytosis. Ultrasound was done showing liver cirrhosis, likely alcohol related given his history, however there were no signs of decompensation at this time. IMAGE FINDINGS: * CXR showed mild CHF, bibasilar mild edema and/or pneumonia. * EKG shows sinus rhythm without acute ST changes. * Echocardiogram: * Normal LV size and function. Estimated EF is 55 to 60%. Grade 1 diastolic dysfunction. * Mildly dilated RV with mildly decreased RV systolic function. * D-shaped septum in both systole and diastole indicating both pressure and volume overload. Moderately elevated RVSP at 50-55 mmHg. * Mild TR. Mildly thickened mitral and aortic valves with minimal calcification. Trace MR. Mild biatrial dilatation. IVC dilated. No pericardial effusion. * Abdominal ultrasound showed cholelithiasis, cirrhosis, mild to moderate hepatomegaly with no focal liver lesions. PATIENT INSTRUCTIONS: * Follow-up with PCP within 1-2 weeks of discharge: [facility] [address] [place] [address] * Follow-up with Cardiology, Dr. Dang, within 1-2 weeks of discharge. * Repeat BMP 2 days prior to seeing Dr. Dang. * Continue taking BUMEX 1 mg one tablet daily. * Continue with fluid restriction, no more than 1.2L daily. * Continue with salt restrictions, no more than 2 grams daily. * Continue wound care using instructions below. * Return to Emergency Room if symptoms persist, worsen, or new symptoms develop. * Continue taking medications as prescribed below. Pertinent discharge measures: BMP 114 on discharge, body weight 91.4 kg, total urine output 32.8 L, cumulative balance -14.6 L, CR 1.0, BUN 25. ADMISSION DIAGNOSES: Acute decompensated heart failure exacerbation HFpEF EF 55 ? 60%, grade 1 diastolic dysfunction Cor pulmonale 2/2 moderate PAH COPD exacerbation and suspected possible underlying obesity hypoventilation syndrome Respiratory acidosis, compensated metabolic alkalosis Mild KAREN (resolved) Possible cardiorenal type I Anasarca (resolved) Liver cirrhosis, likely alcohol related Active tobacco smoker Polysubstance use disorder Time Spent with Patient Time attestation: Total time spent providing and/or coordinating discharge services: Time spent: Greater than 30 minutes Home Health Home Health Referral Orders: 02/02/25 11:00 Home Health Referral Routine Reason For Exam: shortness of breaht Home-Bound The patient must either because of illness or injury, need the aid of supportive devices such as crutches, canes, wheelchairs, and walkers; the use of special transportation; or the assistance of another person in order to leave their place of residence; OR have a condition such that leaving his or her home is medically contraindicated. In addition, the patient also meets the following criteria: patient is normally unable to leave the home and leaving home requires considerable taxing effort. Addendum to Home Health Certification Practitioner's Certification: I certify that the patient has been under my care in the hospital and the care of attending physician (see below). We had a [id number] encounter on (see date below). My clinical findings indicate that the patient is home bound per the above criteria and the Home Health Services noted in these orders are medically necessary. The primary reason for the [id number] encounter is related to the fact that the patient requires home health services. Date Certifying Efjb-wo-Rnuj Physician Encounter: 01/22/25 Physician's Name who will Assume Oversight for Services: Jasper Viramontes Physician's Phone No.who will Assume Oversight for Service: PSYCHIATRIC RN - Community Resources: No PT to Evaluate: Yes PT to evaluate and provide a treatmnet plan to increase patient's mobility and strength. Wound Care: Yes Home Health RN - Wound Care Order: as per wound care instructions IV Therapy: No Discontinue PICC Line Once Treatment Complete: No RN Safety Evaluation: Yes RN to evaluate and create a plan of care that will produce positive outcomes. Palliative Treatment: No Palliative treatment and evaluate the need for hospice. Home Health Aide - Personal Care: Yes Home Health Aide to assist with any ADL's. Exam Vital Signs Temp Pulse Resp BP Pulse Ox O2 Del Method O2 Flow Rate 97.2 F 81 20 122/74 91 L Room Air 2.5 02/02/25 12:02/02/25 12:02/02/25 12:02/02/25 12:02/02/25 12:02/02/25 12:02/02/25 08:00 FiO2 45 01/28/25 17:00 Narrative Exam General: Awake, on 3L NC. HEENT: Normocephalic, atraumatic, mucous membranes moist. Heart: Regular rate and rhythm, holosystolic murmur, likely aortic, aortic Lungs: Clear to auscultation with no wheezing or crackles. Abdomen: Soft, nondistended, nontender, positive bowel sounds. ?No guarding or rebound tenderness. Neurologic: Alert and oriented x3, no gross neurological deficit, and patient able to move all 4 extremities. Extremities: no bilateral pedal edema noted in lower extremities Skin: No rash or ecchymoses Discharge Plan Plan Patient Disposition: Home w/HOME HEALTH Patient condition on transfer: Stable Care Plan Goals: 1) Discharge instructions: * Follow-up with PCP within 1-2 weeks of discharge. You may schedule an appointment at the [facility] using information below. [facility] [address] [place] [address] * Follow-up with Cardiology, Dr. Dang, within 1-2 weeks of discharge. * Repeat BMP 2 days prior to seeing Dr. Dang. * Continue taking BUMEX 1 mg one tablet daily. * Continue with fluid restriction, no more than 1.2L daily. * Continue with salt restrictions, no more than 2 grams daily. * Continue wound care using instructions below. * Return to Emergency Room if symptoms persist, worsen, or new symptoms develop. * Continue taking medications as prescribed below. 2) Follow up at [facility] for care to your legs. [address] [place] [address]. Call [phone] for appointment. Dressing Change Home Care: You have a wound that needs special care to heal.? Your body will make the new skin needed to close your wound, but you have to help.? Germs and old skin on the wound have to be removed.? This is done by changing the dressing on the wound as directed by your doctor. Supplies/Equipment (keep all supplies in one place clean and dry) o?? Normal Saline (salt water) solution.? You can make you own by boiling 2 cups of water with ? teaspoon of salt for 10 minutes.? Keep in a glass jar in the refrigerator and make a new batch every day. o?? Clean/Irrigate wound with ?normal saline or wound cleanser o?? Medication for wound: normal saline moistened gauze o?? Primary dressing ? o?? Secondary dressing: dry gauze and gauze roll o?? Tape o?? Gloves o?? Q-tips o?? Small trash bag o?? Other supplies Follow these instructions: 1.??? Wash your hands with soap and water. 2.??? Gather all your supplies and place on a clean towel or paper towel. 3.??? Put on gloves 4.Wound care to left lower leg ulcers: Remove dressings and shower daily. After showing, wash hands with soap and water. Cleanse wound with wound cleanser spray at pat dry with gauze. Cover wound with adaptic gauze and secure with dry gauze or foam dressing. Change once a day and as needed for falling off. Goal is to keep wound clean and covered. If active bleeding occurs, apply tight dressing and return to MD or ER. ? Notify primary doctor or return to Emergency Room if any of the following: ? Fever above 100.6? F. ? Increased pain ? Increase swelling ? Red streaks around your wound ? Drainage becomes foul smelling or changes color ? The wound is larger or deeper ? The wound looks dried out or dark ? Bleeding that does not stop with holding pressure Prescriptions/Referrals Prescriptions/Med Rec: New atorvastatin 20 mg Tablet 40 mg PO HS Qty: 30 0RF bumetanide 1 mg tablet 1 mg PO QDAY Qty: 30 0RF nicotine 14 mg/24 hr patch 24 hour 14 mg topical 1XD Qty: 7 0RF Proair Digihaler 90 mcg/actuation aero powdr breath act w/sensor 2 inh inhalation Q6H Qty: 1 0RF fluticasone propion-salmeterol [Advair Diskus] 100-50 mcg/dose blister with device 1 inh inhalation BID Qty: 60 0RF Referrals: Noah Dang MD [Physician] - Jasper Viramontes MD [Primary Care Provider] - Patient/Caregiver Discharge Instructions Discharge Activity: activity as tolerated Education Materials: COPD: Wheezing and Chest Tightness, Nutrition for Wound Healing, Chronic Lung Disease Quit Smoking, Understanding Cirrhosis, Changing Dressing Dc, ED Heart Failure Congestive Right, ED Heart Disease Education, ED Venous Leg Ulcer Print Language: Austrian Stand Alone Forms: Ruth Ann Award Info., Patient Portal Info Letter Discharge Order Discharge Orders: Discharge (Routine); Ordered 02/02/25 Ordered By: Lacey Westfall Quality Discharge Quality Measures VTE prophylaxis
--- NOTE | 2025-02-02 18:11 | PC.CM ---
Patient did not have a preference for a home health agency so I sent to all agencies.
--- NOTE | 2025-02-05 17:25 | PC.CC ---
received call from Anupama Mendoza regarding accepting HH facility and start of care date. I reviewed notes from another transfer nurse on Bri Patient accepted by [facility]. Start of care date 02/04 . I also saw Shay has send us msg on Bri Unable to complete SOC-- Phone contact attempted at the following numbers: * [phone] phone indicates that number cannot be completed at dialed despite multiple attempts. * [phone] - Phone goes directly to [employer] that has not been set up yet. drove by address on file at [facility] [facility] [facility] [address]. Residence (did not disclose name) indicates that Mr. Holbrook only retrieves his main fro this location and typically he stops by on the 3rd for his mail for the month. Resident indicates that Mr. Holbrook is currently homeless and does not stay in one location in particular. Resident of [place] indicated that best number for contact for Pt is the aforementioned [phone]. I informed Anupama that HH unable to follow the pt due to unable to contact the pt. HH referral is canceled.
== END 2025-02-02 14:54 | disposition home health service (06) | DRG 291 ==
LOC: SERX 05:57 → SERHOLD 10:21 → S2NX 13:47 → S3NX 01-31 18:18
PROVIDERS: Family Medicine; Internal Medicine; Physician Assistant; Admitting Provider Internal Medicine; Emergency Provider Emergency Medicine; PCP Internal Medicine; Visit Provider Internal Medicine
DX: I13.0 Hypertensive heart and chronic kidney disease with heart failure and stage 1 through stage 4 chronic kidney disease, or unspecified chronic kidney disease (principal); I50.33 Acute on chronic diastolic (congestive) heart failure; J18.9 Pneumonia, unspecified organism; J96.21 Acute and chronic respiratory failure with hypoxia; J96.22 Acute and chronic respiratory failure with hypercapnia; E87.4 Mixed disorder of acid-base balance; J44.0 Chronic obstructive pulmonary disease with (acute) lower respiratory infection; J44.1 Chronic obstructive pulmonary disease with (acute) exacerbation; N17.9 Acute kidney failure, unspecified; I42.9 Cardiomyopathy, unspecified; F17.200 Nicotine dependence, unspecified, uncomplicated; J44.9 Chronic obstructive pulmonary disease, unspecified; E86.0 Dehydration; E87.5 Hyperkalemia; F10.10 Alcohol abuse, uncomplicated; F17.210 Nicotine dependence, cigarettes, uncomplicated; F19.10 Other psychoactive substance abuse, uncomplicated; I25.10 Atherosclerotic heart disease of native coronary artery without angina pectoris; N18.9 Chronic kidney disease, unspecified; T50.1X5A Adverse effect of loop [high-ceiling] diuretics, initial encounter; Z53.20 Procedure and treatment not carried out because of patient's decision for unspecified reasons; I50.82 Biventricular heart failure; G62.9 Polyneuropathy, unspecified; I27.81 Cor pulmonale (chronic); Z75.1 Person awaiting admission to adequate facility elsewhere; Z60.8 Other problems related to social environment; Z79.899 Other long term (current) drug therapy; K70.30 Alcoholic cirrhosis of liver without ascites; Z91.148 Patient's other noncompliance with medication regimen for other reason; F12.10 Cannabis abuse, uncomplicated; F15.10 Other stimulant abuse, uncomplicated
CPT/HCPCS: 36415; 36600; 71046; 76700; 80048; 80053; 80061; 80069; 80074; 80307; 81001; 82803; 83036; 83605; 83615; 83735; 83880; 84100; 84132; 84145; 84439; 84443; 84484; 85025; 85610; 85730; 87040; 87077; 87081; 87186; 87205; 87400; 87811; 93005; 93306; 94640; 94660; 94667; 96365; 96366; 96367; 96368; 96375; 97162; 99285; J0696; J1644; J1938; J2470; J3475; J3490; J7050; A9270

== ENCOUNTER 2025-02-22 13:48 | Outpatient (AMB) | payer MEDICARE, MEDICAID, SELFPAY ==
[2025-02-22 14:09] VITALS: BP 126/80; PULSE 108; RESP 18; TEMP 37; O2SAT 85; BMI 26.9
--- NOTE | 2025-02-22 14:09 | PD.RESCLINIC ---
Vital Signs 02/22/25 14:09 Height 1.83 m Height Method Stated Weight 90.038 kg Weight Measurement Method Standing Scale BMI 26.9 BP 126/80 Blood Pressure Source Automatic Cuff Blood Pressure Location Right Upper Arm Position Sitting Respiration 18 Pulse 108 H Pulse Source Monitor Temp 98.6 F Temp Source Temporal Artery Scan Pulse Oximetry (%) 85 L Oxygen Delivery Method Room Air Allergies/Meds Allergies & Medications Allergies No Known Allergies Allergy (Verified 02/22/25 14:09) Medication Reconciliation albuterol sulfate 2.5 mg/0.5 mL solution for nebulization 2.5 mg (0.5 mL) inhalation Q20M #30 ea 02/22/25 [Rx] atorvastatin 20 mg tablet 40 mg (2 x 20 mg) PO HS #30 tabs 02/22/25 [Rx] bumetanide 1 mg tablet 1.5 mg (1.5 x 1 mg) PO QDAY #60 tabs 02/22/25 [Rx] fluticasone fur. 100 mcg-umeclid 62.5 mcg-vilant 25 mcg inhalat.powder (Trelegy Ellipta) 1 inh inhalation QDAY #60 ea 02/22/25 [Rx] metoprolol succinate 25 mg tablet,extended release 24 hr 12.5 mg (1/2 x 25 mg) PO QDAY #30 tabs 02/22/25 [Rx] sacubitril 24 mg-valsartan 26 mg tablet (Entresto) 1 tab PO BID #60 tabs 02/22/25 [Rx] MA Intake Visit Data Collection New Patient or Established: Established Patient (seen at [facility] within 3 years) Seen by Clinical Staff ONLY (RN/MA): No Pain Present Currently: No Pain scale:: 0 Pain Scale Used: Nguyen-[employer]arragan[employer] Required: No PCP or OBGYN visit in last 3 months: No Hx Now: No Do You Feel Safe at Home: Yes Authorities Contacted: N/A Smoking Status Smoking Status: Unknown if ever smoked Immunization / Flu Flu Vaccine in the Last 12 Months: No Flu Vaccine Exclusion Criteria: No Exclusion Criteria Past Medical History Past Medical History NEUROLOGIC: Positive Neurological Disorders and Peripheral Neuropathy CARDIAC: Positive Cardiac Disorders, Congestive Heart Failure and Edema RESPIRATORY: Positive Chronic Obstructive Pulmonary Disease (COPD) GASTROINTESTINAL: Negative Gastrointestinal Disorders GENITOURINARY: Negative Renal Disease MUSCULOSKELETAL: Positive Arthritis ENDOCRINE: Negative Endocrine Disorders, Diabetes Mellitus Type 1 or Diabetes Mellitus Type 2 OTHER HISTORY: Negative Hospitalization, Shingles, Falls, Blood Transfusions, Anesthesia Reactions, MRSA or Cancer Social History SMOKING STATUS: Smoking status: Unknown if ever smoked SECOND HAND EXPOSURE: second hand exposure: No ALCOHOL: Alcohol Intake: Current ALCOHOL FREQUENCY: Alcohol Intake Frequency: holidays/special occasions only HOUSING: Housing: [facility] LIVES WITH: Lives With: Alone Patient Portal Questionaires Social History Living Situation History Housing: [facility] Housing Other:: Pt lives alone Tobacco History Smoking Status: Unknown if ever smoked Packs per Day: 1 Second Hand Smoke Exposure: No Alcohol History Alcohol Intake: Current Alcohol Intake Frequency: holidays/special occasions only Substance Use History Substance Use: meth and marijuana Domestic Abuse History Do You Feel Safe at Home: Yes Review of Systems Report any current symptoms Only answer those that you have currently: Past Medical History Past Medical History Have you ever been diagnosed with any of the following: Neurological Problems Peripheral Neuropathy: Yes Cardiology Problems Congestive Heart Failure: Yes Edema: Yes Respiratory Problems Chronic Obstructive Pulmonary Disease (COPD): Yes Genital/Urinary Problems Renal Disease: No Musculoskeletal Problems Arthritis: Yes Endocrine Problems Diabetes Mellitus Type 1: No Diabetes Mellitus Type 2: No Other Problems Hospitalization: No Shingles: No Falls: No Blood Transfusions: No Anesthesia Reactions: No MRSA: No Cancer: No History of Present Illness HPI Narrative This is a 69-year-old male with PMHx of obesity, chronic substance use disorder including alcohol and marijuana, chronic tobacco smoker with likely COPD component, presenting to the ED with progressively worsening shortness of breath, recently admitted for CHF exacerbation and volume overload, with suspected pneumonia. He underwent aggressive diuresis, with a total of 23.4 L of fluids removed. Cardiology was following. Echo was ordered showing EF 55-60%, grade 1 diastolic dysfunction, and Cor pulmonale 2/2 moderate PAH (detailed exam below). He also developed mild KRAEN, likely cardiorenal which has resolved, creatinine 1.0 on discharge. Additionally, he completed a course of ANTIBIOTICS for suspected pneumonia as seen on CXR, he was otherwise asymptomatic, afebrile, no leukocytosis. Ultrasound was done showing liver cirrhosis, likely alcohol related given his history, however there were no signs of decompensation at this time. 02/22/2025 Follow-up for above hospital visit. Report improvement in symptoms, has been using oxygen, about 2 L, SOB appears to have improved. increased bumex to 1.5 daily (2+ ajay le edema) started GDMT, ordered entresto and metop xl 12.5 bid, continue statin. will consider farxiga 5 mg next time if blood pressure allows started trelegy inhaler, cont albuterl prn, d/c advir and other inhalers referred to cardiology see me in 1 month with CMP and mag continue using 2L oxygen will need GI referal for liver function, concern for chirrosis Assessment & Plan Diagnosis / Problem List Orders: Orders Comprehensive Metabolic Panel 3 Weeks I50.9 - Heart failure, unspecified Magnesium 3 Weeks I50.9 - Heart failure, unspecified Referrals Cardiology Office Procedures [facility] Level of Care Nursing/Assessment Patient Status: Established Patient Nursing Assessment/Reassessment: Medication Reconciliation, Update PMH in EMR and Vital Signs Coordination of Care: Complex Care and Chronic Disease 1-5, Consent,records obtained, informed consent, Education Simp Pt/Fam and Staff clarify orders Established Patient Charge Established Patient Point Assignment: 85 Established Patient Point Charge: EP Level 3 (80-115)
== END 2025-02-22 15:27 | disposition home or self-care (01) ==
LOC: HODAHC 13:48
PROVIDERS: Supervising Provider Internal Medicine
DX: I50.9 Heart failure, unspecified (principal); K70.30 Alcoholic cirrhosis of liver without ascites; J44.9 Chronic obstructive pulmonary disease, unspecified; Z99.81 Dependence on supplemental oxygen
CPT/HCPCS: 99213; G0463

== ENCOUNTER 2025-06-23 09:34 | Inpatient (IN) | payer MEDICARE, MEDICAID, SELFPAY ==
[2025-06-23] VITALS (12 sets, daily range): BP systolic 139–181; BP diastolic 86–113; PULSE 98–112; RESP 18–39; TEMP 36.1–37; O2SAT 88–100; BMI 28.3
--- NOTE | 2025-06-23 09:49 | EKG_ITS ---
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
--- NOTE | 2025-06-23 09:54 | PC.NURSE ---
Pt. here from home to room 6, pt. is SOB and coughing, pt. is spitting up phlegm, pt. skin is mottled and abdomen is distended, pt. states he has a history of smoking cigarettes, alcohol and drugs, pt. states he quit all of them. Pt. states he was visiting his son.
--- NOTE | 2025-06-23 10:07 | EDNOTE_ITS ---
ED SOB =RME/HPI General Chief Complaint: Shortness of Breath/Dyspnea Stated Complaint: SOB Time Seen by Provider: 06/23/25 09:53 Arrival date/time: 06/23/25 09:34 RME / HPI RME / HPI Narrative: DR. RECIO MAIN ED EVALUATION: 69-year-old male with a past medical history of obesity, chronic substance use disorder (alcohol and marijuana, both discontinued), chronic tobacco use, and COPD presents to the Emergency Department for shortness of breath. The patient states he still smokes occasionally but much less than before. He reports that he used his home breathing machine last night, but it did not provide relief. This morning, he developed subjective fever, nausea, and vomiting. He denies dysuria, chest pain, or other symptoms at this time. Related Data Previous Rx's ?Medication ?Instructions ?Recorded albuterol sulfate 2.5 mg/0.5 mL 2.5 mg (0.5 mL) inhala tion Q20M 02/22/25 solution for nebulization #30 ea atorvastatin 20 mg tablet 40 mg (2 x 20 mg) PO HS #30 tabs 02/22/25 bumetanide 1 mg tablet 1.5 mg (1.5 x 1 mg) PO QDAY #60 02/22/25 tabs fluticasone fur. 100 mcg-umeclid 1 inh inhalation QDAY #60 ea 02/22/25 62.5 mcg-vilant 25 mcg inhalat.powder (Trelegy Ellipta) metoprolol succinate 25 mg 12.5 mg (1/2 x 25 mg) PO QD AY #30 02/22/25 tablet,extended release 24 hr tabs sacubitril 24 mg-valsartan 26 mg 1 tab PO BID #60 tabs 02/22/25 tablet (Entresto) azithromycin 250 mg tablet 250 mg PO QDAY 4 days #4 ta bs 06/23/25 Allergies Allergy/AdvReac Type Severity Reaction Status Date / Time No Known Allergies Allergy Verified 06/23/25 09:41 Review of Systems Review of Systems Systems Reviewed: All systems reviewed, normal except as documented Past Medical History Past Medical History NEUROLOGIC: Positive Neurological Disorders and Peripheral Neuropathy CARDIAC: Positive Cardiac Disorders, Congestive Heart Failure and Edema RESPIRATORY: Positive Chronic Obstructive Pulmonary Disease (COPD) MUSCULOSKELETAL: Positive Musculoskeletal Disorders and Arthritis Social History SMOKING STATUS: Former smoker SECOND HAND EXPOSURE: No SUBSTANCE USE: former substance user ALCOHOL: Former ED Exam Narrative Physical exam: GENERAL APPEARANCE: alert and oriented x 4, well-developed, well-nourished, in mild respiratory distress with shallow breathing VITALS: All vitals were reviewed and the pulse ox is 100% on room air, which is normal according to my interpretation. HEENT: Normocephalic, atraumatic; pupils equal, round, reactive to light; EOMI; mucous membranes pink, moist; oropharynx clear NECK: Supple LUNGS: Decreased air movement bilaterally; shallow respirations HEART: Regular rate, regular rhythm; normal S1, S2; no murmurs ABDOMEN: Moderately distended BACK: no CVA tenderness EXTREMITIES: atraumatic; no edema NEUROLOGIC: awake; alert and oriented x4; cranial nerves II-XII grossly intact; no focal sensory or motor deficits PSYCHIATRIC: appropriate mood and affect SKIN: warm, dry, normal color; no rashes Course Quality Measures none Orders Category Date Time Status Bedside COVID-19 Antigen Test NOW Care 06/23/25 10:07 Active Linking Machine Operator NOW Care 06/23/25 10:04 Active EKG (ED ONLY) *Do not use* NOW Care 06/23/25 09:49 Completed EKG (ED Only) Stat Exams 06/23/25 09:49 Draft XR abdomen series w chest 1V Stat Exams 06/23/25 10:05 Completed ABG [Arterial Blood Gas] Stat Lab 06/23/25 13:29 Ordered Alcohol, Blood Medical Stat Lab 06/23/25 09:47 Completed B-Type Natriuretic Peptide Stat Lab 06/23/25 09:47 Completed Blood Culture (Lab) Stat Lab 06/23/25 10:46 Received CBC Stat Lab 06/23/25 09:47 Completed Comprehensive Metabolic Panel Stat Lab 06/23/25 09:47 Completed Drug Screen,Urine Stat Lab 06/23/25 10:38 Completed Influenza A & B Rapid Panel Stat Lab 06/23/25 12:05 Completed Lactate (Lactic Acid) Stat Lab 06/23/25 10:46 Completed Lipase Stat Lab 06/23/25 09:47 Completed Magnesium Stat Lab 06/23/25 09:47 Completed Partial Thromboplastin Time Stat Lab 06/23/25 09:47 Completed Procalcitonin Stat Lab 06/23/25 10:46 Completed Prothrombin Time with INR Stat Lab 06/23/25 09:47 Completed Troponin I Stat Lab 06/23/25 09:47 Completed UA, C/S IF [Urinalysis, C/S if Indicated] Stat Lab 06/23/25 10:38 Completed Albuterol/Ipratr Rt Cherise [Duoneb Rt Cherise] Med 06/23/25 10:07 Discontinued 3 ml INH X1 ONE Azithromycin Inj [Zithromax Inj] 500 mg Med 06/23/25 10:37 Discontinued Sodium Chloride 0.9% 250 ml [Ns] 250 ml IV X1 cefTRIAXone/D5w 1gm IV premix [Rocephin/D5w 1gm IV Med 06/23/25 10:37 Discontinued premix] 1 gm in 50 ml IV X1 Reevaluation(s) Reevaluation #1: Patient states he has improved but still a little shortness of breath. Will order another breathing treatment and reassess. Time: 13:27 Vital Signs Vital signs: Vital Signs Temperature 98.1 F 06/23/25 09:35 Pulse Rate 101 H 06/23/25 09:35 Respiratory Rate 20 06/23/25 09:35 Blood Pressure 172/92 H 06/23/25 09:35 Shortness of Breath / Dyspnea MDM Narrative MDM Narrative:: I, Sheree Melendez, am scribing for and in the presence of Dr. Recio. Patient data External records reviewed:: [facility] previous records and EMS form Clinical information provided by:: patient and EMS Social determinants that could affect healthcare access:: other (specify) (chronic substance use disorder (alcohol and marijuana, both discontinued), chronic tobacco use) Patient has the following chronic illnesses:: obesity, chronic substance use disorder (alcohol and marijuana, both discontinued), chronic tobacco use, and COPD How is presenting disease/condition affected by chronic disease/condition?: exacerbated by Evaluation data The following diagnostics were reviewed and interpreted by me:: lab results, radiology exam(s) and EKG tracing(s) (My interpretation: EKG performed at 1158 hours, sinus tachycardia, rate 102, T wave inversion in 3, flattening of the ST segments in V1, mild baseline wander, mild IVCD) Lab and/or radiology exams considered but not ordered:: none Interpretation Summary: Procedure(s): XR abdomen series w chest 1V Accession Number(s): [id number] cc: Joselito Linares MD; NO PRIMARY/FAMILY,PHYSICIAN; Kelly Recio MD~ EXAMINATION: Abdominal series including AP portable semiupright chest 3 views TECHNIQUE: AP portable semiupright chest, AP portable upright AP supine abdomen total 3 views Date and time: June 23, 2025, 10 0 1:00 a.m. INDICATIONS: Abdominal pain today. FINDINGS: Moderate stool throughout the colon No obstruction No free air Diffuse left lung and right base pneumonia Normal heart size Mild vascular congestion Prominent osteopenia IMPRESSION: Nonobstructive bowel gas pattern Diffuse left lung right base pneumonia Dictated By: Joselito Linares MD Medications / Prescriptions Medications or Prescriptions considered but not ordered:: none Medication administrations:: Medication Administration History Discontinued Medications Albuterol/Ipratropium (Albuterol/Ipratropium (Duoneb) Rt Cherise 3 Ml Nebu) 3 ml INH X1 ONE Stop: 06/23/25 10:08 Last Admin: 06/23/25 10:18 Dose: 3 ml Documented By: MW Azithromycin 500 mg/ Sodium (Chloride) 250 mls @ 250 mls/hr IV X1 ONE Stop: 06/23/25 11:36 Last Admin: 06/23/25 12:24 Dose: 250 mls/hr Documented By: EF Ceftriaxone Sodium/Dextrose (Rocephin/D5w 1gm Iv Premix) 1 gm in 50 mls @ 100 mls/hr IV X1 ONE Stop: 06/23/25 11:06 Last Infusion: 06/23/25 12:23 Dose: Infused Documented By: Admin: 06/23/25 10:57 Dose: 100 mls/hr Documented By: ED see above Consultations Consultation(s) initiated? (list below): No Diagnosis Shortness of Breath Differential Diagnosis: other (COPD exacerbation, pneumonia, and congestive heart failure exacerbation.) Most likely diagnosis given after review of the tests above:: Community acquired pneumonia Admission Indicated Admission indicated?: not indicated Admission Request Was there a request for admission?: No Disposition Plan Disposition Plan: Discharge Discharge Attestation Discharge Attestation: The patient and all family members were given an opportunity to ask questions and understood the discharge instructions. Discharge instructions specifically effects, indications for sooner follow up or return to the emergency department, and the expected course of current diagnosis. Patient condition: Stable Discharge Plan Plan Patient Disposition: HOME (Self Care) Prescriptions/Referrals Prescriptions/Med Rec: New azithromycin 250 mg tablet 250 mg PO QDAY 4 Days Qty: 4 0RF Rx Instructions: start on day 2 of therapy No Action Trelegy Ellipta 100-62.5-25 mcg blister with device 1 inh inhalation QDAY Qty: 60 2RF metoprolol succinate 25 mg tablet extended release 24 hr 12.5 mg PO QDAY Qty: 30 0RF Entresto 24-26 mg tablet 1 tab PO BID Qty: 60 0RF atorvastatin 20 mg tablet 40 mg PO HS Qty: 30 2RF bumetanide 1 mg tablet 1.5 mg PO QDAY Qty: 60 0RF albuterol sulfate 2.5 mg/0.5 mL solution for nebulization 2.5 mg inhalation Q20M Qty: 30 2RF Rx Instructions: for up to 3 doses Referrals: No Primary/Family,Physician [Primary Care Provider] - In 1 week Problem List Clinical Impression: Community acquired pneumonia Patient/Caregiver Discharge Instructions Education Materials: ED Pneumonia (Adult) Print Language: Colombian Stand Alone Forms: Ruth Ann Award Info., Patient Portal Info Letter
[2025-06-23 10:18] LABS: Basophils # (Auto) 0.1 Thou/mm3 (0.0-0.2); Basophils % (Auto) 0 % (0-2.5); Eosinophils # (Auto) 0.0 Thou/mm3 (0.0-0.5); Eosinophils % (Auto) 0 % (0-10); Hematocrit 51.8 % (41.0-53.0); Hemoglobin 15.9 g/dL (13.5-16.0); Immature Granulocytes Auto 0.12 Thou/mm3 (0.00-0.00); Lymphocytes # (Auto) 0.9 Thou/mm3 (1.0-4.8); Lymphocytes % (Auto) 5 % (10-50); Mean Corpuscular HGB Conc 30.7 g/dl (31.0-37.0); Mean Corpuscular Hemoglobin 29.9 pg (25.0-35.0); Mean Corpuscular Volume 98 fL (80-100); Monocytes # (Auto) 0.7 Thou/mm3 (0.0-0.8); Monocytes % (Auto) 4 % (0-12); Neutrophils # (Auto) 16.2 Thou/mm3 (1.8-7.7); Neutrophils % (Auto) 90 % (37-80); Nucleated Red Blood Cell # 0.00 Thou/mm3 (0.00-0.00); Nucleated Red Blood Cell % 0 /100 WBC (0); Platelet Count 225 Thou/mm3 (140-440); RDW Standard Deviation 48.4 fL (35.1-43.9); Red Blood Count 5.31 Miln/mm3 (4.50-5.90); White Blood Count 18.1 Thou/mm3 (3.8-10.6)
[2025-06-23] MEDS: ALBUTEROL/IPRATROPIUM (Duoneb) RT SOL 3 ML NEBU INH (10:18)
[2025-06-23 10:40] LABS: Alanine Aminotransferase 14 U/L (10-49); Albumin, Serum 4.5 gm/dL (3.4-4.8); Albumin/Globulin Ratio 1.9 (1.2-2.2); Alcohol, Blood Medical < 3.0 mg/dL (0-10.0); Alkaline Phosphatase 107 U/L (46-116); Anion Gap 5 (7-16); Aspartate Amino Transferase 20 U/L (0-34); BUN/Creatinine Ratio 12 Ratio (12-20); Bilirubin,Total 0.5 mg/dL (0.3-1.2); Blood Urea Nitrogen 11 mg/dL (9-23); Calcium 9.8 mg/dL (8.3-10.6); Calcium (Corrected) 9.8 mg/dL (8.5-10.1); Carbon Dioxide > 40.0 mMol/L (20.0-31.0); Chloride 95 mMol/L (98-107); Creatinine (Component) 0.9 mg/dL (0.6-1.3); Estimated Creatinine Clearance 93.8 mL/min (>60); Globulin 2.4 gm/dL (2.3-3.5); Glucose 191 mg/dL (74-106); INR 1.0 (0.9-1.3); Lipase 86 U/L (12-53); Magnesium 1.9 mg/dL (1.6-2.6); Osmolality,Calculated 283 (275-295); Partial Thromboplastin Time 29.1 Seconds (22.0-36.0); Potassium 4.9 mMol/L (3.4-5.1); Prothrombin Time 11.1 Seconds (9.0-12.2); Sodium 140 mMol/L (136-145); Total Protein 6.9 gm/dL (5.7-8.2); Troponin I < 0.020 ng/mL (0.0-0.045); eGFR > 60 See Note
[2025-06-23 10:42] LABS: Collection Type, Urine Clean Catch
[2025-06-23] MEDS: cefTRIAXone/D5w 1gm IV premix 1 GM/50 ML BAG IV (10:57)
[2025-06-23 11:00] LABS: Bilirubin,Urine Negative (Negative); Blood,Urine Negative (Negative); Clarity,Urine Clear (Clear/Hazy); Color,Urine Yellow (Lt Yel-Yel); Culture Indicated,Urine Not Indicated; Glucose, Urine 3+ (Negative); Ketones,Urine Negative (Negative); Leukocyte Esterase,Urine Negative (Negative); Nitrite,Urine Negative (Negative); PH,Urine 6.0 (5.0-7.0); Protein,Urine 1+ (Neg - Trace); RBC,Urine 3 /hpf (0-3); Specific Gravity,Urine 1.022 (1.001-1.035); Squamous Epithelial Cell,Urine 1 /hpf (0-5); Urobilinogen,Urine Negative mg/dL (0.0-1.0); WBC,Urine 1 /hpf (0-5)
[2025-06-23 11:12] LABS: Lactate (Lactic Acid) 1.7 mMol/L (0.4-2.0)
[2025-06-23 11:24] LABS: B-Type Natriuretic Peptide 123 pg/mL (0-100)
[2025-06-23 11:30] LABS: Amphetamine/Methamp Scrn,U Positive (Negative); Barbiturate Screen,Urine Negative (Negative); Benzodiazepines Screen,Urine Negative (Negative); Benzoylecgonine Screen, Ur Negative (Negative); Fentanyl Screen,Urine Negative (Negative); Opiate Screen,Urine Negative (Negative); THC Screen,Urine Positive (Negative)
[2025-06-23 11:44] LABS: Procalcitonin 0.04 ng/ml (0.0-0.49)
[2025-06-23] MEDS: AZITHROMYCIN INJ 500 MG in SODIUM CHLORIDE 0.9% 250 ML 250 ML 250 MG IV (12:24)
[2025-06-23 12:36] LABS: Influenza A Ag Negative; Influenza B Ag Negative
--- NOTE | 2025-06-23 15:34 | ECHO_ITS ---
Patient Info Name: Jamshid Holbrook Age: 69 years : 1955 Gender: Male Ht: 183 cm Wt: 94 kg BSA: 2.21 m2 BP: 120 HR: 100 bpm Exam Date: 06/24/2025 9:23 AM Admit Date: 06/23/2025 Site: [facility] Room Number: [id number] Patient Status: I Technical Quality: Poor Exam Type: CA echo doppler complete Co Founder And President: Naheed Gibson Ordering Physician: Ken Corley Study Info Indications Meth abuse and heart failure - Primary Location: S2NX Left Ventricular Outflow Tract Name Value Normal LVOT 2D LVOT Diameter 2.0 cm LVOT Doppler LVOT Peak Velocity 128 cm/s LVOT Mean Gradient 3 mmHg LVOT VTI 25 cm LVOT VTI/AV VTI Ratio 1.2 LVOT Stroke Volume 77 ml Pulmonic Valve Name Value Normal PV Doppler PV Peak Velocity 113 cm/s PV Regurgitation Doppler NE Peak End Diastolic Velocity 149 cm/s Mitral Valve Name Value Normal MV Doppler MV Decel [place] 247 cm/s2 MV PHT 60 ms MV Area (PHT) 3.6 cm2 4.0-5.0 MV Diastolic Function MV E Peak Velocity 51 cm/s MV A Peak Velocity 87 cm/s MV E/A 0.6 MV Annular TDI MV Septal e' Velocity 7.1 cm/s MV E/e' (Septal) 7.3 MV Lateral e' Velocity 9.9 cm/s MV E/e' (Lateral) 5.2 MV e' Average 8.49 cm/s MV E/e' (Average) 6.2 Tricuspid Valve Name Value Normal TV Regurgitation Doppler TR Peak Velocity 236 cm/s Estimated PAP/RSVP RA Pressure 3 mmHg <=5 PA Systolic Pressure 25 mmHg <36 RV Systolic Pressure 25 mmHg <36 Aortic Valve Name Value Normal AV 2D/MM AV Cusp Sep (MM) 1.7 cm AV Doppler AV Peak Velocity 153 cm/s AV Mean Gradient 4 mmHg AV VTI 21 cm AV Area (Cont Eq VTI) 3.6 cm2 >=3.0 AV Area (Cont Eq Dontae) 2.6 cm2 AV DI (Dontae) 0.84 AV Regurgitation 2D LVOT Area 3.1 cm2 Ventricles Name Value Normal LV Dimensions 2D/MM IVS Diastolic Thickness (2D) 0.9 cm 0.6-1.0 LVID Diastole (2D) 3.1 cm 4.2-5.8 LVIW Diastolic Thickness (2D) 1.2 cm 0.6-1.0 LVID Systole (2D) 2.1 cm 2.5-4.0 LVOT Diameter 2.0 cm LV Mass (2D Cubed) 92.80 g 88.00-224.00 LV Mass Index (2D Cubed) 42 g/m2 49-115 Relative Wall Thickness (2D) 0.77 <=0.42 IVS/LVIW Diastolic Thickness (2D) 0.75 0.00-1.50 LV Fractional Shortening/Ejection Fraction 2D/MM LV Fractional Shortening (2D) 32 % 25-43 LV EF (2D Teichholz) 62 % Atria Name Value Normal LA Dimensions LA Volume (4C A-L) 59 ml Left Ventricle Left ventricular chamber dimension is normal. Left ventricular systolic function is normal with visually estimated ejection fraction of 55-60%. There is mild concentric hypertrophy noted in the left ventricle. Left ventricular segmental wall motion is normal. There is grade I diastolic dysfunction in the left ventricle. Right Ventricle Right ventricular chamber dimension is normal. Right ventricular systolic function is normal. Left Atrium Left atrial chamber dimension is moderately enlarged. Right Atrium Right atrial chamber dimension is normal. Aortic Valve The aortic valve is trileaflet. There is mild aortic valve sclerosis. There is no aortic valve stenosis with a peak velocity of 153 cm/s, mean gradient of 4 mmHg, and aortic valve area of 3.6 cm2. There is no aortic valve regurgitation. Pulmonic Valve The pulmonic valve is normal. There is no pulmonic valve stenosis. There is no pulmonic regurgitation. Mitral Valve The mitral valve has normal leaflets. There is no mitral valve stenosis. There is mild mitral valve regurgitation. Tricuspid Valve The tricuspid valve leaflets are normal. There is no tricuspid valve stenosis. There is mild tricuspid valve regurgitation. No pulmonary hypertension, estimated pulmonary arterial systolic pressure is 25 mmHg and systemic blood pressure of 120 mmHg in systole. Pericardium/Pleural The pericardium appears normal. There is no pericardial effusion. No pleural effusion visualized. Inferior Vena Cava Normal inferior vena cava with >50% collapse upon inspiration consistent with normal right atrial pressure, 3 mmHg. Aorta The aortic measurements are indexed to age and body surface area. The aortic root at the sinus of Valsalva is not well visualized. The prox ascending aorta is not well visualized. Summary 1. Left ventricle size is normal and systolic function is normal. Estimated ejection fraction is 55-60%. There is grade I diastolic dysfunction. There is mild concentric hypertrophy noted. 2. Right ventricle chamber size is normal and systolic function is normal. 3. There is mild aortic valve sclerosis with no stenosis and no regurgitation. 4. There is mild tricuspid valve regurgitation. 5. The left atrium is moderately enlarged. The right atrium is normal. 6. Normal IVC with estimated RA pressure 3 mmHg. Report Signatures Finalized by Liza Armijo on 06/24/2025 12:55 PM
--- NOTE | 2025-06-23 16:27 | ESHP_ITS ---
<Statement entered by Anuradha Boyer MD - 07/04/25 08:05> I reviewed above note and agree with findings and plans. I have also personally examined the patient with medicine team and went over assessment and plan with medical team including internet webmaster and resident physician. Documentation for date of: 06/23/25 HPI History of Present Illness Chief complaint: shortness of breath History of present illness: 69-year-old male with significant past medical history of heart failure, substance use disorder including alcohol, tobacco, marijuana, methamphetamine who lives in trailer presented to the hospital with chief complaints of shortness of breath, fever and cough since 2 days. Reported that he ran out of his medications a month ago and since then he did not refill the medications due to insurance issues and did not take any medications. Noted to have worsening shortness of breath since 2 days, associated with orthopnea but denies pedal edema, abdominal distention, decreased urine output. Reported that he noted to have fever last night but did not take any medications for it and also noted to have cough since then. Denies chest pain, recent sick contacts, travel, nausea, vomiting, diarrhea, burning micturition. Initially patient denied smoking meth and marijuana but later when confronted with the positive urine toxicology he endorsed that he used the day before admission ED course: - Vitals at the time of admission are significant for blood pressure 172/92 mmHg, pulse rate 101 bpm, SpO2 100% with 2 L oxygen - Labs at the time of admission significant for WBC 18.1, bicarb greater than 40, BNP 123 - Urine analysis showed 1+ proteinuria, 3+ glucosuria without any WBC or bacteria - Urine toxicology tested positive for meth and marijuana -EKG at the time of admission showed normal sinus rhythm with tachycardia with no acute ST changes and noted to have inverted T waves in lead III - Chest x-ray done at the time of admission showed infiltrates in left base of the lung - Patient is admitted in the hospital for acute hypoxic respiratory failure with suspected underlying CHF exacerbation due to left base pneumonia Past medical history: Alcohol use disorder, marijuana smoking, suspected underlying COPD Past surgical history: Remote history of left hip surgery Allergies: NKDA Social history: Lives alone in a trailer, denied marijuana and methamphetamine abuse and later agreed to use with the last use in the last 2 days Review of Systems Review of Systems Systems Reviewed: All systems reviewed, normal except as documented Exam Vital Signs Temp Pulse Resp BP Pulse Ox O2 Del Method O2 Flow Rate 98.6 F 108 H 20 181/100 H 94 L Nasal Cannula 6 06/23/25 16:04 06/23/25 16:04 06/23/25 16:04 06/23/25 16:04 06/23/25 16:04 06/23/25 16:04 06/23/25 16:04 Narrative Exam General: Awake. HEENT: Normocephalic, atraumatic, mucous membranes moist. Heart: Regular rate and rhythm, no murmurs. noted JVD Lungs: Clear to auscultation with no wheezing or crackles. Abdomen: Soft, nondistended, nontender, positive bowel sounds. ?No guarding or rebound tenderness. Neurologic: Alert and oriented x3, no gross neurological deficit, and patient able to move all 4 extremities. Extremities: No edema. Skin: No rash or ecchymoses. Results: Labs 06/23/25 09:47 06/23/25 09:47 Labs: Short CBC 06/23/25 Range/Units 09:47 WBC 18.1 H (3.8-10.6) Thou/mm3 Hgb 15.9 (13.5-16.0) g/dL Hct 51.8 (41.0-53.0) % Plt Count 225 (140-440) Thou/mm3 BMP 06/23/25 09:47 Sodium 140 Potassium 4.9 Chloride 95 L Carbon Dioxide > 40.0 H BUN 11 Creatinine 0.9 Glucose 191 H Calcium 9.8 Cardiac Enzymes 06/23/25 Range/Units 09:47 Troponin I < 0.020 (0.0-0.045) ng/mL Liver Function 06/23/25 Range/Units 09:47 Total Bilirubin 0.5 (0.3-1.2) mg/dL AST 20 (0-34) U/L ALT 14 (10-49) U/L Alkaline Phosphatase 107 (46-116) U/L Albumin 4.5 (3.4-4.8) gm/dL Urine 06/23/25 Range/Units 10:38 Urine Color Yellow (Lt Yel-Yel) Urine Clarity Clear (Clear/Hazy) Urine pH 6.0 (5.0-7.0) Ur Specific [place] 1.022 (1.001-1.035) Urine Protein 1+ A (Neg - Trace) Urine Glucose (UA) 3+ A (Negative) Quality Measures Quality Measures none Advance care planning discussed with:: patient Medications Home Medications and Allergies Allergies Allergy/AdvReac Type Severity Reaction Status Date / Time No Known Allergies Allergy Verified 06/23/25 09:41 Visit Medications Acetaminophen (Acetaminophen 325 Mg Tablet) 650 mg PO Q6H PRN PRN Reason: Fever >101.5 Stop: 07/23/25 15:31 Enoxaparin Sodium (Enoxaparin Sod Inj 40 Mg/0.4 Ml Syringe) 40 mg SC QDAY TINY Stop: 07/08/25 08:59 Ondansetron HCl (Ondansetron Inj 2 Mg/Ml Inj 2 Ml) 4 mg IVP Q6H PRN; Protocol PRN Reason: NAUSEA OR VOMITING Stop: 07/23/25 15:31 Pantoprazole Sodium (Pantoprazole Inj 40 Mg Vial) 40 mg IVP QDAY TINY Stop: 07/24/25 08:59 Sennosides (Senna Tablet) 1 tab PO QDAY TINY; Protocol Stop: 07/24/25 08:59 Discontinued Medications Albuterol/Ipratropium (Albuterol/Ipratropium (Duoneb) Rt Cherise 3 Ml Nebu) 3 ml INH X1 ONE Stop: 06/23/25 10:08 Last Admin: 06/23/25 10:18 Dose: 3 ml Azithromycin 500 mg/ Sodium (Chloride) 250 mls @ 250 mls/hr IV X1 ONE Stop: 06/23/25 11:36 Last Admin: 06/23/25 12:24 Dose: 250 mls/hr Ceftriaxone Sodium/Dextrose (Rocephin/D5w 1gm Iv Premix) 1 gm in 50 mls @ 100 mls/hr IV X1 ONE Stop: 06/23/25 11:06 Last Infusion: 06/23/25 12:23 Dose: Infused Assessment & Plan Plan 69-year-old male with significant past medical history of heart failure, substance use disorder including alcohol, tobacco, marijuana, methamphetamine who lives in [facility] presented to the hospital with chief complaints of shortness of breath, fever and cough since 2 days and admitted in the hospital for acute hypoxic respiratory failure with suspected underlying CHF exacerbation due to left base pneumonia. # Acute hypoxic respiratory failure # Secondary to exacerbation of heart failure # In the setting of left lung pneumonia and continued meth use with Drug incompliance #Leukocytosis - Presented to the hospital with chief complaints of shortness of breath, fever and cough since 2 days - Reported that he ran out of his medications a month ago and since then he did not refill the medications due to insurance issues and did not take any medications. - Noted to have worsening shortness of breath since 2 days, associated with orthopnea but denies pedal edema, abdominal distention, decreased urine output. - Reported that he noted to have fever last night but did not take any medications for it and also noted to have cough since then. - Denies chest pain, recent sick contacts, travel, nausea, vomiting, diarrhea, burning micturition. - Vitals at the time of admission are significant for blood pressure 172/92 mmHg, pulse rate 101 bpm, SpO2 100% with 2 L oxygen - Urine toxicology tested positive for meth and marijuana - EKG at the time of admission showed normal sinus rhythm with tachycardia with no acute ST changes and noted to have inverted T waves in lead III - Chest x-ray done at the time of admission showed infiltrates in left base of the lung Plan - Started on fluid restriction, 1800 mL/day - Lasix 40 mg IV thrice daily - Strict input and output - Started on ceftriaxone and azithromycin [06/23- - BiPAP/CPAP at bedtime - Echocardiogram is ordered # Metabolic alkalosis - Noted to have bicarb greater than 40 but patient is not using any diuretic as of now - Could be due to underlying suspected possible COPD/obstructive sleep apnea leading to compensatory metabolic alkalosis Plan - ABG is ordered - BiPAP/CPAP ordered - Will give a dose of acetazolamide once ABG results # Substance use disorder - Urine toxicology tested positive for meth and marijuana - Initially patient denied and when confronted he accepted that he used her the day before admission Plan - Counseled on abstinence - Referred to social media intern Hospital Maintenance: Dispo: Tele DVT ppx: Lovenox GI ppx: Protonix Diet: Cardiac and fluid restriction to 1800 IV lines: Peripheral Code status: Full Patient plan of care was discussed with the attending physician, Dr. Rosalind Corley, PGY2
[2025-06-23] MEDS: FUROSEMIDE INJ 10 MG/ML 4ML VIAL 40 MG IVP ×2 (17:29→21:41)
--- NOTE | 2025-06-23 17:49 | PC.NURSE ---
Pt. very agitated throughout the day, pt. takes off his O2 and has to be reminded to leave O2 on. Pt. cussing and states he has to take it off to piss.
[2025-06-23] MEDS: ACETAMINOPHEN 325 MG TABLET 650 MG PO (20:08)
[2025-06-24] VITALS (10 sets, daily range): BP systolic 114–138; BP diastolic 67–77; PULSE 71–101; RESP 15–30; TEMP 36.1–36.6; O2SAT 90–99
[2025-06-24] MEDS: FUROSEMIDE INJ 10 MG/ML 4ML VIAL 40 MG IVP (05:15)
[2025-06-24 05:22] LABS: Basophils # (Auto) 0.0 Thou/mm3 (0.0-0.2); Basophils % (Auto) 0 % (0-2.5); Eosinophils # (Auto) 0.0 Thou/mm3 (0.0-0.5); Eosinophils % (Auto) 0 % (0-10); Hematocrit 49.2 % (41.0-53.0); Hemoglobin 15.2 g/dL (13.5-16.0); Immature Granulocytes Auto 0.06 Thou/mm3 (0.00-0.00); Lymphocytes # (Auto) 1.1 Thou/mm3 (1.0-4.8); Lymphocytes % (Auto) 9 % (10-50); Mean Corpuscular HGB Conc 30.9 g/dl (31.0-37.0); Mean Corpuscular Hemoglobin 30.3 pg (25.0-35.0); Mean Corpuscular Volume 98 fL (80-100); Monocytes # (Auto) 0.8 Thou/mm3 (0.0-0.8); Monocytes % (Auto) 6 % (0-12); Neutrophils # (Auto) 11.1 Thou/mm3 (1.8-7.7); Neutrophils % (Auto) 85 % (37-80); Nucleated Red Blood Cell # 0.00 Thou/mm3 (0.00-0.00); Nucleated Red Blood Cell % 0 /100 WBC (0); Platelet Count 195 Thou/mm3 (140-440); RDW Standard Deviation 48.5 fL (35.1-43.9); Red Blood Count 5.01 Miln/mm3 (4.50-5.90); White Blood Count 13.1 Thou/mm3 (3.8-10.6)
[2025-06-24 05:58] LABS: Alanine Aminotransferase 16 U/L (10-49); Albumin, Serum 4.3 gm/dL (3.4-4.8); Albumin/Globulin Ratio 1.9 (1.2-2.2); Alkaline Phosphatase 104 U/L (46-116); Anion Gap 10 (7-16); Aspartate Amino Transferase 16 U/L (0-34); BUN/Creatinine Ratio 12 Ratio (12-20); Bilirubin,Total 0.6 mg/dL (0.3-1.2); Blood Urea Nitrogen 11 mg/dL (9-23); Calcium 9.7 mg/dL (8.3-10.6); Calcium (Corrected) 9.7 mg/dL (8.5-10.1); Carbon Dioxide > 40.0 mMol/L (20.0-31.0); Chloride 91 mMol/L (98-107); Creatinine (Component) 0.9 mg/dL (0.6-1.3); Estimated Creatinine Clearance 93.5 mL/min (>60); Globulin 2.3 gm/dL (2.3-3.5); Glucose 143 mg/dL (74-106); Magnesium 2.0 mg/dL (1.6-2.6); Osmolality,Calculated 282 (275-295); Potassium 4.8 mMol/L (3.4-5.1); Sodium 141 mMol/L (136-145); Thyroid Stimulating Hormone 1.14 uIU/mL (0.55-4.78); Total Protein 6.6 gm/dL (5.7-8.2); eGFR > 60 See Note
[2025-06-24] MEDS: ACETAMINOPHEN 325 MG TABLET 650 MG PO (07:47)
[2025-06-24] MEDS: ENOXAPARIN SOD INJ 40 MG/0.4 ML SYRINGE SC (08:33)
[2025-06-24] MEDS: cefTRIAXone/D5w 1gm IV premix 1 GM/50 ML BAG IV (08:34)
--- NOTE | 2025-06-24 09:12 | PC.SS ---
Rounding: On IV Lasix
[2025-06-24] MEDS: AZITHROMYCIN INJ 500 MG in SODIUM CHLORIDE 0.9% 250 ML 250 ML 250 MG IV (09:13)
--- NOTE | 2025-06-24 09:59 | ESPR_ITS ---
<Statement entered by Anuradha Boyer MD - 07/08/25 15:17> I reviewed above note and agree with findings and plans. I have also personally examined the patient with medicine team and went over assessment and plan with medical team including investigator internal revenue and resident physician. <Statement entered by Camryn Hurst MD - 06/25/25 07:06> Patient was seen and examined by me personally. I have directly supervised and reviewed documentation by the team resident and agree with its findings with any exceptions or additional findings as below. Plan of care was discussed with the attending, Dr. Boyer. Camryn Hurst, PGY-3 Documentation for date of: 06/24/25 Subjective Subjective Interval history: No overnight events. Patient was examined at bedside; they appear A&Ox3 and in NAD. Vitals/labs today significant for WBC 18.1->13.1, bicarbonate>40. On physical exam, patient is noted to be on 3 L NC with bilateral lung bowie clear to auscultation and much improved pedal edema. He is also noted to have a wet, productive, and phlegmy cough. 06/23 echocardiogram has resulted and shows EF of 55-60% and grade I diastolic dysfunction. Patient appears much bone drier today so his Lasix 40 mg IV will be reduced from TID to qD. Patient also continues to retain an excessive amount of bicarbonate, possibly from underlying COPD or IRENE. ABG has been ordered and is pending (may consider giving a dose of acetazolamide once ABG results come back). Exam Vital Signs Temp Pulse Resp BP Pulse Ox O2 Del Method O2 Flow Rate 97.3 F 71 15 129/77 94 L Nasal Cannula 3 06/24/25 07:44 06/24/25 07:44 06/24/25 07:44 06/24/25 07:44 06/24/25 07:44 06/24/25 07:44 06/24/25 07:44 Narrative Exam General: Awake. HEENT: Wet, productive, and phlegmy cough appreciated. Normocephalic, atraumatic, mucous membranes moist. Heart: Regular rate and rhythm, no murmurs. no more JVD. Lungs: On 3 L NC. Clear to auscultation with no wheezing or crackles. Abdomen: Mild tenderness to palpation of the abdomen.Soft, nondistended, positive bowel sounds. ?No guarding or rebound tenderness. Neurologic: Alert and oriented x3, no gross neurological deficit, and patient able to move all 4 extremities. Extremities: No edema. Skin: No rash or ecchymoses. Objective Labs 06/24/25 04:53 06/24/25 04:53 Labs: Laboratory Results - last 24 hr 06/23/25 06/23/25 06/23/25 09:47 10:38 10:46 WBC 18.1 H RBC 5.31 Hgb 15.9 Hct 51.8 MCV 98 MCH 29.9 MCHC 30.7 L RDW Std Deviation 48.4 H Plt Count 225 Neut % (Auto) 90 H Lymph % (Auto) 5 L [place] % (Auto) 4 Eos % (Auto) 0 Baso % (Auto) 0 Neut # (Auto) 16.2 H Lymph # (Auto) 0.9 L [place] # (Auto) 0.7 Eos # (Auto) 0.0 Baso # (Auto) 0.1 Immature Gran # (Auto) 0.12 H Absolute Nucleated RBC 0.00 Immature Gran % 1 H Nucleated RBC % 0 PT 11.1 INR 1.0 APTT 29.1 Sodium 140 Potassium 4.9 Chloride 95 L Carbon Dioxide > 40.0 H Anion Gap 5 L BUN 11 Creatinine 0.9 Estim Creat Clear Calc 93.8 eGFR > 60 BUN/Creatinine Ratio 12 Glucose 191 H Calculated Osmolality 283 Lactic Acid 1.7 Calcium 9.8 Corrected Calcium 9.8 Magnesium 1.9 Total Bilirubin 0.5 AST 20 ALT 14 Alkaline Phosphatase 107 Troponin I < 0.020 B-Natriuretic Peptide 123 H Total Protein 6.9 Albumin 4.5 Globulin 2.4 Albumin/Globulin Ratio 1.9 Lipase 86 H Procalcitonin 0.04 TSH Ur Collection Type Clean Catch Urine Color Yellow Urine Clarity Clear Urine pH 6.0 Ur Specific [place] 1.022 Urine Protein 1+ A Urine Glucose (UA) 3+ A Urine Ketones Negative Urine Blood Negative Urine Nitrite Negative Urine Bilirubin Negative Urine Urobilinogen (Auto) Negative Ur Leukocyte Esterase Negative Urine RBC 3 Urine WBC 1 Ur Squamous Epith Cells 1 Urine Bacteria None Ur Culture Indicated? Not Indicated Urine Opiates Screen Negative Urine Fentanyl Screen Negative Ur Barbiturates Screen Negative U Amphetamin/Meth Scrn Positive A U Benzodiazepines Scrn Negative U Cocaine Metab Screen Negative U Marijuana (THC) Screen Positive A Ethyl Alcohol < 3.0 Influenza A (Rapid) Influenza B (Rapid) 06/23/25 06/24/25 12:05 04:53 WBC 13.1 H D RBC 5.01 Hgb 15.2 Hct 49.2 MCV 98 MCH 30.3 MCHC 30.9 L RDW Std Deviation 48.5 H Plt Count 195 D Neut % (Auto) 85 H Lymph % (Auto) 9 L [place] % (Auto) 6 Eos % (Auto) 0 Baso % (Auto) 0 Neut # (Auto) 11.1 H Lymph # (Auto) 1.1 [place] # (Auto) 0.8 Eos # (Auto) 0.0 Baso # (Auto) 0.0 Immature Gran # (Auto) 0.06 H Absolute Nucleated RBC 0.00 Immature Gran % 1 H Nucleated RBC % 0 PT INR APTT Sodium 141 Potassium 4.8 Chloride 91 L Carbon Dioxide > 40.0 H Anion Gap 10 BUN 11 Creatinine 0.9 Estim Creat Clear Calc 93.5 eGFR > 60 BUN/Creatinine Ratio 12 Glucose 143 H Calculated Osmolality 282 Lactic Acid Calcium 9.7 Corrected Calcium 9.7 Magnesium 2.0 Total Bilirubin 0.6 AST 16 ALT 16 Alkaline Phosphatase 104 Troponin I B-Natriuretic Peptide Total Protein 6.6 Albumin 4.3 Globulin 2.3 Albumin/Globulin Ratio 1.9 Lipase Procalcitonin TSH 1.14 Ur Collection Type Urine Color Urine Clarity Urine pH Ur Specific [place] Urine Protein Urine Glucose (UA) Urine Ketones Urine Blood Urine Nitrite Urine Bilirubin Urine Urobilinogen (Auto) Ur Leukocyte Esterase Urine RBC Urine WBC Ur Squamous Epith Cells Urine Bacteria Ur Culture Indicated? Urine Opiates Screen Urine Fentanyl Screen Ur Barbiturates Screen U Amphetamin/Meth Scrn U Benzodiazepines Scrn U Cocaine Metab Screen U Marijuana (THC) Screen Ethyl Alcohol Influenza A (Rapid) Negative Influenza B (Rapid) Negative Quality Measures Quality Measures none Advance care planning discussed with:: patient Assessment & Plan Assessment Current Active Medications: Generic Name Dose Route Start Last Admin Trade Name Freq PRN Reason Stop Dose Admin Acetaminophen 650 mg 06/24/25 08:16 Acetaminophen 325 Mg Tablet PO 07/23/25 15:31 Q6H PRN Fever >100.4 Enoxaparin Sodium 40 mg 06/24/25 09:00 06/24/25 08:33 Enoxaparin Sod Inj 40 Mg/0.4 Ml Syringe SC 07/08/25 08:59 40 mg QDAY TINY Administration Furosemide 40 mg 06/25/25 09:00 Furosemide Inj 10 Mg/Ml 4ml Vial IVP 07/25/25 08:59 QDAY TINY Ceftriaxone Sodium/Dextrose 1 gm in 50 mls @ 100 mls/hr 06/24/25 09:00 06/24/25 08:34 Rocephin/D5w 1gm Iv Premix IV 07/01/25 08:59 100 mls/hr QDAY TINY Administration Azithromycin 500 mg/ Sodium 250 mls @ 250 mls/hr 06/24/25 09:00 06/24/25 09:13 Chloride IV 07/01/25 08:59 250 mls/hr QDAY TINY Administration Ondansetron HCl 4 mg 06/23/25 15:32 Ondansetron Inj 2 Mg/Ml Inj 2 Ml IVP 07/23/25 15:31 Q6H PRN NAUSEA OR VOMITING Protocol Pantoprazole Sodium 40 mg 06/25/25 09:00 Pantoprazole 40 Mg Tablet PO 07/25/25 08:59 QDAY TINY Sennosides 1 tab 06/24/25 09:00 06/24/25 08:33 Senna Tablet PO 07/24/25 08:59 1 tab QDAY TINY Administration Protocol Plan 69-year-old male with significant past medical history of heart failure, substance use disorder including alcohol, tobacco, marijuana, methamphetamine who lives in [facility] presented to the hospital with chief complaints of shortness of breath, fever and cough since 2 days and admitted in the hospital for acute hypoxic respiratory failure with suspected underlying CHF exacerbation due to left base pneumonia. #Acute hypoxic respiratory failure #Secondary to exacerbation of heart failure #In the setting of left lung pneumonia and continued methamphetamine use #Leukocytosis - Presented to the hospital with chief complaints of shortness of breath, fever and cough since 2 days - Reported that he ran out of his medications a month ago and since then he did not refill the medications due to insurance issues and did not take any medications. - Noted to have worsening shortness of breath since 2 days, associated with orthopnea but denies pedal edema, abdominal distention, decreased urine output. - Reported that he noted to have fever last night but did not take any medications for it and also noted to have cough since then. - Denies chest pain, recent sick contacts, travel, nausea, vomiting, diarrhea, burning micturition. - Vitals at the time of admission are significant for blood pressure 172/92 mmHg, pulse rate 101 bpm, SpO2 100% with 2 L oxygen - Urine toxicology tested positive for meth and marijuana - EKG at the time of admission showed normal sinus rhythm with tachycardia with no acute ST changes and noted to have inverted T waves in lead III - Chest x-ray done at the time of admission showed infiltrates in left base of the lung Dx: - 06/23 echocardiogram has resulted and shows EF of 55-60% and grade I diastolic dysfunction. Rx: - Fluid restriction of 1800 mL/day - Lasix 40 mg IV qD - Strict input and output (-550 fluid balance over past 24 hours) - Rocephin and azithromycin [06/23- - BiPAP/CPAP at bedtime #Metabolic alkalosis - Noted to have bicarb greater than 40 but patient is not using any diuretic as of now - Could be due to underlying suspected possible COPD/obstructive sleep apnea leading to compensatory metabolic alkalosis Plan - ABG is ordered - BiPAP/CPAP ordered - Will give a dose of acetazolamide once ABG results #Substance use disorder - Urine toxicology tested positive for meth and marijuana - Initially patient denied and when confronted he accepted that he used her the day before admission Plan - Counseled on abstinence - Referred to aids social worker Hospital Maintenance: Dispo: Tele DVT ppx: Lovenox GI ppx: Protonix Diet: Cardiac and fluid restriction to 1800 IV lines: Peripheral Code status: Full Patient plan of care was discussed with the attending physician Dr. Boyer and senior resident Dr. Aris Shah, DO PGY-1
[2025-06-24] MEDS: guaiFENesin/DM TABLET 1 EACH PO (10:45)
--- NOTE | 2025-06-24 14:39 | PC.SS ---
Jamshid Holbrook is a 69 year-old male admitted to [facility] for AHRF 2/2 PNA. SS conducted bedside contact with the patient to complete initial assessment and to discuss discharge planning. Role and reason explained. Patient confirmed demographic information. Patient identifies his son Willis Holbrook [phone] as his surrogate decision maker. Pt states he is able to complete all ADL?s independently. Pt does not possesses any DME. Pts unaware of his PCP stated it changed and he doesn?t know. Pharmacy of choice is [facility]. Discharge options discussed and the pt wishes to return home, but open to SNF if recommended, no preference.? Pt son will provide transport. No further intervention required at this time, pediatric social worker would be available to address any further concerns. DC Plan: Home Contact: Wilils Washington Address: Confirmed on face sheet PCP: Jeff
--- NOTE | 2025-06-24 15:27 | PC.PT ---
Attempt to initiate PT evaluation at 1515. This PT explained to the patient the purpose of PT evaluation. Patient is refusing. This PT mentioned to the patient, that we are gonna assess her functional mobility and only what he can and cannot do. He said he cannot stand up. This PT offered that I am gonna assist him. Again, this PT explained to the patient in detail what does Physical therapy evaluation mean. Patient impulsively sit up and is upset. Patient was sitting on the EOB. Patient was saying rude things to this PT. Assess patient's SPO2 and patient is at 85% at 5L. Patient's hands are cold. Attempt to warm up the fingers to get accurate reading for ~1-2 mins. SPO2 went up to 91%. As soon as it went up to 91%, patient went back to bed and refused to sit up. Inspite of education of the benefits of Physical Therapy, patient adamantly refused PT. Informed RN and ordering physician Dr. Shah. Will cancel PT evaluation due to patient refused. Patient is I with bed mobility, Good sitting balance and no dyspnea noted during PT.
[2025-06-25] VITALS (14 sets, daily range): BP systolic 119–142; BP diastolic 58–80; PULSE 70–101; RESP 12–32; TEMP 36.1–36.6; O2SAT 91–99; BMI 27.6
[2025-06-25] MEDS: ALBUTEROL/IPRATROPIUM (Duoneb) RT SOL 3 ML NEBU INH (04:33)
[2025-06-25 06:28] LABS: Basophils # (Auto) 0.0 Thou/mm3 (0.0-0.2); Basophils % (Auto) 0 % (0-2.5); Eosinophils # (Auto) 0.1 Thou/mm3 (0.0-0.5); Eosinophils % (Auto) 1 % (0-10); Hematocrit 49.0 % (41.0-53.0); Hemoglobin 15.1 g/dL (13.5-16.0); Immature Granulocytes Auto 0.06 Thou/mm3 (0.00-0.00); Lymphocytes # (Auto) 1.3 Thou/mm3 (1.0-4.8); Lymphocytes % (Auto) 12 % (10-50); Mean Corpuscular HGB Conc 30.8 g/dl (31.0-37.0); Mean Corpuscular Hemoglobin 29.9 pg (25.0-35.0); Mean Corpuscular Volume 97 fL (80-100); Monocytes # (Auto) 0.8 Thou/mm3 (0.0-0.8); Monocytes % (Auto) 8 % (0-12); Neutrophils # (Auto) 8.7 Thou/mm3 (1.8-7.7); Neutrophils % (Auto) 79 % (37-80); Nucleated Red Blood Cell # 0.00 Thou/mm3 (0.00-0.00); Nucleated Red Blood Cell % 0 /100 WBC (0); Platelet Count 219 Thou/mm3 (140-440); RDW Standard Deviation 47.1 fL (35.1-43.9); Red Blood Count 5.05 Miln/mm3 (4.50-5.90); White Blood Count 10.9 Thou/mm3 (3.8-10.6)
[2025-06-25 06:53] LABS: Alanine Aminotransferase 16 U/L (10-49); Albumin, Serum 4.3 gm/dL (3.4-4.8); Albumin/Globulin Ratio 1.8 (1.2-2.2); Alkaline Phosphatase 102 U/L (46-116); Anion Gap 10 (7-16); Aspartate Amino Transferase 18 U/L (0-34); BUN/Creatinine Ratio 14 Ratio (12-20); Bilirubin,Total 0.5 mg/dL (0.3-1.2); Blood Urea Nitrogen 13 mg/dL (9-23); Calcium 9.8 mg/dL (8.3-10.6); Calcium (Corrected) 9.8 mg/dL (8.5-10.1); Carbon Dioxide > 40.0 mMol/L (20.0-31.0); Chloride 92 mMol/L (98-107); Creatinine (Component) 0.9 mg/dL (0.6-1.3); Estimated Creatinine Clearance 86.2 mL/min (>60); Globulin 2.4 gm/dL (2.3-3.5); Glucose 116 mg/dL (74-106); Magnesium 1.8 mg/dL (1.6-2.6); Osmolality,Calculated 284 (275-295); Potassium 4.4 mMol/L (3.4-5.1); Sodium 142 mMol/L (136-145); Total Protein 6.7 gm/dL (5.7-8.2); eGFR > 60 See Note
[2025-06-25] MEDS: FUROSEMIDE INJ 10 MG/ML 4ML VIAL 40 MG IVP (08:31)
[2025-06-25] MEDS: cefTRIAXone/D5w 1gm IV premix 1 GM/50 ML BAG IV (08:32)
[2025-06-25] MEDS: AZITHROMYCIN INJ 500 MG in SODIUM CHLORIDE 0.9% 250 ML 250 ML 250 MG IV (08:32)
[2025-06-25] MEDS: PANTOPRAZOLE 40 MG TABLET PO (08:32)
[2025-06-25] MEDS: ENOXAPARIN SOD INJ 40 MG/0.4 ML SYRINGE SC (08:33)
--- NOTE | 2025-06-25 13:26 | ESPR_ITS ---
Documentation for date of: 06/25/25 Subjective Subjective Interval history: Patient clinically improving reports better breathing, mild phlegmy cough, sore throat, and abdominal discomfort. On 3 L NC, afebrile, and tolerating diet. WBC improved from 13.1 -> 10.9; bicarb > 40 persisting. Procalcitonin negative; blood cultures no growth ? 24 h; sputum culture pending. Exam Vital Signs Temp Pulse Resp BP Pulse Ox O2 Del Method O2 Flow Rate 97.8 F 72 15 131/77 H 99 Humidified Nasal Cannula 5 06/25/25 12:00 06/25/25 12:00 06/25/25 12:00 06/25/25 12:00 06/25/25 12:00 06/25/25 12:00 06/25/25 12:00 Narrative Exam General: Awake. HEENT: Wet, productive, and phlegmy cough appreciated. Normocephalic, atraumatic, mucous membranes moist. Heart: Regular rate and rhythm, no murmurs. no more JVD. Lungs: On 5 L NC. Clear to auscultation with no wheezing or crackles. Abdomen: Mild tenderness to palpation of the abdomen.Soft, nondistended, positive bowel sounds. ?No guarding or rebound tenderness. Neurologic: Alert and oriented x3, no gross neurological deficit, and patient able to move all 4 extremities. Extremities: No edema. Skin: No rash or ecchymoses. Objective Labs 06/26/25 04:55 06/26/25 04:55 Labs: Laboratory Results - last 24 hr 06/25/25 05:49 WBC 10.9 H RBC 5.05 Hgb 15.1 Hct 49.0 MCV 97 MCH 29.9 MCHC 30.8 L RDW Std Deviation 47.1 H Plt Count 219 Neut % (Auto) 79 Lymph % (Auto) 12 [place] % (Auto) 8 Eos % (Auto) 1 Baso % (Auto) 0 Neut # (Auto) 8.7 H Lymph # (Auto) 1.3 [place] # (Auto) 0.8 Eos # (Auto) 0.1 Baso # (Auto) 0.0 Immature Gran # (Auto) 0.06 H Absolute Nucleated RBC 0.00 Immature Gran % 1 H Nucleated RBC % 0 Sodium 142 Potassium 4.4 Chloride 92 L Carbon Dioxide > 40.0 H Anion Gap 10 BUN 13 Creatinine 0.9 Estim Creat Clear Calc 86.2 eGFR > 60 BUN/Creatinine Ratio 14 Glucose 116 H Calculated Osmolality 284 Calcium 9.8 Corrected Calcium 9.8 Magnesium 1.8 Total Bilirubin 0.5 AST 18 ALT 16 Alkaline Phosphatase 102 Total Protein 6.7 Albumin 4.3 Globulin 2.4 Albumin/Globulin Ratio 1.8 Quality Measures Quality Measures VTE prophylaxis Advance care planning discussed with:: patient Assessment & Plan Assessment Current Active Medications: Generic Name Dose Route Start Last Admin Trade Name Freq PRN Reason Stop Dose Admin Acetaminophen 650 mg 06/24/25 08:16 Acetaminophen 325 Mg Tablet PO 07/23/25 15:31 Q6H PRN Fever >100.4 Albuterol/Ipratropium 3 ml 06/25/25 03:57 06/25/25 04:33 Albuterol/Ipratropium (Duoneb) Rt Cherise 3 Ml Nebu INH 07/25/25 03:56 3 ml Q6HRRT PRN Administration SHORTNESS OF BREATH OR WHEEZE Carvedilol 3.125 mg 06/25/25 08:00 06/25/25 08:32 Carvedilol 3.125 Mg Tablet PO 07/25/25 07:59 3.125 mg BIDWM TINY Administration Enoxaparin Sodium 40 mg 06/24/25 09:00 06/25/25 08:33 Enoxaparin Sod Inj 40 Mg/0.4 Ml Syringe SC 07/08/25 08:59 40 mg QDAY TINY Administration Furosemide 40 mg 06/25/25 09:00 06/25/25 08:31 Furosemide Inj 10 Mg/Ml 4ml Vial IVP 07/25/25 08:59 40 mg QDAY TINY Administration Ceftriaxone Sodium/Dextrose 1 gm in 50 mls @ 100 mls/hr 06/24/25 09:00 06/25/25 08:32 Rocephin/D5w 1gm Iv Premix IV 07/01/25 08:59 100 mls/hr QDAY TINY Administration Azithromycin 500 mg/ Sodium 250 mls @ 250 mls/hr 06/24/25 09:00 06/25/25 08:32 Chloride IV 07/01/25 08:59 250 mls/hr QDAY TINY Administration Ondansetron HCl 4 mg 06/23/25 15:32 Ondansetron Inj 2 Mg/Ml Inj 2 Ml IVP 07/23/25 15:31 Q6H PRN NAUSEA OR VOMITING Protocol Pantoprazole Sodium 40 mg 06/25/25 09:00 06/25/25 08:32 Pantoprazole 40 Mg Tablet PO 07/25/25 08:59 40 mg QDAY TINY Administration Sennosides 1 tab 06/24/25 09:00 06/25/25 08:33 Senna Tablet PO 07/24/25 08:59 1 tab QDAY TINY Administration Protocol Plan 9-year-old male with history of heart failure, COPD, and polysubstance use admitted for acute hypoxic respiratory failure secondary to CHF exacerbation and left lower lobe pneumonia, improving on antibiotics and diuresis with down- trending WBC, stable oxygen requirement (5 L NC), and persistent metabolic alkalosis likely from chronic CO2 retention. #Acute hypoxic respiratory failure #Secondary to exacerbation of heart failure #In the setting of left lung pneumonia and continued methamphetamine use #Leukocytosis - Presented to the hospital with chief complaints of shortness of breath, fever and cough since 2 days - Reported that he ran out of his medications a month ago and since then he did not refill the medications due to insurance issues and did not take any medications. - Noted to have worsening shortness of breath since 2 days, associated with orthopnea but denies pedal edema, abdominal distention, decreased urine output. - Reported that he noted to have fever last night but did not take any medications for it and also noted to have cough since then. - Denies chest pain, recent sick contacts, travel, nausea, vomiting, diarrhea, burning micturition. - Vitals at the time of admission are significant for blood pressure 172/92 mmHg, pulse rate 101 bpm, SpO2 100% with 2 L oxygen - Urine toxicology tested positive for meth and marijuana - EKG at the time of admission showed normal sinus rhythm with tachycardia with no acute ST changes and noted to have inverted T waves in lead III - Chest x-ray done at the time of admission showed infiltrates in left base of the lung - Improving respiratory status and volume status; remains on 5 L NC. Dx: - 06/23 echocardiogram has resulted and shows EF of 55-60% and grade I diastolic dysfunction. Rx: - Fluid restriction of 1800 mL/day - Lasix 40 mg IV qD - Strict input and output - Rocephin and azithromycin [06/23- - BiPAP/CPAP at bedtime - Physical therapy to re-evaluate for rehab placement readiness. #Metabolic alkalosis - Noted to have bicarb greater than 40 but patient is not using any diuretic as of now - Could be due to underlying suspected possible COPD/obstructive sleep apnea leading to compensatory metabolic alkalosis Plan - BiPAP/CPAP ordered #Substance use disorder - Urine toxicology tested positive for meth and marijuana - Initially patient denied and when confronted he accepted that he used her the day before admission Plan - Counseled on abstinence - Referred to social service coordinator Hospital Maintenance: Dispo: Tele DVT ppx: Lovenox GI ppx: Protonix Diet: Cardiac and fluid restriction to 1800 IV lines: Peripheral Code status: Full ----- Plan discussed with attending physician Dr. Adiel Hawkins MD PGY-1 Internal Medicine Attending Provider Attestation/Addendum I have examined the patient, reviewed labs and imaging findings, discussed the case with the resident(s), and reviewed entered orders. I agree with the plan of care as outlined in this note, with these additional summaries/recommendations: Patient and family seen at bedside. No acute overnight events. Patient endorses dry nares from supplemental oxygen and we will order lubricating spray as needed. Patient admitted for acute hypoxic and hypercapnic respiratory failure. He appears to be a chronic CO2 retainer from underlying undiagnosed COPD. Currently he is on 5 L nasal cannula and we will attempt to wean down to 3 to 4 L for safe discharge. Patient did not cooperate with physical therapy today and counseled and now in agreement. We will decrease IV Lasix for CHF exacerbation and continue GDMT as tolerated. Echo shows EF of 55 to 60% indicating HFpEF. He will need outpatient follow-up with cardiology. Continue IV antibiotics for community-acquired pneumonia. 1 of 2 blood culture preliminarily showing GPC which is likely contamination although we will await speciation before determining antibiotic stewardship. Noted UTOX positive and will travel counselor automobile [employer] prior to discharge. Patient updated on the plan and in agreement. All questions answered satisfaction. Please see residents note for additional details and management. Dr. Adiel MD
[2025-06-25] MEDS: ACETAMINOPHEN 325 MG TABLET 650 MG PO ×2 (16:56→23:08)
[2025-06-26] VITALS (13 sets, daily range): BP systolic 112–131; BP diastolic 67–87; PULSE 71–101; RESP 12–37; TEMP 36.1–36.6; O2SAT 90–96
[2025-06-26 05:37] LABS: Basophils # (Auto) 0.1 Thou/mm3 (0.0-0.2); Basophils % (Auto) 1 % (0-2.5); Eosinophils # (Auto) 0.1 Thou/mm3 (0.0-0.5); Eosinophils % (Auto) 1 % (0-10); Hematocrit 46.2 % (41.0-53.0); Hemoglobin 14.2 g/dL (13.5-16.0); Immature Granulocytes Auto 0.07 Thou/mm3 (0.00-0.00); Lymphocytes # (Auto) 1.5 Thou/mm3 (1.0-4.8); Lymphocytes % (Auto) 19 % (10-50); Mean Corpuscular HGB Conc 30.7 g/dl (31.0-37.0); Mean Corpuscular Hemoglobin 29.5 pg (25.0-35.0); Mean Corpuscular Volume 96 fL (80-100); Monocytes # (Auto) 0.7 Thou/mm3 (0.0-0.8); Monocytes % (Auto) 9 % (0-12); Neutrophils # (Auto) 5.3 Thou/mm3 (1.8-7.7); Neutrophils % (Auto) 69 % (37-80); Nucleated Red Blood Cell # 0.00 Thou/mm3 (0.00-0.00); Nucleated Red Blood Cell % 0 /100 WBC (0); Platelet Count 216 Thou/mm3 (140-440); RDW Standard Deviation 47.2 fL (35.1-43.9); Red Blood Count 4.82 Miln/mm3 (4.50-5.90); White Blood Count 7.7 Thou/mm3 (3.8-10.6)
[2025-06-26 06:13] LABS: Alanine Aminotransferase 16 U/L (10-49); Albumin, Serum 4.1 gm/dL (3.4-4.8); Albumin/Globulin Ratio 1.9 (1.2-2.2); Alkaline Phosphatase 91 U/L (46-116); Anion Gap 10 (7-16); Aspartate Amino Transferase 16 U/L (0-34); BUN/Creatinine Ratio 23 Ratio (12-20); Bilirubin,Total 0.5 mg/dL (0.3-1.2); Blood Urea Nitrogen 21 mg/dL (9-23); Calcium 9.4 mg/dL (8.3-10.6); Calcium (Corrected) 9.4 mg/dL (8.5-10.1); Carbon Dioxide > 40.0 mMol/L (20.0-31.0); Chloride 92 mMol/L (98-107); Creatinine (Component) 0.9 mg/dL (0.6-1.3); Estimated Creatinine Clearance 86.2 mL/min (>60); Globulin 2.2 gm/dL (2.3-3.5); Glucose 119 mg/dL (74-106); Magnesium 2.0 mg/dL (1.6-2.6); Osmolality,Calculated 287 (275-295); Phosphorous 2.8 mg/dL (2.4-5.1); Potassium 4.4 mMol/L (3.4-5.1); Sodium 142 mMol/L (136-145); Total Protein 6.3 gm/dL (5.7-8.2); eGFR > 60 See Note
[2025-06-26] MEDS: PANTOPRAZOLE 40 MG TABLET PO (08:23)
[2025-06-26] MEDS: cefTRIAXone/D5w 1gm IV premix 1 GM/50 ML BAG IV (08:24)
[2025-06-26] MEDS: ENOXAPARIN SOD INJ 40 MG/0.4 ML SYRINGE SC (08:24)
[2025-06-26] MEDS: AZITHROMYCIN INJ 500 MG in SODIUM CHLORIDE 0.9% 250 ML 250 ML 250 MG IV (08:24)
--- NOTE | 2025-06-26 10:40 | PC.SS ---
SS was informed pt will be DC today with home O2. SS spoke to RN, Ronel [phone] and informed her of need for testing and a note to order.
--- NOTE | 2025-06-26 11:05 | PC.NURSE ---
Room air spO2% at rest: 86%
--- NOTE | 2025-06-26 12:04 | PC.SS ---
Addendum entered by Ramona Huber 06/26/25 13:28: DME referral was received and confirmed with [employer], per Ezekiel it is currently processing. SS explained pt is ready for DC today, Jalyn stated she sent an email to dispatch team for urgent matter but O2 delivery can take 24-72hrs Addendum entered by Ramona Huber 06/26/25 13:10: SS faxed DME order to [employer] F#[phone] Original Note: SS submitted O2 DME referral via [employer], pending responses
--- NOTE | 2025-06-26 13:02 | PC.NURSE ---
Oxygen spO2% at rest 92% on 3L of oxygen
--- NOTE | 2025-06-26 13:38 | PD.RESPRO ---
Documentation for date of: 06/26/25 Subjective Subjective Interval history: The patient reports feeling better today, with significant improvement in his breathing after using BiPAP for 4 hours overnight. He denies any chest pain or shortness of breath, though he remains on 3 L NC oxygen. His cough has improved, becoming less phlegmy and productive. He notes mild abdominal discomfort but is tolerating food and fluids well. There is no swelling in his legs. He tolerated the BiPAP overnight and felt better afterward. Exam Vital Signs Temp Pulse Resp BP Pulse Ox O2 Del Method O2 Flow Rate 97.5 F 88 21 H 131/79 H 95 Nasal Cannula 3 06/26/25 12:00 06/26/25 12:00 06/26/25 12:00 06/26/25 12:00 06/26/25 12:00 06/26/25 12:00 06/26/25 12:00 FiO2 30 06/26/25 12:00 Narrative Exam General: Awake. HEENT: Wet, productive, and phlegmy cough appreciated. Normocephalic, atraumatic, mucous membranes moist. Heart: Regular rate and rhythm, no murmurs. no more JVD. Lungs: On 3 L NC. Clear to auscultation with no wheezing or crackles. Abdomen: Mild tenderness to palpation of the abdomen.Soft, nondistended, positive bowel sounds. ?No guarding or rebound tenderness. Neurologic: Alert and oriented x3, no gross neurological deficit, and patient able to move all 4 extremities. Extremities: No edema. Skin: No rash or ecchymoses. Objective Labs 06/27/25 05:01 06/27/25 05:01 Labs: Laboratory Results - last 24 hr 06/26/25 04:55 WBC 7.7 RBC 4.82 Hgb 14.2 Hct 46.2 MCV 96 MCH 29.5 MCHC 30.7 L RDW Std Deviation 47.2 H Plt Count 216 Neut % (Auto) 69 Lymph % (Auto) 19 [place] % (Auto) 9 Eos % (Auto) 1 Baso % (Auto) 1 Neut # (Auto) 5.3 Lymph # (Auto) 1.5 [place] # (Auto) 0.7 Eos # (Auto) 0.1 Baso # (Auto) 0.1 Immature Gran # (Auto) 0.07 H Absolute Nucleated RBC 0.00 Immature Gran % 1 H Nucleated RBC % 0 Sodium 142 Potassium 4.4 Chloride 92 L Carbon Dioxide > 40.0 H Anion Gap 10 BUN 21 Creatinine 0.9 Estim Creat Clear Calc 86.2 eGFR > 60 BUN/Creatinine Ratio 23 H Glucose 119 H Calculated Osmolality 287 Calcium 9.4 Corrected Calcium 9.4 Phosphorus 2.8 Magnesium 2.0 Total Bilirubin 0.5 AST 16 ALT 16 Alkaline Phosphatase 91 Total Protein 6.3 Albumin 4.1 Globulin 2.2 L Albumin/Globulin Ratio 1.9 Quality Measures Quality Measures VTE prophylaxis Advance care planning discussed with:: patient Assessment & Plan Assessment Current Active Medications: Generic Name Dose Route Start Last Admin Trade Name Freq PRN Reason Stop Dose Admin Acetaminophen 650 mg 06/24/25 08:16 06/25/25 23:08 Acetaminophen 325 Mg Tablet PO 07/23/25 15:31 650 mg Q6H PRN Administration Fever >100.4 Albuterol/Ipratropium 3 ml 06/25/25 03:57 06/25/25 04:33 Albuterol/Ipratropium (Duoneb) Rt Cherise 3 Ml Nebu INH 07/25/25 03:56 3 ml Q6HRRT PRN Administration SHORTNESS OF BREATH OR WHEEZE Carvedilol 3.125 mg 06/25/25 08:00 06/26/25 08:23 Carvedilol 3.125 Mg Tablet PO 07/25/25 07:59 3.125 mg BIDWM TINY Administration Enoxaparin Sodium 40 mg 06/24/25 09:00 06/26/25 08:24 Enoxaparin Sod Inj 40 Mg/0.4 Ml Syringe SC 07/08/25 08:59 40 mg QDAY TINY Administration Ceftriaxone Sodium/Dextrose 1 gm in 50 mls @ 100 mls/hr 06/24/25 09:00 06/26/25 08:24 Rocephin/D5w 1gm Iv Premix IV 07/01/25 08:59 100 mls/hr QDAY TINY Administration Azithromycin 500 mg/ Sodium 250 mls @ 250 mls/hr 06/24/25 09:00 06/26/25 08:24 Chloride IV 07/01/25 08:59 250 mls/hr QDAY TINY Administration Ondansetron HCl 4 mg 06/23/25 15:32 Ondansetron Inj 2 Mg/Ml Inj 2 Ml IVP 07/23/25 15:31 Q6H PRN NAUSEA OR VOMITING Protocol Pantoprazole Sodium 40 mg 06/25/25 09:00 06/26/25 08:23 Pantoprazole 40 Mg Tablet PO 07/25/25 08:59 40 mg QDAY TINY Administration Sennosides 1 tab 06/24/25 09:00 06/26/25 08:24 Senna Tablet PO 07/24/25 08:59 1 tab QDAY TINY Administration Protocol Plan 69-year-old male with history of heart failure, COPD, and polysubstance use admitted for acute hypoxic respiratory failure secondary to CHF exacerbation and left lower lobe pneumonia, now clinically improving on antibiotics and diuresis; off Lasix, tolerating BiPAP, and likely ready for discharge pending final stabilization and O2 home delivery. #Acute hypoxic respiratory failure #Secondary to exacerbation of heart failure #In the setting of left lung pneumonia and continued methamphetamine use #Leukocytosis - Presented to the hospital with chief complaints of shortness of breath, fever and cough since 2 days - Reported that he ran out of his medications a month ago and since then he did not refill the medications due to insurance issues and did not take any medications. - Noted to have worsening shortness of breath since 2 days, associated with orthopnea but denies pedal edema, abdominal distention, decreased urine output. - Reported that he noted to have fever last night but did not take any medications for it and also noted to have cough since then. - Denies chest pain, recent sick contacts, travel, nausea, vomiting, diarrhea, burning micturition. - Vitals at the time of admission are significant for blood pressure 172/92 mmHg, pulse rate 101 bpm, SpO2 100% with 2 L oxygen - Urine toxicology tested positive for meth and marijuana - EKG at the time of admission showed normal sinus rhythm with tachycardia with no acute ST changes and noted to have inverted T waves in lead III - Chest x-ray done at the time of admission showed infiltrates in left base of the lung 06/26/2025: - Improving respiratory status and volume status; remains on 3 L NC. -Ambulatory O2 saturation test was ordered, patient's O2 sats repeated dropped to 86% when on room air so deferred. Dx: - 06/23 echocardiogram has resulted and shows EF of 55-60% and grade I diastolic dysfunction. Rx: - Fluid restriction of 1800 mL/day - Send patient on home O2, spoke with the company will take 24 to 48 hours so we will keep patient until then. - Possible DC tomorrow pending O2 home delivery. - Discontinue Lasix - Strict input and output - Rocephin and azithromycin [06/23- - BiPAP/CPAP at bedtime # Respiratory acidosis with compensatory metabolic alkalosis - Noted to have bicarb greater than 40 but patient is not using any diuretic as of now - Could be due to underlying suspected possible COPD/obstructive sleep apnea leading to compensatory metabolic alkalosis Plan - BiPAP/CPAP ordered #Substance use disorder - Urine toxicology tested positive for meth and marijuana - Initially patient denied and when confronted he accepted that he used her the day before admission Plan - Counseled on abstinence - Referred to elementary school social worker Hospital Maintenance: Dispo: Tele DVT ppx: Lovenox GI ppx: Protonix Diet: Cardiac and fluid restriction to 1800 IV lines: Peripheral Code status: Full ----- Plan discussed with attending physician Dr. Chun and senior resident Dr. Jory Hawkins MD PGY-1 Internal Medicine Attending Provider Attestation/Addendum I have examined the patient, reviewed labs and imaging findings, discussed the case with the resident(s), and reviewed entered orders. I agree with the plan of care as outlined in this note. Dr. Adiel MD
[2025-06-26] MEDS: ACETAMINOPHEN 325 MG TABLET 650 MG PO (22:41)
[2025-06-27] VITALS (12 sets, daily range): BP systolic 121–132; BP diastolic 71–84; PULSE 69–96; RESP 18–33; TEMP 36.1–36.2; O2SAT 90–96
[2025-06-27 05:38] LABS: Basophils # (Auto) 0.1 Thou/mm3 (0.0-0.2); Basophils % (Auto) 1 % (0-2.5); Eosinophils # (Auto) 0.1 Thou/mm3 (0.0-0.5); Eosinophils % (Auto) 1 % (0-10); Hematocrit 46.1 % (41.0-53.0); Hemoglobin 14.3 g/dL (13.5-16.0); Immature Granulocytes Auto 0.05 Thou/mm3 (0.00-0.00); Lymphocytes # (Auto) 1.5 Thou/mm3 (1.0-4.8); Lymphocytes % (Auto) 21 % (10-50); Mean Corpuscular HGB Conc 31.0 g/dl (31.0-37.0); Mean Corpuscular Hemoglobin 29.6 pg (25.0-35.0); Mean Corpuscular Volume 95 fL (80-100); Monocytes # (Auto) 0.7 Thou/mm3 (0.0-0.8); Monocytes % (Auto) 9 % (0-12); Neutrophils # (Auto) 4.6 Thou/mm3 (1.8-7.7); Neutrophils % (Auto) 67 % (37-80); Nucleated Red Blood Cell # 0.00 Thou/mm3 (0.00-0.00); Nucleated Red Blood Cell % 0 /100 WBC (0); Platelet Count 198 Thou/mm3 (140-440); RDW Standard Deviation 47.2 fL (35.1-43.9); Red Blood Count 4.83 Miln/mm3 (4.50-5.90); White Blood Count 7.0 Thou/mm3 (3.8-10.6)
[2025-06-27 06:07] LABS: Alanine Aminotransferase 15 U/L (10-49); Albumin, Serum 4.0 gm/dL (3.4-4.8); Albumin/Globulin Ratio 1.7 (1.2-2.2); Alkaline Phosphatase 87 U/L (46-116); Anion Gap 9 (7-16); Aspartate Amino Transferase 15 U/L (0-34); BUN/Creatinine Ratio 24 Ratio (12-20); Bilirubin,Total 0.5 mg/dL (0.3-1.2); Blood Urea Nitrogen 22 mg/dL (9-23); Calcium 9.2 mg/dL (8.3-10.6); Calcium (Corrected) 9.2 mg/dL (8.5-10.1); Carbon Dioxide > 40.0 mMol/L (20.0-31.0); Chloride 94 mMol/L (98-107); Creatinine (Component) 0.9 mg/dL (0.6-1.3); Estimated Creatinine Clearance 93.3 mL/min (>60); Globulin 2.3 gm/dL (2.3-3.5); Glucose 119 mg/dL (74-106); Magnesium 2.2 mg/dL (1.6-2.6); Osmolality,Calculated 289 (275-295); Phosphorous 3.5 mg/dL (2.4-5.1); Potassium 4.4 mMol/L (3.4-5.1); Sodium 143 mMol/L (136-145); Total Protein 6.3 gm/dL (5.7-8.2); eGFR > 60 See Note
[2025-06-27] MEDS: ENOXAPARIN SOD INJ 40 MG/0.4 ML SYRINGE SC (09:42)
[2025-06-27] MEDS: cefTRIAXone/D5w 1gm IV premix 1 GM/50 ML BAG IV (09:42)
[2025-06-27] MEDS: PANTOPRAZOLE 40 MG TABLET PO (09:42)
--- NOTE | 2025-06-27 10:04 | ESDS_ITS ---
Planned Discharge Date 06/27/25 DS: Providers Provider Date of admission: 06/23/25 15:32 Primary care physician: Physician No Primary/Family Admitting Provider: Anuradha Boyer MD Attending Provider on Admission: Willie Chun MD Attending Provider on DC: Willie Chun MD Discharging Provider: Marck Hawkins MD DS: Diagnosis Problem List Completed Was Problem List Reviewed/Reconciled?: Yes Hospital Course Hospital Course Hospital course: Mr Holbrook is a 69-year-old male with a history of heart failure, COPD, and polysubstance use who was admitted on 06/23/2025 for acute hypoxic respiratory failure secondary to CHF exacerbation and [id number] pneumonia. He presented with worsening dyspnea, fever, and cough after being off his home medications for one month and using methamphetamine prior to admission. On admission, CXR showed left-base pneumonia and WBC was elevated at 18.1. He was started on ceftriaxone and azithromycin, IV Lasix, and supplemental oxygen. An echocardiogram on 06/24 showed EF 55?60% with grade I diastolic dysfunction. His respiratory status improved with diuresis, antibiotics, and nighttime BiPAP use. Blood cultures returned 1/ positive for gram-positive cocci, likely contaminant; repeat cultures and sputum culture were negative. His volume status normalized, Lasix was discontinued, and he remained stable on 3 L NC with SpO2 96%. By 06/26?06/27, the patient reported feeling significantly better, remained afebrile, and labs normalized with WBC 7 and creatinine 0.9. He tolerated diet, had bowel movements, and denied chest pain, shortness of breath, or abdominal pain. Home oxygen was arranged and delivered. He was deemed medically stable for discharge. Diagnosis during admission: #Acute hypoxic respiratory failure #Left lower lobe pneumonia #CHF exacerbation (HFpEF, EF 55?60%) #COPD # Respiratory acidosis with compensatory metabolic alkalosis (chronic CO2 retention) #Polysubstance use disorder (methamphetamine, marijuana) #Hypertension Discharge Instructions: -Follow-Up: * Please follow up with your primary care provider (PCP) within 1 week of discharge. * If you do not have a PCP, please follow up with our outpatient clinic, and we will help establish ongoing care. -Medications: * Augmentin 500-125 mg: Take one tablet twice daily for 2 more days to complete pneumonia treatment. * Coreg (carvedilol): Take as prescribed for heart rate and blood pressure control. * Trelegy Ellipta: Use once daily as prescribed to support your breathing and lung function. -Home Oxygen: * Your home oxygen equipment has been delivered, and you are cleared to go home with it. * Continue oxygen at 3 liters via nasal cannula unless directed otherwise by your doctor. -Activity & Breathing: * Use your oxygen continuously as instructed. * Use incentive spirometry several times a day to strengthen your lungs. * Walk as tolerated to prevent deconditioning. -Please return to the ER or contact your doctor immediately if you develop, Worsening shortness of breath, Chest pain, fever or chills. -Avoid smoking, alcohol, and recreational drug use, as these worsen heart and lung disease. ----- Plan discussed with attending physician Dr. Adiel Hawkins MD PGY-1 Internal Medicine Time Spent with Patient Time attestation: Total time spent providing and/or coordinating discharge services: Time spent: Greater than 30 minutes Exam Vital Signs Temp Pulse Resp BP Pulse Ox O2 Del Method O2 Flow Rate 97.1 F 83 18 131/84 H 92 L Nasal Cannula 3 06/27/25 08:00 06/27/25 09:41 06/27/25 08:00 06/27/25 09:41 06/27/25 08:00 06/27/25 08:00 06/27/25 08:00 FiO2 30 06/26/25 22:31 Narrative Exam General: Awake. HEENT: Wet, productive, and phlegmy cough appreciated. Normocephalic, atraumatic, mucous membranes moist. Heart: Regular rate and rhythm, no murmurs. no more JVD. Lungs: On 3 L NC. Clear to auscultation with no wheezing or crackles. Abdomen: Mild tenderness to palpation of the abdomen.Soft, nondistended, positive bowel sounds. ?No guarding or rebound tenderness. Neurologic: Alert and oriented x3, no gross neurological deficit, and patient able to move all 4 extremities. Extremities: No edema. Skin: No rash or ecchymoses. Discharge Plan Plan Patient Disposition: HOME (Self Care) Patient condition on transfer: Stable Care Plan Goals: Discharge Instructions: -Follow-Up: * Please follow up with your primary care provider (PCP) within 1 week of discharge. * If you do not have a PCP, please follow up with our outpatient clinic, and we will help establish ongoing care. -Medications: * Augmentin 500-125 mg: Take one tablet twice daily for 2 more days to complete pneumonia treatment. * Coreg (carvedilol): Take as prescribed for heart rate and blood pressure control. * Trelegy Ellipta: Use once daily as prescribed to support your breathing and lung function. -Home Oxygen: * Your home oxygen equipment has been delivered, and you are cleared to go home with it. * Continue oxygen at 3 liters via nasal cannula unless directed otherwise by your doctor. -Activity & Breathing: * Use your oxygen continuously as instructed. * Use incentive spirometry several times a day to strengthen your lungs. * Walk as tolerated to prevent deconditioning. -Please return to the ER or contact your doctor immediately if you develop, Worsening shortness of breath, Chest pain, fever or chills. -Avoid smoking, alcohol, and recreational drug use, as these worsen heart and lung disease. Prescriptions/Referrals Prescriptions/Med Rec: New amoxicillin-pot clavulanate [Augmentin] 500-125 mg tablet 1 tab PO BID 2 Days Qty: 4 0RF carvedilol [Coreg] 3.125 mg tablet 3.125 mg PO BID 30 Days Qty: 60 0RF Rx Instructions: must administer with a meal/food Trelegy Ellipta 100-62.5-25 mcg blister with device 1 inh inhalation QDAY Qty: 28 0RF Continued Trelegy Ellipta 100-62.5-25 mcg blister with device 1 inh inhalation QDAY Qty: 60 2RF metoprolol succinate 25 mg tablet extended release 24 hr 12.5 mg PO QDAY Qty: 30 0RF Entresto 24-26 mg tablet 1 tab PO BID Qty: 60 0RF atorvastatin 20 mg tablet 40 mg PO HS Qty: 30 2RF bumetanide 1 mg tablet 1.5 mg PO QDAY Qty: 60 0RF albuterol sulfate 2.5 mg/0.5 mL solution for nebulization 2.5 mg inhalation Q20M Qty: 30 2RF Rx Instructions: for up to 3 doses Referrals: No Primary/Family,Physician [Primary Care Provider] Patient/Caregiver Discharge Instructions Discharge Activity: activity as tolerated Education Materials: COPD: Chronic Coughing, Preventing Pneumonia, Treating Pneumonia, Discharge Instructions: COPD, COPD Meds, Heart Failure Print Language: Khmer Stand Alone Forms: [facility] Award Info., Patient Portal Info Letter Discharge Order Discharge Orders: Discharge (Routine); Ordered 06/27/25 Ordered By: Marck Hawkins Quality Discharge Quality Measures VTE prophylaxis MD Attestestation MD Attestation I have examined the patient, reviewed labs and imaging findings, discussed the case with the resident(s), and reviewed entered orders. I agree with the plan of care as outlined in this note. Time Spent: [address] Adiel MD
--- NOTE | 2025-06-27 12:56 | PC.SS ---
SS was informed pt will need transport assistance with [facility], pt has equipment for new O2. SS reached out to [facility] and spoke to Shweta, who took pt information down and will call SS back with availability
== END 2025-06-27 15:32 | disposition home or self-care (01) | DRG 193 ==
LOC: SERX 14:46 → SERHOLD 16:04 → S2NX 18:48
PROVIDERS: Admitting Provider Internal Medicine; Emergency Provider Emergency Medicine; Visit Provider Student in an Organized Health Care Education/Training Program
DX: J18.9 Pneumonia, unspecified organism (principal); I50.33 Acute on chronic diastolic (congestive) heart failure; J96.01 Acute respiratory failure with hypoxia; J96.02 Acute respiratory failure with hypercapnia; J44.0 Chronic obstructive pulmonary disease with (acute) lower respiratory infection; E87.3 Alkalosis; E87.4 Mixed disorder of acid-base balance; F15.10 Other stimulant abuse, uncomplicated; I11.0 Hypertensive heart disease with heart failure; F17.200 Nicotine dependence, unspecified, uncomplicated; Z79.899 Other long term (current) drug therapy
CPT/HCPCS: 36415; 36600; 74022; 80053; 80307; 80320; 81001; 82803; 83605; 83690; 83735; 83880; 84100; 84145; 84443; 84484; 85025; 85610; 85730; 87040; 87077; 87186; 87205; 87502; 87635; 93005; 93306; 94640; 94660; 96365; 96366; 96375; 96376; 99284; A9270; J0456; J0696; J1650; J1938; J2470; J7050; G0480

== ENCOUNTER 2025-07-03 13:22 | Outpatient (AMB) | payer MEDICARE, MEDICAID, SELFPAY ==
--- NOTE | 2025-07-03 13:24 | ACNOTE_ITS ---
Vital Signs 07/03/25 13:36 Weight 94.404 kg Weight Measurement Method Standing Scale BP 112/71 Blood Pressure Source Automatic Cuff Blood Pressure Location Right Upper Arm Position Sitting Respiration 18 Pulse 88 Pulse Source Monitor Pulse Oximetry (%) 94 L Oxygen Delivery Method Room Air Allergies/Meds Allergies & Medications Allergies No Known Allergies Allergy (Verified 07/03/25 13:37) Medication Reconciliation albuterol sulfate 2.5 mg/0.5 mL solution for nebulization 2.5 mg (0.5 mL) inhalation Q20M #30 ea 02/22/25 [Rx Confirmed 07/03/25] atorvastatin 20 mg tablet 40 mg (2 x 20 mg) PO HS #30 tabs 02/22/25 [Rx Confirmed 07/03/25] bumetanide 1 mg tablet 1.5 mg (1.5 x 1 mg) PO QDAY #60 tabs 02/22/25 [Rx Confirmed 07/03/25] fluticasone fur. 100 mcg-umeclid 62.5 mcg-vilant 25 mcg inhalat.powder (Trelegy Ellipta) 1 inh inhalation QDAY #60 ea 02/22/25 [Rx Confirmed 07/03/25] metoprolol succinate 25 mg tablet,extended release 24 hr 12.5 mg (1/2 x 25 mg) PO QDAY #30 tabs 02/22/25 [Rx Confirmed 07/03/25] sacubitril 24 mg-valsartan 26 mg tablet (Entresto) 1 tab PO BID #60 tabs 02/22/25 [Rx Confirmed 07/03/25] carvedilol 3.125 mg tablet (Coreg) 3.125 mg PO BID 30 days #60 tabs 06/27/25 [Rx Confirmed 07/03/25] fluticasone fur. 100 mcg-umeclid 62.5 mcg-vilant 25 mcg inhalat.powder (Trelegy Ellipta) 1 inh inhalation QDAY #28 ea 06/27/25 [Rx Confirmed 07/03/25] MA Intake Visit Data Collection New Patient or Established: Established Patient (seen at [facility] within 3 years) Seen by Clinical Staff ONLY (RN/ADRIEN): No Pain Present Currently: No Pain scale:: 0 Pain Scale Used: Nguyen-Barragan/[employer]st Required: No PCP or OBGYN visit in last 3 months: Yes Do You Feel Safe at Home: Yes Authorities Contacted: N/A Smoking Status Smoking Status: Unknown if ever smoked Immunization / Flu Flu Vaccine in the Last 12 Months: No Flu Vaccine Exclusion Criteria: No Exclusion Criteria Past Medical History Past Medical History NEUROLOGIC: Positive Neurological Disorders and Peripheral Neuropathy CARDIAC: Positive Cardiac Disorders, Congestive Heart Failure and Edema RESPIRATORY: Positive Chronic Obstructive Pulmonary Disease (COPD) GASTROINTESTINAL: Negative Gastrointestinal Disorders GENITOURINARY: Negative Renal Disease MUSCULOSKELETAL: Positive Arthritis ENDOCRINE: Negative Endocrine Disorders, Diabetes Mellitus Type 1 or Diabetes Mellitus Type 2 PSYCHO/SOCIAL: Positive Recreational Drug Use OTHER HISTORY: Negative Hospitalization, Shingles, Falls, Blood Transfusions, Anesthesia Reactions, MRSA or Cancer Social History SMOKING STATUS: Smoking status: Unknown if ever smoked SECOND HAND EXPOSURE: second hand exposure: No ALCOHOL: Alcohol Intake: Current ALCOHOL FREQUENCY: Alcohol Intake Frequency: holidays/special occasions only HOUSING: Housing: [facility] LIVES WITH: Lives With: Alone Patient Portal [facility] Social History Living Situation History Housing: [facility] Housing Other:: Pt lives alone Tobacco History Smoking Status: Unknown if ever smoked Packs per Day: 1 Second Hand Smoke Exposure: No Alcohol History Alcohol Intake: Current Alcohol Intake Frequency: holidays/special occasions only Substance Use History Substance Use: meth Domestic Abuse History Do You Feel Safe at Home: Yes Review of Systems Report any current symptoms Only answer those that you have currently: Past Medical History Past Medical History Have you ever been diagnosed with any of the following: Neurological Problems Peripheral Neuropathy: Yes Cardiology Problems Congestive Heart Failure: Yes Edema: Yes Respiratory Problems Chronic Obstructive Pulmonary Disease (COPD): Yes Genital/Urinary Problems Renal Disease: No Musculoskeletal Problems Arthritis: Yes Endocrine Problems Diabetes Mellitus Type 1: No Diabetes Mellitus Type 2: No Psychologic Problems Recreational Drug Use: Yes Other Problems Hospitalization: No Shingles: No Falls: No Blood Transfusions: No Anesthesia Reactions: No MRSA: No Cancer: No History of Present Illness HPI Narrative 69-year-old male past medical history of heart failure, COPD, polysubstance use presents to the office today after being admitted to [facility] on 06/23/2025 for acute hypoxic respiratory failure secondary to CHF exacerbation in addition to left lower lobe pneumonia. At the time the patient had stopped taking his home meds for a month and used meth before admission. He was treated in the hospital ceftriaxone, azithromycin, Lasix, and supplemental oxygen. Blood cultures were negative and he was stable for discharge. He was discharged on Augmentin, Coreg, and Trelegy. Review of Systems Review of Systems Narrative Review of Systems: Review of Systems: * General: Denies fevers, chills. * HEENT: Denies headache, congestion, or sore throat. * Cardiac: Denies chest pain or palpitations. * Pulmonary: Patient endorses shortness of breath when walking up several flights of stairs. * GI: Denies nausea, vomiting, diarrhea, constipation, melena, or hematochezia. * : Denies dysuria, hematuria, frequency, or urgency. * MSK: Denies pain in the extremities, joints, or myalgias. * Neuro: Denies weakness, numbness, vision changes, or speech difficulty. Objective/Exam Narrative Physical exam: General: Awake and in no acute distress. Conversational and non-toxic appearing. Neurologic: GCS 15. Alert and oriented x3, no gross neurological deficit, and patient able to move all 4 extremities. HEENT: Normocephalic, atraumatic, mucous membranes moist. Pupils reactive to light. Heart: Regular rate and rhythm, normal S1 and S2, no murmurs. Lungs: Decreased breath sounds in the left base. No wheezing or crackles in any lung bowie. Abdomen: Soft, nondistended, nontender, positive bowel sounds. No guarding or rebound tenderness. Extremities: No edema. 2+ radial and dorsalis pedis pulses bilaterally. Skin: Warm. Dry. No rash or ecchymoses. Assessment & Plan Diagnosis / Problem List (1) Hyperlipemia: Status: Acute Qualifiers: Hyperlipidemia type: mixed hyperlipidemia Qualified Code(s): E78.2 - Mixed hyperlipidemia Assessment & Plan: * Cholesterol 111 in January 2025 * Patient has not been taking his atorvastatin Plan: * Restart atorvastatin 40 mg nightly (2) Heart failure: Status: Acute Qualifiers: Heart failure chronicity: chronic Heart failure type: diastolic Qualified Code(s): I50.32 - Chronic diastolic (congestive) heart failure Assessment & Plan: * Patient has heart failure with mildly reduced ejection fraction, echo in 06/23/2025 showed EF 55-60%, mild concentric hypertrophy * Patient endorses shortness of breath after walking up several fights of stairs * Patient denies shortness of breath on flat ground walking * He denies chest pain, palpitations * The fact that the patient does not have chest pain upon walking upstairs makes a coronary issue less likely * Consider shortness of breath in the presence of COPD * Patient does not have signs of heart failure on exam. He is negative for crackles. He has no peripheral edema. * BP 112/71 * Patient has not been taking any diuretics, only been taking Coreg 3.125 twice daily Plan: * Continue carvedilol 3.125 mg twice daily * Discontinue metoprolol 12.5 mg daily * Discontinue Entresto sacubitril-valsartan 24-26 mg daily * Discontinue Bumex 1.5 mg daily (3) COPD (chronic obstructive pulmonary disease): Status: Acute Qualifiers: COPD type: unspecified COPD Qualified Code(s): J44.9 - Chronic obstructive pulmonary disease, unspecified Assessment & Plan: * Patient on Trelegy * Patient mentions that he uses home oxygen on and off, only when his saturation is 88-92% * Satting at 94% today in the office on room air Plan: * Continue Trelegy * Albuterol as needed * Continue home oxygen as needed (4) Community acquired pneumonia: Status: Acute Qualifiers: Laterality: left Lung location: lower lobe of lung Qualified Code(s): J18.9 - Pneumonia, unspecified organism Assessment & Plan: * Patient presents after hospital admission for acute hypoxic respiratory failure secondary to left lower lobe pneumonia * Patient was treated with ceftriaxone, azithromycin * Was discharged on Augmentin, finished course * Auscultation produced reduced breath sounds in the left lower lung bowie, there were no wheezes or crackles Plan: * Follow-up chest x-ray within 4 weeks to track progress of pneumonia Plan * CBC ordered * CMP ordered * Chest x-ray ordered * Cardiology referral * Patient will continue Coreg, Trelegy, albuterol as needed Patient was seen and discussed with my attending physician Dr. Ana M LATHAM. Nas Petersen DO PGY-1 Orders: Orders CBC 4 Weeks Tremaine Petersen NP E78.2 - Mixed hyperlipidemia Comprehensive Metabolic Panel 4 Weeks Tremaine Petersen NP E78.2 - Mixed hyperlipidemia XR chest 1V 4 Weeks Tremaine Petersen NP I50.32 - Chronic diastolic (congestive) heart failure XR chest 1V portable 4 Weeks Tremaine Petersen NP I50.32 - Chronic diastolic (congestive) heart failure Referrals Cardiology Nas Petersen DO I50.32 - Chronic diastolic (congestive) heart failure Advanced Care Planning Advance care planning discussed with:: patient Office Procedures [facility] Level of Care Nursing/Assessment Patient Status: Established Patient Nursing Assessment/Reassessment: Medication Reconciliation, Update PMH in EMR and Vital Signs Coordination of Care: Complex Care and Chronic Disease 1-5, Complex Care/Chronic Disease 5 or more, Consent,records obtained, informed consent, Lab and Imaging orders, Results/Orders obtained and Staff clarify orders Established Patient Charge Established Patient Point Assignment: 125 Established Patient Point Charge: EP Level 4 (120-155)
[2025-07-03 13:36] VITALS: BP 112/71; PULSE 88; RESP 18; O2SAT 94
== END 2025-07-03 14:23 | disposition home or self-care (01) ==
LOC: HODAHC 13:22
PROVIDERS: Supervising Provider Internal Medicine; Visit Provider Registered Nurse
DX: I50.32 Chronic diastolic (congestive) heart failure (principal); J44.0 Chronic obstructive pulmonary disease with (acute) lower respiratory infection; J18.9 Pneumonia, unspecified organism; E78.2 Mixed hyperlipidemia
CPT/HCPCS: 99214; G0463

== ENCOUNTER 2025-07-09 17:32 | Emergency (ER) | payer MEDICARE, MEDICAID, SELFPAY ==
[2025-07-09 17:39] VITALS: BP 144/82; PULSE 98; RESP 18; TEMP 36.3; O2SAT 98
[2025-07-09 17:40] VITALS: BMI 28.5
--- NOTE | 2025-07-09 17:41 | XR_ITS ---
EXAMINATION: PA chest single view TECHNIQUE: Upright PA chest single view Date and time: July 09-5179 6 hours, comparison June 23, 2025 INDICATIONS: Shortness of breath today. FINDINGS: Normal heart size Mild opacity left base suspicious for early pneumonia No pulmonary edema Intact osseous structures IMPRESSION: Suspicious for early left base pneumonia
--- NOTE | 2025-07-09 17:41 | PD.EDADULT ---
ED General RME/HPI General Chief complaint: Medical Clearance Stated complaint: MEDICAL CLEARANCE Time Seen by Provider: 07/09/25 17:36 Arrival date/time: 07/09/25 17:32 CC: Medical clearance HPI patient presents to the ER via EMS handcuffed, the patient states he has COPD and pneumonia . Patient was rejected by intake because these are serious . Vital signs show the patient has a sats of 99% is not in any acute distress. Patient states he stopped smoking 2 weeks ago Related Data Previous Rx's ?Medication ?Instructions ?Recorded albuterol sulfate 2.5 mg/0.5 mL 2.5 mg (0.5 mL) inhalation Q20M 02/22/25 solution for nebulization #30 ea atorvastatin 20 mg tablet 40 mg (2 x 20 mg) PO HS #30 tabs 02/22/25 bumetanide 1 mg tablet 1.5 mg (1.5 x 1 mg) PO QDAY #60 02/22/25 tabs fluticasone fur. 100 mcg-umeclid 1 inh inhalation QDAY #60 ea 02/22/25 62.5 mcg-vilant 25 mcg inhalat.powder (Trelegy Ellipta) metoprolol succinate 25 mg 12.5 mg (1/2 x 25 mg) PO QDAY #30 02/22/25 tablet,extended release 24 hr tabs sacubitril 24 mg-valsartan 26 mg 1 tab PO BID #60 tabs 02/22/25 tablet (Entresto) carvedilol 3.125 mg tablet (Coreg) 3.125 mg PO BID 30 days #60 tabs 06/27/25 fluticasone fur. 100 mcg-umeclid 1 inh inhalation QDAY #28 ea 06/27/25 62.5 mcg-vilant 25 mcg inhalat.powder (Trelegy Ellipta) albuterol sulfate 90 mcg/actuation 1 inh inhalation QID PRN shortness 07/03/25 aerosol inhaler (Ventolin HFA) of breath #6.7 grams Allergies Allergy/AdvReac Type Severity Reaction Status Date / Time No Known Allergies Allergy Verified 07/03/25 13:37 Review of Systems Review of Systems Narrative Review of Systems: GEN: No fever, no chills, no weight loss EYES: No discharge, no visual changes, no pain HEENT: No ear pain, no congestion, no sore throat PULM: No shortness of breath, no cough, no congestion CV: No chest pain, no dyspnea on exertion, no palpitations GI: No nausea, no vomiting, no diarrhea, no pain, no constipation : No frequency, no urgency, no dysuria MUSC/SKEL: No joint pain, no back pain SKIN: No rash PSYCH: No hallucinations, no depression HEME/LYMPH: No easy bleeding or bruising tendencies NEURO: No weakness, no headache Past Medical History Past Medical History NEUROLOGIC: Positive Neurological Disorders and Peripheral Neuropathy CARDIAC: Positive Cardiac Disorders, Congestive Heart Failure and Edema RESPIRATORY: Positive Chronic Obstructive Pulmonary Disease (COPD) GASTROINTESTINAL: Negative Gastrointestinal Disorders GENITOURINARY: Negative Renal Disease MUSCULOSKELETAL: Positive Musculoskeletal Disorders and Arthritis ENDOCRINE: Negative Endocrine Disorders, Diabetes Mellitus Type 1 or Diabetes Mellitus Type 2 PSYCHO/SOCIAL: Positive Recreational Drug Use OTHER HISTORY: Negative Hospitalization, Shingles, Falls, Blood Transfusions, Anesthesia Reactions, MRSA or Cancer Social History SMOKING STATUS: Unknown if ever smoked SECOND HAND EXPOSURE: No SUBSTANCE USE: former substance user ED Exam Narrative Physical exam: [General: Not in any acute distress Head normocephalic HEENT: Within acceptable limits Neck is supple nontender Chest equal chest rise nontender to palpation Respiratory: Clear to auscultation no wheezes crackles or rubs CV: Rate rhythm is regular no murmurs rubs or clicks Abdomen is distended secondary to body habitus soft nontender no masses positive bowel sounds all 4 quadrants Back: No CVA tenderness no spinous process tenderness from cervical spine thoracic and lumbar spine Skin: Intact no petechiae rash induration ulceration or crepitus Extremities: Moving all extremity against resistance cap refill less than 2 seconds neurosensory intact Neuro: Awake alert oriented x3 Glascow coma 15 no focal deficits] Course Quality Measures none Orders Category Date Time Status XR chest 1V Stat Exams 07/09/25 17:41 Completed Vital Signs Vital signs: Vital Signs Temperature 97.4 F 07/09/25 17:39 Pulse Rate 98 07/09/25 17:39 Respiratory Rate 18 07/09/25 17:39 Blood Pressure 144/82 H 07/09/25 17:39 Pulse Oximetry (%) 98 07/09/25 17:39 Oxygen Delivery Method Room Air 07/09/25 17:39 Discharge Plan Plan Patient Disposition: Custodial/Court/Law Patient condition on transfer: Stable Prescriptions/Referrals Prescriptions/Med Rec: No Action Trelegy Ellipta 100-62.5-25 mcg blister with device 1 inh inhalation QDAY Qty: 60 2RF metoprolol succinate 25 mg tablet extended release 24 hr 12.5 mg PO QDAY Qty: 30 0RF Entresto 24-26 mg tablet 1 tab PO BID Qty: 60 0RF atorvastatin 20 mg tablet 40 mg PO HS Qty: 30 2RF bumetanide 1 mg tablet 1.5 mg PO QDAY Qty: 60 0RF albuterol sulfate 2.5 mg/0.5 mL solution for nebulization 2.5 mg inhalation Q20M Qty: 30 2RF Rx Instructions: for up to 3 doses albuterol sulfate [Ventolin HFA] 90 mcg/actuation HFA aerosol inhaler 1 inh inhalation QID PRN (Reason: shortness of breath) Qty: 6.7 3RF Rx Instructions: Take one puff up to four times a day as needed for shortness of breath carvedilol [Coreg] 3.125 mg tablet 3.125 mg PO BID 30 Days Qty: 60 0RF Rx Instructions: must administer with a meal/food Trelegy Ellipta 100-62.5-25 mcg blister with device 1 inh inhalation QDAY Qty: 28 0RF Referrals: No Primary/Family,Physician [Primary Care Provider] - In 1 week Problem List Clinical Impression: Medical clearance for incarceration Patient/Caregiver Discharge Instructions Print Language: Swedish PA/RN MEDICAL INPATIENT SERVICES Supervising Physician PA/RN MEDICAL INPATIENT SERVICES Supervising Physician: Frank Luna ENP [facility] Clinical Information Provided by: patient and law enforcement Medical Records reviewed [facility] Meds/Rx considered, not ordered None Labs/Rad/Tests considered, not ordered None Chronic Illness/Social Conditions Explain: COPD EKG EKG not done Imaging Imaging interpretation: interpreted by me Imaging Interpretation(s): Chest x-ray shows no acute pneumonic process good but sharp costophrenic angles. No significant infiltrates. The patient is afebrile nontoxic will discharge patient back to nursing home
== END 2025-07-09 18:29 ==
PROVIDERS: Emergency Provider Emergency Medicine
DX: Z02.89 Encounter for other administrative examinations (principal); J44.0 Chronic obstructive pulmonary disease with (acute) lower respiratory infection; Z79.899 Other long term (current) drug therapy; Z87.891 Personal history of nicotine dependence
CPT/HCPCS: 71045; 99282

== ENCOUNTER 2025-07-28 15:58 | Emergency (ER) | payer MEDICARE, MEDICAID, SELFPAY ==
[2025-07-28 15:58] VITALS: BMI 27.1
[2025-07-28 16:46] VITALS: BP 111/72; PULSE 88; RESP 22; TEMP 36.6; O2SAT 96
--- NOTE | 2025-07-28 16:59 | PD.EDRME ---
Rapid Medical Screening Exam RME Arrival date/time: 07/28/25 15:58 Chief Complaint: Shortness of Breath/Dyspnea Time Seen by Provider: 07/28/25 16:51 Vital signs: Vital Signs Temperature 97.8 F 07/28/25 16:46 Pulse Rate 88 07/28/25 16:46 Respiratory Rate 22 H 07/28/25 16:46 Blood Pressure 111/72 07/28/25 16:46 Pulse Oximetry (%) 96 07/28/25 16:46 Oxygen Delivery Method Room Air 07/28/25 16:46 RME Narrative: Cough, shortness of breath x10 days. Patient admitted for pneumonia last month. Hx of COPD Exam: Well-appearing, no acute distress Clinical Impression: Cough, shortness of breath
--- NOTE | 2025-07-28 17:01 | EKG_ITS ---
[facility] Test Date: 2025-07-28 Pat Name: JONAS SEWELL Department: Room: - Gender: Male Harness Tier: : 1955 Requested By: Jovon Noriega Order Number: [id number] Reading MD: Jovon Noriega Measurements Intervals [place] Rate: 91 P: 65 CT: 135 QRS: 108 QRSD: 86 T: -14 QT: 370 QTc: 455 Interpretive Statements SINUS RHYTHM WITH SINUS ARRHYTHMIA ST DEPRESSION, CONSIDER SUBENDOCARDIAL INJURY [0.1+ mV ST DEPRESSION] Compared to ECG 06/23/2025 11:58:38 ST (T wave) deviation now present Sinus tachycardia no longer present Right-axis deviation no longer present /store/S0/[id number]/[id number].pdf
--- NOTE | 2025-07-28 17:01 | XR_ITS ---
EXAMINATION: PA chest single view TECHNIQUE: Upright PA chest single view Date and time: July 28, 2025, 1713 hours, comparison July 09, 2025 INDICATIONS: Coughing shortness of breath today. FINDINGS: Suspicious for early bibasilar pneumonia Normal heart size Ectatic thoracic aorta. Mild osteopenia IMPRESSION: Suspicious for early bibasilar pneumonia, clinical correlation advised
[2025-07-28 17:20] LABS: Basophils # (Auto) 0.0 Thou/mm3 (0.0-0.2); Basophils % (Auto) 1 % (0-2.5); Eosinophils # (Auto) 0.2 Thou/mm3 (0.0-0.5); Eosinophils % (Auto) 2 % (0-10); Hematocrit 48.5 % (41.0-53.0); Hemoglobin 15.3 g/dL (13.5-16.0); Immature Granulocytes Auto 0.02 Thou/mm3 (0.00-0.00); Lymphocytes # (Auto) 1.6 Thou/mm3 (1.0-4.8); Lymphocytes % (Auto) 24 % (10-50); Mean Corpuscular HGB Conc 31.5 g/dl (31.0-37.0); Mean Corpuscular Hemoglobin 29.1 pg (25.0-35.0); Mean Corpuscular Volume 92 fL (80-100); Monocytes # (Auto) 0.7 Thou/mm3 (0.0-0.8); Monocytes % (Auto) 11 % (0-12); Neutrophils # (Auto) 3.9 Thou/mm3 (1.8-7.7); Neutrophils % (Auto) 61 % (37-80); Nucleated Red Blood Cell # 0.00 Thou/mm3 (0.00-0.00); Nucleated Red Blood Cell % 0 /100 WBC (0); Platelet Count 160 Thou/mm3 (140-440); RDW Standard Deviation 47.6 fL (35.1-43.9); Red Blood Count 5.26 Miln/mm3 (4.50-5.90); White Blood Count 6.4 Thou/mm3 (3.8-10.6)
[2025-07-28 17:43] LABS: B-Type Natriuretic Peptide 74 pg/mL (0-100)
[2025-07-28 17:44] LABS: Alanine Aminotransferase 20 U/L (10-49); Albumin, Serum 4.2 gm/dL (3.4-4.8); Albumin/Globulin Ratio 1.6 (1.2-2.2); Alkaline Phosphatase 96 U/L (46-116); Anion Gap 9 (7-16); Aspartate Amino Transferase 28 U/L (0-34); BUN/Creatinine Ratio 14 Ratio (12-20); Bilirubin,Total 0.5 mg/dL (0.3-1.2); Blood Urea Nitrogen 15 mg/dL (9-23); Calcium 9.7 mg/dL (8.3-10.6); Calcium (Corrected) 9.7 mg/dL (8.5-10.1); Carbon Dioxide 36.8 mMol/L (20.0-31.0); Chloride 95 mMol/L (98-107); Creatinine (Component) 1.1 mg/dL (0.6-1.3); Estimated Creatinine Clearance 69.6 mL/min (>60); Globulin 2.6 gm/dL (2.3-3.5); Glucose 140 mg/dL (74-106); Osmolality,Calculated 284 (275-295); Potassium 3.7 mMol/L (3.4-5.1); Sodium 141 mMol/L (136-145); Total Protein 6.8 gm/dL (5.7-8.2); Troponin I < 0.020 ng/mL (0.0-0.045); eGFR > 60 See Note
--- NOTE | 2025-07-28 18:52 | PD.EDADULT ---
ED General RME/HPI General Chief complaint: Shortness of Breath/Dyspnea Stated complaint: SOB X3 DAYS Time Seen by Provider: 07/28/25 16:51 Arrival date/time: 07/28/25 15:58 CC: Shortness of breath HPI patient was recently released from skilled nursing prior to which the patient had been admitted for pneumonia. The patient is here stating that he feels like he is short of breath again. Patient states he feels like it is the same all over again . Patient is noted to be afebrile nontoxic-appearing not in any acute distress speaking in full sentences with oxygen saturations at 94% on room air. RME / HPI RME / HPI narrative: Cough, shortness of breath x10 days. Patient admitted for pneumonia last month. Hx of COPD Exam: Well-appearing, no acute distress Impression: Cough, shortness of breath Related Data Previous Rx's ?Medication ?Instructions ?Recorded albuterol sulfate 2.5 mg/0.5 mL 2.5 mg (0.5 mL) inhalation Q20M 02/22/25 solution for nebulization #30 ea atorvastatin 20 mg tablet 40 mg (2 x 20 mg) PO HS #30 tabs 02/22/25 bumetanide 1 mg tablet 1.5 mg (1.5 x 1 mg) PO QDAY #60 02/22/25 tabs fluticasone fur. 100 mcg-umeclid 1 inh inhalation QDAY #60 ea 02/22/25 62.5 mcg-vilant 25 mcg inhalat.powder (Trelegy Ellipta) metoprolol succinate 25 mg 12.5 mg (1/2 x 25 mg) PO QDAY #30 02/22/25 tablet,extended release 24 hr tabs sacubitril 24 mg-valsartan 26 mg 1 tab PO BID #60 tabs 02/22/25 tablet (Entresto) fluticasone fur. 100 mcg-umeclid 1 inh inhalation QDAY #28 ea 06/27/25 62.5 mcg-vilant 25 mcg inhalat.powder (Trelegy Ellipta) albuterol sulfate 90 mcg/actuation 1 inh inhalation QID PRN shortness 07/03/25 aerosol inhaler (Ventolin HFA) of breath #6.7 grams albuterol 90 mcg-budesonide 80 2 inh inhalation QDAY PRN 07/28/25 mcg/actuation HFA aerosol inhaler shortness of breath #5.9 grams Allergies Allergy/AdvReac Type Severity Reaction Status Date / Time No Known Allergies Allergy Verified 07/03/25 13:37 Review of Systems Review of Systems Narrative Review of Systems: GEN: No fever, no chills, no weight loss EYES: No discharge, no visual changes, no pain HEENT: No ear pain, no congestion, no sore throat PULM: + shortness of breath, no cough, no congestion CV: No chest pain, no dyspnea on exertion, no palpitations GI: No nausea, no vomiting, no diarrhea, no pain, no constipation : No frequency, no urgency, no dysuria MUSC/SKEL: No joint pain, no back pain SKIN: No rash PSYCH: No hallucinations, no depression HEME/LYMPH: No easy bleeding or bruising tendencies NEURO: No weakness, no headache Past Medical History Past Medical History NEUROLOGIC: Positive Neurological Disorders and Peripheral Neuropathy CARDIAC: Positive Cardiac Disorders, Congestive Heart Failure and Edema RESPIRATORY: Positive Chronic Obstructive Pulmonary Disease (COPD) GASTROINTESTINAL: Negative Gastrointestinal Disorders GENITOURINARY: Negative Renal Disease MUSCULOSKELETAL: Positive Musculoskeletal Disorders and Arthritis ENDOCRINE: Negative Endocrine Disorders, Diabetes Mellitus Type 1 or Diabetes Mellitus Type 2 PSYCHO/SOCIAL: Positive Recreational Drug Use OTHER HISTORY: Negative Hospitalization, Shingles, Falls, Blood Transfusions, Anesthesia Reactions, MRSA or Cancer Social History SMOKING STATUS: Never smoker SECOND HAND EXPOSURE: No SUBSTANCE USE: former substance user ED Exam Narrative Physical exam: [General: Not in any acute distress Head normocephalic HEENT: Within acceptable limits Neck is supple nontender Chest equal chest rise nontender to palpation Respiratory: Clear to auscultation no wheezes crackles or rubs CV: Rate rhythm is regular no murmurs rubs or clicks Abdomen is soft nontender no masses positive bowel sounds all 4 quadrants Back: No CVA tenderness no spinous process tenderness from cervical spine thoracic and lumbar spine Skin: Intact no petechiae rash induration ulceration or crepitus Extremities: Moving all extremity against resistance cap refill less than 2 seconds neurosensory intact Neuro: Awake alert oriented x3 Glascow coma 15 no focal deficits] Course Course Course Narrative: Patient is not in any respiratory distress. Patient was shown the list of the medications that were continued from his discharge. Patient states he does not recognize the majority of them and does not want them refilled he will follow-up with his primary care doctor he is just interested in a steroid injection and albuterol inhaler. The patient is awake alert oriented nontoxic-appearing not in any acute distress with no shortness of breath we will oblige the patient and discharged him to follow-up. Quality Measures none Orders Category Date Time Status EKG (ED ONLY) *Do not use* NOW Care 07/28/25 17:01 Completed CXR [XR chest 1V] Stat Exams 07/28/25 17:01 Completed EKG (ED Only) Stat Exams 07/28/25 17:01 Draft BNP [B-Type Natriuretic Peptide] Stat Lab 07/28/25 17:11 Completed CBC Stat Lab 07/28/25 17:11 Completed CMP [Comprehensive Metabolic Panel] Stat Lab 07/28/25 17:11 Completed Troponin I Stat Lab 07/28/25 17:11 Completed dexAMETHasone INJ [Decadron Inj] Med 07/28/25 18:51 Once 10 mg IM X1 ONE Vital Signs Vital signs: Vital Signs Temperature 97.8 F 07/28/25 16:46 Pulse Rate 88 07/28/25 16:46 Respiratory Rate 22 H 07/28/25 16:46 Blood Pressure 111/72 07/28/25 16:46 Pulse Oximetry (%) 96 07/28/25 16:46 Oxygen Delivery Method Room Air 07/28/25 16:46 Discharge Plan Plan Patient Disposition: HOME (Self Care) Patient condition on transfer: Stable Prescriptions/Referrals Prescriptions/Med Rec: New albuterol-budesonide 90-80 mcg/actuation HFA aerosol inhaler 2 inh inhalation QDAY PRN (Reason: shortness of breath) Qty: 5.9 0RF No Action Trelegy Ellipta 100-62.5-25 mcg blister with device 1 inh inhalation QDAY Qty: 60 2RF metoprolol succinate 25 mg tablet extended release 24 hr 12.5 mg PO QDAY Qty: 30 0RF Entresto 24-26 mg tablet 1 tab PO BID Qty: 60 0RF atorvastatin 20 mg tablet 40 mg PO HS Qty: 30 2RF bumetanide 1 mg tablet 1.5 mg PO QDAY Qty: 60 0RF albuterol sulfate 2.5 mg/0.5 mL solution for nebulization 2.5 mg inhalation Q20M Qty: 30 2RF Rx Instructions: for up to 3 doses albuterol sulfate [Ventolin HFA] 90 mcg/actuation HFA aerosol inhaler 1 inh inhalation QID PRN (Reason: shortness of breath) Qty: 6.7 3RF Rx Instructions: Take one puff up to four times a day as needed for shortness of breath [place] Ellipta 100-62.5-25 mcg blister with device 1 inh inhalation QDAY Qty: 28 0RF Referrals: No Primary/Family,Physician [Primary Care Provider] - In 1 week Yvan Magana MD [Physician, Family Practice] - In 1 week Problem List Clinical Impression: Shortness of breath Patient/Caregiver Discharge Instructions Other Activity Instructions:: Take the medications as prescribed. If there is a worsening of symptoms return the emergency room otherwise follow-up with your primary doctor as stated and sorted out which medications you need to take. Education Materials: ED Shortness of Breath (Dyspnea) Print Language: [place] Stand Alone Forms: Ruth Ann Award Info., Patient Portal Info Letter, Work/School Release PA/STEAMING MACHINE OPERATOR Supervising Physician PA/STEAMING MACHINE OPERATOR Supervising Physician: Frank Luna ENP [facility] Clinical Information Provided by: patient Medical Records reviewed [facility] Meds/Rx considered, not ordered None Labs/Rad/Tests considered, not ordered None Chronic Illness/Social Conditions which may negatively complicate care or outcome(s)-explain: None or not applicable EKG EKG not done Labs Labs: interpreted by ak Lab(s) Interpretation(s): CBC shows no acute leukocytosis anemia thrombocytopenia CMP shows no significant electrolyte imbalances renal impairment transaminitis or T. bili elevation Imaging Imaging interpretation: interpreted by me Imaging Interpretation(s): Chest x-ray is questionable for perihilar pneumonia. Medication Administration(s) Medication Administration History Dexamethasone Sodium Phosphate (Dexamethasone Sod Phos Inj 10 Mg/Ml Vial) 10 mg IM X1 ONE Stop: 07/28/25 18:52
[2025-07-28 19:14] VITALS: BP 110/73; PULSE 89; RESP 20; TEMP 36.6; O2SAT 96
== END 2025-07-28 19:16 | disposition home or self-care (01) ==
PROVIDERS: Physician Assistant; Emergency Provider Emergency Medicine
DX: R06.02 Shortness of breath (principal); I50.9 Heart failure, unspecified
CPT/HCPCS: 36415; 71045; 80053; 83880; 84484; 85025; 93005; 96372; 99283; J1100